=== PATIENT | female | born 1935 | race Caucasian/White ===

== ENCOUNTER → 2018-02-26 02:15 | Outpatient (CLI) | payer MEDICARE, OTHER, SELFPAY ==
--- NOTE | 2018-02-26 14:35 | DI.REPORT_ITS ---
SYMPTOMS/DIAGNOSIS: LEFT HIP PAIN, M25.559; LOW BACK PAIN, M54.5; LEFT KNEE PAIN, M25.562, WEAKNESS OF LEFT LEG, R53.1 LEFT HIP AND AP PELVIS: Multiple views. No priors. There is loss of the superior joint space of the left hip. Large subchondral cystic changes are seen in both the articular surfaces of the left femoral head and the superior acetabulum. There is also loss of volume of the left femoral head with flattening of the articular surface. Mild spurring is seen at the acetabular roof. No acute fracture or dislocation is identified. The right hip is well maintained. The sacroiliac joints and symphysis pubis appear intact. The soft tissues are unremarkable. IMPRESSION: Marked changes involving the left hip including loss of the joint space, subchondral cystic formation and flattening of the femoral head. This may represent advanced osteoarthritis. Advanced avascular necrosis should also be considered. Infection cannot be excluded. LEFT KNEE: Three views. No priors. Mild degenerative changes are seen in the knee. No acute fracture or dislocation is identified. The soft tissues are unremarkable. IMPRESSION: Mild degenerative changes of the left knee. LUMBAR SPINE: AP, lateral and bilateral oblique views. No priors. There is a marked right convex rotoscoliosis of the lower thoracic and lumbar spine. No acute fractures or subluxations are seen. No spondylolysis or spondylolisthesis is seen. Endplate osteophytes are seen from T12-L1 through L3-L4. There does appear to be disc space narrowing at T12-L1 and L2-L3. There are degenerative changes of the facets seen in the lower lumbar spine. IMPRESSION: 1. Marked dextrorotoscoliosis of the thoracolumbar spine. 2. Moderate degenerative changes in the lumbar spine.
== END ==
PROVIDERS: PCP Family Medicine; Visit Provider Family Medicine
DX: M25.552 Pain in left hip (principal); M16.12 Unilateral primary osteoarthritis, left hip; M54.5 Low back pain; M47.815 Spondylosis without myelopathy or radiculopathy, thoracolumbar region; M25.78 Osteophyte, vertebrae; M25.562 Pain in left knee; M17.12 Unilateral primary osteoarthritis, left knee
CPT/HCPCS: 72110; 73502; 73562

== ENCOUNTER 2018-03-26 13:27 | Outpatient (REF) | payer MEDICARE, SELFPAY ==
[2018-03-26 22:09] LABS: Abs Immature Grans 0.03 k/cumm (0.0-0.09); Absolute Basophil Count 0.02 k/cumm (0.0-0.2); Absolute Eosinophil Count 0.01 k/cumm (0.0-0.7); Absolute Lymphocyte Count 1.02 k/cumm (1.2-3.4); Absolute Monocyte Count 0.57 k/cumm (0.11-0.7); Absolute Neutrophil Count 6.39 k/cumm (1.2-6.7); Basophils % 0.2; Eosinophils % 0.1; HCT 39.3 % (36.0-46.0); Immature Grans % 0.4; Lymphocytes % 12.7; Mean Corp. HGB Concentration 33.1 g/dL (32.0-36.0); Mean Corpuscular Hemoglobin 31.6 pg (27.0-33.0); Mean Corpuscular Volume 95.4 fL (80-95); Mean Platelet Volume 10.9 fL (8.0-11.0); Monocytes % 7.1; Neutrophils % 79.5; Platelet Count 265 x1000/uL (130-400); RBC 4.12 m/cumm (4.00-5.20); RBC Distribution Width 13.2 % (11.7-14.6); White Blood Cell Count 8.04 k/cumm (4.4-10.8)
[2018-03-26 22:16] LABS: Anion Gap 8.3 mmol/L (3-11); BUN 27 mg/dL (7-18); C-Reactive Protein 0.18 mg/dL (0.0-0.3); CO2 30.7 mmol/L (21.0-32.0); Calcium 9.3 mg/dL (8.5-10.1); Chloride 97 mmol/L (98-107); Glucose 83 mg/dL (70-100); Potassium 4.3 mmol/L (3.5-5.1); Sodium 136 mmol/L (136-145)
[2018-03-26 22:50] LABS: ESR 41 MM/HR (0-30)
== END 2018-03-26 13:47 ==
LOC: NCHCN 13:27
PROVIDERS: PCP Family Medicine; Visit Provider Family Medicine
DX: M25.559 Pain in unspecified hip (principal); M25.562 Pain in left knee; R53.83 Other fatigue
CPT/HCPCS: 80048; 85652; 85025; 86140

== ENCOUNTER 2018-04-03 13:32 | Outpatient (CLI) | payer MEDICARE, OTHER, SELFPAY ==
--- NOTE | 2018-04-03 13:50 | DI.RAD_ITS ---
SYMPTOMS/DIAGNOSIS: AVN LT HIP LEFT HIP: Frontal and lateral views. Comparison is 02/26/18. There is again seen marked narrowing of the superior joint space of the left hip. There is flattening of the articular surfaces. Large subchondral cysts are seen in the femoral head with smaller cysts seen in the acetabular roof. Subchondral sclerosis is seen. No acute fracture or dislocation is present. The soft tissues are unremarkable. IMPRESSION: Stable changes in the left hip which may reflect advanced avascular necrosis. Advanced osteoarthritis should also be considered.
== END 2018-04-03 13:52 ==
PROVIDERS: Visit Provider Student in an Organized Health Care Education/Training Program
DX: M87.052 Idiopathic aseptic necrosis of left femur (principal); M16.12 Unilateral primary osteoarthritis, left hip; M25.562 Pain in left knee; M25.552 Pain in left hip
CPT/HCPCS: 99204; 99214; 73502

== ENCOUNTER 2018-04-09 01:00 | Outpatient (CLI) | payer MEDICARE, SELFPAY ==
[2018-04-09] MEDS: Gadoterate meglumine 20 ML VIAL 12 ML IVP (11:01)
--- NOTE | 2018-04-09 11:17 | DI.MRI_ITS ---
SYMPTOM/DIAGNOSIS: LT HIP DEFORMITY WITH CYSTS, ? INFECTION, M21.774 LEFT HIP MRI: Routine noncontrast examination was performed. Comparison xray is 04/03/18. In the superior acetabulum, there are multiple subchondral cysts present. Mild edema is seen in the marrow. The left femoral head shows mild marrow edema. There are several subchondral cysts present. There also appears to be loss of volume of the femoral head with flattening of the articular surface. There is loss of the joint space superiorly. There is a large joint effusion. No definite findings to suggest an occult fracture are seen. Following contrast administration, no abnormal enhancement is seen to suggest infection. There is moderate fatty atrophy of the left gluteus muscles. No soft tissue mass is appreciated. IMPRESSION: Findings most suggestive of advanced degenerative changes of the left hip. The findings were discussed with Dr Carmona on the date of the examination.
== END 2018-04-09 01:20 ==
PROVIDERS: PCP Family Medicine; Visit Provider Student in an Organized Health Care Education/Training Program
DX: M21.952 Unspecified acquired deformity of left thigh (principal); M85.452 Solitary bone cyst, left pelvis; M25.452 Effusion, left hip; M16.12 Unilateral primary osteoarthritis, left hip
CPT/HCPCS: 73723

== ENCOUNTER 2018-04-10 10:25 | Outpatient (CLI) | payer MEDICARE, SELFPAY ==
[2018-04-10 12:41] LABS: HCT 39.7 % (36.0-46.0); Mean Corp. HGB Concentration 32.7 g/dL (32.0-36.0); Mean Corpuscular Hemoglobin 31.6 pg (27.0-33.0); Mean Corpuscular Volume 96.4 fL (80-95); Mean Platelet Volume 9.8 fL (8.0-11.0); Platelet Count 246 x1000/uL (130-400); RBC 4.12 m/cumm (4.00-5.20); RBC Distribution Width 13.3 % (11.7-14.6); White Blood Cell Count 9.71 k/cumm (4.4-10.8)
[2018-04-10 12:55] LABS: Anion Gap 6.9 mmol/L (3-11); BUN 34 mg/dL (7-18); CO2 32.1 mmol/L (21.0-32.0); CREATININE 0.63 mg/dL (0.55-1.02); Calcium 9.4 mg/dL (8.5-10.1); Chloride 99 mmol/L (98-107); Glucose 128 mg/dL (70-100); Potassium 3.5 mmol/L (3.5-5.1); Sodium 138 mmol/L (136-145)
== END 2018-04-10 10:45 ==
PROVIDERS: PCP Family Medicine; Visit Provider Student in an Organized Health Care Education/Training Program
DX: M25.552 Pain in left hip (principal); M16.12 Unilateral primary osteoarthritis, left hip; Z01.812 Encounter for preprocedural laboratory examination
CPT/HCPCS: 80048; 85027; 86850; 86900; 86901

== ENCOUNTER 2018-04-11 10:58 | Inpatient (IN) | payer MEDICARE, SELFPAY ==
--- NOTE | 2018-04-10 12:37 | NUR.NOTE ---
04/10/18 Per Pt she sees a holistic PHD for a lot of her health care needs and supplement recommendations. Nursing Note:
--- NOTE | 2018-04-10 14:01 | HPE_ITS ---
Assessment and Plan (1) Avascular necrosis of bone of left hip: Current visit: Yes Status: Chronic The basic anatomy and the operative procedure is reviewed with the patient she is also given a patient information booklet formulated by Dr. Carmona that fully explains the ins and outs of total hip replacement. I addressed all her queries and concerns. She is scheduled for a total hip replacement by Dr. Carmona tomorrow on 04/11/2018. (2) Heart palpitations: Current visit: No Status: Chronic (3) Status post left breast lumpectomy: Current visit: No Status: Resolved (4) H/O hysterectomy for benign disease: Current visit: No Status: Resolved History of Present Illness Chief Complaint: Left lateral knee pain Narrative: This 82-year-old female began being troubled by left lateral knee pain of an atraumatic nature. She had a workup with x-rays and a clinical exam which showed her knee to have no evidence of OA she additionally had a workup with a left hip x-rays which showed advanced OA the x-ray showed a severe dependent degenerative changes with cystic changes and loss of acetabular femoral head joint space. The knee pain was felt to be a manifestation of referred hip pain. On further questioning the patient complained of difficulty applying her socks and shoes and dressing, walking and pain with any prolonged standing. She noted inability to lie flat in bed at night with sleep disturbance. Review of Systems ENT Reports system reviewed and no additional complaints, except as docu Cardiovascular Denies chest pain Comments: Patient describes episodes of several seconds of palpitations especially when she lies in bed at night. She adamantly relates that this never last longer than a couple seconds denying pounding in her chest and any lightheaded syncopal feeling. Respiratory Denies excessive phlegm production and Denies pain with cough Gastrointestinal Denies abdominal pain, Reports diarrhea (chronic), Denies nausea and Denies vomiting Genitourinary Denies hematuria and Denies dysuria Musculoskeletal Reports as per HPI PFSH Medical History 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) Heart palpitations (Chronic) Surgical History H/O hysterectomy for benign disease (Resolved) Status post left breast lumpectomy (Resolved) Meds Home Medications Medication Instructions Recorded Confirmed Type celecoxib 100 mg capsule 100 mg PO TID 04/03/18 04/10/18 History Cbd 1 cap PO TID 04/10/18 History Cucurmim 1 tab PO BID 04/10/18 04/10/18 History Lacto.acidophilus-Bif.animalis 1 cap PO DAILY 04/10/18 04/10/18 History [Probiotic] Thyroid Tincture 20 drp PO BID 04/10/18 History calcium carbonate-vitamin D3 1 tab PO DAILY 04/10/18 04/10/18 History [Calcium 600 + D(3)] diclofenac sodium [Voltaren] 4 g TOPICAL QID 04/10/18 04/10/18 History hawthorn [hawthorn morfin] 1 tab PO DAILY 04/10/18 04/10/18 History ibuprofen [Advil] 200 - 400 mg PO DIRECTED PRN 04/10/18 04/10/18 History multivitamin 1 cap PO DAILY 04/10/18 04/10/18 History oxycodone 0.5 - 1 tab PO TID PRN 04/10/18 04/10/18 History selenium 100 mcg PO BID 04/10/18 04/10/18 History vitamin B complex [B Complex 1] 1 tab PO DAILY 04/10/18 04/10/18 History Allergies Allergy/AdvReac Type Severity Reaction Status Date / Time tramadol Allergy Intermediate krish, Verified 04/10/18 11:54 GI, very ill Exam HENMT Face and sinus: normal facial exam Throat: tonisls abnormal and uvula midline Resp Auscultation: clear to auscultation bilaterally, no rales and no wheezes Cardio Jugular venous pressure: no JVD Rate: regular rate Rhythm: regular rhythm Heart Sounds: other (normal) Bruits: no carotid bruits Extrem Other: Exam is conducted in a wheelchair knee exam is benign with non-irritable flexion and extension. Exam of her left hip shows marked irritability with grimacing. She has no internal rotation and there is an audible click heard and felt. Her abduction is extremely limited. Results Labs Her CBC is normal with a WBC count of 9.77 along with an H&H which is 13.0/ 39.7. Glucose is 128 sodium is 138 over a potassium of 3.5 creatinine is 0.63
[2018-04-11] VITALS (11 sets, daily range): BP systolic 76–132; BP diastolic 43–79; PULSE 64–81; RESP 12–21; TEMP 35.6–37.2; O2SAT 77–98
[2018-04-11] MEDS: Lactated Ringers 1,000 ML 80 ML IV ×3 (11:36→17:32)
[2018-04-11] MEDS: Acetaminophen 500 MG TAB 1000 MG PO ×2 (11:37→19:59)
[2018-04-11] MEDS: oxyCODONE-CR 10 MG TABCR PO (11:37)
[2018-04-11] MEDS: Celecoxib 200 MG CAP 400 MG PO (11:37)
[2018-04-11] MEDS: Ketorolac 30 MG/ML VIAL (14:17)
[2018-04-11] MEDS: Bupivacaine 0.25% Pres-Free 30 ML VIAL (14:17)
--- NOTE | 2018-04-11 14:26 | DI.RAD_ITS ---
SYMPTOMS/DIAGNOSIS: LT HIP OA C-ARM FLUOROSCOPY OF THE LEFT HIP: Fluoroscopy Time: 41.4 sec 3.78 mGy Fluoroscopy was provided in the OR for Dr. Carmona. Hardcopy images show placement of a left total hip prosthesis. The components appear well aligned. PORTABLE PELVIS: The patient is status post placement of a left total hip prosthesis. The components appear well aligned. There is a small amount of residual post surgical air in the soft tissues.
[2018-04-11] MEDS: Celecoxib 200 MG CAP PO (19:59)
--- NOTE | 2018-04-11 20:24 | W.PM.OP ---
Date of service: 04/11/18 Time of Service: 15:24 Operative Note DATE OF PROCEDURE: 04/11/18 PRE-OP DIAGNOSIS: Left Hip Osteoarthritis POST-OP DIAGNOSIS: same PROCEDURE: Left Anterior Total Hip Arthroplasty SURGEON: Jorge Luis Carmona CHIEF DEPUTY SHERIFF: Cuco Andujar ANESTHESIA: spinal ESTIMATED BLOOD LOSS: 350 PATHOLOGY: none sent COMPLICATIONS: None Patient was transported to: PACU Patient's condition: stable Implants: 1. Depuy [place] Acetabular Component, 48 mm 2. Depuy Acetabular Liner, 48x32 mm 3. Depuy Corail standard Collared femoral Stem, Size 11 4. Depuy Altrx Ceramic Femoral Head, Size 32+1 mm Indications: I have seen Kierra in clinic for symptoms of hip arthritis, confirmed with radiographic findings. Kierra has exhausted nonoperative methods and was having significant limitations in daily function and desired better function and less pain. I discussed the technical details of a hip replacement. I explained the risks of the procedure to include, but not limited to, bleeding, infection, pain, stiffness, fracture, damage to nerves and vessels, damage to muscles and tendons, loosening, instability, leg length inequality, need for repeat procedure, blood clot and cardiopulmonary demise. Despite these risks, Kierra elected to proceed. Findings: There was significant signs of arthritis throughout the hip. There is some collapse of the femoral head. There are arthritic changes seen both of the femur and the acetabulum. The hip had been migrated to a superior lateral position. The cyst were not encountered on the acetabulum and nor were they sought. I was able to get good bony contact but I did move the hip center somewhat superiorly to the better bone. Procedure Description: Kierra was greeted in the preoperative holding area where the correct side was identified and marked. The consent was reviewed with the patient and signed. The history and physical was updated. All questions were answered. Kierra was taken back to the operating room. A spinal anesthestic was then administered. The patient was placed into the supine position on the operating room table. The patient was then positioned onto the ARCH table. Both feet were wrapped with [place] cotton wrap along with Coban. The feet were placed in specialized boots for the ARCH table, well seated within the boot and secured. SCDs were applied. The patient was then slid down onto a peroneal post and the nonoperative leg was secured in a leg hernandez attached to the table. The operative side was placed into the ARCH table attachment and bed height and positioning was secured. A preoperative AP pelvis was obtained to serve as a reference for determining leg lengths. Prophylactic antibiotics in the form of cefazolin were administered. 1g of Tranxemic Acid was given intravenously within 30 minutes of incision. The left leg was then prepped with Chloraprep and draped in a standard fashion with a large shower-curtain type drape with Iodine impregnated skin protection. A timeout to confirm correct identity, side and site, procedure, allergies, anesthesia, and medical concerns was performed. An obliquely oriented incision was made starting lateral to the ASIS and running distal over the Tensor Fascia Kori (TFL) muscle belly toward the fibular head, approximately 10cm. The skin and soft tissue was dissected sharply, through Alcides?s fascia, and to the fascia of the TFL. With the fascia and superior border of the IT band identified, the fascia was incised with a new knife just above any perforators from the IT band. The TFL muscle belly was bluntly dissected away from the fascia and moved laterally. The fat between TFL and rectus was identified to ensure the dissection was not within the TFL. Blunt dissection created space between abductors and the capsule and retractor was placed over the lateral femoral neck. The fibers of the rectus femoris tendon were identified and these were freed from the anterior capsule. A second cobra retractor was placed around the medial femoral neck. The TFL was further retracted laterally to show the deep fascia. Careful dissection through this layer identified three main crossing vessels of the lateral femoral circumflex. These were cauterized in multiple locations and then cut without any noticeable bleeding. The TFL was further released bluntly from the deep fascia to expose anterior hip capsule and fat the Davin orthopaedic retractor was then placed beneath the TFL and against sartorius and medial soft tissues to protect and retract the soft tissues. A T-capsulotomy was then performed starting at the superior lateral acetabulum and moving distally to the intertrochanteric ridge. These capsular flaps were tagged with a No. 1 Ethibond and elevated from within. The capsular flaps were released to the shoulder of the lateral neck and to the lesser trochanter to give excellent visualization of the proximal femur. A neck osteotomy was performed using an oscillating saw based on preoperative templates. This cut started in the shoulder and of the lateral neck and exited medially. The saw was at all times directed medially to avoid injury to the greater trochanter. 6cm of traction was applied to the leg and the osteotomy opened. The femoral head was removed with a corkscrew, making sure to protect the TFL on its exit. This was measured on the back table to determing the starting reamer size. Portions of the rectus obscuring visualization were minimally elevated off the superior acetabulum. An anterior retractor was placed over the anterior wall between capsule and labrum. A posterior retractor was placed similarly. This provided excellent visualization. The contents of the cotyloid fossa were removed with electrocautery and the labrum was removed with a knife. There was a notable floor osteophyte. There was significant chondromalacia of the superior acetabulum. Acetabular reaming began with a 44 mm reamer. This first reaming was directed anterior to posterior and medial to get down to the true floor. This was inspected and reamed until the true floor was reached. I then reamed sequentially up to a 47 mm reamer where good fit was obtained. The larger reamers were oriented based on anatomical reference of the anterior and lateral garcia to ensure proper abduction and anteversion. Positioning and size was confirmed with the fluoroscopy. A 48 mm Depuy [place] acetabular component was selected. The acetabulum was reamed around the periphery with the selected acetabular size to prevent a rim fit. The deep tissues were irrigated. The acetabular component was then impacted in a position of about 50 degrees of abduction and 15-20 degrees of anteversion, using the patient?s anatomy as the ultimate landmark. Fluoroscopy was used to confirm this. Please accompanied more of a vertical position due to the shallow nature of the cup in order to maximize bony coverage. It seemed like and maximize the anteversion although I still was under anteverted based on her anterior wall. There was excellent position description manager of the acetabular component and the inserting handle was removed. A primary acetabular screw was placed into the ilium by drilling through one of the holes in the acetabular component. This was measured and an approrpriately sized screw was placed with excellent purchase. It was checked not to be proud. A second screw was placed in a similar fashion. The acetabular liner, Depuy 48x32 mm polyethylene liner, was inserted and lined up with the tines of the acetabular component. There was no soft tissue interposition. The liner was then impacted into position and confirmed to be well-seated. A portion of the aime-articular cocktail was then injected around the acetabulum into the capsule and periosteum. This cocktail consisted of 50cc of 0.25% Bupivicaine and 20cc of Exparel, expanded to a total of 120cc. Traction was released from the femur. The leg was rotated to 120 degrees. Any remaining medial capsule was released until the lesser trochanter was easily palpable. A Godwin retractor was placed medially. The lateral capsule was further released into the shoulder to allow access to the greater trochanter. A Godwin retractor was placed over the greater trochanter which allowed the trochanter to flip in front of the capsule for excellent exposure. The leg was brought down into maximal extension and 20 degrees of adduction while ensuring there was no impingement on the acetabulum. Any remnant capsule within the trochanter was released. Piriformis and obturator externis were identified and protected. There was excellent access to the proximal femur. The lateral neck remnant was removed with a rongeur. A blunt canal probe was used to identify the canal and trajectory for later broaching. A box osteotome initiated the broach course. A small curved rasp and a curved curette were used to work laterally. Broaching then began with a size 8 Corail broach. This was inserted manually around the trochanter and into the canal before mallet blows. The broach was seated to the neck cut level based on the neck cut and the preoperative template. Sequential broaching was continued until a tight fit was obtained with good rotational control of the femur. A trial standard neck was inserted along with a +1 trial head. The leg was brought out of extension and adduction and then reduced with traction and internal rotation. The leg was stable anteriorly in a position of 30 degrees of extension and 90 degrees of external rotation. Fluoroscopy was used to ensure there was no fracture and the stem was seated well. Leg lengths were checked with an AP pelvis and pelvic reference points. Once content with the desired offset and leg lengths, the leg was brought back into extension, external rotation and adduction. The periosteum and surrounding tissue was injected with remaining portion of the aime-articular cocktail. The proximal femur was irrigated as well as the deep tissues. The [employer] Corail standard collared stem, size 11, was then manually inserted into the proximal femur making sure to control rotation. It was then malleted into position with light blows, giving breaks to allow bone expansion and decrease risk of fracture. The selected Depuy Altrx Ceramic Head, size 32+1 mm, was then placed onto the clean and dry trunnion and secured with impaction onto the tapered fit. The leg was brought back out of extension and adduction and reduced with traction and internal rotation. Stability was confirmed with no shuck at 90 degrees of external rotation and 30 degrees of extension. No impingement through range of motion arc. Final x-ray images were obtained with fluoroscopy to confirm adequate positioning and no intraoperative fracture. The deep tissues were thoroughly irrigated with a pulse lavage. The second dose of TXA 1g was administered intravenously. The capsule was then reapproximated with the previously placed Ethibond sutures. The TFL fascia was finally closed with a No. 2 Stratafix, barbed suture. Deep tissues were then reapproximated with 0 Vicryl and a running 2-0 Vicryl. The skin was closed with a running 4-0 Monocryl in a subcuticular fashion. This was reinforced with skin glue. A Mepilex silver dressing was applied. At the end of the case, all counts were correct. Kierra was transferred to the hospital bed without difficulty and suffering no apparent complication. Kierra has a good prognosis. Physical therapy will start today and without restrictions, weight-bearing as tolerated. Aspirin 81mg BID will be used for DVT prophylaxis.
[2018-04-12] VITALS (8 sets, daily range): BP systolic 92–123; BP diastolic 51–64; PULSE 66–89; RESP 14–18; TEMP 36.5–36.9; O2SAT 94–98
[2018-04-12] MEDS: Lactated Ringers 1,000 ML 80 ML IV ×2 (07:02→18:08)
[2018-04-12 07:30] LABS: HGB 9.7 g/dL (12.0-15.5); Mean Corp. HGB Concentration 33.4 g/dL (32.0-36.0); Mean Corpuscular Volume 95.7 fL (80-95); Mean Platelet Volume 10.1 fL (8.0-11.0); Platelet Count 186 x1000/uL (130-400); RBC 3.03 m/cumm (4.00-5.20); White Blood Cell Count 11.66 k/cumm (4.4-10.8)
[2018-04-12 07:45] LABS: Anion Gap 5.9 mmol/L (3-11); BUN 21 mg/dL (7-18); CO2 28.1 mmol/L (21.0-32.0); CREATININE 0.58 mg/dL (0.55-1.02); Calcium 8.1 mg/dL (8.5-10.1); Chloride 107 mmol/L (98-107); Glucose 96 mg/dL (70-100); Potassium 4.1 mmol/L (3.5-5.1); Sodium 141 mmol/L (136-145)
[2018-04-12] MEDS: Calcium 600mg/Vit D 200U TAB 1 TAB PO (08:12)
[2018-04-12] MEDS: Pantoprazole 40 MG TABCR PO (08:12)
[2018-04-12] MEDS: Multivitamin TAB 1 TAB PO (08:12)
[2018-04-12] MEDS: Aspirin E.C. 81 MG TABEC PO ×2 (08:12→20:36)
[2018-04-12] MEDS: oxyCODONE 5 MG TAB PO (08:13)
[2018-04-12] MEDS: Lactobacillus Acidophilus CAP 1 CAP PO (08:13)
[2018-04-12] MEDS: Celecoxib 200 MG CAP PO ×2 (08:13→20:37)
[2018-04-12] MEDS: Acetaminophen 500 MG TAB 1000 MG PO ×3 (08:14→20:37)
[2018-04-12] MEDS: Vitamins B Comp w/C TAB 1 TAB PO (08:16)
--- NOTE | 2018-04-12 09:09 | PHARADMIT ---
Addendum entered by Elke Turner 04/14/18 14:41: Pharmacy Note Subjective continues to work w/PT for her necrosis of bone of left hip surgery on 04/11/18 Objective BP 98/60, HR 60-70's, last labs on 04/12 Assessment BP fluctuations adding Remeron 15mg HS tonight for s/s depression Plan Psych consult Sunday Possible H&R on Sunday if bed available Original Note: Admission Pharmacy Clinical Review PALPITATIONS Code Status Full Code Current Weight Wgt-64 kg Renally Cleared and Narrow Therapeutic Index Meds CrCl~ 39.6 mL/min Meds-OK QTc Value / Action Taken NA BP Control, Fever BP- 92/54 Tmax- 36.8C Electrolytes reviewed Na- 141 K+4.1 DVT Prophylaxis NA Opiate Usage / Scheduled Bowel Regimen Ordered Yes Yes Plt/SCr for Heparin / Enoxaparin Plts- 186 SCr- 0.58 INR for Warfarin NA H/H stable, WBC/Bands H&H- 9.7/29.0 WBC- 11.66 Antibiotic appropriateness Ancef Cultures and Sensitivities NA Surgical ABX d/c within 24 hr Yes DM control / Insulin Dosing BG-96 Heart Failure (Check EF%) (UVALDO's, B-Block, Diuretics) none IV to PO Switch No Home Meds Reviewed Yes Home Meds Not Ordered , Advil,M-Vites, CBD, Thyroid tinc, Selenium< Comments PatOwn Seadrift, Cucurmin,Voltaren Gel
--- NOTE | 2018-04-12 09:53 | IN_ITS ---
Date of service: 04/12/18 Time of Service: 09:31 PT Notes Inpatient Physical Therapy Evaluation Date: 04/12/18 Referring Doctor: Jorge Luis Carmona PT Orders: PT CONSULT: s/p L anterior SHITAL Precautions: WBAT L LE Patient Profile/Admitting Diagnosis: Pt is an 82yr old female s/p left anterior total hip by Dr. Carmona 04/11/18 PMHX: left breast lumpectomy, hysterectomy Social History/Home Situation: Lives alone in a house, 2 steps with grab bar to enter, 12 steps with railing to downstairs where she does laundry. Pt states she would only have to go downstairs once a week, states she has had friends helping her but she will need someone at discharge to help with her laundry and groceries until she recovers from surgery. Pt 's baseline mobility is independent gait with 4WW, independent with ADLS performs a sponge bath. Pt states she would rather not go to rehab at discharge, she would like to go home but will need increased help. Equipment Owned/DME: 4WW, raised toilet seat with arms Subjective: Pt lying in bed, anxious, worried about getting out of bed. Pt stating her left knee is sore, states her knee was very painful before the surgery and now it is just sore. Pt agreeable to PT Consult. Objective: General Observation: IV R UE, [place] catheter Mental Status: A & Ox3 Pain: c/o pain left knee not rated Bed Mobility/Transfers: Supine-sit: HOB 35 degrees, CGA Sit-stand: CGA with FWW. Pt very anxious and pulling up on FWW instead of leaning forward, required tactile assistance for proper weight shifting to maintain balance to standing position Bed-chair: CGA with FWW Stand-sit: CGA Gait: CGA with FWW 20ftx2 WBAT L LE. slow step to gait pattern, pt very anxious requiring step by step cueing to sequence steps for safety. Pt left up in chair after session completed. Therex: Initiated ankle pumps, quad sets, glute sets x 20 reps Balance: Static Sitting: normal Dynamic Sitting: normal Static Standing: fair Dynamic Standing: poor Special Tests: Mobility Limitations Standardized Measure [facility] 6 clicks Basic Mobility Inpatient Short Form: Raw Score: 17 Standardized Score: 42.13 CMS Score: 50.57% CMS Modifier: CK Informed Consent/Education: Patient instructed in purpose of PT consult and plan of care. Assessment: Pt is an 82yr old female s/p left anterior total hip by Dr. Carmona 04/11/18. Patient presents with clinical signs and symptoms consistent with post op anterior SHITAL, as demonstrated by the following impairment level findings: pain left hip affecting mobility, weakness left hip, decreased strength with bed transfers, standing transfers and gait requiring FWW for stability and increased time to complete mobility, pt is very anxious which increases her risk for falls, she presents with decreased static and dynamic standing balance. Pt lives alone and is concerned about returning to home setting without increased support services in home to assist with meals and laundry. Pt may require rehab placement prior to return to home, unless supportive home services can be put in place. OT consult recommended in hospital setting for instruction in safety with ADLS. Impairments are contributing to the following functional limitations: AMPAC score CMS Score: 50.57% Patient is assessed as a High [id number] complexity based on the following: History: see above Examination: see above Presentation: evolving Decision Making: AMPAC score CMS Score: 50.57% Goals: Goals X1 week 1. Supine-Sit : independent 2. Sit-Supine : independent 3. Sit-Stand : supervision with FWW 4. Stand-Sit : supervision with FWW 5. Bed-Chair : supervision with FWW 6. Chair-Bed : supervision with FWW 7. Gait : supervision with FWW 100ft WBAT L LE 8. Stairs up/down 12 steps with railing, supervision, WBAT L LE 9. Independent with home exercise program Plan of Care/Treatment Plan: 1-2x/day, 7 days/week x 1 week. Plan of care has been reviewed with the [employer] providing the service under Physical Therapy direction. Initiate Physical Therapy intervention for strengthening, bed mobility, transfers, gait, stairs, balance training, use of assistive device. DISCHARGE RECOMMENDATIONS: Home with home PT/OT vs. rehab facility TREATMENT CODE/TIME: 30 IE 9:30 G Codes in the area mobility of walking and moving around: current status [id number] CK; projected status GP [id number]. Discharge status (if discharging) GP [id number] CK based on AMPAC score CMS Score: 50.57% Amy Hallman PT
--- NOTE | 2018-04-12 10:53 | OT.INIE ---
Occupational Therapy Notes Inpatient Occupational Therapy Evaluation Date: 04/12/18 Referring Doctor:Jorge Luis Carmona MD OT Orders: S/P L SHITAL Precautions: WBAT (L) LE PATIENT PROFILE/ADMITTING DIAGNOSIS: Pt is an 82 year old female s/p (L) SHITAL performed by Dr. Carmona on 04/11/18. Past Medical History: (L) breast lumpectomy, hysterectomy Current Functional Limitations: Decreased (I) in ADLs, anxious to return home, decreased functional activity tolerance, decrease functional (B) UE strength. Social History/Home Situation: Pt reports that she lives alone in a private home. She has 2 steps with railing to enter her home, 12 steps to her basement where she performs her laundry. She reports that she doesn't have to go down the stairs frequently and has friends who would come and help her but she is unsure as to whether they will be able to help her when she returns home. She reports that her previous independence in ADL/IADLS was (I) bathing at sink, (I) UE dressing, unable to dress socks and shoes so she wore slippers, (I) toileting and (I) in cooking. However had assistance with laundry and grocery shopping. Pt will need (A) when she returns home for these. Pt states that she does not want to go to any type of rehab pnce leaving her and she would like to return home with increased help. Equipment owned/DME: 4WW, raised toilet seat with arms. SUBJECTIVE: Pt sitting in chair when OT arrived. She states that she is agreeable to OT session but she is very scared to move her leg right now. OT educated pt on WBAT status and ability to put weight on hip. Pt receptive to education and states that she is unsure how to explain how she was feeling about moving. OBJECTIVE: General Observation: IV R UE, [place] catheter Mental Status: A&Ox3 Pain: no c/o pain but states that hip is uncomfortable. ROM: RUE WNL L UE WNL STRENGTH: RUE shoulder 3+/5, bicep 5/5, lease purchase driver 5/5. Pt reports that her (R) ej tends to ache from previous fall that occurred a couple years ago. LUE shoulder 4/5, bicep 5/5, lease purchase driver 5/5 SENSATION: No numbness or tingling (B) UE. FUNCTIONAL MOBILITY/ADLS: Sit-Stand CGA, FWW BATHING Pt denies. DRESSING Dressing LE Education and sock aid provided to pt with written and illustrated handout to increase (I) in donning socks. Pt demonstrates good technique with minimal verbal cues. TOILETING: [place] EXERCISES: Pt educated on UE strengthening to increase (I) in functional mobility and ADL routine. Pt performed biceps with yellow ther ex 10x (B) UE, Shoulder flexion with yellow band 10x, and lease purchase driver strengthening with pink foam cube. Pt unable to perform chair push ups at this time. Pt EDUCATION: Pt provided written and illustrated handout for mobility with walker, functional mobility with walking in the kitchen, and use of sock aid. Pt receptive to education provided. BALANCE: Static sitting normal Dynamic Sitting good Static Standing fair-good SPECIAL TESTS: Daily Activity Limitations Standardized Measure [facility] AM -PAC ?6 clicks? Daily Activity Inpatient Short Form: Raw score: 20 Standardized score: 42.03 CMS score: 38.32% CMS modifier: CJ INFORMED CONSENT/EDUCATION: Pt instructed in purpose of OT Consult and plan of care. ASSESSMENT: Patient is a 82-year-old female referred to occupational therapy services with diagnosis of s/p (L) SHITAL. Pt presents with signs and sym[ptoms consisted with post op (L) SHITAL. Pt presents with the following following impairment level findings: Decreased strength in (B) UE affecting independence in functional mobility, use of walker and safe transitions between routines. Decreased (I) in ADLs, anxious to return home, decreased functional activity tolerance. Her anxiety to return home and fear of pain in her (L) leg is limiting her independence in her daily routines. Pt is very nervous to return home and is anxious about increased support when she returns home for her laundry and meals. Pt will need increased support services in order to return home or short term stay at rehab to increase strength and independence in ADLs. AMPAC score 20, CMS score 38.32% Patient is assessed as a Moderate [id number] complexity based on the following: History: see above Examination: see above Presentation: evolving Decision Making: AMPAC score 20, CMS score 38.32% GOALS Goals x1 week 1. Transfers S, FWW 2. Dressing UE- (I) done and doff shirt LE- mod (I) with sock aid for socks, able to pull on pants/ underwear with minimal verbal cues and FWW 3. Bathing: Standing at sink with long handled sponge pt will be (I) with routine like premorbid level of function. 4. Toileting: On raised toilet, (I) PLAN OF CARE/TREATMENT PLAN: 1x/day, 5 days/ week x 1week Initiate Occupational Therapy Services for bathing, dressing, grooming, toileting, eating, transfer training. DISCHARGE RECOMMENDATIONS home with increased support services including OT/PT. If unable to provide services short term stay at rehab. TREATMENT TIME/MINUTES/CODES 40 min IE, Self care x1, 10:05 G Codes in the area of self- : washing oneself, toileting, dressing, eating and drinking, current status [id number] CJ projected status GP [id number].
--- NOTE | 2018-04-12 11:13 | OTIE_ITS ---
Occupational Therapy Notes Inpatient Occupational Therapy Evaluation Date: 04/12/18 Referring Doctor:Jorge Luis Carmona MD OT Orders: S/P L SHITAL Precautions: WBAT (L) LE PATIENT PROFILE/ADMITTING DIAGNOSIS: Pt is an 82 year old female s/p (L) SHITAL performed by Dr. Carmona on 04/11/18. Past Medical History: (L) breast lumpectomy, hysterectomy Current Functional Limitations: Decreased (I) in ADLs, anxious to return home, decreased functional activity tolerance, decrease functional (B) UE strength. Social History/Home Situation: Pt reports that she lives alone in a private home. She has 2 steps with railing to enter her home, 12 steps to her basement where she performs her laundry. She reports that she doesn't have to go down the stairs frequently and has friends who would come and help her but she is unsure as to whether they will be able to help her when she returns home. She reports that her previous independence in ADL/IADLS was (I) bathing at sink, (I ) UE dressing, unable to dress socks and shoes so she wore slippers, (I) toileting and (I) in cooking. However had assistance with laundry and grocery shopping. Pt will need (A) when she returns home for these. Pt states that she does not want to go to any type of rehab pnce leaving her and she would like to return home with increased help. Equipment owned/DME: 4WW, raised toilet seat with arms. SUBJECTIVE: Pt sitting in chair when OT arrived. She states that she is agreeable to OT session but she is very scared to move her leg right now. OT educated pt on WBAT status and ability to put weight on hip. Pt receptive to education and states that she is unsure how to explain how she was feeling about moving. OBJECTIVE: General Observation: IV R UE, [place] catheter Mental Status: A&Ox3 Pain: no c/o pain but states that hip is uncomfortable. ROM: RUE WNL L UE WNL STRENGTH: RUE shoulder 3+/5, bicep 5/5, drop hammer setter up 5/5. Pt reports that her (R) ej tends to ache from previous fall that occurred a couple years ago. LUE shoulder 4/5, bicep 5/5, drop hammer setter up 5/5 SENSATION: No numbness or tingling (B) UE. FUNCTIONAL MOBILITY/ADLS: Sit-Stand CGA, FWW BATHING Pt denies. DRESSING Dressing LE Education and sock aid provided to pt with written and illustrated handout to increase (I) in donning socks. Pt demonstrates good technique with minimal verbal cues. TOILETING: [place] EXERCISES: Pt educated on UE strengthening to increase (I) in functional mobility and ADL routine. Pt performed biceps with yellow ther ex 10x (B) UE, Shoulder flexion with yellow band 10x, and drop hammer setter up strengthening with pink foam cube. Pt unable to perform chair push ups at this time. Pt EDUCATION: Pt provided written and illustrated handout for mobility with walker, functional mobility with walking in the kitchen, and use of sock aid. Pt receptive to education provided. BALANCE: Static sitting normal Dynamic Sitting good Static Standing fair-good SPECIAL TESTS: Daily Activity Limitations Standardized Measure [facility] AM -PAC ?6 clicks? Daily Activity Inpatient Short Form: Raw score: 20 Standardized score: 42.03 CMS score: 38.32% CMS modifier: CJ INFORMED CONSENT/EDUCATION: Pt instructed in purpose of OT Consult and plan of care. ASSESSMENT: Patient is a 82-year-old female referred to occupational therapy services with diagnosis of s/p (L) SHITAL. Pt presents with signs and sym[ptoms consisted with post op (L) SHITAL. Pt presents with the following following impairment level findings: Decreased strength in (B) UE affecting independence in functional mobility, use of walker and safe transitions between routines. Decreased (I) in ADLs, anxious to return home, decreased functional activity tolerance. Her anxiety to return home and fear of pain in her (L) leg is limiting her independence in her daily routines. Pt is very nervous to return home and is anxious about increased support when she returns home for her laundry and meals. Pt will need increased support services in order to return home or short term stay at rehab to increase strength and independence in ADLs. AMPAC score 20, CMS score 38.32% Patient is assessed as a Moderate [id number] complexity based on the following: History: see above Examination: see above Presentation: evolving Decision Making: AMPAC score 20, CMS score 38.32% GOALS Goals x1 week 1. Transfers S, FWW 2. Dressing UE- (I) done and doff shirt LE- mod (I) with sock aid for socks, able to pull on pants/ underwear with minimal verbal cues and FWW 3. Bathing: Standing at sink with long handled sponge pt will be (I) with routine like premorbid level of function. 4. Toileting: On raised toilet, (I) PLAN OF CARE/TREATMENT PLAN: 1x/day, 5 days/ week x 1week Initiate Occupational Therapy Services for bathing, dressing, grooming, toileting, eating, transfer training. DISCHARGE RECOMMENDATIONS home with increased support services including OT/PT. If unable to provide services short term stay at rehab. TREATMENT TIME/MINUTES/CODES 40 min IE, Self care x1, 10:05 G Codes in the area of self- : washing oneself, toileting, dressing, eating and drinking, current status [id number] CJ projected status GP [id number].
--- NOTE | 2018-04-12 13:30 | W.PM.PROGNOT ---
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 At this point she has been doing well. She does have significant weakness about the left hip. Her hip was high riding and the portion of the rectus muscle had to be elevated. I expect that this weakness is simply due to deconditioning and pain. The pain she had before surgery is now gone. We will continue with physical therapy. She is quite deconditioned and lives by herself and may require rehabilitation stay. We will continue with aspirin 81 mg twice daily for blood clot prevention. She will continue with physical therapy with weightbearing as tolerated. Discharge planning with case management. Subjective Interval history since last seen: Kierra reports doing well. She no longer has the knee pain and hip pain that she was having before. She does report significant fatigue. She also has significant weakness of the left leg. She does admit that she is not aware of any strength of this left leg for some time but is noticing now when she tries to flex the left hip that she is having a difficult time. She denies any numbness or tingling. She denies any fever or chills. No chest pain or shortness of breath. Exam Narrative Exam Narrative: Evaluation of the left leg shows a clean dry and intact dressing. She does have limited hip flexion. She has some pain on the anterior hip with straight leg raise. She tolerates flexion of 95 degrees, internal rotation 20 degrees and external rotation to 40 degrees without crepitus and without pain. Knee exam is benign. Sensation intact light touch over the deep and superficial peroneal nerves and tibial nerve. The foot is warm and well perfused. Objective Objective Clinical Data: Abnormal lab results 04/12/18 04/12/18 Range/Units 06:30 06:30 WBC 11.66 H (4.4-10.8) k/cumm RBC 3.03 L (4.00-5.20) m/cumm Hgb 9.7 L D (12.0-15.5) g/dL Hct 29.0 L D (36.0-46.0) % MCV 95.7 H (80-95) fL BUN 21 H D (7-18) mg/dL Calcium 8.1 L (8.5-10.1) mg/dL Vital Signs Temperature 36.8 C 04/12/18 11:31 Temperature Source Tympanic 04/12/18 11:31 Pulse 66 04/12/18 11:31 Pulse Rhythm Regular 04/12/18 08:15 Respiratory Rate 18 04/12/18 11:31 Respiratory Effort Non-Labored 04/12/18 08:15 Respiratory Depth Normal 04/12/18 08:15 Respiratory Pattern Normal 04/12/18 08:15 Blood Pressure 103/64 04/12/18 11:31 Pulse Oximetry 98 04/12/18 11:31 Respiratory End-tidal CO2 33 04/11/18 15:20 Oxygen Delivery Method Room Air 04/12/18 11:31 Oxygen Flow Rate 0 04/12/18 11:31 Pain Level 0 04/12/18 11:31 Comment 04/12/18 09:22 Intake & Output 04/11/18 04/12/18 04/12/18 23:59 11:59 23:59 Intake Total 2285.333 / 2285.333 1400 / 1400 Output Total 2250 / 2250 350 / 350 Balance 35.333 / 35.333 1050 / 1050 Weight 64 kg Intake: IV 2285.333 / 2285.333 1050 / 1050 Oral 350 / 350 Output: Urine 1850 / 1850 350 / 350 Estimated Blood Loss 400 / 400 Other: Urine Color Pale Yellow Yellow Urine Appearance Clear Clear Urine Odor None Comment pt had the sensation to urinate. MANAGER OF CUST[employer]ER [employer]ILLING did bladder scan, amount was 0 for 6+ scans. Emesis Description None Voiding Methods Indwelling Catheter Laboratory Results WBC 11.66 k/cumm (4.4-10.8) H 04/12/18 06:30 RBC 3.03 m/cumm (4.00-5.20) L 04/12/18 06:30 Hgb 9.7 g/dL (12.0-15.5) L D 04/12/18 06:30 Hct 29.0 % (36.0-46.0) L D 04/12/18 06:30 MCV 95.7 fL (80-95) H 04/12/18 06:30 MCH 32.0 pg (27.0-33.0) 04/12/18 06:30 MCHC 33.4 g/dL (32.0-36.0) 04/12/18 06:30 RDW 13.0 % (11.7-14.6) 04/12/18 06:30 Plt Count 186 x1000/uL (130-400) 04/12/18 06:30 MPV 10.1 fL (8.0-11.0) 04/12/18 06:30 Sodium 141 mmol/L (136-145) 04/12/18 06:30 Potassium 4.1 mmol/L (3.5-5.1) 04/12/18 06:30 Chloride 107 mmol/L (98-107) 04/12/18 06:30 Carbon Dioxide 28.1 mmol/L (21.0-32.0) 04/12/18 06:30 Anion Gap 5.9 mmol/L (3-11) 04/12/18 06:30 BUN 21 mg/dL (7-18) H D 04/12/18 06:30 Creatinine 0.58 mg/dL (0.55-1.02) 04/12/18 06:30 Estimated GFR/1.73 m2 >= 60.00 (mL/min/1.73m2) 04/12/18 06:30 Glucose 96 mg/dL (70-100) 04/12/18 06:30 Calcium 8.1 mg/dL (8.5-10.1) L 04/12/18 06:30
--- NOTE | 2018-04-12 15:18 | PT.INTREAT ---
Date of service: 04/12/18 Time of Service: 14:49 PT Notes Inpatient Physical Therapy Treatment Note Date: 04/12/18 PRECAUTIONS: Fall precautions, WBAT L LE SUBJECTIVE: Pt still sitting in chair from this morning, agreeable to therapy session and transfers back to bed. OBJECTIVE: General Observation: IV R UE, [place] catheter Pain: c/o pain left knee not rated Bed Mobility/Transfers: Sit-stand: CGA with FWW. Chair-bed: CGA with FWW Stand-sit: CGA Sit-supine: HOB flat, Claudia for LEs Gait: CGA with FWW 20ftx2 WBAT L LE. Therex: Performed ankle pumps, quad sets, glute sets x 20 reps Balance: Static Sitting: normal Dynamic Sitting: normal Static Standing: fair Dynamic Standing: poor ASSESSMENT: Pt up in chair most of the day, improved mobility with reduced anxiety in the afternoon compared to the morning session. Still requires frequent verbal cues for sequencing tasks. Continue progression fo strengthening and progressive mobility training over weekend. PLAN: Progress strengthening Progress gait distance TREATMENT CODE/TIME: 25min TAx1 TPx1 [id number] Amy Hallman PT
--- NOTE | 2018-04-12 16:35 | PDOC.CMIN ---
- If Service Date Differs Date of service: 04/12/18 Time of Service: 10:00 Care Management Initial Assess REASON FOR HOSPITALIZATION:: Total Left hip PAST MEDICAL HISTORY/PAST SURGICAL HISTORY:: Avascular necrosis of left hip bone, heart palpitations, left breast lumpectomy, hysterectomy. 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 She has one daughter that she has not spoken to in 18 years. Her spouse in 1993. She does not drive she has friends that live in her remote area that provide her some support. Her friend Lolis is the one that brought her to the hospital. CURRENT FUNCTIONAL STATUS:: Kierra is sitting up in the chair she has just completed her visit with OT. She states that she lives on one floor however her laundry facilities are in the basement. She has been unable to go down to the basement due to pain in her left hip. She states she thinks it would be a good idea to transition to a SNF for short term rehab services. She does not have any family or caregivers at home that could assist. She thinks she may have had a meeting with [employer] for homemaker services but she is unsure. ADVANCE DIRECTIVES:: On file at [facility] Has patient been provided with information about the portal?: Yes Did the patient sign up for the portal?: No CODE STATUS:: Full Code INSURANCE COVERAGE / FINANCIAL ISSUES:: Medicare, [place] CURRENT HOME/COMMUNITY SERVICES/EQUIPMENT:: [facility] for transportation, [employer] [employer] PRIMARY CARE PHYSICIAN:: POTENTIAL DISCHARGE NEEDS:: Referral to short term rehab facilities for PT/OT prior to returning home with home health services. PATIENT/FAMILY EDUCATION NEEDS:: Discharge education, limitaitons and follow up plan of care. ANTICIPATED BARRIERS TO DISCHARGE:: Referral to local SNF facilities, discharge pending bed offer TRANSPORTATION:: Pending discharge disposition PLAN:: Kierra will be discharged to SNF when medically ready per provider. CM faxed referral to SNF of choice including [facility], [facility] and [facility]. Kierra continues to have a [place], IV fluids and PT/OT consults and continued treatment. CM to continue to provide support to pt and care team ongoing discharge disposition.
--- NOTE | 2018-04-12 17:06 | INITIAL_ITS ---
- If Service Date Differs Date of service: 04/12/18 Time of Service: 10:00 Care Management Initial Assess REASON FOR HOSPITALIZATION:: Total Left hip PAST MEDICAL HISTORY/PAST SURGICAL HISTORY:: Avascular necrosis of left hip bone , heart palpitations, left breast lumpectomy, hysterectomy. 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 She has one daughter that she has not spoken to in 18 years. Her spouse in 1993. She does not drive she has friends that live in her remote area that provide her some support. Her friend Lolis is the one that brought her to the hospital. CURRENT FUNCTIONAL STATUS:: Kierra is sitting up in the chair she has just completed her visit with OT. She states that she lives on one floor however her laundry facilities are in the basement. She has been unable to go down to the basement due to pain in her left hip. She states she thinks it would be a good idea to transition to a SNF for short term rehab services. She does not have any family or caregivers at home that could assist. She thinks she may have had a meeting with [facility] for homemaker services but she is unsure. ADVANCE DIRECTIVES:: On file at [facility] Has patient been provided with information about the portal?: Yes Did the patient sign up for the portal?: No CODE STATUS:: Full Code INSURANCE COVERAGE / FINANCIAL ISSUES:: Medicare, [place] CURRENT HOME/COMMUNITY SERVICES/EQUIPMENT:: [facility] for transportation, [place] [facility] PRIMARY CARE PHYSICIAN:: POTENTIAL DISCHARGE NEEDS:: Referral to short term rehab facilities for PT/OT prior to returning home with home health services. PATIENT/FAMILY EDUCATION NEEDS:: Discharge education, limitaitons and follow up plan of care. ANTICIPATED BARRIERS TO DISCHARGE:: Referral to local SNF facilities, discharge pending bed offer TRANSPORTATION:: Pending discharge disposition PLAN:: Kierra will be discharged to SNF when medically ready per provider. CM faxed referral to SNF of choice including [facility], [facility] and [facility]. Kierra continues to have a [place], IV fluids and PT/OT consults and continued treatment. CM to continue to provide support to pt and care team ongoing discharge disposition.
[2018-04-13 00:55] VITALS: BP 105/67; PULSE 62; RESP 18; TEMP 36.6; O2SAT 94
[2018-04-13 03:10] VITALS: BP 128/64; PULSE 71; RESP 18; TEMP 36.8; O2SAT 97
[2018-04-13] MEDS: Lactated Ringers 1,000 ML 80 ML IV (06:52)
[2018-04-13 07:45] VITALS: BP 118/71; PULSE 66; RESP 16; TEMP 36.3; O2SAT 96
--- NOTE | 2018-04-13 08:41 | PGE_ITS ---
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 At this point she has been doing well. She does have significant weakness about the left hip. The pain she had before surgery is now gone. We will continue with physical therapy. She is quite deconditioned and lives by herself. She has been slow with gains in physical therapy and will require half-way facility discharge. We will continue with aspirin 81 mg twice daily for blood clot prevention. She will continue with physical therapy with weightbearing as tolerated. Discharge planning with case management. Subjective Interval history since last seen: Kierra feels that she is more sore today than she was yesterday. She has only taken one pain pill. She was able to ambulate yesterday. She no longer has the knee pain but does have soreness about the left hip. She denies numbness or tingling. No fevers or chills. No chest pain or shortness of breath. She did have a bowel movement yesterday. Exam Narrative Exam Narrative: Evaluation of the left leg shows a clean dry and intact dressing. She does have limited hip flexion. She has some pain on the anterior hip with straight leg raise. She tolerates flexion of 95 degrees, internal rotation 20 degrees and external rotation to 40 degrees without crepitus and without pain. Knee exam is benign. Sensation intact light touch over the deep and superficial peroneal nerves and tibial nerve. The foot is warm and well perfused. Objective Objective Clinical Data: Vital Signs Temperature 36.8 C 04/13/18 03:10 Temperature Source Skin 04/13/18 03:10 Pulse 71 04/13/18 03:10 Pulse Rhythm Regular 04/12/18 22:09 Respiratory Rate 18 04/13/18 03:10 Respiratory Effort Non-Labored 04/12/18 22:09 Respiratory Depth Normal 04/12/18 22:09 Respiratory Pattern Normal 04/12/18 22:09 Blood Pressure 128/64 04/13/18 03:10 Pulse Oximetry 97 04/13/18 03:10 Respiratory End-tidal CO2 33 04/11/18 15:20 Oxygen Delivery Method Room Air 04/13/18 03:10 Oxygen Flow Rate 0 04/13/18 03:10 Pain Level 3 04/13/18 03:10 Comment 04/13/18 03:10 Intake & Output 04/12/18 04/12/18 04/13/18 11:59 23:59 11:59 Intake Total 1400 / 1400 1918 / 1918 1350 / 1350 Output Total 350 / 350 1000 / 1000 1500 / 1500 Balance 1050 / 1050 918 / 918 -150 / -150 Intake: IV 1050 / 1050 888 / 888 1000 / 1000 Oral 350 / 350 1030 / 1030 350 / 350 Output: Urine 350 / 350 1000 / 1000 1500 / 1500 Other: Urine Color Yellow Yellow Yellow Urine Appearance Clear Clear Clear Urine Odor None Normal Normal Comment pt had the sensation to urinate. RELEASE AND TECHNICAL RECORDS CLERK did bladder scan, amount was 0 for 6+ scans. Stool Size Moderate Stool Characteristics Soft Formed Brown Voiding Methods Indwelling Catheter Bedside Commode Bedside Commode Laboratory Results WBC 11.66 k/cumm (4.4-10.8) H 04/12/18 06:30 RBC 3.03 m/cumm (4.00-5.20) L 04/12/18 06:30 Hgb 9.7 g/dL (12.0-15.5) L D 04/12/18 06:30 Hct 29.0 % (36.0-46.0) L D 04/12/18 06:30 MCV 95.7 fL (80-95) H 04/12/18 06:30 MCH 32.0 pg (27.0-33.0) 04/12/18 06:30 MCHC 33.4 g/dL (32.0-36.0) 04/12/18 06:30 RDW 13.0 % (11.7-14.6) 04/12/18 06:30 Plt Count 186 x1000/uL (130-400) 04/12/18 06:30 MPV 10.1 fL (8.0-11.0) 04/12/18 06:30 Sodium 141 mmol/L (136-145) 04/12/18 06:30 Potassium 4.1 mmol/L (3.5-5.1) 04/12/18 06:30 Chloride 107 mmol/L (98-107) 04/12/18 06:30 Carbon Dioxide 28.1 mmol/L (21.0-32.0) 04/12/18 06:30 Anion Gap 5.9 mmol/L (3-11) 04/12/18 06:30 BUN 21 mg/dL (7-18) H D 04/12/18 06:30 Creatinine 0.58 mg/dL (0.55-1.02) 04/12/18 06:30 Estimated GFR/1.73 m2 >= 60.00 (mL/min/1.73m2) 04/12/18 06:30 Glucose 96 mg/dL (70-100) 04/12/18 06:30 Calcium 8.1 mg/dL (8.5-10.1) L 04/12/18 06:30
[2018-04-13] MEDS: Aspirin E.C. 81 MG TABEC PO ×2 (09:13→20:51)
[2018-04-13] MEDS: Multivitamin TAB 1 TAB PO (09:13)
[2018-04-13] MEDS: Pantoprazole 40 MG TABCR PO (09:13)
[2018-04-13] MEDS: Lactobacillus Acidophilus CAP 1 CAP PO (09:13)
[2018-04-13] MEDS: Calcium 600mg/Vit D 200U TAB 1 TAB PO (09:13)
[2018-04-13] MEDS: Acetaminophen 500 MG TAB 1000 MG PO ×3 (09:13→20:50)
[2018-04-13] MEDS: Celecoxib 200 MG CAP PO ×2 (09:13→20:50)
[2018-04-13] MEDS: Vitamins B Comp w/C TAB 1 TAB PO (09:14)
[2018-04-13] MEDS: oxyCODONE 5 MG TAB PO (09:14)
--- NOTE | 2018-04-13 13:19 | PT.INTREAT ---
Date of service: 04/13/18 Time of Service: 11:00 PT Notes Inpatient Physical Therapy Treatment Note Date: 04/13/18 SUBJECTIVE: Kierra states that she is tired and nauseous and would like to stay in bed. She was agreeable to work with me after a little encouragement and coaxing. OBJECTIVE: [] BED MOBILITY/TRANSFERS Supine-sit: SBA Sit-stand: SBA Stand-sit: CGA GAIT Assistive Device:FWW Weight bearing: AT left Assist: CGA Distance: 50' THEREX: global strength and hip stabilizations, see flowsheet for details. ASSESSMENT: tolerated session well. Encouragement required t/o session, but did very well. She was able to stand at bathroom sink to brush her teeth. No LOB noted. PLAN: continue progressing her strength and functional mobility as per PT POC. TREATMENT CODE/TIME: 30 min. TPx1, TAx1
--- NOTE | 2018-04-13 14:32 | PDOC.CMPRO ---
- If Service Date Differs Date of service: 04/13/18 Time of Service: 14:32 Care Management Progress Note S/O: CM met with patient she is sitting up in the chair. No change in status today, CM did review discharge plan with Kierra and . Awaiting bed offer from local SNF's. [facility] choice believes they will have an opening on Sunday. CM to follow up with facility on Sunday to review referral. Kierra continues to receive PT and ambulate with a walker. She continues to have an indwelling cath and is receiving oxycodone for pain management. A: Kierra is a 82 year old female admitted for a left total hip. P:Kierra will be discharged to SNF when medically ready per provider. CM faxed referral to [facility] Kierra continues to have a [place], IV fluids and PT/OT consults and continued treatment. CM to continue to provide support to pt and care team ongoing discharge disposition.
[2018-04-13 15:51] VITALS: BP 99/59; PULSE 74; RESP 18; TEMP 36.9; O2SAT 96
[2018-04-13 19:25] VITALS: BP 98/59; PULSE 72; RESP 18; TEMP 36.8; O2SAT 94
[2018-04-13] MEDS: Docusate Sodium 100 MG CAP PO (20:58)
[2018-04-14 00:06] VITALS: BP 119/65; PULSE 68; RESP 18; TEMP 36.6; O2SAT 95
[2018-04-14 04:14] VITALS: BP 125/67; PULSE 58; RESP 18; TEMP 36.6; O2SAT 95
[2018-04-14] MEDS: Lactobacillus Acidophilus CAP 1 CAP PO (07:44)
[2018-04-14] MEDS: Docusate Sodium 100 MG CAP PO (07:44)
[2018-04-14 07:45] VITALS: BP 159/71; PULSE 73; RESP 20; TEMP 36.5; O2SAT 99
[2018-04-14] MEDS: Celecoxib 200 MG CAP PO ×2 (07:45→19:28)
[2018-04-14] MEDS: Aspirin E.C. 81 MG TABEC PO ×2 (07:45→19:29)
[2018-04-14] MEDS: Acetaminophen 500 MG TAB 1000 MG PO ×3 (07:45→19:28)
[2018-04-14] MEDS: Pantoprazole 40 MG TABCR PO (07:46)
[2018-04-14] MEDS: Calcium 600mg/Vit D 200U TAB 1 TAB PO (07:46)
[2018-04-14] MEDS: Multivitamin TAB 1 TAB PO (07:46)
[2018-04-14] MEDS: Normal Saline Flush 10 ML SYR IV (07:46)
[2018-04-14] MEDS: Vitamins B Comp w/C TAB 1 TAB PO (07:46)
[2018-04-14] MEDS: Ondansetron 4 MG/2 ML VIAL IVP (07:46)
--- NOTE | 2018-04-14 10:28 | W.PM.PROGNOT ---
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 She is status post hip arthroplasty. Her motion is improving and her ambulation ability is also improving. She is to continue to work with physical therapy. Given her physical deconditioning, debilitated state, an independent living situation, she will require nursing home facility upon discharge. She will continue aspirin 81 mg twice daily for DVT prevention. Case management is involved in discharge planning. (2) Depression: Current visit: Yes Status: Chronic Per discussion with Kierra, depression has been a factor for some time. She has tried medications in the past which she reports that had no help. While she did appear depressed in the office visit while dealing with the hip, she still has the same features after hip replacement in spite of notable improvements with pain and function. Given the findings on interview today I do think it makes sense to pursue some treatment for her depression. I discussed this case with Dr. nora emmanuel briefly. Given her inability to tolerate SSRIs, I will start mirtazapine. We will start that tonight. I went over the possible side effects with Kierra and she agrees to proceed. I will also asked Dr. Heart to see Kierra tomorrow for her recommendations. 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 From the hip perspective, she is doing well. She has been able to increase her mobility and has been able to walk down the hallway. All of these things have been and possible over the last few weeks due to pain and motion limitations. She denies any crepitus. She has had no fever or chills. No chest pain or shortness of breath. However, she feels like she is tired all the time. She is not interested in doing anything for herself nor getting out of the bed to work with physical therapy. She reports crying without reason this morning. She also found herself worrying about past events that happened and have no bearing on today's course. She feels significantly fatigued and not wanting to move or get going. She did report to the nurses that sometimes she just does not want to wake up but expresses no specific desire to hurt herself this morning. She continues to make slow progress physical therapy. Exam Narrative Exam Narrative: Initially upon entering the room Kierra had a slightly depressed affect. However, after talking with her for a few minutes she brightens up and smiles and interacts appropriately. Her conversation is on point is not tangential. She does not avoid discussing her medical issues. She is alert and oriented x3. She is in no acute distress. Evaluation of the left hip shows a clean dry and intact dressing. There is no surrounding ecchymosis. There is no swelling. Sensation intact light touch over the lateral femoral cutaneous nerve, femoral nerve distribution, and sciatic nerve distribution. She is unable to straight leg raise due to pain and weakness. She is able to dorsiflex and plantarflex left ankle as well as extend and flex the great toe. The foot is warm well perfused. No pain in the posterior calf. Objective Objective Clinical Data: Vital Signs Temperature 36.5 C 04/14/18 07:45 Temperature Source Tympanic 04/14/18 07:45 Pulse 73 04/14/18 07:45 Pulse Rhythm Regular 04/13/18 23:40 Respiratory Rate 20 04/14/18 07:45 Respiratory Effort Non-Labored 04/13/18 23:40 Respiratory Depth Normal 04/13/18 23:40 Respiratory Pattern Normal 04/13/18 23:40 Blood Pressure 159/71 H 04/14/18 07:45 Pulse Oximetry 99 04/14/18 07:45 Respiratory End-tidal CO2 33 04/11/18 15:20 Oxygen Delivery Method Room Air 04/14/18 07:45 Oxygen Flow Rate 0 04/14/18 07:45 Pain Level 2 04/14/18 04:14 Comment 04/14/18 04:14 Intake & Output 04/13/18 04/13/18 04/14/18 11:59 23:59 11:59 Intake Total 1898 / 1898 720 / 720 150 / 150 Output Total 1500 / 1500 1350 / 1350 750 / 750 Balance 398 / 398 -630 / -630 -600 / -600 Intake: IV 1188 / 1188 Oral 710 / 710 720 / 720 150 / 150 Output: Urine 1500 / 1500 1350 / 1350 750 / 750 Other: Urine Color Yellow Yellow Yellow Urine Appearance Clear Clear Clear Urine Odor Normal Normal Normal Stool Size Moderate Stool Characteristics Soft Formed Brown Voiding Methods Bedside Commode Bedside Commode Bedside Commode Laboratory Results WBC 11.66 k/cumm (4.4-10.8) H 04/12/18 06:30 RBC 3.03 m/cumm (4.00-5.20) L 04/12/18 06:30 Hgb 9.7 g/dL (12.0-15.5) L D 04/12/18 06:30 Hct 29.0 % (36.0-46.0) L D 04/12/18 06:30 MCV 95.7 fL (80-95) H 04/12/18 06:30 MCH 32.0 pg (27.0-33.0) 04/12/18 06:30 MCHC 33.4 g/dL (32.0-36.0) 04/12/18 06:30 RDW 13.0 % (11.7-14.6) 04/12/18 06:30 Plt Count 186 x1000/uL (130-400) 04/12/18 06:30 MPV 10.1 fL (8.0-11.0) 04/12/18 06:30 Sodium 141 mmol/L (136-145) 04/12/18 06:30 Potassium 4.1 mmol/L (3.5-5.1) 04/12/18 06:30 Chloride 107 mmol/L (98-107) 04/12/18 06:30 Carbon Dioxide 28.1 mmol/L (21.0-32.0) 04/12/18 06:30 Anion Gap 5.9 mmol/L (3-11) 04/12/18 06:30 BUN 21 mg/dL (7-18) H D 04/12/18 06:30 Creatinine 0.58 mg/dL (0.55-1.02) 04/12/18 06:30 Estimated GFR/1.73 m2 >= 60.00 (mL/min/1.73m2) 04/12/18 06:30 Glucose 96 mg/dL (70-100) 04/12/18 06:30 Calcium 8.1 mg/dL (8.5-10.1) L 04/12/18 06:30
[2018-04-14 11:00] VITALS: BP 98/60; PULSE 71; RESP 20; TEMP 36.9; O2SAT 93
--- NOTE | 2018-04-14 11:37 | PT.INTREAT ---
Date of service: 04/14/18 Time of Service: 09:25 PT Notes Inpatient Physical Therapy Treatment Note Date: 04/14/18 SUBJECTIVE: Kierra reports that she is nauseous and weak and would like to go to bed. She is agreeable to PT. OBJECTIVE: [] BED MOBILITY/TRANSFERS Sit-supine: min assist with LE. Sit-stand: CGA Stand-sit: SBA GAIT Assistive Device:FWW Weight bearing: AT left Assist: CGA Distance: 75' Deviation: proper stride length and reminders to not step too close into walker. She stood at bathroom sink and brushed her teeth with supervision. THEREX: global LE strength and hip stabilizations following SHITAL protocol. ASSESSMENT: tolerated session well. No further c/o nausea or weakness once PT session began. Noted some antalgia with initial ambulation, however this subsided after a few steps. PLAN: continue with PT POC, progressing her strength and stabilization as well as functional mobility to tolerance. TREATMENT CODE/TIME: 25 min. TPx1, TAx1.
--- NOTE | 2018-04-14 12:26 | CMPROGNOTE_ITS ---
- If Service Date Differs Date of service: 04/14/18 Time of Service: 12:16 Care Management Progress Note S/O: MICHELLE met with patient she is sitting up in the chair. No change in status today, MICHELLE did review discharge plan with Kierra and . Awaiting bed offer from local SNF's. [facility] choice believes they will have an opening on Sunday. CM to follow up with facility on Sunday to review referral. Kierra continues to receive PT and ambulate with a walker. Kierra states she woke up this morning feeling more over whelmed than usual. She states that prior to admission I felt like I wanted to go to sleep and never wake up. She felt that some of her sadness was related to her intense pain in her left hip. She states the pain post surgery is much different and feels it is improving everyday. She has been resistant to mental health services in the past. She reports she tried to see a provider at [facility] for her mental health and the experience was poor. She is open to a consult with for recommendation and treatment. She states that she has had difficulty with her mood for sometime and has been seeing a naturopathic person Lolis for tinctures and herbal supplements. CM reviewed concerns with he is going to start her on Mirtazapine at night and order a consult. CM will meet with Lolis and patient to review the current plan of care. Kierra trust Lolis and values her insight it would be helpful to have her present during planning as she is the closest support person for Kierra. MICHELLE was able to meet with Lolis in the room with patient and discuss the plan of care. Kierra states she feels more confident in plan when Lolis agrees. A: Kierra is a 82 year old female admitted for a left total hip. P:Kierra will be discharged to SNF when medically ready per provider. CM faxed referral to [facility]. Kierra continues to have PT/OT consults and continued treatment. CM to continue to provide support to pt and care team ongoing discharge disposition.
[2018-04-14 15:22] VITALS: BP 131/59; PULSE 76; RESP 20; TEMP 36; O2SAT 94
[2018-04-14 19:40] VITALS: BP 100/60; PULSE 80; RESP 20; TEMP 37.3; O2SAT 92
[2018-04-14] MEDS: Mirtazapine 15 MG TAB PO (22:10)
[2018-04-15 00:25] VITALS: BP 114/66; PULSE 68; RESP 18; TEMP 36.9; O2SAT 96
[2018-04-15 04:10] VITALS: BP 145/76; PULSE 64; RESP 20; TEMP 36.4; O2SAT 96
[2018-04-15 07:50] VITALS: BP 111/65; PULSE 66; RESP 19; TEMP 36.4; O2SAT 92
[2018-04-15] MEDS: Pantoprazole 40 MG TABCR PO (07:52)
[2018-04-15] MEDS: Calcium 600mg/Vit D 200U TAB 1 TAB PO (07:52)
[2018-04-15] MEDS: Aspirin E.C. 81 MG TABEC PO ×2 (07:52→19:07)
[2018-04-15] MEDS: Vitamins B Comp w/C TAB 1 TAB PO (07:52)
[2018-04-15] MEDS: Multivitamin TAB 1 TAB PO (07:53)
[2018-04-15] MEDS: Acetaminophen 500 MG TAB 1000 MG PO ×3 (07:53→19:07)
[2018-04-15] MEDS: Celecoxib 200 MG CAP PO ×2 (07:53→19:07)
[2018-04-15] MEDS: Docusate Sodium 100 MG CAP PO (07:53)
[2018-04-15] MEDS: Lactobacillus Acidophilus CAP 1 CAP PO (07:53)
--- NOTE | 2018-04-15 08:57 | OT.INNT ---
Date of service: 04/15/18 Time of Service: 08:58 Occupational Therapy Notes 04/15/18 Pt sitting in chair when OT arrived. She states, I am not doing anything this morning, I don't feel well and I'm waiting for PT to get me back into bed. Mary Edwards, OTR/L
[2018-04-15] MEDS: Polyethylene Glycol 3350 17 GM PACKET PO (09:25)
--- NOTE | 2018-04-15 11:45 | PT.INTREAT ---
Date of service: 04/15/18 Time of Service: 11:45 PT Notes Inpatient Physical Therapy Treatment Note Date: 04/15/18 PRECAUTIONS:Fall, WBAT on L SUBJECTIVE: Kierra states that she is having L hip pain this morning, but that it does not become worse when she bears weight on it. She states I just don't feel right today. OBJECTIVE: PAIN: Patient c/o L hip pain BED MOBILITY/TRANSFERS Sit-supine: SBA with HOB flat Sit-stand: Min A Stand-sit: SBA Chair-bed: CGA GAIT Assistive Device: FWW Weight bearing: WBAT on L Assist: CGA Distance: 15' Deviation: Slow pace THEREX: Patient completed a LE strengthening and stabilization program, as per flow sheet. ASSESSMENT: Patient tolerated session with complaints of pain in L hip. She refused further gait training, due to the painand due to not feeling well this morning. Patient would benefit from continued gait and transfer training, as well as strengthening. PLAN: Continue with PT's POC TREATMENT CODE/TIME: 25 minutes; TA/TP
--- NOTE | 2018-04-15 15:17 | PT.INTREAT ---
Date of service: 04/15/18 Time of Service: 15:17 PT Notes Inpatient Physical Therapy Treatment Note Date: 04/15/18 PRECAUTIONS:Fall, WBAT on L SUBJECTIVE: Kierra reports that she has been laying in bed most of the day, by choice. She states that she lays in bed as much as possible. She is agreeable to participating in PT, although requires some encouragement. OBJECTIVE: PAIN: Patient rates her pain as a 4/10 in L hip area for nursing BED MOBILITY/TRANSFERS Sit-supine: SBA with HOB flat Sit-stand: SBA from bed; Min A from toilet Stand-sit: SBA Patient stood at sink to brush teeth x2 minutes with supervision GAIT Assistive Device: FWW Weight bearing: WBAT on L Assist: SBA Distance: 100' Deviation: Step-through gait pattern instruction, slow pace TOILETING: Patient toileted with assist for pericare and transfers ASSESSMENT: Patient was able to tolerate a progression in gait distance, although is very anxious. She was able to utilize a step-through gait pattern, following demonstration and instruction, although with a slow pace. She would benefit from continued gait and transfer training and strengthening to improve ability to perform daily functional activities at a more independent level. PLAN: Continue with PT's POC TREATMENT CODE/TIME: 40 minutes; TAx3
[2018-04-15 15:47] VITALS: BP 113/72; PULSE 92; RESP 18; TEMP 37.6; O2SAT 96
--- NOTE | 2018-04-15 16:15 | PDOC.CMPRO ---
- If Service Date Differs Date of service: 04/15/18 Time of Service: 16:15 Care Management Progress Note S/O: CM met with patient at the bedside no change is status today. consult in in place she will meet with patient on Sunday. Plan for Kierra to be discharged to SNF facility pending bed availability. [facility] does not have a bed. [facility] would like [facility] bed on Sunday. Admission director will contact CM on Sunday morning to confirm if bed is available. Kierra continue to work with PT and OT. A: Kierra is a 82 year old female with L total hip. P: Kierra will be discharged to SNF facility [facility] her first choice. Her friend Lolis is her main support and DPOA she can be contacted at [phone]. Transportation pending discharge disposition anticipate wheelchair van.
--- NOTE | 2018-04-15 16:28 | CMPROGNOTE_ITS ---
- If Service Date Differs Date of service: 04/15/18 Time of Service: 16:15 Care Management Progress Note S/O: CM met with patient at the bedside no change is status today. consult in in place she will meet with patient on Sunday. Plan for Kierra to be discharged to SNF facility pending bed availability. [facility] does not have a bed. [facility] would like to offer a bed on Sunday. Admission director will contact CM on Sunday morning to confirm if bed is available. Kierra continue to work with PT and OT. A: Kierra is a 82 year old female with L total hip. P: Kierra will be discharged to SNF facility [facility]. Her friend Lolis is her main support and DPOA she can be contacted at [phone]. Transportation pending discharge disposition anticipate wheelchair van.
[2018-04-15 18:50] VITALS: BP 102/64; PULSE 80; RESP 18; TEMP 37.2; O2SAT 95
[2018-04-15] MEDS: Mirtazapine 15 MG TAB PO (21:11)
--- NOTE | 2018-04-15 22:04 | W.PM.PROGNOT ---
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 She is status post hip arthroplasty. Her motion is improving and her ambulation ability is also improving. She is to continue to work with physical therapy. Given her physical deconditioning, debilitated state, an independent living situation, she will require long term facility upon discharge. She will continue aspirin 81 mg twice daily for DVT prevention. Case management is involved in discharge planning. (2) Depression: Current visit: Yes Status: Chronic Unclear if the Mirtazipine helped but no significant adverse effects. Awaiting psychiatry consult. 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 From the hip perspective, she continues to do well. She complains of generalized pain about the left hip. No knee pain. No sharp or acute pain. She feels significantly fatigued and not wanting to move or get going. She doesn't want to work with PT and says she can't, although she does with encouragement and has done well. She doesnt think she slept well but nrusing reports she was soundly sleeping through the night. Exam Narrative Exam Narrative: Initially upon entering the room Kierra is laying in bed awake. She has little response at first but brightens during the exam/interview. She is alert and oriented x3. She is in no acute distress. Evaluation of the left hip shows a clean dry and intact dressing. There is no surrounding ecchymosis. There is no swelling. Sensation intact light touch over the lateral femoral cutaneous nerve, femoral nerve distribution, and sciatic nerve distribution. She is unable to straight leg raise due to pain and weakness. She is able to dorsiflex and plantarflex left ankle as well as extend and flex the great toe. The foot is warm well perfused. No pain in the posterior calf. Objective Objective Clinical Data: Vital Signs Temperature 37.2 C 04/15/18 18:50 Temperature Source Tympanic 04/15/18 18:50 Pulse 80 04/15/18 18:50 Pulse Rhythm Regular 04/15/18 17:18 Respiratory Rate 18 04/15/18 18:50 Respiratory Effort Non-Labored 04/15/18 17:18 Respiratory Depth Normal 04/15/18 17:18 Respiratory Pattern Normal 04/15/18 17:18 Blood Pressure 102/64 04/15/18 18:50 Pulse Oximetry 95 04/15/18 18:50 Respiratory End-tidal CO2 33 04/11/18 15:20 Oxygen Delivery Method Room Air 04/15/18 18:50 Oxygen Flow Rate 0 04/15/18 18:50 Pain Level 4 04/15/18 14:46 Comment 04/14/18 04:14 Intake & Output 04/14/18 04/15/18 04/15/18 23:59 11:59 23:59 Intake Total 600 / 600 960 / 960 380 / 380 Output Total 450 / 450 2900 / 2900 200 / 200 Balance 150 / 150 -1940 / -1940 180 / 180 Intake: Oral 600 / 600 960 / 960 380 / 380 Output: Urine 450 / 450 2900 / 2900 200 / 200 Other: Urine Color Yellow Pale Yellow Urine Appearance Clear Clear Clear Urine Odor Normal Normal Normal Stool Size Small Large Stool Characteristics Soft Soft Formed Formed Brown Voiding Methods Bedside Commode Bedside Commode Bedside Commode Laboratory Results WBC 11.66 k/cumm (4.4-10.8) H 04/12/18 06:30 RBC 3.03 m/cumm (4.00-5.20) L 04/12/18 06:30 Hgb 9.7 g/dL (12.0-15.5) L D 04/12/18 06:30 Hct 29.0 % (36.0-46.0) L D 04/12/18 06:30 MCV 95.7 fL (80-95) H 04/12/18 06:30 MCH 32.0 pg (27.0-33.0) 04/12/18 06:30 MCHC 33.4 g/dL (32.0-36.0) 04/12/18 06:30 RDW 13.0 % (11.7-14.6) 04/12/18 06:30 Plt Count 186 x1000/uL (130-400) 04/12/18 06:30 MPV 10.1 fL (8.0-11.0) 04/12/18 06:30 Sodium 141 mmol/L (136-145) 04/12/18 06:30 Potassium 4.1 mmol/L (3.5-5.1) 04/12/18 06:30 Chloride 107 mmol/L (98-107) 04/12/18 06:30 Carbon Dioxide 28.1 mmol/L (21.0-32.0) 04/12/18 06:30 Anion Gap 5.9 mmol/L (3-11) 04/12/18 06:30 BUN 21 mg/dL (7-18) H D 04/12/18 06:30 Creatinine 0.58 mg/dL (0.55-1.02) 04/12/18 06:30 Estimated GFR/1.73 m2 >= 60.00 (mL/min/1.73m2) 04/12/18 06:30 Glucose 96 mg/dL (70-100) 04/12/18 06:30 Calcium 8.1 mg/dL (8.5-10.1) L 04/12/18 06:30
[2018-04-15 23:44] VITALS: BP 108/67; PULSE 71; RESP 15; TEMP 36.3; O2SAT 94
[2018-04-16 03:42] VITALS: BP 120/64; PULSE 64; RESP 18; TEMP 35.1; O2SAT 95
--- NOTE | 2018-04-16 07:02 | W.PM.DS.N ---
Date of service: 04/16/18 Time of Service: 11:02 DS: Diagnosis Discharge Diagnosis (1) Avascular necrosis of bone of left hip: Status: Chronic (2) Depression: Status: Chronic Discharge Plan Disposition Condition: Improving Discharge Details Reason For Visit: S/P L SHITAL Admit Date/Time: 04/11/18 10:58 Admit Provider: Jorge Luis Carmona Attending Provider: Jorge Luis Carmona Primary Care Provider: Ruth Morris V Hospital Course Hospital Course: Kierra was admitted to the medical surgical floor following her procedure. She tolerated the hip replacement well without notable anesthetic, medical, surgical complications. On postop day #1 she was able to ambulate. She had some pain about the left hip but much improved from preoperative state. On postop day #1 her Balderas catheter was removed she is voiding spontaneously. However, she was very slow to progress physical therapy with increasing dysthymic mood and lack of energy. There was concern for active depression. Therefore, she was started on mirtazapine, given previous intolerance of SSRIs. Psychiatric consult was placed with Dr. Heart. Given her depressed mood, surgical intervention of the left hip, debilitated state, an independent living situation without any local support, I recommended discharge to residential facility. Case management was involved with discharge planning from the beginning of postop day #1. Throughout her hospital course her vital signs remained stable and her postoperative hemoglobin was 9.7. Labs were rechecked on postop day #4 due to continued fatigue and lack of energy without any notable issue. She has tolerated the Mirtazapine and has noted some improvements. By post-op day #6 a bed was available for discharge to SNF. Home Meds and New Rx's Prescriptions: New celecoxib [Celebrex] 200 mg Capsule 100 mg PO BID Qty: 0 RF: 0 polyethylene glycol 3350 17 gram Powder In Packet 17 g PO BID PRN PRN (Reason: Constipation) Qty: 0 RF: 0 aspirin 81 mg Tablet,Delayed Release (Dr/Ec) 81 mg PO BID Qty: 0 RF: 0 acetaminophen [Mapap Extra Strength] 500 mg Tablet 1,000 mg PO TID Qty: 0 RF: 0 pantoprazole 40 mg Tablet,Delayed Release (Dr/Ec) 40 mg PO DAILY@0730 Qty: 0 RF: 0 mirtazapine [Remeron] 15 mg Tablet 15 mg PO HS Qty: 0 RF: 0 oxycodone 5 mg Tablet 5 mg PO Q8H PRN PRN (Reason: Pain) Qty: 8 RF: 0 Continue calcium carbonate-vitamin D3 [Calcium 600 + D(3)] 600 mg(1,500mg) -200 unit Tablet 1 tab PO DAILY RF: 0 vitamin B complex [B Complex 1] Tablet 1 tab PO DAILY RF: 0 selenium 100 mcg Tablet 100 mcg PO BID RF: 0 multivitamin Capsule 1 cap PO DAILY RF: 0 hawthorn [hawthorn morfin] 500 mg Capsule 1 tab PO DAILY RF: 0 Lacto.acidophilus-Bif.animalis [Probiotic] 5 billion cell Capsule, Sprinkle 1 cap PO DAILY RF: 0 Cbd 1 cap PO TID RF: 0 Cucurmim 1 tab PO BID RF: 0 diclofenac sodium [Voltaren] 1 % Gel 4 g TOPICAL QID RF: 0 Thyroid Tincture 20 drp PO BID RF: 0 Discontinued celecoxib [Celebrex] 100 mg capsule 100 mg PO TID RF: 0 ibuprofen [Advil] 200 mg Tablet 200 - 400 mg PO DIRECTED PRNRF: 0 oxycodone 5 mg Tablet 0.5 - 1 tab PO TID PRNRF: 0 Discharge Instructions Additional Instructions: Dr. Carmona's Total Hip Discharge Instructions Activity: The most important activity is to walk. You should try to take short walks a few times a day. You have no restrictions on movement or positioning, but do not try to force what you do. You will find some stiffness and weakness with hip flexion (lifting your knee). Do not try to strengthen this too early, continue to practice walking and stairs and this will come. - You should wear the DARA hose on both legs for 4 weeks. Dressing: Keep the surgical dressing in place for at least one week. After the first week it may be removed and replace with light gauze and tape or nothing. It may get wet after 3 days but avoid soaking the dressing. If it gets wet, just lightly pat dry. It is important to always keep some gauze between skin folds, especially when you are sitting. Spend some time with the wound exposed when you are lying flat as the incision does wrinkle onto itself. Medications: - You should take Tylenol and an anti-inflammatory Celebrex as your primary pain control medications - You have been prescribed a stronger pain medication oxycodone for breakthrough pain, take as needed as prescribed. - You have also been prescribed a stomach acid reduction agent Pantoprozole to help reduce stomach acid and reflux. - You will be taking aspirin 81mg twice a day for DVT prevention unless instructed otherwise. - If you have constipation you should take Colace or Miralax (both [id number]). It takes most people 3-4 days to have a bowel movement. Follow-up: 2 weeks Stand Alone Forms: Nursing Discharge Form Referrals: Jorge Luis Carmona MD [ [facility] STAFF PHYSICIAN] - 05/01/18 10:45 am Activity:: Activity as Tolerated Equipment/Supplies:: Walker Diet:: As Tolerated Discharge Data Discharge Physician: Jorge Luis Carmona DS: Data Vitals/I&O Vitals and I&O: Vital Signs Temperature 35.1 C L 04/16/18 03:42 Temperature Source Tympanic 04/16/18 03:42 Pulse 64 04/16/18 03:42 Pulse Rhythm Regular 04/15/18 23:23 Respiratory Rate 18 04/16/18 03:42 Respiratory Effort 04/15/18 23:23 Respiratory Depth Normal 04/15/18 23:23 Respiratory Pattern Normal 04/15/18 23:23 Blood Pressure 120/64 04/16/18 03:42 Pulse Oximetry 95 04/16/18 03:42 Respiratory End-tidal CO2 33 04/11/18 15:20 Oxygen Delivery Method Room Air 04/16/18 03:42 Oxygen Flow Rate 0 04/16/18 03:42 Pain Level 0 04/16/18 03:42 Comment 04/14/18 04:14 Intake & Output 04/15/18 04/15/18 04/16/18 11:59 23:59 11:59 Intake Total 960 / 960 380 / 380 Output Total 2900 / 2900 350 / 350 300 / 300 Balance -1940 / -1940 / 30 -300 / -300 Intake: Oral 960 / 960 380 / 380 Output: Urine 2900 / 2900 350 / 350 300 / 300 Other: Urine Color Pale Yellow Yellow Urine Appearance Clear Clear Clear Urine Odor Normal None Stool Size Large Stool Characteristics Soft Formed Brown Voiding Methods Bedside Commode Bedside Commode Bedside Commode Labs on day of discharge: Labs from last 24 hours 04/16/18 04/16/18 05:35 05:35 WBC Pending RBC Pending Hgb Pending Hct Pending MCV Pending MCH Pending MCHC Pending RDW Pending Plt Count Pending MPV Pending Sodium Pending Potassium Pending Chloride Pending Carbon Dioxide Pending Anion Gap Pending BUN Pending Creatinine Pending Estimated GFR/1.73 m2 Pending Glucose Pending Calcium Pending Total Bilirubin Pending AST Pending ALT Pending Alkaline Phosphatase Pending Total Protein Pending Albumin Pending
[2018-04-16 07:21] LABS: HCT 33.9 % (36.0-46.0); HGB 10.7 g/dL (12.0-15.5); Mean Corp. HGB Concentration 31.6 g/dL (32.0-36.0); Mean Corpuscular Hemoglobin 30.4 pg (27.0-33.0); Mean Corpuscular Volume 96.3 fL (80-95); Mean Platelet Volume 9.7 fL (8.0-11.0); Platelet Count 254 x1000/uL (130-400); RBC 3.52 m/cumm (4.00-5.20); RBC Distribution Width 13.7 % (11.7-14.6); White Blood Cell Count 7.37 k/cumm (4.4-10.8)
[2018-04-16 07:45] VITALS: BP 144/76; PULSE 71; RESP 17; TEMP 36.2; O2SAT 98
[2018-04-16 08:08] LABS: ALT 41 U/L (12-78); AST 34 U/L (15-37); Albumin 2.4 g/dL (3.4-5.0); Alkaline Phosphatase 63 U/L (46-116); Anion Gap 5.2 mmol/L (3-11); BUN 19 mg/dL (7-18); Bilirubin, Total 0.3 mg/dL (0.2-1.0); CO2 31.8 mmol/L (21.0-32.0); CREATININE 0.65 mg/dL (0.55-1.02); Calcium 8.5 mg/dL (8.5-10.1); Chloride 106 mmol/L (98-107); Glucose 87 mg/dL (70-100); Sodium 143 mmol/L (136-145); Total Protein 6.2 g/dL (6.4-8.2)
[2018-04-16] MEDS: Multivitamin TAB 1 TAB PO (08:31)
[2018-04-16] MEDS: Pantoprazole 40 MG TABCR PO (08:31)
[2018-04-16] MEDS: Aspirin E.C. 81 MG TABEC PO ×2 (08:31→19:42)
[2018-04-16] MEDS: Vitamins B Comp w/C TAB 1 TAB PO (08:32)
[2018-04-16] MEDS: Calcium 600mg/Vit D 200U TAB 1 TAB PO (08:32)
[2018-04-16] MEDS: Acetaminophen 500 MG TAB 1000 MG PO ×3 (08:32→19:42)
[2018-04-16] MEDS: Celecoxib 200 MG CAP PO ×2 (08:32→19:42)
[2018-04-16] MEDS: Lactobacillus Acidophilus CAP 1 CAP PO (08:32)
--- NOTE | 2018-04-16 10:16 | OT.INTREAT ---
Date of service: 04/16/18 Time of Service: 09:20 Occupational Therapy Notes Occupational Therapy Inpatient Treatment Note Date: 04/16/18 PRECAUTIONS: WBAT (L) LE SUBJECTIVE: Pt sitting in chair discussing plans with case manager specialist for discharge. Pt reports that she feels down today and dizzy with increased functional movements. She states that she is agreeable to OT session and states that she would like to get her own clothes on. OBJECTIVE: PAIN:Pt complains of discomfort but no pain. FUNCTIONAL MOBILITY Sit-supine: S Sit-stand: Min (A), FWW Stand-sit: SBA, FWW Chair-bed: SBA, FWW BATHING: Sitting in chair (pts premorbid level of function for bathing routine) pt required min verbal cues. Upper Body: (I) upper body Lower Body: (I) lower body with minimal verbal cues. DRESSING: Sitting in chair Upper Extremity: (I) don of bra and tshirt Lower Extremity: Min verbal cues, FWW (I) don underwear and pants. GROOMING: Standing at sink, FWW pt able to (I) perform teeth brushing routine. TOILETING: Device: Commode, FWW Assist: Min verbal cues, (I) with toileting hygiene ASSESSMENT: Pt demonstrated increased (I) in ADL routine including dressing in chair and bathing sitting in chair which is pt's previous level of function. She demonstrated good functional activity tolerance during grooming task at sink with decreased need for verbal cues. Pt was anxious during OT session she becomes more anxious when asked to perform functional activities like taking a shower but reports that she did not do this previously because it increased her anxiety. Pt demonstrated good technique for dressing. She would benefit from skilled OT intervention for increased (I) in her toileting routine with use of toilet during the day. PLAN: Continue per POC. Pt reports that she would like to go to [facility] but feels that she should definitely go to a Health and Rehab before she returns home. TREATMENT CODES/TIME: Self Care x4, 09:20
--- NOTE | 2018-04-16 10:19 | OTTR_ITS ---
Date of service: 04/16/18 Time of Service: 09:20 Occupational Therapy Notes Occupational Therapy Inpatient Treatment Note Date: 04/16/18 PRECAUTIONS: WBAT (L) LE SUBJECTIVE: Pt sitting in chair discussing plans with child welfare caseworker for discharge. Pt reports that she feels down today and dizzy with increased functional movements. She states that she is agreeable to OT session and states that she would like to get her own clothes on. OBJECTIVE: PAIN:Pt complains of discomfort but no pain. FUNCTIONAL MOBILITY Sit-supine: S Sit-stand: Min (A), FWW Stand-sit: SBA, FWW Chair-bed: SBA, FWW BATHING: Sitting in chair (pts premorbid level of function for bathing routine) pt required min verbal cues. Upper Body: (I) upper body Lower Body: (I) lower body with minimal verbal cues. DRESSING: Sitting in chair Upper Extremity: (I) don of bra and tshirt Lower Extremity: Min verbal cues, FWW (I) don underwear and pants. GROOMING: Standing at sink, FWW pt able to (I) perform teeth brushing routine. TOILETING: Device: Commode, FWW Assist: Min verbal cues, (I) with toileting hygiene ASSESSMENT: Pt demonstrated increased (I) in ADL routine including dressing in chair and bathing sitting in chair which is pt's previous level of function. She demonstrated good functional activity tolerance during grooming task at sink with decreased need for verbal cues. Pt was anxious during OT session she becomes more anxious when asked to perform functional activities like taking a shower but reports that she did not do this previously because it increased her anxiety. Pt demonstrated good technique for dressing. She would benefit from skilled OT intervention for increased (I) in her toileting routine with use of toilet during the day. PLAN: Continue per POC. Pt reports that she would like to go to [facility] but feels that she should definitely go to a Health and Rehab before she returns home. TREATMENT CODES/TIME: Self Care x4, 09:20
--- NOTE | 2018-04-16 10:30 | PDOC.CMPRO ---
Care Management Progress Note S/O: CM met with Kierra to discuss lack of bed availability at [facility]. Kierra shared concerns around not being able to go to the Rehab today, but was willing to allow this screen writer to send referral to [facility]. Marleni from [place] called with follow up questions and reported she would reconnect with this screen writer after fully reviewing Kierra's admission with her team. A: 82 year old female admitted to [facility] 04/11/18 P: SNF coordination and placement for discharge; SNF bed offer pending. Kierra will transport via private vehicle with her friend, Lolis.
[2018-04-16 11:15] VITALS: BP 102/64; PULSE 79; RESP 18; TEMP 37.4; O2SAT 95
--- NOTE | 2018-04-16 11:15 | PT.INTREAT ---
Date of service: 04/16/18 Time of Service: 11:15 PT Notes Inpatient Physical Therapy Treatment Note Date: 04/16/18 PRECAUTIONS: Fall, WBAT on L SUBJECTIVE: Kierra states that she still doesn't feel well today, and she is not sure why she's feeling this way. OBJECTIVE: PAIN: Patient c/o pain in L hip BED MOBILITY/TRANSFERS Supine-sit: S with HOB flat Sit-supine: S with HOB flat Sit-stand: S Stand-sit: S GAIT Assistive Device: FWW Weight bearing: WBAT on L Assist: SBA/S Distance: 100' x2 Deviation: Step-through, slow pace, short pace THEREX: Patient completed a LE strengthening and stabilization program, as per flow sheet. Patient tolerated a slight progression in his program today, please see modifications made to reps on flow sheet. TOILETING: Patient toileted with supervision. ASSESSMENT: Patient tolerated session with c/o hip pain and nausea. She was able to tolerate a progression in gait distance and ther ex with some encouragement. She would benefit from continued gait and transfer training as well as strengthening for improved mobility. PLAN: Continue with PT's POC TREATMENT CODE/TIME: 40 minutes; TAx2/TP
--- NOTE | 2018-04-16 11:39 | CMPROGNOTE_ITS ---
Care Management Progress Note S/O: CM met with Kierra to discuss lack of bed availability at [facility]. Kierra shared concerns around not being able to go to the Rehab today, but was willing to allow this technical publications writer to send referral to [facility]. Marleni from [place] called with follow up questions and reported she would reconnect with this technical publications writer after fully reviewing Kierra's admission with her team. A: 82 year old female admitted to [facility] 04/11/18 P: SNF coordination and placement for discharge; SNF bed offer pending. Kierra will transport via private vehicle with her friend, Lolis.
--- NOTE | 2018-04-16 15:33 | PT.INTREAT ---
Date of service: 04/16/18 Time of Service: 15:33 PT Notes Date: 04/16/18 PRECAUTIONS: Fall precautions, WBAT L LE SUBJECTIVE: Pt lying in bed, anxious about going to rehab, how she is going to pay her bills, how she will get clothes. Pt stating she is now open to the [facility] if [facility] does not have a bed. She feels [facility] is too far for her friend Lolis to travel.. Pt required cues for breathing to reduce anxiety and tension to allow for her to be able to focus and participate in therapy session. OBJECTIVE Pain: no c/o pain Bed Mobility/Transfers: Supine-sit: independent Sit-stand: SBA with FWW Stand-sit: supervision Bed -bathroom: supervision with FWW Sit-supine: Supervision Gait: SBA with FWW 200ft WBAT L LE, slow step through gait pattern with decreased stride length and decreased fred. Pt returned to bed after session completed. Therex: Performed ankle pumps, quad sets, glute sets x 20 reps Balance: Static Sitting: normal Dynamic Sitting: normal Static Standing: fair Dynamic Standing: fair ASSESSMENT: Pt is improving with strength, transfers and gait mobility. Progressing well with post op rehab program. Pt is not yet independent or safe to return home alone, remote computer terminal operator care facility for rehab stay is still recommended for strengthening and mobility training. Pt's anxiety is her biggest limitation and pt would benefit from support with coping mechanisms for this. PLAN: Progress strengthening Progress gait distance TREATMENT CODE/TIME: 26min TAx1 TPx1 [id number] Amy Hallman PT
--- NOTE | 2018-04-16 15:40 | PTTR_ITS ---
Date of service: 04/16/18 Time of Service: 15:33 PT Notes Date: 04/16/18 PRECAUTIONS: Fall precautions, WBAT L LE SUBJECTIVE: Pt lying in bed, anxious about going to rehab, how she is going to pay her bills, how she will get clothes. Pt stating she is now open to the [facility] if [facility] does not have a bed. She feels [facility] is too far for her friend Lolis to travel.. Pt required cues for breathing to reduce anxiety and tension to allow for her to be able to focus and participate in therapy session. OBJECTIVE Pain: no c/o pain Bed Mobility/Transfers: Supine-sit: independent Sit-stand: SBA with FWW Stand-sit: supervision Bed -bathroom: supervision with FWW Sit-supine: Supervision Gait: SBA with FWW 200ft WBAT L LE, slow step through gait pattern with decreased stride length and decreased fred. Pt returned to bed after session completed. Therex: Performed ankle pumps, quad sets, glute sets x 20 reps Balance: Static Sitting: normal Dynamic Sitting: normal Static Standing: fair Dynamic Standing: fair ASSESSMENT: Pt is improving with strength, transfers and gait mobility. Progressing well with post op rehab program. Pt is not yet independent or safe to return home alone, intermediate project manager care facility for rehab stay is still recommended for strengthening and mobility training. Pt's anxiety is her biggest limitation and pt would benefit from support with coping mechanisms for this. PLAN: Progress strengthening Progress gait distance TREATMENT CODE/TIME: 26min TAx1 TPx1 [id number] Amy Hallman PT
[2018-04-16 16:04] VITALS: BP 106/68; PULSE 84; RESP 18; TEMP 37.3; O2SAT 95
[2018-04-16] MEDS: Mirtazapine 15 MG TAB PO (19:48)
--- NOTE | 2018-04-16 19:54 | W.PM.PROGNOT ---
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 She is status post hip arthroplasty. Her motion is improving and her ambulation ability is also improving. She is to continue to work with physical therapy. Given her physical deconditioning, debilitated state, an independent living situation, she will require senior living facility upon discharge. She will continue aspirin 81 mg twice daily for DVT prevention. Case management is involved in discharge planning. (2) Depression: Current visit: Yes Status: Chronic Continue with mirtazapine. Encourage patient to be positive and think about the improvement she has made. Spent time encouraging patient to get out of bed and walk with nursing and about her improvement that is to come. Awaiting psychiatry consult. Subjective Patient reports: no new complaints, still having pain, afebrile and other (still feels quite sad) Exam Narrative Exam Narrative: Alert and oriented x3. No acute distress. Evaluation of the left hip shows a clean dry and intact dressing. There is no surrounding ecchymosis. There is no swelling. Sensation intact light touch over the lateral femoral cutaneous nerve, femoral nerve distribution, and sciatic nerve distribution. She is unable to straight leg raise due to pain and weakness. She is able to dorsiflex and plantarflex left ankle as well as extend and flex the great toe. The foot is warm well perfused. No pain in the posterior calf. Objective Objective Clinical Data: Abnormal lab results 04/16/18 04/16/18 Range/Units 06:40 06:40 RBC 3.52 L (4.00-5.20) m/cumm Hgb 10.7 L (12.0-15.5) g/dL Hct 33.9 L (36.0-46.0) % MCV 96.3 H (80-95) fL MCHC 31.6 L (32.0-36.0) g/dL BUN 19 H (7-18) mg/dL Total Protein 6.2 L (6.4-8.2) g/dL Albumin 2.4 L (3.4-5.0) g/dL Vital Signs Temperature 37.3 C 04/16/18 16:04 Temperature Source Tympanic 04/16/18 16:04 Pulse 84 04/16/18 16:04 Pulse Rhythm Regular 04/16/18 15:39 Respiratory Rate 18 04/16/18 16:04 Respiratory Effort Non-Labored 04/16/18 15:39 Respiratory Depth Normal 04/16/18 15:39 Respiratory Pattern Normal 04/16/18 15:39 Blood Pressure 106/68 04/16/18 16:04 Pulse Oximetry 95 04/16/18 16:04 Respiratory End-tidal CO2 33 04/11/18 15:20 Oxygen Delivery Method Room Air 04/16/18 16:04 Oxygen Flow Rate 0 04/16/18 16:04 Pain Level 2 04/16/18 13:46 Comment 04/16/18 07:45 Intake & Output 04/15/18 04/16/18 04/16/18 23:59 11:59 23:59 Intake Total 380 / 380 360 / 360 120 / 120 Output Total 350 / 350 990 / 990 400 / 400 Balance -630 / -630 -280 / -280 Intake: Oral 380 / 380 360 / 360 120 / 120 Output: Urine 350 / 350 990 / 990 400 / 400 Other: Urine Color Yellow Yellow Urine Appearance Clear Clear Urine Odor None Normal Comment mixed w stool Stool Size Moderate Moderate Stool Characteristics Soft Formed Formed Hard Brown Voiding Methods Bedside Commode Bedside Commode Toilet Laboratory Results WBC 7.37 k/cumm (4.4-10.8) 04/16/18 06:40 RBC 3.52 m/cumm (4.00-5.20) L 04/16/18 06:40 Hgb 10.7 g/dL (12.0-15.5) L 04/16/18 06:40 Hct 33.9 % (36.0-46.0) L 04/16/18 06:40 MCV 96.3 fL (80-95) H 04/16/18 06:40 MCH 30.4 pg (27.0-33.0) 04/16/18 06:40 MCHC 31.6 g/dL (32.0-36.0) L 04/16/18 06:40 RDW 13.7 % (11.7-14.6) 04/16/18 06:40 Plt Count 254 x1000/uL (130-400) 04/16/18 06:40 MPV 9.7 fL (8.0-11.0) 04/16/18 06:40 Sodium 143 mmol/L (136-145) 04/16/18 06:40 Potassium 4.0 mmol/L (3.5-5.1) 04/16/18 06:40 Chloride 106 mmol/L (98-107) 04/16/18 06:40 Carbon Dioxide 31.8 mmol/L (21.0-32.0) 04/16/18 06:40 Anion Gap 5.2 mmol/L (3-11) 04/16/18 06:40 BUN 19 mg/dL (7-18) H 04/16/18 06:40 Creatinine 0.65 mg/dL (0.55-1.02) 04/16/18 06:40 Estimated GFR/1.73 m2 >= 60.00 (mL/min/1.73m2) 04/16/18 06:40 Glucose 87 mg/dL (70-100) 04/16/18 06:40 Calcium 8.5 mg/dL (8.5-10.1) 04/16/18 06:40 Total Bilirubin 0.3 mg/dL (0.2-1.0) 04/16/18 06:40 AST 34 U/L (15-37) 04/16/18 06:40 ALT 41 U/L (12-78) 04/16/18 06:40 Alkaline Phosphatase 63 U/L (46-116) 04/16/18 06:40 Total Protein 6.2 g/dL (6.4-8.2) L 04/16/18 06:40 Albumin 2.4 g/dL (3.4-5.0) L 04/16/18 06:40
[2018-04-16 23:40] VITALS: BP 104/54; PULSE 70; RESP 18; TEMP 36.7; O2SAT 97
[2018-04-17] MEDS: Multivitamin TAB 1 TAB PO (08:16)
[2018-04-17] MEDS: Celecoxib 200 MG CAP PO (08:16)
[2018-04-17] MEDS: Lactobacillus Acidophilus CAP 1 CAP PO (08:16)
[2018-04-17] MEDS: Pantoprazole 40 MG TABCR PO (08:16)
[2018-04-17] MEDS: Acetaminophen 500 MG TAB 1000 MG PO (08:16)
[2018-04-17] MEDS: Aspirin E.C. 81 MG TABEC PO (08:16)
[2018-04-17] MEDS: Vitamins B Comp w/C TAB 1 TAB PO (08:16)
[2018-04-17] MEDS: Calcium 600mg/Vit D 200U TAB 1 TAB PO (08:16)
--- NOTE | 2018-04-17 09:14 | W.PSYCHCONSU ---
Date of service: 04/17/18 History of Present Illness Chief Complaint: O, I was waiting to talk with you! Narrative: Primary Care Provider: Ruth Morris MD Referred by: Jorge Luis Carmona MD Information source: Patient, chart, care team. Reason for consult: I was asked by Dr. Carmona to see Kierra Roque to evaluate for depression and make treatment recommendations. History Of Present Illness: Kierra Roque is an 82 year old female who was admitted to [facility] for scheduled left hip arthroplasty who was noted to be tearful post surgery and complained of low mood prompting this consult. Interview was with Mrs Roque alone. Information gathered was a bit limited due to her need to tell me stories in spite of my specifically stating, after some time letting her direct the conversation, the need for us to talk about how she is doing now. She would say, No, I need to tell you this. This is important and then she would tell me about how family wronged her or abandoned her in the past. When asked how these things affect her now she breezily replied, Oh I try not to think about them. Strikingly, she at one point stated that her by tractor roll over and described seeing yellow coming out of his nose and ears and she asked an EMT later what that would have been. That's how I know he crushed his brain. All this reported with a light and easy tone. Mrs Roque reports that the day after surgery, I just started crying! I don't know why! The nurse demanded me to tell her what was going on, why I was crying but I didn't know. She wasn't very nice about it.... Mood: she reports feeling a little bit more down than usual, in large part due to pain and disability, and worry about where she is going to live this winter. She reports I just don't care about anything anymore. Mirtazapine not much helpful for mood yet. Mood history: she reports a period of post-partem depression after her daughter was born, and then again a depressive episode when daughter was 5 years old and feeling better after being prescribed Librium. She weaned herself off the Librium, she states, when she learned that it was a dangerous medication. Anxiety: +worrier, that is a big problem for me! has been a worrier most of her life. Sleep: problematic prior to surgery due to pain, sleeping well at night now since starting mirtazapine which does help her feel better. Tired a lot during the day but not more so since starting mirtazapine. Substances: not reviewed at this visit. Safety: - current suicidal/homicidal/violent ideations: denies. - guns in home or access to weapons: not reviewed. PAST PSYCHIATRIC HISTORY: Hospitalizations: never, but visited by psychiatric marine engineering consultant at [facility] when inpatient for cancer treatment. Suicide attempts: never Prescribers: PCP Medications: - mirtazapine 15mg started recently - librium in the distant past. Therapist: None currently Social history: - many years. by tractor roll. He was not a supportive person. he had terrible parents so he didn't know how. - one daughter from whom she is estranged x 18 years her won't let her talk with me - after she moved from their remote land in [place] to a remote piece of land in [place] on which she had a house built and has been living there alone for >10 years. she has put the house on the market. She reports the builder turned out to be the absolute bottom of the barrel, the worst. - very few social supports and contacts. Flower is her roving machine operator and personal friend/helper. - a sister but estranged from her - grew up with mother, father, sister. she reports being the good child, the sister the bad child, but mother favored her sister and no one could understand why REVIEW OF SYSTEMS: Constitutional: +fatigue, Cardiovascular: No chest pains or dizziness Respiratory: no cough or shortness of breath Musculoskeletal: +weakness post surgery, walking with assist. GI: No constipation, diarrhea, nausea, vomiting; appetite is fine Genitourinary: No dysuria, frequency of urination, hematuria Neurological: No weakness, seizures, numbness, tics, ataxia Psych: see above Endocrine: No cold or heat intolerance, polyuria, excessive thirst Hem/Lymph: No bruising, bleeding Allergies: see chart MENTAL STATUS EXAM: Constitutional: appears healthy, awake, alert, sitting in chair eating breakfast with gusto, wearing hospital clothing Attitude: cooperative, eager to talk Psychomotor: no retardation or agitation Speech: nonpressured, normal volume and prosody. No articulation problems noted. Associations: no looseness Thought process: linear, logical, goal directed Thought content without psychosis, delusions, obsessions No suicidal or homicidal ideations Hallucinations denied Mood: down Affect: alternately tearful or down, and then kemal and bright and laughing, all congruent with content and appropriate in proportion, but startling in its shift. Attention/Concentration: grossly intact Judgment/insight: poor-fair Oriented x 4 Language appropriate to age and education Fund of knowledge appropriate to age and education Memory intact to recent and remote events Other cognitive testing: none Assessment and Plan (1) Depression: Current visit: No Status: Chronic Kierra Roque is an 82 year old female with past psychiatric history of depression who is status post left hip arthroplasty. After an unexplained tearful episode after surgery, I was asked to evaluate her for depression and recommend treatment. History and clinical exam are consistent with an adjustment disorder with anxiety and depression. She appears to have a coping style of isolating her emotions and appears to have a negative experience of many people involved in her life in the past. She has very limited social contacts or meaningful connections now. The stress of aging and increased physical limitations appears to be triggering worsening mood and anxiety. Mirtazapine is improving sleep and in time will have benefit for mood and anxiety. Increasing the dose to 22.5mg nightly or 30mg nightly will help further with mood and anxiety and may reduce any sedating effect, which does not appear to be impairing at this time. Social contacts and cognitive reframing are likely to have the biggest impact on her mood. In this way daily attention at rehab may be therapeutic for her. Recommendations: - continue mirtazapine 15mg nightly - continue discharge planning to rehab post hip replacement. Safety: low risk to harm self or others intentionally or unintentionally. Dr. Carmona is welcome to contact me at any time with questions or concerns about her mental health management. Visit Statistics Total Visit Minutes: 55 Visit Time Allocation >50% of face to face visit spent in counseling (Extensive teaching, explanation and instructions. Counseling as appropriate. Review of plans, and discussion concerning medical problems dealt with at this visit. Discussion of benefits/risks of treatment, anticipated course of events, potential medication side effects, options, alternatives, and follow up plans. Questions were solicited and answered, and the patient verbalized understanding.), and/or coordination of care. [facility] Medical History 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) Heart palpitations (Chronic) Social History household members: none housing: house marital status: lives independently: Yes number of children: 1 Surgical History H/O hysterectomy for benign disease (Resolved) Status post left breast lumpectomy (Resolved) Results Last Vital Signs Temp 36.7 C 04/16/18 23:40 Pulse 70 04/16/18 23:40 Resp 18 04/16/18 23:40 BP 104/54 L 04/16/18 23:40 Pulse Ox 97 04/16/18 23:40 Labs : 04/16/18 06:40 04/16/18 06:40
--- NOTE | 2018-04-17 09:18 | CMDISCH_ITS ---
LACE Index Scoring Tool - Questions: Length of Stay (in days): 7 - 13 Acuity (Admit via E.D.?): Yes Comorbidities: Any Tumor E.D. Visits: 0 - Answers: Total Score: 10 Risk of Readmission: High Risk Care Management Discharge Reason for Hospitalization: Total Left hip Discharge Plan: Kierra will discharge to SNF for continued rehab prior to returning home. She will transport via private vehicle with [facility]. Patient/Family Education Needs: Review of insurance coverage and limitations, SNF transfer considerations, discharge instructions. Services Needed at Discharge: Correction Facility ([facility] ) , Transportation ([facility]-private vehicle volunteer driver education instructor)
--- NOTE | 2018-04-17 09:20 | PSYCO_ITS ---
Date of service: 04/17/18 History of Present Illness Chief Complaint: O, I was waiting to talk with you! Narrative: Primary Care Provider: Ruth Morris MD Referred by: Jorge Luis Carmona MD Information source: Patient, chart, care team. Reason for consult: I was asked by Dr. Carmona to see Kierra Roque to evaluate for depression and make treatment recommendations. History Of Present Illness: Kierra Roque is an 82 year old female who was admitted to [facility] for scheduled left hip arthroplasty who was noted to be tearful post surgery and complained of low mood prompting this consult. Interview was with Mrs Roque alone. Information gathered was a bit limited due to her need to tell me stories in spite of my specifically stating, after some time letting her direct the conversation, the need for us to talk about how she is doing now. She would say, No, I need to tell you this. This is important and then she would tell me about how family wronged her or abandoned her in the past. When asked how these things affect her now she breezily replied, Oh I try not to think about them. Strikingly, she at one point stated that her by tractor roll over and described seeing yellow coming out of his nose and ears and she asked an EMT later what that would have been. That's how I know he crushed his brain. All this reported with a light and easy tone. Mrs Roque reports that the day after surgery, I just started crying! I don't know why! The nurse demanded me to tell her what was going on, why I was crying but I didn't know. She wasn't very nice about it.... Mood: she reports feeling a little bit more down than usual, in large part due to pain and disability, and worry about where she is going to live this winter. She reports I just don't care about anything anymore. Mirtazapine not much helpful for mood yet. Mood history: she reports a period of post-partem depression after her daughter was born, and then again a depressive episode when daughter was 5 years old and feeling better after being prescribed Librium. She weaned herself off the Librium, she states, when she learned that it was a dangerous medication. Anxiety: +worrier, that is a big problem for me! has been a worrier most of her life. Sleep: problematic prior to surgery due to pain, sleeping well at night now since starting mirtazapine which does help her feel better. Tired a lot during the day but not more so since starting mirtazapine. Substances: not reviewed at this visit. Safety: - current suicidal/homicidal/violent ideations: denies. - guns in home or access to weapons: not reviewed. PAST PSYCHIATRIC HISTORY: Hospitalizations: never, but visited by psychiatric environmental consultant at [facility] [place] when inpatient for cancer treatment. Suicide attempts: never Prescribers: PCP Medications: - mirtazapine 15mg started recently - librium in the distant past. Therapist: None currently Social history: - many years. by tractor roll. He was not a supportive person. he had terrible parents so he didn't know how. - one daughter from whom she is estranged x 18 years her won't let her talk with me - after she moved from their remote land in [place] to a remote piece of land in [place] on which she had a house built and has been living there alone for >10 years. she has put the house on the market. She reports the builder turned out to be the absolute bottom of the barrel, the worst. - very few social supports and contacts. Flower is her middle school director and personal friend/helper. - a sister but estranged from her - grew up with mother, father, sister. she reports being the good child, the sister the bad child, but mother favored her sister and no one could understand why REVIEW OF SYSTEMS: Constitutional: +fatigue, Cardiovascular: No chest pains or dizziness Respiratory: no cough or shortness of breath Musculoskeletal: +weakness post surgery, walking with assist. GI: No constipation, diarrhea, nausea, vomiting; appetite is fine Genitourinary: No dysuria, frequency of urination, hematuria Neurological: No weakness, seizures, numbness, tics, ataxia Psych: see above Endocrine: No cold or heat intolerance, polyuria, excessive thirst Hem/Lymph: No bruising, bleeding Allergies: see chart MENTAL STATUS EXAM: Constitutional: appears healthy, awake, alert, sitting in chair eating breakfast with gusto, wearing hospital clothing Attitude: cooperative, eager to talk Psychomotor: no retardation or agitation Speech: nonpressured, normal volume and prosody. No articulation problems noted. Associations: no looseness Thought process: linear, logical, goal directed Thought content without psychosis, delusions, obsessions No suicidal or homicidal ideations Hallucinations denied Mood: down Affect: alternately tearful or down, and then kemal and bright and laughing, all congruent with content and appropriate in proportion, but startling in its shift. Attention/Concentration: grossly intact Judgment/insight: poor-fair Oriented x 4 Language appropriate to age and education Fund of knowledge appropriate to age and education Memory intact to recent and remote events Other cognitive testing: none Assessment and Plan (1) Depression: Current visit: No Status: Chronic Kierra Roque is an 82 year old female with past psychiatric history of depression who is status post left hip arthroplasty. After an unexplained tearful episode after surgery, I was asked to evaluate her for depression and recommend treatment. History and clinical exam are consistent with an adjustment disorder with anxiety and depression. She appears to have a coping style of isolating her emotions and appears to have a negative experience of many people involved in her life in the past. She has very limited social contacts or meaningful connections now. The stress of aging and increased physical limitations appears to be triggering worsening mood and anxiety. Mirtazapine is improving sleep and in time will have benefit for mood and anxiety. Increasing the dose to 22.5mg nightly or 30mg nightly will help further with mood and anxiety and may reduce any sedating effect, which does not appear to be impairing at this time. Social contacts and cognitive reframing are likely to have the biggest impact on her mood. In this way daily attention at rehab may be therapeutic for her. Recommendations: - continue mirtazapine 15mg nightly - continue discharge planning to rehab post hip replacement. Safety: low risk to harm self or others intentionally or unintentionally. Dr. Carmoan is welcome to contact me at any time with questions or concerns about her mental health management. Visit Statistics Total Visit Minutes: 55 Visit Time Allocation >50% of face to face visit spent in counseling (Extensive teaching, explanation and instructions. Counseling as appropriate. Review of plans, and discussion concerning medical problems dealt with at this visit. Discussion of benefits/risks of treatment, anticipated course of events, potential medication side effects, options, alternatives, and follow up plans. Questions were solicited and answered, and the patient verbalized understanding.), and/or coordination of care. [facility] Medical History 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) Heart palpitations (Chronic) Social History household members: none housing: house marital status: lives independently: Yes number of children: 1 Surgical History H/O hysterectomy for benign disease (Resolved) Status post left breast lumpectomy (Resolved) Results Last Vital Signs Temp 36.7 C 04/16/18 23:40 Pulse 70 04/16/18 23:40 Resp 18 04/16/18 23:40 BP 104/54 L 04/16/18 23:40 Pulse Ox 97 04/16/18 23:40 Labs : 04/16/18 06:40 04/16/18 06:40
--- NOTE | 2018-04-17 10:30 | PT.INTREAT ---
Date of service: 04/17/18 Time of Service: 10:30 PT Notes Inpatient Physical Therapy Treatment Note Date: 04/17/18 PRECAUTIONS: Fall, WBAT on L SUBJECTIVE: Kierra states that she just wants to stay in bed today, that she is still really tired and not feeling well. Following some encouragement, Kierra agrees to participating in PT. OBJECTIVE: PAIN: Patient rates her pain as a 4/10 for nursing. BED MOBILITY/TRANSFERS Supine-sit: S with HOB flat Sit-stand: S Stand-sit: S GAIT Assistive Device: FWW Weight bearing: WBAT on L Assist: S Distance: 30' +15' THEREX: Patient completed a lower extremity strengthening and stabilization program, as per flow sheet. TOILETING: Patient toileted with supervision for transfers only. ASSESSMENT: Patient tolerated session with some c/o pain in L hip area. She continues to require some encouragement to participate in all activities due to anxiety. She would benefit from continued gait training to improve gait distance tolerance, as well as strengthening. PLAN: Continue with PT's POC TREATMENT CODE/TIME: 30 minutes; TA/TP
[2018-04-17 11:05] VITALS: BP 100/65; PULSE 79; RESP 16; TEMP 36.5; O2SAT 97
--- NOTE | 2018-04-17 11:11 | OTDS_ITS ---
Date of service: 04/17/18 Time of Service: 09:20 Occupational Therapy Notes Occupational Therapy Inpatient Discharge Summary Date: 04/17/18 Dates of Service: 04/12/18-04/17/18 PRECAUTIONS: WBAT (L) LE SUBJECTIVE: Pt walking to bathroom with [employer] when OT arrives. Pt reports to OT that she wants to get cleaned today and that she wants to wear her own clothes because she thinks it might make her feel better. Pt reports that she is anxious because she wants to go to [facility] and rehab and she doesn't know if they can take her. OBJECTIVE: PAIN: no c/o pain. FUNCTIONAL MOBILITY/ADLS: Sit-stand: S, FWW Stand-sit: S, FWW Functional Ambulation: S, FWW to shower room and back to pts room 160 ft BATHING-Sitting on shower bench in shower Upper Body: (I) able to wash her UE and abdomen. Max (A) for washing back, mod ( A) for washing hair as pt's PLOF is not bathing in shower but performing bathing routine at sink. Pt denies washing face and states that she doesn't face her face at all. Lower Body: (I) with washing pelvic/ LE. Pt needs minimal verbal cues for bring foot up to wash because pt is scared to move (L) hip. When cued that it is ok , pt is able to perform this (I). DRESSING- Sitting in chair Upper body: (I) bra and t-shirt Lower Body: (I) underwear and pants. Pt able to perform this with minimal verbal cues. Has sock aid for donning socks. Pt needs reminders to use sock aid when performing socks. GROOMING: Standing at sink, (I) with teeth brushing and hair brushing, S, FWW TOILETING: Assist: (I) Device: Raised toilet seat with handles. ASSESSMENT: Patient is a 82-year-old female referred to occupational therapy services with diagnosis of s/p (L) SHITAL performed by Dr. Carmona. Pt was seen for 4 OT sessions and has met all goals. Pt is very anxious about returning home and performing home routine. Plan is for pt to be discharged to the [facility] for rehabilitation prior to return home. Pt PLOF was with (A) to perform laundry and grocery shopping and this makes pt very anxious that no one will be able to help her once she gets home. Pt no longer needs skilled OT services. She is able to perform all ADLs at her baseline however is very anxious to do this unless encouraged that she is able to perform her ADL routine. GOALS 1. Transfers S, FWW 2. Dressing UE- (I) done and doff shirt LE- mod (I) with sock aid for socks, able to pull on pants/ underwear with minimal verbal cues and FWW 3. Bathing: Standing at sink with long handled sponge pt will be (I) with routine like premorbid level of function. 4. Toileting: On raised toilet, (I) Pt met all goals. PLAN: Discharged to the [facility]. TREATMENT CODES/TIME: Self Carex4, 09:20 G Codes in the area of self- : washing oneself, toileting, dressing, eating and drinking, current status [id number] projected status [id number]. Discharge Status: [id number].
--- NOTE | 2018-04-17 11:13 | PT.INDS ---
Date of service: 04/17/18 Time of Service: 11:14 PT Notes Inpatient Physical Therapy Discharge Summary Date: 04/17/18 Dates of Service: 04/12/18-04/17/18 SUBJECTIVE: NT OBJECTIVE: 04/12/18-04/17/18 Bed Mobility/Transfers: Supine-sit: supervision Sit-supine: supervision Sit-stand: supervision with FWW Stand-sit: supervision with FWW Gait: superivison/SBA with FWW 30ft-200ft WBAT L LE . 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 Patient was seen for 9 PT Visits. Progressed from CGA bed transfers to supervision, from CGA standing transfers to supervision, from CGA gait with FWW 20ftx2 to SBA/supervision gait with FWW 200ft. Pt is being transferred to [facility] facility for continued rehab. Goals: Goals X1 week 1. Supine-Sit : independent 2. Sit-Supine : independent 3. Sit-Stand : supervision with FWW 4. Stand-Sit : supervision with FWW 5. Bed-Chair : supervision with FWW 6. Chair-Bed : supervision with FWW 7. Gait : supervision with FWW 100ft WBAT L LE 8. Stairs up/down 12 steps with railing, supervision, WBAT L LE 9. Independent with home exercise program Pt met goals # 3, 4, 7 - recommend continued PT toward remaining goals DISCHARGE RECOMMENDATIONS: [facility] rehab facility G Codes in the area mobility of walking and moving around: projected status GP [id number]. Discharge status (if discharging) GP [id number] CK Amy Hallman PT
--- NOTE | 2018-04-17 11:20 | INDS_ITS ---
Date of service: 04/17/18 Time of Service: 11:14 PT Notes Inpatient Physical Therapy Discharge Summary Date: 04/17/18 Dates of Service: 04/12/18-04/17/18 SUBJECTIVE: NT OBJECTIVE: 04/12/18-04/17/18 Bed Mobility/Transfers: Supine-sit: supervision Sit-supine: supervision Sit-stand: supervision with FWW Stand-sit: supervision with FWW Gait: superivison/SBA with FWW 30ft-200ft WBAT L LE . 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 Patient was seen for 9 PT Visits. Progressed from CGA bed transfers to supervision, from CGA standing transfers to supervision, from CGA gait with FWW 20ftx2 to SBA/supervision gait with FWW 200ft. Pt is being transferred to [facility] operator [facility] facility for continued rehab. Goals: Goals X1 week 1. Supine-Sit : independent 2. Sit-Supine : independent 3. Sit-Stand : supervision with FWW 4. Stand-Sit : supervision with FWW 5. Bed-Chair : supervision with FWW 6. Chair-Bed : supervision with FWW 7. Gait : supervision with FWW 100ft WBAT L LE 8. Stairs up/down 12 steps with railing, supervision, WBAT L LE 9. Independent with home exercise program Pt met goals # 3, 4, 7 - recommend continued PT toward remaining goals DISCHARGE RECOMMENDATIONS: [facility] rehab facility G Codes in the area mobility of walking and moving around: projected status GP [id number]. Discharge status (if discharging) GP [id number] CK Amy Hallman PT
== END 2018-04-17 13:02 | disposition skilled nursing facility (03) | DRG 470 ==
LOC: PDS 16:23 → MS 16:27
PROVIDERS: Admitting Provider Student in an Organized Health Care Education/Training Program; PCP Family Medicine; Visit Provider Student in an Organized Health Care Education/Training Program
PROC: 0SRB04A Replacement of Left Hip Joint with Ceramic on Polyethylene Synthetic Substitute, Uncemented, Open Approach (ICD-10-PCS; CPT 27130; principal; 2018-04-11 12:30)
DX: M16.12 Unilateral primary osteoarthritis, left hip (principal); M87.852 Other osteonecrosis, left femur; F32.9 Major depressive disorder, single episode, unspecified; Z96.642 Presence of left artificial hip joint
CPT/HCPCS: 27130; 36415; 76000; 80048; 80053; 85027; 97110; 97163; 97166; 97530; 97535; 99233; 99254; NC; 72170; 73501; J0690; J1100; J1885; J2405; J3010

== ENCOUNTER 2018-05-01 11:12 | Outpatient (REF) | payer SELFPAY ==
--- NOTE | 2018-05-01 11:00 | DI.RAD_ITS ---
SYMPTOM/DIAGNOSIS: S/P LT SHITAL LEFT HIP: The patient is status post THR. The prosthesis is in good position. Surrounding bone intact with no interval change when compared with the post operative images of 04/11/18.
== END 2018-05-01 11:32 ==
LOC: DIORS 11:12
PROVIDERS: Visit Provider Student in an Organized Health Care Education/Training Program
DX: Z47.1 Aftercare following joint replacement surgery (principal); Z96.642 Presence of left artificial hip joint; M87.052 Idiopathic aseptic necrosis of left femur
CPT/HCPCS: 73502

== ENCOUNTER → 2018-05-22 13:21 | Outpatient (BNVA) | payer MEDICARE, SELFPAY | PROVIDERS: Visit Provider Student in an Organized Health Care Education/Training Program | DX: M25.552 Pain in left hip (principal); Z47.1 Aftercare following joint replacement surgery; Z96.642 Presence of left artificial hip joint ==

== ENCOUNTER 2018-08-09 17:47 | Outpatient (REF) | payer MEDICARE, SELFPAY | END 2018-08-09 18:07 | LOC: NCHCN 17:47 | PROVIDERS: Visit Provider Family Medicine | DX: R35.0 Frequency of micturition (principal) | CPT/HCPCS: 87086 ==

== ENCOUNTER 2019-08-28 10:42 | Outpatient (CLI) | payer MEDICARE, SELFPAY ==
--- NOTE | 2019-08-28 10:30 | DI.RAD_ITS ---
EXAM: XR HIP LT AP LAT ONLY INDICATION: L SHITAL. COMPARISON: XR hip LT complete AP pelvis from 05/01/2018 TECHNIQUE: 2D digital imaging was performed. FINDINGS: There is no change in the alignment of the total hip prosthesis. 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 There is no acute fracture or signs of lucency. IMPRESSION: Stable appearance of left total hip prosthesis. DATA REPOSITORY: RADIATION DOSE DELIVERED:
--- NOTE | 2019-08-28 10:30 | DI.RAD_ITS ---
EXAM: XR FOOT RT COMPLETE INDICATION: R foot pain. COMPARISON: No exams were available for comparison TECHNIQUE: 2D digital imaging was performed. FINDINGS: Plantar arch is well maintained. There is moderate to severe hallux valgus and 1st metatarsal varus. The bones appear osteoporotic. There is an old healed fracture of the 3rd metatarsal. Hammertoe d eformities are seen. IMPRESSION: Moderate to severe hallux valgus. DATA REPOSITORY: RADIATION DOSE DELIVERED:
== END 2019-08-28 11:02 ==
PROVIDERS: Visit Provider Student in an Organized Health Care Education/Training Program
DX: M79.671 Pain in right foot (principal); M20.11 Hallux valgus (acquired), right foot; M20.41 Other hammer toe(s) (acquired), right foot; M81.0 Age-related osteoporosis without current pathological fracture; Z96.642 Presence of left artificial hip joint
CPT/HCPCS: 99214; 73502; 73630

== ENCOUNTER 2020-04-07 20:28 | Outpatient (REF) | payer MEDICARE, SELFPAY ==
[2020-04-07 20:49] LABS: Abs Immature Grans 0.04 10^3/uL (0.0-0.06); Absolute Basophil Count 0.05 10^3/uL (0.0-0.2); Absolute Eosinophil Count 0.09 10^3/uL (0.0-0.7); Absolute Lymphocyte Count 1.22 10^3/uL (1.2-3.4); Absolute Monocyte Count 0.55 10^3/uL (0.1-0.8); Absolute Neutrophil Count 5.15 10^3/uL (1.2-6.7); Basophils % 0.7; Eosinophils % 1.3; HCT 36.8 % (36.0-46.0); HGB 11.9 g/dL (11.2-15.7); Immature Grans % 0.6; Lymphocytes % 17.2; MCH 30.6 pg (27.0-33.0); MCHC 32.3 % (32.0-36.0); MCV 94.6 fL (80-95); MPV 10.3 fL (8.0-11.0); Monocytes % 7.7; Neutrophils % 72.5; Nucleated RBC 0 %; Platelet Count 276 10^3/uL (130-400); RBC 3.89 10^6/uL (3.93-5.22); RDW 12.7 % (11.7-14.6); RDW-SD 44.1 fL
[2020-04-07 21:12] LABS: ALT 28 U/L (14-59); AST 23 U/L (15-37); Albumin 3.5 g/dL (3.4-5.0); Alkaline Phosphatase 72 U/L (46-116); Anion Gap 6.3 mmol/L (3-11); BUN 35 mg/dL (7-18); Bilirubin, Total 0.2 mg/dL (0.2-1.0); CO2 28.7 mmol/L (21.0-32.0); CREATININE 0.67 mg/dL (0.55-1.02); Chloride 102 mmol/L (98-107); Glucose 93 mg/dL (74-106); Potassium 4.7 mmol/L (3.5-5.1); Sodium 137 mmol/L (136-145); Total Protein 6.7 g/dL (6.4-8.2)
== END 2020-04-07 20:48 ==
LOC: NCHCN 20:28
PROVIDERS: PCP Family Medicine; Visit Provider Physician Assistant Medical
DX: M79.671 Pain in right foot (principal)
CPT/HCPCS: 80053; 85025

== ENCOUNTER 2020-04-16 13:38 | Outpatient (REF) | payer MEDICARE, SELFPAY ==
[2020-04-20 21:11] LABS: COVID-19 RT-PCR Result NEGATIVE (Negative)
== END 2020-04-16 13:58 ==
LOC: NCHCN 13:38
PROVIDERS: PCP Family Medicine; Visit Provider Family Medicine
DX: Z11.59 Encounter for screening for other viral diseases (principal); Z01.818 Encounter for other preprocedural examination
CPT/HCPCS: U0003

== ENCOUNTER 2021-08-24 16:39 | Outpatient (REF) | payer MEDICARE, SELFPAY ==
[2021-08-24 22:02] LABS: Abs Immature Grans 0.03 10^3/uL (0.0-0.06); Absolute Basophil Count 0.04 10^3/uL (0.0-0.2); Absolute Eosinophil Count 0.03 10^3/uL (0.0-0.7); Absolute Lymphocyte Count 1.31 10^3/uL (1.2-3.4); Absolute Monocyte Count 0.78 10^3/uL (0.1-0.8); Absolute Neutrophil Count 7.59 10^3/uL (1.2-6.7); Basophils % 0.4; Eosinophils % 0.3; HCT 34.4 % (36.0-46.0); HGB 10.5 g/dL (11.2-15.7); Immature Grans % 0.3; Lymphocytes % 13.4; MCH 26.6 pg (27.0-33.0); MCHC 30.5 % (32.0-36.0); MCV 87.3 fL (80-95); MPV 11.5 fL (8.0-11.0); Neutrophils % 77.6; Nucleated RBC 0 %; Platelet Count 214 10^3/uL (130-400); RBC 3.94 10^6/uL (3.93-5.22); RDW 15.9 % (11.7-14.6); RDW-SD 51.8 fL; WBC 9.78 10^3/uL (4.4-10.8)
[2021-08-24 22:29] LABS: ALT 31 U/L (14-59); AST 28 U/L (15-37); Alkaline Phosphatase 64 U/L (46-116); Anion Gap 9.4 mmol/L (3-11); BUN 26 mg/dL (7-18); Bilirubin, Total 0.6 mg/dL (0.2-1.0); CO2 28.6 mmol/L (21.0-32.0); CREATININE 0.7 mg/dL (0.55-1.02); Calcium 9.8 mg/dL (8.5-10.1); Chloride 103 mmol/L (98-107); Glucose 88 mg/dL (74-106); Lipase 59 U/L (73-393); Potassium 3.8 mmol/L (3.5-5.1); Sodium 141 mmol/L (136-145); TSH (W/Ref FT4) 1.55 uIU/mL (0.36-3.74); Total Protein 7.1 g/dL (6.4-8.2)
[2021-08-26 13:10] LABS: COVID-19 RT-PCR UVMMC Result Negative (Negative)
== END 2021-08-24 16:40 | disposition home or self-care (01) ==
LOC: LBN 16:39
PROVIDERS: PCP Family Medicine; Visit Provider Physician Assistant Medical
DX: R53.83 Other fatigue (principal); Z20.822 Contact with and (suspected) exposure to COVID-19
CPT/HCPCS: 80053; 83690; 87077; U0003; U0005; 84443; 85025; 87086; 87186

== ENCOUNTER 2021-10-27 20:36 | Outpatient (REF) | payer MEDICARE, SELFPAY ==
[2021-10-27 14:59] LABS: HCT 37.5 % (36.0-46.0); HGB 11.4 g/dL (11.2-15.7); MCHC 30.4 % (32.0-36.0); MCV 89 fL (80-95); MPV 10.9 fL (8.0-11.0); Platelet Count 209 10^3/uL (130-400); RBC 4.23 10^6/uL (3.93-5.22); RDW 15.5 % (11.7-14.6); RDW-SD 49.8 fL; WBC 11.81 10^3/uL (4.4-10.8)
[2021-10-27 15:02] LABS: ESR 19 mm/hr (0-30)
[2021-10-27 15:35] LABS: ALT 19 U/L (14-59); AST 15 U/L (15-37); Albumin 3.7 g/dL (3.4-5.0); Alkaline Phosphatase 72 U/L (46-116); Anion Gap 7.6 mmol/L (3-11); BUN 23 mg/dL (7-18); Bilirubin, Total 0.5 mg/dL (0.2-1.0); CO2 29.4 mmol/L (21.0-32.0); CREATININE 0.6 mg/dL (0.55-1.02); Calcium 9.2 mg/dL (8.5-10.1); Chloride 105 mmol/L (98-107); Ferritin 24 ng/mL (8-252); Glucose 91 mg/dL (74-106); Potassium 3.4 mmol/L (3.5-5.1); Sodium 142 mmol/L (136-145); Total Protein 6.8 g/dL (6.4-8.2); Vitamin B12 724 pg/mL (193-986)
[2021-10-27 15:54] LABS: FREE T4 0.46 ng/dL (0.76-1.46)
[2021-10-27 21:43] LABS: T3,Free 8.7 pg/mL (2.8-5.3)
[2021-10-31 09:40] LABS: TSH 0.18 uIU/mL (0.36-3.74)
== END 2021-10-27 20:37 | disposition home or self-care (01) ==
LOC: NCHCN 20:36
PROVIDERS: PCP Family Medicine; Visit Provider Family Medicine
DX: N39.0 Urinary tract infection, site not specified (principal); D64.9 Anemia, unspecified; R53.1 Weakness
CPT/HCPCS: 80053; 85027; 85652; 82607; 82728; 82746; 84439; 84443; 84481; 86140; 87086

== ENCOUNTER 2022-01-04 13:55 | Inpatient (IN) | payer MEDICARE, SELFPAY ==
[2022-01-04] VITALS (63 sets, daily range): BP systolic 100–144; BP diastolic 50–98; PULSE 62–108; RESP 13–31; TEMP 36.7–37.2; O2SAT 91–98
--- NOTE | 2022-01-04 14:15 | RT.EKG_ITS ---
APPROVED REPORT Exam: Resting ECG Reason for Exam: weakness Patient Location: E HR:96 bpm ECG Measurements Heart Rate 96 AXIS IN 140 P 74 QRSd 138 QRS 38 QT 399 T 8 QTc 505 Conclusion Sinus rhythm...normal P axis, V-rate 60- 99 Right bundle branch block...QRSd>120, terminal axis(90,270) sinus rhythm, normal axis, RBBB
--- NOTE | 2022-01-04 14:15 | DI.CT_ITS ---
Exam(s) CT HEAD WO EXAM: CT HEAD WO CLINICAL HISTORY: fall. TECHNIQUE: Imaging Protocol: Axial computed tomography images with coronal and sagittal reformatted images were created and reviewed COMPARISON: No exams were available for comparison FINDINGS: Ventricles and Extra axial spaces: Dilated likely secondary to ex vacuo dilatation. Hemorrhage: None. Cerebral parenchyma: Atrophy and white matter changes of small vessel disease. Midline shift: None. Brainstem/Cerebellum: Streak artifact through sellar velum related to dental work. Calvarium: Normal. Visualized Paranasal sinuses: Chronic appearing pansinusitis./ Mastoids: Clear. Soft Tissues: Unremarkable. IMPRESSION: Sinus disease. Age related changes. No acute intracranial process. RADIATION DOSE DELIVERED: 825.62mGy.cm Total DLP DATA REPOSITORY: All CT scans at this facility are submitted to the National Radiology Data Registry (NRDR) Dose Index Registry (DIR) with the [employer] ([employer]). RADIATION OPTIMIZATION: All CT scans at this facility use at least one of these dose optimization te chniques: automated exposure control; mA and/or kV adjustment per patient size (includes targeted exa ms where dose is matched to clinical indication); or iterative reconstruction.
--- NOTE | 2022-01-04 14:15 | DI.RAD_ITS ---
Exam(s) XR PELVIS AP EXAM: XR PELVIS AP CLINICAL HISTORY: fall. TECHNIQUE: 2D digital imaging was performed. Two views COMPARISON: CR XR pelvis AP from 04/11/2018 CR XR hip LT complete AP pelvis from 05/01/2018 CR XR HIP LT AP LAT ONLY from 08/28/2019 FINDINGS: BONES: No acute fracture is present. No bony destructive lesion is seen. JOINTS: Left hip prosthesis. No change from prior. No dislocation present. No joint space narrowing is present. SOFT TISSUE: Normal. IMPRESSION: Unremarkable radiographs of the pelvis. DATA REPOSITORY: RADIATION DOSE DELIVERED:
--- NOTE | 2022-01-04 14:16 | DI.RAD_ITS ---
Exam(s) XR CHEST 1V IN DI DEPT EXAM: XR CHEST 1V IN DI DEPT CLINICAL HISTORY: fall,weakness TECHNIQUE: 2D digital imaging was performed. COMPARISON: No exams were available for comparison FINDINGS: LUNGS: Clear. No pleural abnormality seen. HEART: Normal. AORTA: Normal. BONES: Scoliosis and degenerative changes in the thoracic spine. No visible rib fracture. Soft tissues: Unremarkable. IMPRESSION: No acute findings. DATA REPOSITORY: RADIATION DOSE DELIVERED:
[2022-01-04] MEDS: Normal Saline 1,000 ML 1000 ML IV (14:49)
[2022-01-04 14:57] LABS: Source Nasal/Nares
[2022-01-04 15:00] LABS: Absolute Basophil Count 0.04 10^3/uL (0.0-0.2); Absolute Lymphocyte Count 1.36 10^3/uL (1.2-3.4); Absolute Monocyte Count 1.01 10^3/uL (0.1-0.8); Absolute Neutrophil Count 12.31 10^3/uL (1.2-6.7); Basophils % 0.3; HGB 13.7 g/dL (11.2-15.7); Immature Grans % 1.3; Lymphocytes % 9.1; MCH 28.4 pg (27.0-33.0); MCHC 31.9 % (32.0-36.0); MCV 89 fL (80-95); MPV 9.6 fL (8.0-11.0); Monocytes % 6.8; Neutrophils % 82.5; Platelet Count 369 10^3/uL (130-400); RBC 4.83 10^6/uL (3.93-5.22); RDW 15.2 % (11.7-14.6); RDW-SD 49.9 fL; WBC 14.92 10^3/uL (4.4-10.8)
--- NOTE | 2022-01-04 15:00 | ED.GENADUL_ITS ---
Discharge Plan Disposition Patient Disposition: [facility] INPATIENT Discharge Details Clinical Impression: AMS (altered mental status), Acute metabolic encephalopathy, Dehydration, Elevated transaminase level, Fall Admit Date/Time: 01/04/22 19:38 Admit Provider: Chantal Sahu Attending Provider: Chantal Sahu Primary Care Provider: Ruth Morris V ED Provider: Colette Jewell Discharge Data Discharge Date/Time-TO BE ENTERED AT DEPARTURE: 01/04/22 20:27 Medical Decision Making <ARRON Castro - Last Filed: 01/04/22 16:06> 86-year-old female presents to the ER with unknown downtime, unsure if she fell or could have potentially had a syncopal episode. She has multiple abrasions and contusions throughout her body. Will initiate cardiac work-up, give IV fluid, obtain CT imaging of her head as well as a chest x-ray and pelvic x-ray. Differential is broad and includes intracranial process, syncope, cardiac event, infectious process, dehydration, rhabdomyolysis, etc. Laboratory values reveal a white blood cell count of 14.92, no clear source of infection thus far. Sodium 149, BUN 44 creatinine 0.7 with a GFR greater than 60. Glucose 117. Magnesium 2.4. Creatinine kinase 520, will provide a second liter of normal saline. Troponin of 52. TSH 1.15. Urinalysis is pending. COVID-negative Medical Records Medical records reviewed: Yes I reviewed the patient's medical records. Imaging Data Radiologic Study: Attestation: I personally reviewed and interpreted this imaging study as follows: Imaging: CT Scan Radiologist's impression: Exam(s) CT HEAD WO EXAM: CT HEAD WO CLINICAL HISTORY: fall. TECHNIQUE: Imaging Protocol: Axial computed tomography images with coronal and sagittal reformatted images were created and reviewed COMPARISON: No exams were available for comparison FINDINGS: Ventricles and Extra axial spaces: Dilated likely secondary to ex vacuo dilatation. Hemorrhage: None. Cerebral parenchyma: Atrophy and white matter changes of small vessel disease. Midline shift: None. Brainstem/Cerebellum: Streak artifact through sellar velum related to dental work. Calvarium: Normal. Visualized Paranasal sinuses: Chronic appearing pansinusitis./ Mastoids: Clear. Soft Tissues: Unremarkable. IMPRESSION: Sinus disease. Age related changes. No acute intracranial process. Radiologic Study #2: Attestation: I personally reviewed and interpreted this imaging study as follows: Imaging: X-Ray Radiologist's impression: Exam(s) XR PELVIS AP EXAM: XR PELVIS AP CLINICAL HISTORY: fall. TECHNIQUE: 2D digital imaging was performed. Two views COMPARISON: CR XR pelvis AP from 04/11/2018 CR XR hip LT complete AP pelvis from 05/01/2018 CR XR HIP LT AP LAT ONLY from 08/28/2019 FINDINGS: BONES: No acute fracture is present. No bony destructive lesion is seen. JOINTS: Left hip prosthesis. No change from prior. No dislocation present. No joint space narrowing is present. SOFT TISSUE: Normal. IMPRESSION: Unremarkable radiographs of the pelvis. Radiologic Study #3: Attestation: I personally reviewed and interpreted this imaging study as follows: Imaging: X-Ray Radiologist's impression: Exam(s) XR CHEST 1V IN DI DEPT EXAM: XR CHEST 1V IN DI DEPT CLINICAL HISTORY: fall,weakness TECHNIQUE: 2D digital imaging was performed. COMPARISON: No exams were available for comparison FINDINGS: LUNGS: Clear. No pleural abnormality seen. HEART: Normal. AORTA: Normal. BONES: Scoliosis and degenerative changes in the thoracic spine. No visible rib fracture. Soft tissues: Unremarkable. IMPRESSION: No acute findings. Lab Data Lab results reviewed: Yes I reviewed the patient's lab results. Labs: Laboratory Tests Range/Units 01/04/22 01/04/22 01/04/22 14:43 14:43 14:43 WBC (4.4-10.8) 10^3/uL 14.92 H RBC (3.93-5.22) 10^6/uL 4.83 Hgb (11.2-15.7) g/dL 13.7 Hct (36.0-46.0) % 43.0 MCV (80-95) fL 89 MCH (27.0-33.0) pg 28.4 MCHC (32.0-36.0) % 31.9 L RDW (11.7-14.6) % 15.2 H Plt Count (130-400) 10^3/uL 369 MPV (8.0-11.0) fL 9.6 Immature Gran % 1.3 Neutrophils % 82.5 Lymphocytes % 9.1 Monocytes % 6.8 Eosinophils % 0.0 Basophils % 0.3 Nucleated RBC % (0.0-0.3) % 0.0 Absolute Neutrophils (1.2-6.7) 10^3/uL 12.31 H Absolute Lymphocytes (1.2-3.4) 10^3/uL 1.36 Absolute Monocytes (0.1-0.8) 10^3/uL 1.01 H Absolute Eosinophils (0.0-0.7) 10^3/uL 0.00 Absolute Basophils (0.0-0.2) 10^3/uL 0.04 PT (9.3-11.0) sec 11.6 H INR (0.9-1.1) 1.2 H APTT (21.0-27.5) sec 21.5 Sodium (136-145) mmol/L 149 H Potassium (3.5-5.1) mmol/L 3.5 Chloride (98-107) mmol/L 108 H Carbon Dioxide (21.0-32.0) mmol/L 29.8 Anion Gap (3-11) mmol/L 11.2 H BUN (7-18) mg/dL 44 H Creatinine (0.55-1.02) mg/dL 0.7 Estimated GFR/1.73 m2 (mL/min/1.73m2) >= 60.00 Glucose (74-106) mg/dL 117 H Calcium (8.5-10.1) mg/dL 10.0 Magnesium (1.8-2.4) mg/dL 2.4 Total Bilirubin (0.2-1.0) mg/dL 0.7 AST (15-37) U/L 57 H ALT (14-59) U/L 64 H Alkaline Phosphatase (46-116) U/L 74 Creatine Kinase (26-192) U/L 520 H Troponin I (<or=60) ng/L 52 Total Protein (6.4-8.2) g/dL 7.3 Albumin (3.4-5.0) g/dL 2.9 L TSH (0.36-3.74) uIU/mL 1.15 COVID-19 Source Range/Units 01/04/22 14:43 WBC (4.4-10.8) 10^3/uL RBC (3.93-5.22) 10^6/uL Hgb (11.2-15.7) g/dL Hct (36.0-46.0) % MCV (80-95) fL MCH (27.0-33.0) pg MCHC (32.0-36.0) % RDW (11.7-14.6) % Plt Count (130-400) 10^3/uL MPV (8.0-11.0) fL Immature Gran % Neutrophils % Lymphocytes % Monocytes % Eosinophils % Basophils % Nucleated RBC % (0.0-0.3) % Absolute Neutrophils (1.2-6.7) 10^3/uL Absolute Lymphocytes (1.2-3.4) 10^3/uL Absolute Monocytes (0.1-0.8) 10^3/uL Absolute Eosinophils (0.0-0.7) 10^3/uL Absolute Basophils (0.0-0.2) 10^3/uL PT (9.3-11.0) sec INR (0.9-1.1) APTT (21.0-27.5) sec Sodium (136-145) mmol/L Potassium (3.5-5.1) mmol/L Chloride (98-107) mmol/L Carbon Dioxide (21.0-32.0) mmol/L Anion Gap (3-11) mmol/L BUN (7-18) mg/dL Creatinine (0.55-1.02) mg/dL Estimated GFR/1.73 m2 (mL/min/1.73m2) Glucose (74-106) mg/dL Calcium (8.5-10.1) mg/dL Magnesium (1.8-2.4) mg/dL Total Bilirubin (0.2-1.0) mg/dL AST (15-37) U/L ALT (14-59) U/L Alkaline Phosphatase (46-116) U/L Creatine Kinase (26-192) U/L Troponin I (<or=60) ng/L Total Protein (6.4-8.2) g/dL Albumin (3.4-5.0) g/dL TSH (0.36-3.74) uIU/mL COVID-19 Source Nasal/Nares ECG Data Attestation: I personally reviewed and interpreted this ECG (s) as follows: Interpretation: Please see official report by Dr. Rene. Sinus rhythm, ventricular of 96. Right bundle branch block. This is new when compared to 2005. The patient does have a diagnosis of right bundle branch block in her problem list; however, I do not know when this diagnosis was played <ARRON Mas - Last Filed: 01/05/22 15:37> 86-year-old female presents to the ER with unknown downtime, unsure if she fell or could have potentially had a syncopal episode. She has multiple abrasions and contusions throughout her body. Will initiate cardiac work-up, give IV fluid, obtain CT imaging of her head as well as a chest x-ray and pelvic x-ray. Differential is broad and includes intracranial process, syncope, cardiac event, infectious process, dehydration, rhabdomyolysis, etc. Laboratory values reveal a white blood cell count of 14.92, no clear source of infection thus far. Sodium 149, BUN 44 creatinine 0.7 with a GFR greater than 60. Glucose 117. Magnesium 2.4. Creatinine kinase 520, will provide a second liter of normal saline. Troponin of 52. TSH 1.15. Urinalysis is pending. COVID-negative Care excepted in transfer at 1600, see if she has chest x-ray do not show evidence of acute abnormality per radiology interpretation my review Pelvis per radiology interpretation my review does not show evidence of acute abnormality Tetanus updated IV fluid resuscitation Suspect metabolic encephalopathy possible concussion secondary to dehydration and fall Patient has remained alert and is able to follow basic commands but is confused from baseline and have healthcare proxy in the room who confirms that patient DNR/DNI Talk and urinalysis negative No evidence of infectious etiology of patient's complaints Patient has numerous wounds and delayed stages of healing Of note, repeat EKG does not show acute abnormality, however patient did elevate her troponin ever so slightly at 65, she is asymptomatic with this finding Agreeable to admission at this time for further evaluation observation Admitted under the care of Dr. Gaona, admitting hospitalist HPI <ARRON Castro - Last Filed: 01/04/22 16:06> General Mode of arrival: EMS . Date/Time Provider Initiated Documentation: 01/04/22 14:05 . Limitations to Documentation: no limitations . Information obtained by: patient and EMS . HPI Narrative: This is an 86-year-old female, past medical history that includes depression, palpitations, GERD, thyroid disorder presenting to the ER via EMS for evaluation after a welfare check was called, patient is found on the ground, unknown downtime. She is unsure if she fell or if she passed out. She currently denies any pain. She has no acute concerns or complaints. She states that she lives at the [facility] and typically takes care of herself. She admits to decreased p.o. intake over the past few days. She currently denies recent illness, headache, visual change, neck pain, chest pain, shortness of breath, abdominal pain, nausea, vomiting, pain in her extremities. Unfortunately she is a rather vague and poor historian. Related Data Home Medications Medication Instructions Recorded Confirmed Cbd 1 cap PO TID 04/10/18 01/04/22 Cucurmim 1 tab PO BID 04/10/18 01/04/22 Lactobacil.acidophilus-Bifido.animalis 1 cap PO DAILY 04/10/18 01/04/22 5 billion cell sprinkle capsule (Probiotic) Thyroid Tincture 20 drp PO BID 04/10/18 01/04/22 calcium carbonate 600 mg-vitamin 1 tab PO DAILY 04/10/18 01/04/22 D3 5 mcg (200 unit) tablet (Calcium 600 + D(3)) hawthorn 500 mg capsule (hawthorn 1 tab PO DAILY 04/10/18 01/04/22 morfin) multivitamin 1 cap PO DAILY 04/10/18 01/04/22 selenium 100 mcg tablet 100 mcg PO BID 04/10/18 01/04/22 vitamin B complex (B Complex 1 1 tab PO DAILY 04/10/18 01/04/22 tablet) acetaminophen 500 mg tablet (Mapap 1,000 mg PO TID #0 tabs 04/17/18 01/04/22 Extra Strength) Knee Scooter/Knee 4 wheel walker 1 unit .Route .COMPLEX #1 unit 09/05/19 01/04/22 naproxen sodium 220 mg capsule 220 mg PO BID PRN 08/26/21 01/04/22 (Aleve) omeprazole 20 mg capsule,delayed 20 mg PO DAILY 08/26/21 01/04/22 release Previous Rx's Medication Instructions Recorded acetaminophen 500 mg tablet (Mapap 1,000 mg PO TID #0 tabs 04/17/18 Extra Strength) Knee Scooter/Knee 4 wheel walker 1 unit .Route .COMPLEX #1 unit 09/05/19 Allergies Allergy/AdvReac Type Severity Reaction Status Date / Time citalopram [From Celexa] Allergy Unknown Unverified 01/04/22 14:03 levothyroxine sodium Allergy Unknown Unverified 01/04/22 14:03 tramadol AdvReac Intermediate shakey, Verified 01/04/22 14:03 GI, very ill fluoxetine [From Prozac] AdvReac Unknown suicidal Unverified 01/04/22 14:03 ideation sertraline [From Zoloft] AdvReac Unknown Diarrhea Unverified 01/04/22 14:03 General Stated Complaint: GenMedical MCKENZIE: 3 Review of Systems <ARRON Castro - Last Filed: 01/04/22 16:06> Constitutional Constitutional: Reports fatigue, Denies fever(s) and Denies headache(s) Eyes Eyes: Denies change in vision ENT Ears, Nose, Mouth, and Throat: Denies headache(s) and Denies neck pain Cardiovascular Cardiovascular: Denies chest pain and Denies dyspnea Respiratory Respiratory: Denies cough and Denies dyspnea Gastrointestinal Gastrointestinal: Denies abdominal pain, Denies nausea and Denies vomiting Genitourinary Genitourinary: Denies dysuria Musculoskeletal Musculoskeletal: Denies neck pain Integumentary/Breasts Skin/Breast: Denies rash Neurologic Neurologic: Denies headache(s) Endocrine Endocrine: Reports fatigue Hematologic/Lymphatic Hematologic/Lymphatic: Denies easy bleeding and Denies easy bruising PFSH <ARRON Castro - Last Filed: 01/04/22 16:06> All Active Problems (Updated 01/05/22 @ 15:36 by ARRON Mas) AMS (altered mental status) (Acute) Acute metabolic encephalopathy (Acute) Dehydration (Acute) Elevated transaminase level (Acute) Fall (Acute) Multiple abrasions (Acute) Sinusitis (Acute) Troponin level elevated (Acute) Syncope (Chronic) Disorder of thyroid (Acute) Esophageal reflux (Chronic) Right bundle branch block (Acute) Acquired hammertoe of right foot (Acute) Hallux valgus (acquired), right foot (Chronic) Depression (Chronic) 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) Medical History (Updated 01/05/22 @ 15:36 by ARRON Mas) Bradycardia Heart palpitations History of left breast cancer History of vertebral fracture UTI (urinary tract infection) Surgical History H/O hysterectomy for benign disease Status post left breast lumpectomy Social History Smoking/Tobacco Use Status: Never Smoking risk assessment performed?: Yes Alcohol Intake: never Drug use: Never Substance use type: does not use Household members: none Housing: house Number of Children: 1 Do you feel safe at home: Yes Do you feel safe in your relationship?: Yes Exam <ARRON Castro - Last Filed: 01/04/22 16:06> Const General: cooperative, no acute distress, disheveled and other (Soiled with feces and urine) Orientation: alert, awake, oriented to person and oriented to place [facility] Head: normocephalic Head images: 1. Contusion Mouth: moist mucous membranes abnormal (Dry) Eyes Periorbital: periorbital findings abnormal (Minimal left swelling) Conjunctivae: conjunctivae normal Neck Neck: normal visual inspection, full ROM, trachea midline, supple and nontender Resp Effort & Inspection: normal respiratory effort and able to speak in complete sentences Auscultation: clear to auscultation bilaterally Cardio Rate: regular rate Rhythm: regular rhythm GI Palpation: soft and nontender Auscultation: normal bowel sounds Back/Spine/Pelvis Back: other (Scattered abrasion and contusions) Skin Other: Multiple abrasions and contusions throughout her body Neuro General: patient alert, patient awake, oriented Patient Orientation: Person and Place, moves all extremities and no focal motor deficits Cognition: normal cognition Speech: speech normal Motor: muscle tone normal throughout Sensory Exam: no sensory deficits noted Extrem General: full ROM and capillary refill normal Psych Appearance: grossly normal Mental Status: mental status grossly normal Course <ARRON Castro - Last Filed: 01/04/22 16:06> Vital Signs Vital signs: Vital Signs Temperature 36.9 C 01/04/22 13:53 Pulse 82 01/04/22 13:53 Respiratory Rate 16 01/04/22 13:53 Blood Pressure 124/80 01/04/22 13:53 Pulse Oximetry 98 01/04/22 13:53 Temperature 36.9 C 01/04/22 13:53 Temperature Source Temporal Artery Scan 01/04/22 13:53 Pulse 82 01/04/22 13:53 Respiratory Rate 17 01/04/22 14:00 Respiratory Effort Non-Labored 01/04/22 14:00 Respiratory Depth Normal 01/04/22 14:00 Respiratory Pattern Normal 01/04/22 14:00 Blood Pressure 124/80 01/04/22 13:53 Blood Pressure Position Supine 01/04/22 13:53 Pulse Oximetry 98 01/04/22 13:53 Oxygen Delivery Method Room Air 01/04/22 13:53 Oxygen Flow Rate 0 01/04/22 13:53 Pain Level 0 01/04/22 13:53 Lab/Test Results Lab/Test Results: Laboratory Tests Range/Units 01/04/22 14:43 COVID-19 Source Nasal/Nares Sign Out <ARRON Castro - Last Filed: 01/04/22 16:06> Sign Out Data: Sign Out Comment: Found down, unknown downtime. Question fall versus syncope. Patient found disheveled, covered in feces and urine. CPK of over 500, receiving IV fluid, awaiting rest of work-up, and likely admission as she can likely not care for herself safely. Last updated by Mario Mckinney PA at 01/04/22 16:05
[2022-01-04 15:30] LABS: INR 1.2 (0.9-1.1); PTT Activated 21.5 sec (21.0-27.5); Prothrombin Time 11.6 sec (9.3-11.0)
[2022-01-04 15:37] LABS: ALT 64 U/L (14-59); AST 57 U/L (15-37); Albumin 2.9 g/dL (3.4-5.0); Alkaline Phosphatase 74 U/L (46-116); Anion Gap 11.2 mmol/L (3-11); BUN 44 mg/dL (7-18); Bilirubin, Total 0.7 mg/dL (0.2-1.0); CO2 29.8 mmol/L (21.0-32.0); CREATININE 0.7 mg/dL (0.55-1.02); Chloride 108 mmol/L (98-107); Creatine Kinase 520 U/L (26-192); Glucose 117 mg/dL (74-106); Magnesium 2.4 mg/dL (1.8-2.4); Potassium 3.5 mmol/L (3.5-5.1); Sodium 149 mmol/L (136-145); TSH (W/Ref FT4) 1.15 uIU/mL (0.36-3.74); Total Protein 7.3 g/dL (6.4-8.2); Troponin I 52 ng/L (<or=60)
[2022-01-04 15:49] LABS: COVID-19 PCR Negative (Negative)
[2022-01-04 16:43] LABS: Bilirubin Small (Negative); Blood Trace-intact (Negative); Clarity Clear (Clear); Glucose Negative (Negative); Ketones >=160 mg/dL (Negative); Leukocyte Esterase Negative (Negative); Nitrite Negative (Negative); Specific Gravity 1.025 (1.005-1.025); Urobilinogen 0.2 EU/dL (Up TO 0.2); pH 6.5 (5-8)
[2022-01-04 16:56] LABS: Bacteria Negative HPF (Negative); Epithelial Cells Negative HPF (Negative); Other Cells Negative (Negative); RBC Negative HPF (0-2); WBC Negative HPF (0-5)
[2022-01-04 16:58] LABS: C & S Indicated? No; Casts Negative LPF (Negative); Crystals Other HPF (Negative); Mucus Negative (Negative)
--- NOTE | 2022-01-04 18:30 | RT.EKG_ITS ---
APPROVED REPORT Exam: Resting ECG Reason for Exam: elevated troponin Patient Location: E HR:102 bpm ECG Measurements Heart Rate 102 AXIS VA 145 P 62 QRSd 145 QRS 25 QT 406 T -28 QTc 529 Conclusion Sinus tachycardia...rate> 99 Right bundle branch block...QRSd>120, terminal axis(90,270)
[2022-01-04 18:34] LABS: TSH 0.68 uIU/mL (0.36-3.74)
[2022-01-04 18:37] LABS: ETHANOL BLOOD < 3.0 mg/dL (<10)
[2022-01-04 18:39] LABS: *AMPHETAMINES SCREEN URINE Negative (Negative); *BARBITURATES SCREEN URINE Negative (Negative); *BENZODIAZEPINES SCREEN URINE Negative (Negative); Cannabinoids THC Negative (Negative); Cocaine Screen,Urine Negative (Negative); METHADONE URINE SCREEN Negative (Negative); OPIATES URINE SCREEN Negative (Negative)
[2022-01-04 18:41] LABS: Troponin I 65 ng/L (<or=60)
[2022-01-04 18:41] LABS: Tricyclic Antidepressants Negative (Negative)
[2022-01-04] MEDS: Lactated Ringers 1,000 ML 1000 ML IV (19:05)
[2022-01-04 20:07] LABS: Lactate 1.7 mmol/L (0.6-1.4)
--- NOTE | 2022-01-04 21:27 | HPE_ITS ---
Date of service: 01/04/22 Time of Service: 21:28 Assessment and Plan Assessment and plan (1) Syncope: Status: Chronic Assessment and plan: Differential is broad an includes neurological (seizure), cardiovascular (orthostasis, arrythmia, stroke), psychiatric. She has no recollection of the vents of the syncope and has an elevated CPK so seizure is not completely irrational, however there was no descriptin of a post ictal state and she has no prior history. Cardiovascular, including vagal, seems most likely, alhtough no evidence of stroke, no EKG changes and only modest troponin bumps. - trend troponins - telemetry - echo - carotic US - orthostatic vital signs (2) Esophageal reflux: Status: Chronic Assessment and plan: continue home PPI (3) Right bundle branch block: Status: Acute Assessment and plan: Stable and unchanged from prior (4) Troponin level elevated: Status: Acute Assessment and plan: Will trend troponins, with the very small bump will not initiate any medical therapy at this time, but if it continues to rise I will consider ASA. (5) Sinusitis: Status: Acute Assessment and plan: This is likely chronic, but given the unknown of her syncope event, I will treat this with Augmentin. (6) Multiple abrasions: Status: Acute History of Present Illness Narrative: This is an 86 yo female admitted for a syncopal event. She had an unknown downtime and did not have insight into whether she fainted or fell. She was found to have several abrasions. Her head CT was negative, labs benign and UA with no infection. Her CXR does not find infection, however there is an area of atelectasis/lung collapse in the PRASHANT. She had a mildly elevated CPK with normal renal function. She received 2L NS in the ED. Her head CT was non revealing aside from a likely chronic sinusitis. Her first troponin is 52 but her second did increase to 65. She is doing well but does not have any recollection of her syncope. She is not even sure of where she fell. She does not remember the fall itself or getting her abrasions. No chest pain, shortness of breath or pain. Review of Systems All systems reviewed & are unremarkable except as noted in HPI and below PFSH All Active Problems (Updated 01/04/22 @ 21:37 by Chantal Sahu MD) Multiple abrasions (Acute) Sinusitis (Acute) Troponin level elevated (Acute) Syncope (Chronic) Disorder of thyroid (Acute) Esophageal reflux (Chronic) Right bundle branch block (Acute) Acquired hammertoe of right foot (Acute) Hallux valgus (acquired), right foot (Chronic) Depression (Chronic) 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) Medical History (Updated 01/04/22 @ 21:37 by Chantal Sahu MD) Bradycardia Heart palpitations History of left breast cancer History of vertebral fracture UTI (urinary tract infection) Surgical History H/O hysterectomy for benign disease Status post left breast lumpectomy Social History Smoking/Tobacco Use Status: Never Smoking risk assessment performed?: Yes Alcohol Intake: never Drug use: Never Substance use type: does not use Household members: none Housing: house Number of Children: 1 Do you feel safe at home: Yes Do you feel safe in your relationship?: Yes Meds Allergies and Home Medications Allergies Allergy/AdvReac Type Severity Reaction Status Date / Time citalopram [From Celexa] Allergy Unknown Unverified 01/04/22 14:03 levothyroxine sodium Allergy Unknown Unverified 01/04/22 14:03 tramadol AdvReac Intermediate shakey, Verified 01/04/22 14:03 GI, very ill fluoxetine [From Prozac] AdvReac Unknown suicidal Unverified 01/04/22 14:03 ideation sertraline [From Zoloft] AdvReac Unknown Diarrhea Unverified 01/04/22 14:03 Home Medications Medication Instructions Recorded Confirmed Type Cbd 1 cap PO TID 04/10/18 01/04/22 History Cucurmim 1 tab PO BID 04/10/18 01/04/22 History Lactobacil.acidophilus-Bifido.animalis 1 cap PO DAILY 04/10/18 01/04/22 History 5 billion cell sprinkle capsule (Probiotic) Thyroid Tincture 20 drp PO BID 04/10/18 01/04/22 History calcium carbonate 600 mg-vitamin 1 tab PO DAILY 04/10/18 01/04/22 History D3 5 mcg (200 unit) tablet (Calcium 600 + D(3)) hawthorn 500 mg capsule (hawthorn 1 tab PO DAILY 04/10/18 01/04/22 History morfin) multivitamin 1 cap PO DAILY 04/10/18 01/04/22 History selenium 100 mcg tablet 100 mcg PO BID 04/10/18 01/04/22 History vitamin B complex (B Complex 1 1 tab PO DAILY 04/10/18 01/04/22 History tablet) acetaminophen 500 mg tablet (Mapap 1,000 mg PO TID #0 tabs 04/17/18 01/04/22 Rx Extra Strength) Knee Scooter/Knee 4 wheel walker 1 unit .Route .COMPLEX #1 unit 09/05/19 01/04/22 Rx naproxen sodium 220 mg capsule 220 mg PO BID PRN 08/26/21 01/04/22 History (Aleve) omeprazole 20 mg capsule,delayed 20 mg PO DAILY 08/26/21 01/04/22 History release Exam Narrative Exam Narrative: Gen: NAD, normal respiratory effort, well-nourished, multiple abrasions HENT: PERRL, nasal turbinates normal without erythema or inflammation, moist oral mucosa, Mallampati 2, No LAD or JVD Chest: No respiratory distress, normal appearance of chest, clear to auscultation bilaterally, no crackles or wheezes, normal inspiratory effort Heart: regular rate and rhythym, no murmurs, rubs or gallops Abdomen: Non-distended, soft, non tender Extremities: No clubbing, edema, cyanosis, rashes Neuro: AAOx3 , non focal Psych: cooperative, appropriate mental affect Results Labs Result diagrams: 01/05/22 05:10 01/05/22 05:10 Labs: Laboratory Results - last 24 hr 01/04/22 01/04/22 01/04/22 14:43 14:43 14:43 WBC 14.92 H RBC 4.83 Hgb 13.7 Hct 43.0 MCV 89 MCH 28.4 MCHC 31.9 L RDW 15.2 H Plt Count 369 MPV 9.6 Immature Gran % 1.3 Neutrophils % 82.5 Lymphocytes % 9.1 Monocytes % 6.8 Eosinophils % 0.0 Basophils % 0.3 Nucleated RBC % 0.0 Absolute Neutrophils 12.31 H Absolute Lymphocytes 1.36 Absolute Monocytes 1.01 H Absolute Eosinophils 0.00 Absolute Basophils 0.04 PT 11.6 H INR 1.2 H APTT 21.5 VBG Lactate Sodium 149 H Potassium 3.5 Chloride 108 H Carbon Dioxide 29.8 Anion Gap 11.2 H BUN 44 H Creatinine 0.7 Estimated GFR/1.73 m2 >= 60.00 Glucose 117 H Calcium 10.0 Magnesium 2.4 Total Bilirubin 0.7 AST 57 H ALT 64 H Alkaline Phosphatase 74 Creatine Kinase 520 H Troponin I 52 Total Protein 7.3 Albumin 2.9 L TSH 1.15 Urine Color Urine Clarity Urine pH Ur Specific [place] Urine Protein Urine Ketones Urine Blood Urine Nitrite Urine Bilirubin Urine Urobilinogen Ur Leukocyte Esterase Urine RBC Urine WBC Ur Epithelial Cells Urine Crystals Urine Bacteria Urine Casts Urine Mucus Urine Other Ur Culture Indicated? Urine Glucose Urine Opiates Screen Urine Methadone Screen Ur Barbiturates Screen Ur Tricyclics Screen Ur Amphetamines Screen U Benzodiazepines Scrn Urine Cocaine Screen Ur THC Screen Ethyl Alcohol COVID-19 Source SARS-CoV-2 (PCR) 01/04/22 01/04/22 01/04/22 14:43 16:00 16:00 WBC RBC Hgb Hct MCV MCH MCHC RDW Plt Count MPV Immature Gran % Neutrophils % Lymphocytes % Monocytes % Eosinophils % Basophils % Nucleated RBC % Absolute Neutrophils Absolute Lymphocytes Absolute Monocytes Absolute Eosinophils Absolute Basophils PT INR APTT VBG Lactate Sodium Potassium Chloride Carbon Dioxide Anion Gap BUN Creatinine Estimated GFR/1.73 m2 Glucose Calcium Magnesium Total Bilirubin AST ALT Alkaline Phosphatase Creatine Kinase Troponin I Total Protein Albumin TSH Urine Color Yellow Urine Clarity Clear Urine pH 6.5 Ur Specific [place] 1.025 Urine Protein 100 H Urine Ketones >=160 H Urine Blood Trace-intact H Urine Nitrite Negative Urine Bilirubin Small H Urine Urobilinogen 0.2 Ur Leukocyte Esterase Negative Urine RBC Negative Urine WBC Negative Ur Epithelial Cells Negative Urine Crystals Other Urine Bacteria Negative Urine Casts Negative Urine Mucus Negative Urine Other Negative Ur Culture Indicated? No Urine Glucose Negative Urine Opiates Screen Negative Urine Methadone Screen Negative Ur Barbiturates Screen Negative Ur Tricyclics Screen Negative Ur Amphetamines Screen Negative U Benzodiazepines Scrn Negative Urine Cocaine Screen Negative Ur THC Screen Negative Ethyl Alcohol COVID-19 Source Nasal/Nares SARS-CoV-2 (PCR) Negative 01/04/22 01/04/22 01/04/22 17:55 17:55 20:01 WBC RBC Hgb Hct MCV MCH MCHC RDW Plt Count MPV Immature Gran % Neutrophils % Lymphocytes % Monocytes % Eosinophils % Basophils % Nucleated RBC % Absolute Neutrophils Absolute Lymphocytes Absolute Monocytes Absolute Eosinophils Absolute Basophils PT INR APTT VBG Lactate 1.7 H Sodium Potassium Chloride Carbon Dioxide Anion Gap BUN Creatinine Estimated GFR/1.73 m2 Glucose Calcium Magnesium Total Bilirubin AST ALT Alkaline Phosphatase Creatine Kinase Troponin I 65 H* Total Protein Albumin TSH 0.68 Urine Color Urine Clarity Urine pH Ur Specific [place] Urine Protein Urine Ketones Urine Blood Urine Nitrite Urine Bilirubin Urine Urobilinogen Ur Leukocyte Esterase Urine RBC Urine WBC Ur Epithelial Cells Urine Crystals Urine Bacteria Urine Casts Urine Mucus Urine Other Ur Culture Indicated? Urine Glucose Urine Opiates Screen Urine Methadone Screen Ur Barbiturates Screen Ur Tricyclics Screen Ur Amphetamines Screen U Benzodiazepines Scrn Urine Cocaine Screen Ur THC Screen Ethyl Alcohol < 3.0 COVID-19 Source SARS-CoV-2 (PCR) Last Vital Signs Temp 36.7 C 01/04/22 20:55 Pulse 83 01/04/22 20:55 Resp 18 01/04/22 20:55 BP 122/72 01/04/22 20:55 Pulse Ox 98 01/04/22 20:55
[2022-01-05] VITALS (11 sets, daily range): BP systolic 113–142; BP diastolic 55–79; PULSE 65–103; RESP 14–18; TEMP 36.3–36.8; O2SAT 92–98
--- NOTE | 2022-01-05 | DI.US_ITS ---
Exam(s) US CAROTID EXAM: US CAROTID CLINICAL HISTORY: syncope. TECHNIQUE: Ultrasound carotids performed using grayscale, color-flow, and spectral Doppler imaging. COMPARISON: None FINDINGS: Grayscale, color, and Doppler imaging of the carotid arteries in the neck was performed. There is mild plaque in the left common carotid artery and carotid bulb and proximal left ICA. No tr alvarez significant elevated velocities. In the right common carotid artery there is also mild plaque as well as carotid bulb and proximal rig ht ICA. No significantly elevated velocities. ICA/CCA ratios slightly elevated bilaterally. Flow is demonstrated to be antegrade in both vertebral arteries. Measurements: R Bulb: 32.8 cm/s PS / 7.7 cm/s ED R CCA: 96.9 cm/s PS / 4.2 cm/s ED R ECA: 51.3 cm/s PS / 9.4 cm/s ED R ICA Prox: 54.35 cm/s PS /11.9 cm/s ED R ICA Mid: 70.6 cm/s PS / 13.2 cm/s ED R ICA Distal: 76.7 cm/s PS /14.45 cm/s ED R Vert: 38.6 cm/s PS / 7.4 cm/s ED R SVR: 0.73 R DVR: 1.32 L Bulb: 76 cm/s PS /13.5 cm/s ED L CCA: 67.9 cm/s PS / 8.2 cm/s ED L ECA: 51.15 cm/s PS /11.45 cm/s ED L ICA Prox:55.4 cm/s PS / 8.9 cm/s ED L ICA Mid: 84.9 cm/sPS / 14.9 cm/s ED L ICA Distal: 85.8 cm/s PS / 18.45 cm/s ED L Vert: 73.3 cm/s PS / 8.8 cm/s ED L SVR: 0.85 L DVR: 1.63 IMPRESSION: Mild plaque bilaterally. Non elevated velocities. Minimally elevated ICA/CCA peak systolic velocity ratios by these ultrasound findings the amount of stenosis is estimated at 50-69 percent bilaterally . However, visually appears somewhat less, probably less than 50 percent bilaterally. Antegrade flow is demonstrated in both vertebral arteries. Criteria for Carotid Stenosis: Normal: ICA PSV <125 cm/s no plaque or intimal thickening is visible. <50% stenosis: ICA PSV <125 cm/s and plaque or intimal thickening is visible. 50-69% stenosis: ICA PSV is 125-250 cm/s and plaque is visible. >70% stenosis to near occlusion: ICA PSV >250 cm/s with visible plaque and luminal narrowing. DATA REPOSITORY:
--- NOTE | 2022-01-05 | DI.MRI_ITS ---
Exam(s) MR BRAIN WO EXAM: MR BRAIN WO CLINICAL HISTORY: syncope, cognitive impairment; r/o CVA. TECHNIQUE: Multiplanar multisequence MRI of the brain was performed. CONTRAST MATERIAL: IV noncontrast COMPARISON: CT CT HEAD WO from 01/04/2022 FINDINGS: VENTRICLES AND EXTRA AXIAL SPACES: Stable dilatation of the ventricles. This is disproportionate to the degree of atrophy and could be seen with normal pressure hydrocephalus. HEMORRHAGE: None. CEREBRAL PARENCHYMA: Mild atrophy. Prominent white matter changes of microvascular disease. No focu s of restricted diffusion to suggest acute infarct. No space-occupying lesion identified. MIDLINE SHIFT: None. BRAINSTEM/CEREBELLUM: Normal. CALVARIUM: Normal. ENHANCEMENT: No suspicious enhancement identified. VISUALIZED PARANASAL SINUSES/MASTOIDS: Maxillary sinus mucosal thickening. IMPRESSION: Stable ventricular dilatation. No acute abnormality identified. DATA REPOSITORY:
--- NOTE | 2022-01-05 | DI.US_ITS ---
APPROVED REPORT EXAM: Comprehensive 2D, Doppler, and color-flow Echocardiogram Patient Location: In-Patient Room/Bed: 216 Photography Intern: Briana Caraballo RDCS (AE) Indications: Syncope Other Information Study Quality: Fair. Technically limited study due to inability to position patient exam done supine on stretcher. Conclusion Normal left ventricular wall thickness and chamber size. Estimated ejection fraction is 65%. Wall m otion is normal Right ventricle is not well visualized but appears grossly normal in size Both atria are normal in size There are no structural valvular abnormalities Trace mitral, aortic, and tricuspid regurgitation Estimated right ventricular systolic pressure is 22 mmHg Wall motion Left Ventricle The left ventricle is normal size. The left ventricular systolic function is normal. The left ventric ular ejection fraction is within the normal range. There is normal left ventricular wall thickness. T here is normal LV segmental wall motion. There is no ventricular septal defect visualized. LVEF is 65 %. Right Ventricle Right ventricle is not well visualized but size is grossly normal. Right ventricular systolic functio n could not be assessed. The RVSP is 22.1 mmHg. Atria The left atrium size is normal. The right atrium size is normal. The interatrial septum is intact wit h no evidence for an atrial septal defect. Aortic Valve The aortic valve is normal in structure. Aortic valve is trileaflet. There is no aortic valvular sten osis. Trace aortic regurgitation. Mitral Valve The mitral valve is normal in structure. No evidence of mitral valve stenosis. Trace mitral regurgita tion. Tricuspid Valve The tricuspid valve is normal in structure. There is no tricuspid valve stenosis. Trace tricuspid reg urgitation. Pulmonic Valve The pulmonary valve is normal in structure. There is no pulmonic valvular stenosis. There is no pulmo bonifacio valvular regurgitation. Great Vessels The aortic root is normal in size. The ascending aorta is normal in size. Aortic arch is normal in ca liber. IVC is normal in size and collapses >50% with inspiration. Pericardium There is no pericardial effusion. 2D Dimensions IVSD d PLAX 0.88 cm F: 0.6-1.0 LV Vol A2C d MOD 76.7 mL LVPW d PLAX 0.88 cm F: 0.6 - 1.0 LV Vol A4C d MOD 56.7 mL LVID d PLAX 4.02 cm F: 3.8 - 5.2 LA vol/ BSA A2C s A-L 14.9 mL/m2 LVDs 2.65 cm F: 2.2 - 3.5 LA vol/ BSA A4C s A-L 16.4 mL/m2 Ao Root d 2.82 cm F: 2.7 - 3.3 LA Vol/ BSA Biplane s A-L 16.2 mL/m2 Ao Asc Diam d 3.29 cm F: 2.3 - 3.1 LA Area A4C s MOD 12.72 cm2 LV EF Teichholz 62.2 % LA Area A2C s MOD 11.68 cm2 LVEF (Woods's) 57.64 % F: 54 - 74 LV EF A4C MOD 59.8 % LV Volume 55.19 mL F: 46 - 106 LV EF A2C MOD 59.1 % LV Volume Index 33.85 mL/m2 F: 29 - 61 LV EF Biplane MOD 57.6 % LV Vol Biplane MOD 68.5 mL SV 39.46 mL FS 33.05 % SV Index 24.16 mL/m2 M-Mode TAPSE 3.26 cm (M/F) >1.7 LV Diastology MV E' medial 0.043 (>0.07 m/s) E/A Ratio 0.8 LV E/e MED 18.10 (<14) MV E Vmax 0.77 (0.4-1.3 m/s) MV E' lateral 0.083 (>0.1 m/s) MV A Vmax 1.00 (0.4-1.3 m/s) LV E/e LAT 9.30 (<14) MV E/A Ratio 0.76 MV E/E' medial 18.11 MV E/E' lateral 9.32 Aortic Valve LVOT Area 2.95 cm2 AoV Area Vmax 2.32 cm2 LVOT Vmax 1.33 m/s AoV Area/ BSA (Vmax) 1.42 cm2/m2 LVOT Mean Reg. 0.80 m/s ISHMAEL Mean Reg. 2.13 cm2 LVOT Peak Grad 7.1 mmHg ISHMAEL Mean Reg. Index 1.30 cm2/m2 LVOT Mean Grad 3.1 mmHg LVOT VTI 0.243 m LVOT Diam s 1.90 cm AoV Vmax 1.70 m/s Velocity Ratio 0.78 AoV Mean Reg. 1.11 m/s AoV Peak Grad 11.5 mmHg LVOT SV 71.79 mL AoV Mean Grad 5.8 mmHg AoV VTI 0.269 m AoV Area VTI 2.67 cm2 AoV Area/ BSA (VTI) 1.64 cm/m2 Mitral Valve MV DT 338 (160-240 msec) MV PHT 98 msec MV Area PHT 2.24 cm2 MV VTI 0.302 m MV Area VTI 2.38 (4.0-6.0 cm2) Pulmonary Valve PV Vmax 1.00 (0.5-1.5 m/s) RVOT Peak Gr. 1.87 mmHg PV Peak Grad 4.0 mmHg RVOT Mean Gr. 1.10 mmHg PV Mean Grad 2.5 mmHg RVOT VTI 0.102 m PV VTI 0.135 m RVOT Vmax 0.68 m/s Tricuspid Valve TR Peak Grad 19.1 mmHg TR Vmax 2.19 m/s RA Pressure 3.00 mmHg RVSP (TR) 22.1 mmHg
[2022-01-05 00:46] LABS: Troponin I 74 ng/L (<or=60)
[2022-01-05 05:26] LABS: Abs Immature Grans 0.33 10^3/uL (0.0-0.06); Absolute Basophil Count 0.05 10^3/uL (0.0-0.2); Absolute Lymphocyte Count 1.89 10^3/uL (1.2-3.4); Absolute Neutrophil Count 12.86 10^3/uL (1.2-6.7); Basophils % 0.3; HCT 35.6 % (36.0-46.0); HGB 11.3 g/dL (11.2-15.7); Lymphocytes % 11.5; MCH 28.3 pg (27.0-33.0); MCHC 31.7 % (32.0-36.0); MCV 89 fL (80-95); MPV 9.7 fL (8.0-11.0); Neutrophils % 78.2; Platelet Count 298 10^3/uL (130-400); RDW 15.2 % (11.7-14.6); RDW-SD 50.3 fL; WBC 16.44 10^3/uL (4.4-10.8)
[2022-01-05 05:28] LABS: Absolute Monocyte Count 1.32 10^3/uL (0.1-0.8)
[2022-01-05 05:34] LABS: Troponin I 60 ng/L (<or=60)
[2022-01-05 05:42] LABS: ALT 56 U/L (14-59); AST 46 U/L (15-37); Albumin 2.4 g/dL (3.4-5.0); Alkaline Phosphatase 62 U/L (46-116); Anion Gap 6.2 mmol/L (3-11); BUN 44 mg/dL (7-18); Bilirubin, Total 0.7 mg/dL (0.2-1.0); CO2 29.8 mmol/L (21.0-32.0); CREATININE 0.6 mg/dL (0.55-1.02); Calcium 9.2 mg/dL (8.5-10.1); Chloride 113 mmol/L (98-107); Glucose 115 mg/dL (74-106); Potassium 3.1 mmol/L (3.5-5.1); Sodium 149 mmol/L (136-145); Total Protein 5.7 g/dL (6.4-8.2)
[2022-01-05] MEDS: Omeprazole 20 MG CAPCR PO (08:08)
[2022-01-05] MEDS: Calcium 600mg/Vit D 200U TAB 1 TAB PO (08:08)
[2022-01-05] MEDS: Amoxicillin 500/Clav. 125 TAB PO ×2 (08:08→19:57)
[2022-01-05] MEDS: Potassium Chloride 10 MEQ CAPCR 40 MEQ PO (08:08)
[2022-01-05] MEDS: Acetaminophen 500 MG TAB 1000 MG PO ×3 (08:08→19:57)
[2022-01-05 08:19] LABS: Lab Add On Test DONE
[2022-01-05 08:33] LABS: Creatine Kinase 360 U/L (26-192)
--- NOTE | 2022-01-05 08:49 | DI.RAD_ITS ---
Exam(s) XR CHEST 2V PA LATERAL EXAM: XR CHEST 2V PA LATERAL CLINICAL HISTORY: PRASHANT atelectasis?. TECHNIQUE: 2D digital imaging was performed. COMPARISON: CR XR CHEST 1V IN DI DEPT from 01/04/2022 FINDINGS: 2 views: Heart size is normal. The mediastinum is not widened. Lungs are clear. No infiltrates nor pleural effusions. IMPRESSION: No acute pulmonary findings. DATA REPOSITORY: RADIATION DOSE DELIVERED:
--- NOTE | 2022-01-05 09:05 | INITIAL_ITS ---
- If Service Date Differs Date of service: 01/05/22 Time of Service: 09:05 Care Management Initial Assess REASON FOR HOSPITALIZATION:: Syncope PAST MEDICAL HISTORY/PAST SURGICAL HISTORY:: Medical History (Updated 01/04/22 @ 21:37 by Chantal Sahu MD). Bradycardia. Heart palpitations. History of left breast cancer. History of vertebral fracture. UTI (urinary tract infection). Surgical History . H/O hysterectomy for benign disease. Status post left breast lumpectomy PREVIOUS FUNCTIONAL STATUS/SOCIAL/FAMILY SUPPORTS:: Kierra lives alone in an apartment at [facility]. She has one daughter but they are estranged. Kierra has a close friend, Lolis Mata who is her health care agent. Kierra uses a walker for ambulatory assistance. CURRENT FUNCTIONAL STATUS:: Kierra was sitting up in bed when CM initially met with her. She was polite and agreeable to conversation but vague in her responses. She did not seem to understand some of the questions she was asked and did not give consistent responses. CM contacted her friend and [facility] Lolis to determine what Kierra's mentation was at baseline. Lolis came to see Kierra and informed CM that she is not herself. She noted her to be confused and shared that she had stopped in her apartment and found it very dissheveled, also not usual. She stated that she believes the change occurred on Sunday as she seemed different on the phone that day when they spoke. CM shared this information with the provider. ADVANCE DIRECTIVES:: On file. Lolis Mata [facility] Has patient been provided with info about the portal/API?: Yes Did the patient sign up for the portal?: Yes CODE STATUS:: DNR/DNI INSURANCE COVERAGE / FINANCIAL ISSUES:: Medicare. [place] CURRENT HOME/COMMUNITY SERVICES/EQUIPMENT:: uses a walker for ambulatory assistance PRIMARY CARE PHYSICIAN:: Ruth Morirs POTENTIAL DISCHARGE NEEDS:: follow up with PCP and plan of care PATIENT/FAMILY EDUCATION NEEDS:: Review of discharge instructions, medications, limitations, activity, follow up plan and discuss Ask Me Three ANTICIPATED BARRIERS TO DISCHARGE:: SNF bed availability. mental status TRANSPORTATION:: via private vehicle PLAN:: Kierra will likely need short term rehab before returning home. She is weak and not at her baseline in terms of mentation.When she does return to her home at the [facility], she will follow up with her community providers and plan of care and transport with a friend. CM will continue to support Kierra and assess for ongoing discharge needs.
--- NOTE | 2022-01-05 09:45 | IN_ITS ---
Date of service: 01/05/22 Time of Service: 09:45 PT Notes Visit Reasons: Syncope Physical Therapy Inpatient Initial Evaluation Date: 01/05/2022 Referring Doctor: Chantal Gaona MD PT Orders: PT CONSULT: Eval/Treat Precautions: Fall. Standard. Activity as tolerated. Patient Profile/Admitting Diagnosis: Kierra is an 86-year-old female who presented to the ED on 01/05/2022 due to a suspected syncopal episode that resulted to an unwitnessed fall, multiple a brasions, and contusions. Patient is diagnosed with right bundle branch block, elevated troponin level, syncope, esophageal reflux, sinusitis, and multiple abrasions. PMHX: All Active Problems?(Updated 01/04/22 @ 21:37 by Chantal Sahu MD) Multiple abrasions (Acute) Sinusitis (Acute) Troponin level elevated (Acute) Syncope (Chronic) Disorder of thyroid (Acute) Esophageal reflux (Chronic) Right bundle branch block (Acute) Acquired hammertoe of right foot (Acute) Hallux valgus (acquired), right foot (Chronic) Depression (Chronic) 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) Medical History?(Updated 01/04/22 @ 21:37 by Chantal Sahu MD) Bradycardia Heart palpitations History of left breast cancer History of vertebral fracture UTI (urinary tract infection) Surgical History? H/O hysterectomy for benign disease Status post left breast lumpectomy Social History/Home Situation: Lives alone at the [facility]. Modified independent with the four- wheeled walker indoors and outdoors at baseline. No longer drives. Equipment Owned/DME: FWW, garb bars Subjective: Ouch everywhere but not too bad now. Patient reports hurting all over at 2/10. Unable to recall why and how she fell. States having fallen 2-3x this past year. Denies headache and chest pain. Complained of being weak and dizzy in the sitting and upright positions. Agreeable to going to SNF prior to D/C to home. Objective: General Observation: Supine in bed. Minimal periorbital swelling noted on the L side. Multiple contusions and abrasions in face and B UE/LE. On telemetry monitoring. Balderas catheter in place. Some lag noted with execution of commands during session. kyphotic. Mental Status: Alert and oriented as to person and place. Able to pay attention, focus, and respond appropriately but required some repetition of instruction prior to execution. Pain: 2/10 generalized body pain Vital Signs: WNL as closely monitored by nursing staff and via tele ROM: Right Upper Extremity: Shoulder Flexion lacks 50% of AROM. Shoulder abduction lacks 50% of AROM. Elbow flexion WFL. Wrist flexion WFL. Functional opening and closing of hand WFL. Left Upper Extremity: Shoulder Flexion lacks 50% of AROM. Shoulder abduction lacks 50% of AROM. Elbow flexion WFL. Wrist flexion WFL. Functional opening and closing of hand WFL. Right Lower Extremity: Hip flexion lacks 50% of available AROM. Hip abduction lacks 50% of available AROM. Knee flexion lacks 50% of available AROM. Knee extension lacks the last 25% of AROM. Ankle dorsiflexion to neutral only. Ankle plantarflexion about 10 degrees. Left Lower Extremity: Hip flexion lacks 50% of available AROM. Hip abduction lacks 50% of available AROM. Knee flexion lacks 50% of available AROM. Knee extension lacks the last 25% of AROM. Ankle dorsiflexion to neutral only. Ankle plantarflexion about 10 degrees. Strength: Right Upper Extremity: Shoulder flexors 3-/5. Shoulder abductors 3-/5. Elbow flexors 3+/5. Elbow extensors 3+/5. Flight Operations Dispatch Clerk weak but functional. Left Upper Extremity: Shoulder flexors 3-/5. Shoulder abductors 3-/5. Elbow flexors 3+/5. Elbow extensors 3+/5. Flight Operations Dispatch Clerk weak but functional. Right Lower Extremity: Hip flexors 3-/5. Hip abductors 3-/5. Knee flexors 3-/5. Knee extensors 3-/5. Ankle dorsiflexors 3-/5. Ankle plantarflexors 3-/5. Left Lower Extremity: Hip flexors 3-/5. Hip abductors 3-/5. Knee flexors 3-/5. Knee extensors 3-/5. Ankle dorsiflexors 3-/5. Ankle plantarflexors 3-/5. Bed Mobility/Transfers: Rolling with minimal assist and moderate cues for correct technique Supine to sit with moderate assist and moderate cues for safe/correct technique Sit to supine with moderate assist and moderate cues safe/correct technique Sit to stand with moderate assist of 2 with moderate cues for safe/correct technique Stand to sit with moderate assist of 2 with moderate cues for safe/correct technique Bed to reclining chair with moderate assist of 2 with moderate cues for safe/correct technique Reclining chair to bed with with moderate assist of 2 with moderate cues for safe/correct technique Gait: Able to tolerate 3 steps and then 5-6 steps to back up using FWW with moderate assist. Balance compromised posteriorly. Steps unequal. Lean to R noted. Complained of dizziness in the seated and standing positions. Limb advancement poor. Required more assistance backing up onto chair. Reported being weak, dizzy, and shaky throughout activity. Balance: Static Sitting: Fair Dynamic Sitting: Fair Static Standing: Poor Dynamic Standing: Unable Special Tests: Mobility Limitations Standardized Measure [facility] AM-PAC 6 clicks Basic Mobility Inpatient Short Form: Raw Score: 8 CMS Score: 87% deficit Informed Consent/Education: Patient was instructed in purpose of PT consult and plan of care. Agreeable to proceed with established PT POC to achieve personal goals. Understands the need for a possible SNF placement due to level of functional mobility decline. ASSESSMENT: Patient demonstrates functional mobility decline and increased fall risk compared to premorbid status. Kierra is an 86-year-old female who presented to the ED on 01/05/2022 due to a suspected syncopal episode that resulted to an unwitnessed fall, multiple abrasions, and contusions. Patient is diagnosed with right bundle branch block, elevated troponin level, syncope, esophageal reflux, sinusitis, and multiple abrasions. Patient presents with clinical signs and symptoms consistent with current/admitting diagnoses that have resulted to mobility limitations, gait instability, generalized weakness, and overall ADL decline as demonstrated by the following impairment level findings: 1. Decreased strength to B UE/LE major muscle groups (L LE weaker than the R) 2. Impaired sitting/standing balance 3. Impaired activity tolerance 4. Limitation of joint range of motion in B UE/LE due to weakness 5. Shortness of breath 6. Periorbital swelling 7. Dizziness Impairments are contributing to the following functional limitations: 1. Decline in bed mobility skills 2. Decline in transfer skills 3. Difficulty with ambulation without assistive device and physical assistance 4. Increased completion time for mobility ADL performance 5. Increased risk for falls Patient is assessed as a complexity based on the following: History: 86-year-old female with past medical history as indicated above Examination: Demonstrable impairment in strength, balance, and mobility level with underlying impairments and functional limitations as exhibited above as well as deficit score of 87% utilizing the [facility] Mobility Inpatient Short Form Presentation: Evolving Decision Makin high complexity Goals: Goals X1 week 1. Supine-Sit independent 2. Sit-Supine independent 3. Sit-Stand CGA with FWW 4. Stand-Sit CGA with FWW 5. Bed-Chair CGA with FWW 6. Chair-Bed CGA with FWW 7. CGA with FWW gait on level surface for at least 50 feet without report of pain nor dyspnea 10. Fair static and dynamic standing balance/tolerance Plan of Care/Treatment Plan: 1-2x/day, 7 days/week x 1 week. Plan of care has been reviewed with the NEEDLE PUNCH OPERATOR providing the service under Physical Therapy direction. Initiate Physical Therapy intervention for pain management as needed, strengthening, bed mobility, transfers, gait, stairs, balance training, and use of assistive device. DISCHARGE RECOMMENDATIONS: [] Home with no services [] [] Home with services [specify] [] Home with outpatient PT [] [X] SNF for continued rehabilitation. Patient will benefit from correction facility placement for continued skilled physical therapy services in order to progress mobility level, strength, and balance in preparation for a safe discharge to home. [] Group Home Care [] [] SNF versus LTC based on ability to participate and progress [] TREATMENT CODE/TIME: 08387 x 30 minutes, 76253 x 15 minutes beginning at 9:45 AM. Thank you for the opportunity to participate in the care of this patient. Analy Merino PT, DPT, CLT [facility] [place], [place]
--- NOTE | 2022-01-05 13:33 | PT.INTREAT ---
Date of service: 01/05/22 Time of Service: 12:10 PT Notes Visit Reasons: Syncope Inpatient Physical Therapy Treatment Note [facility] Date: 01/05/2022 PRECAUTIONS: Fall, activity as tolerated SUBJECTIVE: Kierra is pleasant and agreeable to participating in PT. She reports that she is feeling very weak. OBJECTIVE: PAIN: No c/o pain BED MOBILITY/TRANSFERS Sit-supine: Max A x2 Sit-stand: Mod A x2 Stand-sit: Max A x2 GAIT Assistive Device: FWW Weight bearing: Full Assist: Mod A Distance: 8 steps Deviation: Cueing for improved posture, cueing for FWW management, limited ability ASSESSMENT: Patient demonstrates limited activity tolerance. She requires significant assist for all transfers, bed mobility and ambulation with FWW support at this time. PLAN: Continue with global strengthening and general conditioning for improved mobility and activity tolerance. TREATMENT CODE/TIME: 15 minutes; [id number] (12:10)
--- NOTE | 2022-01-05 14:12 | CHAPLAIN ---
Kierra was visiting with her friend Roseann, when I stopped in. Roseann told me that she used to take Kierra grocery shopping, but now Roseann shops for her. Roseann called Kierra, who lives at the [facility], and worried when Kierra didn't answer. Roseann and someone from the [facility] checked in on Kierra and she had fallen and was brought to [facility]. Kierra was eating her lunch when I visited, so I will check in with her again another time.
[2022-01-05 15:08] LABS: Anion Gap 10.6 mmol/L (3-11); BUN 41 mg/dL (7-18); CO2 23.4 mmol/L (21.0-32.0); CREATININE 0.6 mg/dL (0.55-1.02); Calcium 9.7 mg/dL (8.5-10.1); Chloride 112 mmol/L (98-107); Glucose 163 mg/dL (74-106); Potassium 3.8 mmol/L (3.5-5.1); Sodium 146 mmol/L (136-145)
--- NOTE | 2022-01-05 16:29 | W.PM.PROGNOT ---
Date of Service Date of service: 01/05/22 Time of Service: 16:29 Assessment and Plan Assessment and plan (1) AMS (altered mental status): Status: Acute Assessment and plan: Patient continues to demonstrate cognitive impairment over her baseline function based on information I received from her friends who indicated she is usually very on the ball with remembering names and faces and places and dates. I suspect that she may have had a stroke although it is possible she may be suffering a concussion. It is unclear as to whether this was a syncopal event or a mechanical fall or possibly a seizure or stroke. Patient's had a partial work-up including carotid ultrasound that showed no significant hemodynamic stenosis. Vertebral flow was antegrade. Echocardiogram was unremarkable and initial CT scan without contrast was unremarkable. I will proceed with MRI scan of the brain and obtain an EEG and a neurology consult. I will start her on a statin and aspirin Professional time spent interviewing and examining patient, discussion of goals of care with hospital team (care management, nursing and consulting professionals) was 60 minutes. (2) Dehydration: Status: Acute Assessment and plan: Dehydration appears to be resolving. BUN is 41 creatinine 0.6. Her hypokalemia this morning was 3.1 and that has been corrected with oral and IV supplementation. Her creatinine kinase has come down overnight from 520 down to 360. (3) Fall: Status: Acute Assessment and plan: We will ask physical therapy to do a fall assessment and assess her gait stability. (4) Multiple abrasions: Status: Acute Assessment and plan: Unclear as to the etiology of the multiple abrasions. It is hard to conceptualize that all these abrasions came from one syncopal event. This is one of the reasons why I am suspecting a seizure. I will asked wound care nurse to evaluate her wounds and make recommendations. (5) Sinusitis: Status: Acute Assessment and plan: CT of the head last night demonstrated chronic appearing pansinusitis. Patient was started on Augmentin last night although its not clear that this is a bacterial cause of her sinusitis. Nevertheless she had an elevated white count of 14,000 last night that den to 16,000 this morning. I will empirically treat her for the sinusitis with Augmentin and finish out 10 day course. (6) Troponin level elevated: Status: Acute Assessment and plan: Probably musculoskeletal in origin. She has no evidence of wall motion abnormalities on her echocardiogram and her troponin levels cleared quickly to normal. (7) Syncope: Status: Chronic Assessment and plan: Is unclear as to whether she had a syncopal event or stroke or seizure or just a mechanical fall with posttraumatic concussion. Nevertheless she has been worked up so far including echocardiogram and carotid Doppler scan. CT of the head was unremarkable except for pansinusitis. Patient will get an MRI scan of her brain and an EEG. We will continue to monitor her for arrhythmias. Currently has sinus rhythm with occasional PACs and PVCs but no runs of SVT or V. tach. Upon discharge she should have a 30-day event recorder. Subjective Subjective Interval history since last seen: Patient was admitted last night from the emergency department via EMS after friend called EMS out to the patient's home at [facility]. Her friend Roseann usually does her grocery shopping looked in on her yesterday which is her usual day to do her grocery shopping for the patient and found the patient on the floor of her home with multiple abrasions and was confused. Unclear as to how long the patient had been down on the floor but is estimated that her last known contact was normal conversation was with another friend named Lolis Mata who had called the patient on Sunday evening because they both watch the same TV shows on Sunday night. Lolis had not heard from the patient since Sunday. Prior to that lolis had last seen the patient on the patient's birthday on [birth year] at the patient's birthday constitution party. Lolis indicated that the patient is usually very alert and sharp and remembers people's names and dates and events. Today the patient is very confused. She recognize her friend lolis but the patient could not spontaneously give me her own birthdate without being coached by her friend. When asked the patient where she lives she says [facility]. The patient in fact lives in [facility]. The patient perseverated on [facility]. Even when I was clearly asking her what month and year this is. When asked the year she said 1989. Patient denies any headache. Her friend lolis indicated that Kierra's been complaining of a lot of chronic stomach issues. Although presently the patient is denying any stomach pain. Exam Narrative Exam Narrative: Elderly female who looks very thin and frail lying in bed talking with her friends. Her speech is clear although she clearly has trouble giving correct answers when asked questions such as her birthdate or where she lives or the date. HEENT is remarkable for abrasions over her left cheek she has a large abrasion over the left malar area with some scabbing but no purulent drainage. Pupils equally round and reactive to direct and consensual light. Full extraocular motion intact. Patient has a noticeable left facial droop with loss of nasolabial fold in the corner of her mouth droops on the left side when she smiles. Visual polanco Neck is supple nontender no JVD normal full carotid pulses without bruits. Lungs are clear to auscultation Heart is regular rate and rhythm with occasional ectopic beat. Abdomen soft nondistended normal bowel sounds no organomegaly Extremities patient has arthritic changes of both hands involving the MCP joints of both hands as well as her toes of both feet. She has hallux valgus deformities of both great toes and she has multiple deformities of her other toes under right foot. She has multiple skin abrasions over her arms and her knees. Neuro exam patient clearly has some cognitive impairment with difficulty remembering dates names and names and she is unable to give me any information as to how she ended up on the floor of her apartment. Left facial droop as described above. Normal movement of her tongue and palate and normal vocalization. Motor exam reveals some clumsiness in the right hand and arm and when asked to lift her arms up in the air she actually had to use her left hand to lift her right hand up. But she was able to hold her right arm up in the air against gravity. Hand basketball coach strength seem to be slightly weaker on the right compared to left however I think this may be effect from her osteoarthritis. When I had her push me and pull me with her hands and arms I could not detect any noticeable weakness in either arm. As far as leg strength she seemed to have good hip flexion and extension strength. Babinski's were equivocal because of the bunions in both toes I cannot detect any upward dorsiflexion of her toes with the Babinski response. Sensory exam is intact to light touch and noxious stimuli using a pointed wooden stick over the face arms and both legs. DTRs seem to be a little more brisk over the right patella compared to the left but reflexes are intact. Reflexes in the arms were equal. Objective Last Vital Signs Temp 36.5 C 01/05/22 15:15 Pulse 77 01/05/22 15:15 Resp 18 01/05/22 15:15 BP 125/77 01/05/22 15:15 Pulse Ox 97 01/05/22 15:15 Laboratory Results - last 24 hr 01/04/22 01/04/22 01/04/22 16:00 16:00 17:55 WBC RBC Hgb Hct MCV MCH MCHC RDW Plt Count MPV Immature Gran % Neutrophils % Band Neutrophils % Lymphocytes % Atypical Lymphs % Monocytes % Eosinophils % Basophils % Metamyelocytes % Myelocytes % Promyelocytes % Other Cells % Nucleated RBC % Absolute Neutrophils Absolute Lymphocytes Absolute Monocytes Absolute Eosinophils Absolute Basophils RBC Morphology Polychromasia Hypochromasia Poikilocytosis Basophilic Stippling Anisocytosis Microcytosis Macrocytosis Spherocytes Tear Drop Cells Ovalocytes Stomatocytes [place] Bodies Olesya Cells/Echinocytes Acanthocytes (Spur) Schistocytes VBG Lactate Sodium Potassium Chloride Carbon Dioxide Anion Gap BUN Creatinine Estimated GFR/1.73 m2 Glucose Calcium Total Bilirubin AST ALT Alkaline Phosphatase Creatine Kinase Troponin I 65 H* Total Protein Albumin TSH Urine Color Yellow Urine Clarity Clear Urine pH 6.5 Ur Specific [place] 1.025 Urine Protein 100 H Urine Ketones >=160 H Urine Blood Trace-intact H Urine Nitrite Negative Urine Bilirubin Small H Urine Urobilinogen 0.2 Ur Leukocyte Esterase Negative Urine RBC Negative Urine WBC Negative Ur Epithelial Cells Negative Urine Crystals Other Urine Bacteria Negative Urine Casts Negative Urine Mucus Negative Urine Other Negative Ur Culture Indicated? No Urine Glucose Negative Urine Opiates Screen Negative Urine Methadone Screen Negative Ur Barbiturates Screen Negative Ur Tricyclics Screen Negative Ur Amphetamines Screen Negative U Benzodiazepines Scrn Negative Urine Cocaine Screen Negative Ur THC Screen Negative Ethyl Alcohol Add-On Test Request 01/04/22 01/04/22 01/05/22 17:55 20:01 00:16 WBC RBC Hgb Hct MCV MCH MCHC RDW Plt Count MPV Immature Gran % Neutrophils % Band Neutrophils % Lymphocytes % Atypical Lymphs % Monocytes % Eosinophils % Basophils % Metamyelocytes % Myelocytes % Promyelocytes % Other Cells % Nucleated RBC % Absolute Neutrophils Absolute Lymphocytes Absolute Monocytes Absolute Eosinophils Absolute Basophils RBC Morphology Polychromasia Hypochromasia Poikilocytosis Basophilic Stippling Anisocytosis Microcytosis Macrocytosis Spherocytes Tear Drop Cells Ovalocytes Stomatocytes [place] Bodies [place] Cells/Echinocytes Acanthocytes (Spur) Schistocytes VBG Lactate 1.7 H Sodium Potassium Chloride Carbon Dioxide Anion Gap BUN Creatinine Estimated GFR/1.73 m2 Glucose Calcium Total Bilirubin AST ALT Alkaline Phosphatase Creatine Kinase Troponin I 74 H* Total Protein Albumin TSH 0.68 Urine Color Urine Clarity Urine pH Ur Specific [place] Urine Protein Urine Ketones Urine Blood Urine Nitrite Urine Bilirubin Urine Urobilinogen Ur Leukocyte Esterase Urine RBC Urine WBC Ur Epithelial Cells Urine Crystals Urine Bacteria Urine Casts Urine Mucus Urine Other Ur Culture Indicated? Urine Glucose Urine Opiates Screen Urine Methadone Screen Ur Barbiturates Screen Ur Tricyclics Screen Ur Amphetamines Screen U Benzodiazepines Scrn Urine Cocaine Screen Ur THC Screen Ethyl Alcohol < 3.0 Add-On Test Request 01/05/22 01/05/22 01/05/22 05:10 05:10 05:10 WBC 16.44 H RBC 4.00 Hgb 11.3 D Hct 35.6 L MCV 89 MCH 28.3 MCHC 31.7 L RDW 15.2 H Plt Count 298 MPV 9.7 Immature Gran % 2.0 Neutrophils % 78.2 Band Neutrophils % Lymphocytes % 11.5 Atypical Lymphs % Monocytes % 8.0 Eosinophils % 0.0 Basophils % 0.3 Metamyelocytes % Myelocytes % Promyelocytes % Other Cells % Nucleated RBC % 0.0 Absolute Neutrophils 12.86 H Absolute Lymphocytes 1.89 Absolute Monocytes 1.32 H Absolute Eosinophils 0.00 Absolute Basophils 0.05 RBC Morphology Polychromasia Hypochromasia Poikilocytosis Basophilic Stippling Anisocytosis Microcytosis Macrocytosis Spherocytes Tear Drop Cells Ovalocytes Stomatocytes [place] Bodies [place] Cells/Echinocytes Acanthocytes (Spur) Schistocytes VBG Lactate Sodium 149 H Potassium 3.1 L Chloride 113 H Carbon Dioxide 29.8 Anion Gap 6.2 BUN 44 H Creatinine 0.6 Estimated GFR/1.73 m2 >= 60.00 Glucose 115 H Calcium 9.2 Total Bilirubin 0.7 AST 46 H ALT 56 Alkaline Phosphatase 62 Creatine Kinase Troponin I 60 Total Protein 5.7 L Albumin 2.4 L TSH Urine Color Urine Clarity Urine pH Ur Specific [place] Urine Protein Urine Ketones Urine Blood Urine Nitrite Urine Bilirubin Urine Urobilinogen Ur Leukocyte Esterase Urine RBC Urine WBC Ur Epithelial Cells Urine Crystals Urine Bacteria Urine Casts Urine Mucus Urine Other Ur Culture Indicated? Urine Glucose Urine Opiates Screen Urine Methadone Screen Ur Barbiturates Screen Ur Tricyclics Screen Ur Amphetamines Screen U Benzodiazepines Scrn Urine Cocaine Screen Ur THC Screen Ethyl Alcohol Add-On Test Request 01/05/22 01/05/22 01/05/22 05:10 05:10 07:01 WBC RBC Hgb Hct MCV MCH MCHC RDW Plt Count MPV Immature Gran % Neutrophils % Band Neutrophils % Lymphocytes % Atypical Lymphs % Monocytes % Eosinophils % Basophils % Metamyelocytes % Myelocytes % Promyelocytes % Other Cells % Nucleated RBC % Absolute Neutrophils Absolute Lymphocytes Absolute Monocytes Absolute Eosinophils Absolute Basophils RBC Morphology Polychromasia Hypochromasia Poikilocytosis Basophilic Stippling Anisocytosis Microcytosis Macrocytosis Spherocytes Tear Drop Cells Ovalocytes Stomatocytes [place] Bodies [place] Cells/Echinocytes Acanthocytes (Spur) Schistocytes VBG Lactate Sodium Cancelled Potassium Cancelled Chloride Cancelled Carbon Dioxide Cancelled Anion Gap Cancelled BUN Cancelled Creatinine Cancelled Estimated GFR/1.73 m2 Cancelled Glucose Cancelled Calcium Cancelled Total Bilirubin AST ALT Alkaline Phosphatase Creatine Kinase 360 H Troponin I Total Protein Albumin TSH Urine Color Urine Clarity Urine pH Ur Specific [place] Urine Protein Urine Ketones Urine Blood Urine Nitrite Urine Bilirubin Urine Urobilinogen Ur Leukocyte Esterase Urine RBC Urine WBC Ur Epithelial Cells Urine Crystals Urine Bacteria Urine Casts Urine Mucus Urine Other Ur Culture Indicated? Urine Glucose Urine Opiates Screen Urine Methadone Screen Ur Barbiturates Screen Ur Tricyclics Screen Ur Amphetamines Screen U Benzodiazepines Scrn Urine Cocaine Screen Ur THC Screen Ethyl Alcohol Add-On Test Request DONE 01/05/22 01/05/22 07:01 14:30 WBC Cancelled RBC Cancelled Hgb Cancelled Hct Cancelled MCV Cancelled MCH Cancelled MCHC Cancelled RDW Cancelled Plt Count Cancelled MPV Cancelled Immature Gran % Cancelled Neutrophils % Cancelled Band Neutrophils % Cancelled Lymphocytes % Cancelled Atypical Lymphs % Cancelled Monocytes % Cancelled Eosinophils % Cancelled Basophils % Cancelled Metamyelocytes % Cancelled Myelocytes % Cancelled Promyelocytes % Cancelled Other Cells % Cancelled Nucleated RBC % Cancelled Absolute Neutrophils Cancelled Absolute Lymphocytes Cancelled Absolute Monocytes Cancelled Absolute Eosinophils Cancelled Absolute Basophils Cancelled RBC Morphology Cancelled Polychromasia Cancelled Hypochromasia Cancelled Poikilocytosis Cancelled Basophilic Stippling Cancelled Anisocytosis Cancelled Microcytosis Cancelled Macrocytosis Cancelled Spherocytes Cancelled Tear Drop Cells Cancelled Ovalocytes Cancelled Stomatocytes Cancelled [place] Bodies Cancelled Olesya Cells/Echinocytes Cancelled Acanthocytes (Spur) Cancelled Schistocytes Cancelled VBG Lactate Sodium 146 H Potassium 3.8 Chloride 112 H Carbon Dioxide 23.4 Anion Gap 10.6 BUN 41 H Creatinine 0.6 Estimated GFR/1.73 m2 >= 60.00 Glucose 163 H Calcium 9.7 Total Bilirubin AST ALT Alkaline Phosphatase Creatine Kinase Troponin I Total Protein Albumin TSH Urine Color Urine Clarity Urine pH Ur Specific [place] Urine Protein Urine Ketones Urine Blood Urine Nitrite Urine Bilirubin Urine Urobilinogen Ur Leukocyte Esterase Urine RBC Urine WBC Ur Epithelial Cells Urine Crystals Urine Bacteria Urine Casts Urine Mucus Urine Other Ur Culture Indicated? Urine Glucose Urine Opiates Screen Urine Methadone Screen Ur Barbiturates Screen Ur Tricyclics Screen Ur Amphetamines Screen U Benzodiazepines Scrn Urine Cocaine Screen Ur THC Screen Ethyl Alcohol Add-On Test Request
[2022-01-05] MEDS: Aspirin 81 MG CHEW 324 MG CH (18:05)
--- NOTE | 2022-01-05 18:28 | DI.VRAD_ITS ---
PROCEDURE INFORMATION: Exam: MR Head Without Contrast Exam date and time: 01/05/2022 5:14 PM Age: 86 years old Clinical indication: Stroke-like symptoms; Altered mental status/memory loss; Additional info: Syncope, cognitive impairment; R/O CVA TECHNIQUE: Imaging protocol: Magnetic resonance imaging of the head without contrast. COMPARISON: CT HEAD WO 01/04/2022 3:14 PM FINDINGS: Brain: Age-related involutional changes and chronic microvascular ischemic disease. No acute infarct. No mass effect or midline shift. No extra-axial collection. No acute intracranial hemorrhage. Basal cisterns are patent. Cerebral ventricles: Dilatation of the ventricles out of proportion to the degree of cortical atrophy, which can be seen in normal pressure hydrocephalus. Bones/joints: Unremarkable. Paranasal sinuses: Mucosal thickening involving the maxillary sinuses and sphenoid sinuses. Mastoid air cells: Normal as visualized. No mastoid effusion. Orbital cavities: Bilateral cataract surgery. Soft tissues: Unremarkable. IMPRESSION: 1. Dilatation of the ventricles out of proportion to the degree of cortical atrophy, which can be seen in normal pressure hydrocephalus. 2. No acute infarct, acute intracranial hemorrhage, or mass effect. Dictated and Authenticated by: Olivier Scott MD. Ordering:[facility] Santa Martin MD
[2022-01-05] MEDS: Atorvastatin 40 MG TAB 80 MG PO (19:57)
--- NOTE | 2022-01-06 | DI.CT_ITS ---
Exam(s) CT CERVICAL SPINE WO EXAM: CT CERVICAL SPINE WO CLINICAL HISTORY: gait instability, falls. TECHNIQUE: Imaging Protocol: Axial computed tomography images with coronal and sagittal reformatted images were created and reviewed COMPARISON: No exams were available for comparison FINDINGS: Bones: No acute fracture or subluxation. Degenerative changes are present throughout the cervical spi ne. Soft Tissues: Unremarkable. Lung Apices: Clear. IMPRESSION: No acute fracture or subluxation in the cervical spine. RADIATION DOSE DELIVERED: 215.97mGy.cm Total DLP 215.97mGy.cm Total DLP DATA REPOSITORY: All CT scans at this facility are submitted to the National Radiology Data Registry (NRDR) Dose Index Registry (DIR) with the [employer] ([employer]). RADIATION OPTIMIZATION: All CT scans at this facility use at least one of these dose optimization te chniques: automated exposure control; mA and/or kV adjustment per patient size (includes targeted exa ms where dose is matched to clinical indication); or iterative reconstruction.
[2022-01-06 06:55] LABS: HCT 36.3 % (36.0-46.0); HGB 11.6 g/dL (11.2-15.7); MCH 28.5 pg (27.0-33.0); MCV 89 fL (80-95); MPV 9.9 fL (8.0-11.0); Platelet Count 272 10^3/uL (130-400); RBC 4.07 10^6/uL (3.93-5.22); RDW 15.7 % (11.7-14.6); RDW-SD 51.5 fL; WBC 11.69 10^3/uL (4.4-10.8)
[2022-01-06 07:00] VITALS: PULSE 83
[2022-01-06 07:22] LABS: Anion Gap 6.3 mmol/L (3-11); BUN 47 mg/dL (7-18); CO2 30.7 mmol/L (21.0-32.0); CREATININE 0.5 mg/dL (0.55-1.02); Calcium 9.2 mg/dL (8.5-10.1); Calculated LDL 63 mg/dL (<100); Chloride 112 mmol/L (98-107); Cholesterol 124 mg/dL (<200); Glucose 104 mg/dL (74-106); HDL Cholesterol 44 mg/dL (40-60); Potassium 3.9 mmol/L (3.5-5.1); Sodium 149 mmol/L (136-145); Triglyceride 88 mg/dL (<150)
[2022-01-06] MEDS: Aspirin E.C. 81 MG TABEC PO (07:40)
[2022-01-06] MEDS: Acetaminophen 500 MG TAB 1000 MG PO ×3 (07:40→21:27)
[2022-01-06] MEDS: Omeprazole 20 MG CAPCR PO (07:40)
[2022-01-06] MEDS: Amoxicillin 500/Clav. 125 TAB PO ×2 (07:40→21:27)
[2022-01-06] MEDS: Calcium 600mg/Vit D 200U TAB 1 TAB PO (07:40)
[2022-01-06 07:48] VITALS: BP 111/75; PULSE 84; RESP 18; TEMP 36.8; O2SAT 97
--- NOTE | 2022-01-06 10:57 | CMPROGNOTE_ITS ---
- If Service Date Differs Date of service: 01/06/22 Time of Service: 10:57 Care Management Progress Note S/O:Kierra was sitting up in a chair visiting with her friend Velia when MICHELLE met with her. She appeared a little less confused today but is still not at her baseline. This morning learned that Kierra has a DPOA and an updated Advance Directive. Her DPOA is Cirilo Mccarty Esq. . Copies of both documents were scanned into Kierra's chart and Anesthesia was contacted with the DPOA infor naomy to obtain consent. Velia requested that a care team meeting be held to discuss Kierra's goals of care and discharge plans. She requested that Cirilo Ames Esq. attend as well as Lolis and MICHELLE in addition to herself. MICHELLE agreed to be available at 4pm on Sunday if everyone wanted to meet. Cirilo Mccarty was contacted via email by CM with the request, as he is the DPOA. Referrals have been sent to the facilities Kierra identified. A: Kierra is an 86 year old woman admitted on 01/04/22 with syncope P:Kierra will likely need short term rehab before returning home. She is weak and not at her baseline in terms of mentation.When she does return to her home at the [facility], she will follow up with her community providers and plan of care and transport with a friend. CM will continue to support Kierra and assess for ongoing discharge needs. cc:
--- NOTE | 2022-01-06 12:00 | WOUNDCONS_ITS ---
- If Service Date Differs Date of service: 01/06/22 Time of Service: 12:00 Wound Initial Evaluation Narrative: Patient is an 86 YOF. She is here as she was found down at her home here in town, by a friend. It is unclear exactly how long she may have been down. Per a friend, the last time that she had been spoken too was on Sunday evening, and she was found by a friend , who does her shopping for her on Sunday morning. Per documentation, at baseline the patient is usually alert and oriented . At the time of the consult, she answers by name, aware that the date is somewhere near the december. she is unable to recall her date. She was unable to sign the consent form. After explaining the process to her she gives verbal consent. This is witnessed by myself, and Lacey COYLE. MRI has ruled out stroke, but per Dr. Pratt's progress note, he is considering syncope, concussive syndrome, or seizure. Patient has an EEG ordered. Other Problems, such as dehydration, has been corrected. Patient's H&P, labs and allergies were all reviewed prior to starting this consultation. - Wound Left Cheek Wound Type: Abrasion Wound General Appearance: Open to air, Unapproximated, Healing Well Wound Bed Greatest Portion: Other (Wound is scabbed over. Unable to assess wound bed) Wound Surrounding Tissue Appearance: [place], Bright Red Wound Length: 2 cm Wound Width: 3.5 cm Wound Depth: 0.3 cm (to the top of the scab) Wound Drainage Odor: None/Absent Wound Drainage Description: No drainage Wound Topical Solution/Irrigant: Saline Irrigant Wound Debridement Method: Gauze Wound Debridement Result: Other (scabbing remains) Wound Debridement Amount of Tissue Removed: None Jaw Wound Type: Abrasion Wound General Appearance: Well Approximated, Open to air, Clean/Dry, Healing Well, Other (scabbed over) Wound Surrounding Tissue Appearance: [place], Normal/Healthy Percent of Wound Bed Granulated/Red: 100 Wound Length: 0.4 cm Wound Width: 1.2 cm Wound Depth: 0.1 cm (less than) Wound Drainage Amount: None Wound Drainage Odor: None/Absent Wound Drainage Description: No drainage Wound Topical Solution/Irrigant: Saline Irrigant Wound Debridement Method: Gauze Wound Debridement Result: Other (scabbing remains) Wound Debridement Amount of Tissue Removed: None (scabbing remains) Right Elbow Wound Type: Abrasion Wound General Appearance: Well Approximated, Open to air, Clean/Dry, Healing Well, Other Wound Bed Greatest Portion: Red (Granulation) Wound Surrounding Tissue Appearance: [place], Normal/Healthy Percent of Wound Bed Granulated/Red: 100 Wound Length: 3.9 cm Wound Width: 2.4 cm Wound Depth: 0.1 cm (less than) Wound Drainage Amount: None Wound Drainage Odor: None/Absent Wound Drainage Description: No drainage Wound Topical Solution/Irrigant: Saline Irrigant Wound Debridement Method: Gauze Wound Debridement Result: Other (scabbing remained) Wound Debridement Amount of Tissue Removed: None Left Elbow Wound Type: Abrasion Wound General Appearance: Well Approximated, Open to air, Clean/Dry, Healing Well Wound Bed Greatest Portion: Red (Granulation) Wound Surrounding Tissue Appearance: [place] Percent of Wound Bed Granulated/Red: 100 Wound Length: 0.9 cm Wound Width: 0.7 cm Wound Depth: 0.1 cm (less than) Wound Drainage Amount: None Wound Drainage Odor: None/Absent Wound Drainage Description: No drainage Wound Topical Solution/Irrigant: Saline Irrigant Wound Debridement Method: Gauze Wound Debridement Result: Other (scabbing remained) Wound Debridement Amount of Tissue Removed: None Left Lateral Knee Wound Type: Abrasion Wound General Appearance: Well Approximated, Open to air, Clean/Dry, Healing Well Wound Bed Greatest Portion: Red (Granulation) Wound Surrounding Tissue Appearance: [place] Percent of Wound Bed Granulated/Red: 100 Wound Length: 5.8 cm Wound Width: 2.5 cm Wound Depth: 0.1 cm (less than) Wound Drainage Amount: None Wound Drainage Odor: None/Absent Wound Drainage Description: No drainage Wound Topical Solution/Irrigant: Saline Irrigant Wound Debridement Method: Gauze Wound Debridement Result: Other (scabbing remained) Wound Debridement Amount of Tissue Removed: None Right Lateral Knee Wound Type: Abrasion Wound General Appearance: Well Approximated, Open to air, Clean/Dry, Reddened Wound Bed Greatest Portion: Red (Granulation) Wound Surrounding Tissue Appearance: [place] Percent of Wound Bed Granulated/Red: 100 Wound Length: 7 cm Wound Width: 3.2 cm Wound Depth: 0.1 cm Wound Drainage Amount: None Wound Drainage Odor: None/Absent Wound Drainage Description: No drainage Wound Topical Solution/Irrigant: Saline Irrigant Wound Debridement Method: Gauze Wound Debridement Result: Healthy Tissue Revealed Wound Debridement Amount of Tissue Removed: None Right Lateral Ankle Wound Type: Abrasion Wound General Appearance: Well Approximated, Open to air, Clean/Dry, Healing Well Wound Bed Greatest Portion: Red (Granulation) Percent of Wound Bed Granulated/Red: 100 Wound Length: 1.6 cm Wound Width: 1.6 cm Wound Depth: 0.1 cm (less than) Wound Drainage Amount: None Wound Drainage Odor: None/Absent Wound Drainage Description: No drainage Wound Topical Solution/Irrigant: Saline Irrigant Wound Debridement Method: Gauze Wound Debridement Result: Other (scabbing remains) Wound Debridement Amount of Tissue Removed: None Right Medial Knee Wound Type: Abrasion Wound General Appearance: Reddened, Draining, Unapproximated Wound Bed Greatest Portion: Pale [place] Wound Bed Lesser Portion: Yellow (Slough) Wound Surrounding Tissue Appearance: [place] Percent of Wound Bed Granulated/Red: 0 Percent of Wound Bed Slough/Yellow: 25 Wound Length: 9.3 cm Wound Width: 3.6 cm Wound Depth: 0.2 cm Wound Drainage Amount: Minimal Wound Drainage Odor: None/Absent Wound Drainage Description: Other (yellow) Wound Topical Solution/Irrigant: Saline Irrigant Wound Debridement Method: Gauze Wound Debridement Result: Healthy Tissue Revealed (small amount of slough remained after cleaning), Yellow Sloughing Remains Wound Debridement Amount of Tissue Removed: Minimal - Circulation, Sensation, Motion Edema Degree: Trace Peripheral Pulse Strength: Normal Capillary Refill: Less than 3 seconds Sensation Description: Within Normal Limits Skin Temperature: Warm Skin Color: Normal - ELIGIO Comment:: NA - Pain Pain Level: 3 (with cleaning right medial knee only) Pain Scale Used: Visual Analog Scale 0-10 Pain Description: Burning Pain Duration (Hours): 1 (Minute while cleaning) Pain Duration/Frequency: Intermittent (5) 86 yof who was found down on the ground for an indeterminate amount of time. She presents with multiple abrasions. This is potentially from the force of shear from dragging herself along the carpeting in her apartment. Patient has no recall of the event, and still presents with episodic confusion. Most of the abrasions are in a state of healing well, and should be kept DINA and monitored for change. Provider aware and agrees with assessment. - Photo Photo: - Treatment/Dressing Change Topicals/Ointments: Anasept Gel Cleanse With: Saline Dressing Types: Mepilex w/Border - Recomendation Recomendation:: Medial Right Knee. Cleanse with normal saline, then pat dry. Apply nickel thick layer of Anasept gel to the base of the wound. Cover with a Mepilex border. Change every 2 days or PRN. Check placement every shift. Both Elbows. Cleanse with normal saline, then pat dry. Cover with Mepilex border for protection. Change every 7 days or PRN. Check placement every shift. Left Cheek. Leave open to air. Monitor every shift. Report any changes. Lateral Right Knee. Leave open to air. Monitor every shift. Report any changes. Lateral Left Knee. Leave open to air. Monitor every shift. Report any changes. Right Lateral Ankle Leave open to air. Monitor every shift. Report any changes. Chin. Leave open to air. Monitor every shift. Report any changes. Physcian/Nurse Practioner Notified: Yes (Dr. Pratt) Treatment Time - Time Total Time Spent with Patient: 90 minutes - Patient Will be Seen Weekly Treatment: daily - For: For:: 1 week
--- NOTE | 2022-01-06 12:26 | W.PM.PROGNOT ---
Date of Service Date of service: 01/06/22 Time of Service: 10:45 Assessment and Plan Assessment and plan (1) AMS (altered mental status): Status: Acute Assessment and plan: Patient continues to show cognitive impairment compared to her reported baseline function. I suspect that her baseline function however is some mild dementia. However from speaking with her friends she is not currently in her usual state of mind. 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 Anesthesia is willing to do a diagnostic LP but they are not willing to do a high-volume LP which is required to help with the diagnosis and prognosis of NPH. I did speak with a neurologist at [facility] Dr. Todd based on the reported time course of her cognitive changes he feels that there is something more than normal pressure hydrocephalus. He does feel that the CT findings are suspicious for normal pressure hydrocephalus unfortunately the MRI study was not sent to him despite my asking her radiology department to send both the MRI and the CT scan. Unfortunately we have no in-house neurology over the weekend. We will proceed with further metabolic work-up including B12 RPR she is already had a TSH which was normal. We will proceed with a diagnostic LP I will also obtain tick panel as well as a CSF for VDRL as well as arboviral studies. EEG has been done this afternoon. Professional time spent interviewing and examining patient, discussion of goals of care with hospital team (care management, nursing and consulting professionals) was 30 minutes. (2) Dehydration: Status: Acute Assessment and plan: Dehydration appears to be resolving. BUN is 41 creatinine 0.6. I will resume IV fluids of LR at 85 mL an hour for another liter and repeat her labs in the morning (3) Fall: Status: Acute Assessment and plan: PT has assessed her see their note for details. She is maximal assist requires a steady left. (4) Multiple abrasions: Status: Acute Assessment and plan: Unclear as to the etiology of the multiple abrasions. It is hard to conceptualize that all these abrasions came from one syncopal event. This is one of the reasons why I am suspecting a seizure. Honorio, wound care nurse, saw the patient and has put in recommendations for management of her abrasions. (5) Sinusitis: Status: Acute Assessment and plan: Patient was started on Augmentin by the admitting hospitalist. Will finish out a 10-day course of Augmentin for sinusitis.. (6) Troponin level elevated: Status: Acute Assessment and plan: Probably musculoskeletal in origin. She has no evidence of wall motion abnormalities on her echocardiogram and her troponin levels cleared quickly to normal. (7) Syncope: Status: Acute Assessment and plan: Is unclear as to whether she had a syncopal event or stroke or seizure or just a mechanical fall with posttraumatic concussion. Nevertheless she has been worked up so far including echocardiogram and carotid Doppler scan. CT of the head was unremarkable except for pansinusitis. Patient will get an MRI scan of her brain and an EEG. No arrhythmias over the first 48 hours of her hospitalization therefore were going to discontinue her telemetry. Rhythm is sinus rhythm at rates 50-79 with no pauses no PSVT and no ventricular tachycardia. Subjective Subjective Interval history since last seen: Kierra did not do well with physical therapy today. She was on maximal assist requiring a steady left. MRI scan of her brain was negative for stroke but very suggestive of normal pressure hydrocephalus. Exam Narrative Exam Narrative: Patient was seen with physical therapist this morning. She has an unsteady gait generalized weakness unable to stand on her own. She is clumsy has trouble holding her self up. She is unsteady with her hands or arms. Manual muscle testing does not reveal any focal motor deficits of her arms or legs but just generalized discoordination and trouble supporting herself when transferring from bed to the chair. Objective Last Vital Signs Temp 36.8 C 01/06/22 07:48 Pulse 84 01/06/22 07:48 Resp 18 01/06/22 07:48 BP 111/75 01/06/22 07:48 Pulse Ox 97 01/06/22 07:48 Laboratory Results - last 24 hr 01/05/22 01/06/22 01/06/22 14:30 06:36 06:36 WBC 11.69 H RBC 4.07 Hgb 11.6 Hct 36.3 MCV 89 MCH 28.5 MCHC 32.0 RDW 15.7 H Plt Count 272 MPV 9.9 Sodium 146 H 149 H Potassium 3.8 3.9 Chloride 112 H 112 H Carbon Dioxide 23.4 30.7 Anion Gap 10.6 6.3 BUN 41 H 47 H Creatinine 0.6 0.5 L Estimated GFR/1.73 m2 >= 60.00 >= 60.00 Glucose 163 H 104 Hemoglobin A1c Calcium 9.7 9.2 Triglycerides 88 Total Cholesterol 124 LDL Cholesterol, Calc 63 HDL Cholesterol 44 01/06/22 06:36 WBC RBC Hgb Hct MCV MCH MCHC RDW Plt Count MPV Sodium Potassium Chloride Carbon Dioxide Anion Gap BUN Creatinine Estimated GFR/1.73 m2 Glucose Hemoglobin A1c 6.0 H Calcium Triglycerides Total Cholesterol LDL Cholesterol, Calc HDL Cholesterol
--- NOTE | 2022-01-06 13:43 | PT.INTREAT ---
Date of service: 01/06/22 Time of Service: 10:40 PT Notes Visit Reasons: Syncope Inpatient Physical Therapy Treatment Note [facility] Date: 01/06/2022 PRECAUTIONS: Fall, activity as tolerated SUBJECTIVE: Kierra is pleasant and agreeable to participating in PT. She reports that she is feeling very weak and tired today. When asked how she is feeling she repeatedly states not good. OBJECTIVE: Tremors noted in R UE while at rest. PAIN: No c/o pain BED MOBILITY/TRANSFERS Sit-supine: Max A x2 Sit-stand: Mod A x2 in a.m.; Max A x3 in p.m. Stand-sit: Mod A x2 in a.m.; Max A x3 in p.m. Chair-bed: STEDY GAIT: Unable in p.m. Assistive Device: FWW Weight bearing: Full Assist: Mod A Distance: Unable to take steps safely Deviation: Cueing for improved posture and foot placement, limited ability THEREX: Patient was instructed in static standing with FWW support and Mod A x2, but was only able to tolerate <30 seconds. She was also instructed in standing mini knee bends with FWW support and Mod A x2. While in seated position, patient was instructed in ankle pumps, LAQ, hip flexion, and hip abduction, which she tolerates well. TOILETING: Patient toileted with Max A. Patient requires STEDY and assist x2-3 for transfers on/off and to/from commode chair ASSESSMENT: Patient demonstrates limited activity tolerance. She requires significant assist for all transfers at this time. She is not able to ambulate safely at this time, requiring Mod A x2 and FWW support. Patient should be STEDY lift transfers only with assist x2-3 at this time. PLAN: Continue with global strengthening and general conditioning for improved mobility and activity tolerance. TREATMENT CODE/TIME: Session 1: 19 minutes; 46496 (10:40) Session 2: 32 minutes; [id number] x2 (14:14)
--- NOTE | 2022-01-06 14:26 | PHA.REVIEW ---
Pharmacy Admission Review - Admission Clinical Review (Last Updated 01/04/22 @ 21:37 by Chantal Sahu MD) AMS (altered mental status) (Acute) Acute metabolic encephalopathy (Acute) Dehydration (Acute) Elevated transaminase level (Acute) Fall (Acute) Multiple abrasions (Acute) Sinusitis (Acute) Troponin level elevated (Acute) Right bundle branch block (Acute) citalopram [From Celexa] Allergy (Unknown, Unverified 01/04/22 14:03) levothyroxine sodium Allergy (Unknown, Unverified 01/04/22 14:03) tramadol Adverse Reaction (Intermediate, Verified 01/04/22 14:03) shakey, GI, very ill fluoxetine [From Prozac] Adverse Reaction (Unknown, Unverified 01/04/22 14:03) suicidal ideation sertraline [From Zoloft] Adverse Reaction (Unknown, Unverified 01/04/22 14:03) Diarrhea Resuscitation Status DNR/DNI Height 5 ft 7 in Weight 55 kg - Renal Dosing Renal Dosing: BUN 47 mg/dL (7-18) H 01/06/22 06:36 Creatinine 0.5 mg/dL (0.55-1.02) L 01/06/22 06:36 Medications needing adjustments: Reviewed (Crcl ~44.6 mL/min current meds okay) - Anticoagulation Anticoagulation: Hgb 11.6 g/dL (11.2-15.7) 01/06/22 06:36 Hct 36.3 % (36.0-46.0) 01/06/22 06:36 Plt Count 272 10^3/uL (130-400) 01/06/22 06:36 INR 1.2 (0.9-1.1) H 01/04/22 14:43 Creatinine 0.5 mg/dL (0.55-1.02) L 01/06/22 06:36 DVT Prophylaxis: Intervened (Nothing currently ordered/mentioned in progress note. Checked with provider who ordered SCDs as chemical prophylaxis is being held due to possible LP.) Therapeutic Anticoagulation: N/A - Opiate Usage Evaluate Pain Scale/Pains Meds: N/A - Relevant Labs Sodium 149 mmol/L (136-145) H 01/06/22 06:36 Potassium 3.9 mmol/L (3.5-5.1) 01/06/22 06:36 Chloride 112 mmol/L (98-107) H 01/06/22 06:36 Magnesium 2.4 mg/dL (1.8-2.4) 01/04/22 14:43 Electrolytes, C-Reactive P, ESR: Reviewed - DM Control DM Control: Glucose 104 mg/dL (74-106) 01/06/22 06:36 Hemoglobin A1c 6.0 % (<5.7) H 01/06/22 06:36 Insulin Dosing: N/A - Heart Failure/NJ Heart Failure/NJ: Troponin I 60 ng/L (<or=60) 01/05/22 05:10 EF%, UVALDO's, B-Blockers, Diuretics: Reviewed - BP Control BP Control: Blood Pressure 111/75 If elevated: Reviewed (BP has been up and down some this admission but mostly within normal limits.) - Qtc Review If Elevated: Reviewed (QTc 529 on admission, current meds okay) - IV to PO Switch IV Medications: Reviewed - Home Meds Home Med List reviewed: Reviewed Relevent Home Meds Not ordered & why?: multivitamin, vitamin B complex - Current meds Current Medication Order Review: Intervened (adjusted the timing of omeprazole based on the interactive digital media specialist time policy.) - Comments Comments/Follow Ups: Watch BP, SCr, labs and for med changes (possible renal dose adjustments). Antibiotic Activity - Pharmacy Antibiotic Review Pharmacy Antibiotic Activity: Reviewed, no change (PO augmentin ordered empirically for sinusitis per progress note (day 2))
[2022-01-06 14:55] VITALS: PULSE 92
[2022-01-06 15:43] VITALS: BP 127/78; PULSE 72; RESP 14; TEMP 36.2; O2SAT 94
--- NOTE | 2022-01-06 15:46 | CHAPLAIN ---
Kierra was up in the recliner when I visited. A friend was just leaving. Kierra said she will likely go to a rehab before returning to her apartment at [facility]. She mentioned a few friends that she stays in touch with who are supports for her. Kierra shared some personal history about where she grew up and how she came to live in [facility]. She seems to be comfortable being here.
--- NOTE | 2022-01-06 18:03 | W.ANESPROC ---
Lumbar Puncture Date Performed: 01/06/22 Procedure Time: 17:50 Requesting Provider: Mario Pratt Procedure Location: Med/Surg Standard Monitors Applied: None Used Patient Position: Left Lateral Decubitus Timeout Performed: Yes Sedation Given (Indicate Dose Given): No Sedation given Patient Mental Status: Awake Sterility: Hand Hygiene, Surgical Cap, Surgical Mask, Sterile Gloves, Sterile Drape/Sheet, Eye Protection and Chlorhexidine Placement Site: L3-L4 Interspace Spinal Needle Type: Donna 22 Gauge Needle Length: 3.5 Inch Lumbar Puncture Procedure: Site Prepped, Sterile Drape Placed, 1% Lidocaine to skin and subcutaneous tissue with 25G needle, Spinal Needle Placed, Negative Heme, Positive CSF Flow, CSF Specimen placed into Tubes in Sequential Order and Specimen Labeled, Sent to Lab Ultrasound: Not Used Opening CSF Pressure (cmH2O): 5 Paresthesia: None Number of Previous Attempts by Other Providers: 0 Number of Attempts (See previous attempts in note section): 2 Procedure Tolerated: No Complications Procedure Outcome: Successful Procedure Comment:: Significant scoliosis with kyphosis, patient positioned on left side with assistance. Patient appears to understand procedure and able to follow commands. Performed By: Xochilt Granados
[2022-01-06] MEDS: Lactated Ringers 1,000 ML 85 ML IV (18:09)
--- NOTE | 2022-01-06 19:49 | PDOC.EEG_ITS ---
Neurology EEG EEG: [facility] Department of Neurology INPATIENT EEG REPORT Date of Recordin01/06/22 Interpreting Physician: Dr. Aura Ojeda Reason for study: Ms. Roque is an 86 year-old woman who was admitted after being found down. Current Medications: Current Medications Acetaminophen (Acetaminophen 500 Mg Tab) 1,000 mg PO TID [facility] Last Admin: 01/06/22 14:15 Dose: 1,000 mg Albuterol Sulfate (Albuterol 2.5 Mg/3 Ml Inh Soln Vial) 2.5 mg UPD Q2H PRN PRN Amoxicillin/Clavulanate Potassium (Amoxicillin 500/Clav. 125 Tab) 1 tab PO BID [facility] Last Admin: 01/06/22 07:40 Dose: 1 tab Atorvastatin Calcium (Atorvastatin 40 Mg Tab) 80 mg PO QPM [facility] Last Admin: 01/05/22 19:57 Dose: 80 mg Calcium/Vitamin D (Calcium 600mg/Vit D 200u Tab) 1 tab PO DAILY [facility] Last Admin: 01/06/22 07:40 Dose: 1 tab Dimethicone/Zinc Oxide (Cata Protect Cream 142 Gm Tube) 0 gm TP PRN PRN Ringer's Solution () 1,000 mls @ 85 mls/hr IV INFUSION [facility] Stop: 01/07/22 05:16 Last Admin: 01/06/22 18:09 Dose: 85 mls/hr IV Miscellaneous Supplies (Iv Access) 1 each IV DIRECTED [facility] Omeprazole (Omeprazole 20 Mg Capcr) 20 mg PO DAILY@0730 [facility] Last Admin: 01/06/22 07:40 Dose: 20 mg METHODS: A 21 channel digitized electroencephalogram was performed in the [facility] Med/Surg Floor or ICU. The 10/20 international system of electrode placement was used and bipolar and referential electrode montages were recorded. In addition to EEG the patient was monitored for EKG and lateral/vertical eye movements. Activation procedures of photic stimulation and hyperventilation were performed if applicable. Video was used during activation procedures and during events where applicable. The duration of the recording was 30 minutes. DESCRIPTION OF EEG: The patient was noted to be awake, drowsy, and asleep during the recording. During maximal wakefulness a 9-Hz posterior background rhythm was present which was well-modulated, symmetrical, reactive to eye opening, and of moderate voltage. With eye opening the background activity changed to a low voltage mixture of alpha, beta, and occasional theta range frequencies. Faster frequencies were present in the bilateral anterior head regions. There was a normal anterior-posterior voltage gradient. During drowsiness, there was attenuation of the posterior dominant background rhythm and vertex waves. Stage II sleep was present with symmetrical sleep spindles, K-complexes, and vertex waves. During wakefulness, there was intermittent polymorphic delta and theta slowing. There were occasional T4 sharp-waves, however these were not clearly epileptic. Further, study was compromised by very high impedances. Activating Procedures: Photic stimulation was performed which produced a symmetrical posterior driving response at various flash frequencies. Hyperventilation was not performed. EKG: EKG revealed normal sinus rhythm. INTERPRETATION: This EEG is abnormal due to mild generalized, polymorphic, delta and theta slowing. PRIOR EEG: none CLINICAL CORRELATION: The background slowing is suggestive of a mild diffuse cerebral encephalopathy of broad differential including toxic-metabolic etiology. No focal regions of cerebral dysfunction or epileptiform activity was present. Clinical correlation is advised. Aura Ojeda MD
[2022-01-06 19:50] VITALS: BP 110/71; PULSE 73; RESP 14; TEMP 35.9; O2SAT 95
[2022-01-06] MEDS: Atorvastatin 40 MG TAB 80 MG PO (21:27)
--- NOTE | 2022-01-06 22:01 | DI.VRAD_ITS ---
PROCEDURE INFORMATION: Exam: CT Cervical Spine Without Contrast Exam date and time: 01/06/2022 9:01 PM Age: 86 years old Clinical indication: Other: Gait instability, falls TECHNIQUE: Imaging protocol: Computed tomography of the cervical spine without contrast. Radiation optimization: All CT scans at this facility use at least one of these dose optimization techniques: automated exposure control; mA and/or kV adjustment per patient size (includes targeted exams where dose is matched to clinical indication); or iterative reconstruction. COMPARISON: [facility] 01/05/2022 12:38 PM FINDINGS: Bones/joints: No acute fracture. Normal alignment. Discs/Spinal canal/Neural foramina: There are multilevel degenerative changes most prominent at C5-C6 with bilateral neural foraminal narrowing. No significant spinal canal stenosis. Lungs: Lung apices are normal. Soft tissues: There is mild asymmetry of the piriform sinuses, likely secondary to neck rotation. IMPRESSION: No acute fracture. Multilevel degenerative changes as described. Dictated and Authenticated by: Keyana Reyes MD. Ordering:TAMERA Martin MD
[2022-01-06 23:25] VITALS: BP 126/72; PULSE 73; RESP 14; TEMP 36.4; O2SAT 97
[2022-01-07 06:54] LABS: Abs Immature Grans 0.35 10^3/uL (0.0-0.06); Absolute Eosinophil Count 0.09 10^3/uL (0.0-0.7); Absolute Lymphocyte Count 2.53 10^3/uL (1.2-3.4); Absolute Monocyte Count 0.89 10^3/uL (0.1-0.8); Absolute Neutrophil Count 8.53 10^3/uL (1.2-6.7); Basophils % 0.2; Eosinophils % 0.7; HCT 33.3 % (36.0-46.0); HGB 10.4 g/dL (11.2-15.7); Immature Grans % 2.8; Lymphocytes % 20.4; MCHC 31.2 % (32.0-36.0); MCV 90 fL (80-95); Monocytes % 7.2; Neutrophils % 68.7; Platelet Count 227 10^3/uL (130-400); RBC 3.72 10^6/uL (3.93-5.22); RDW 15.5 % (11.7-14.6); RDW-SD 51.5 fL; WBC 12.42 10^3/uL (4.4-10.8)
[2022-01-07 06:56] LABS: Absolute Basophil Count 0.02 10^3/uL (0.0-0.2)
[2022-01-07 07:04] LABS: BUN 41 mg/dL (7-18); CREATININE 0.5 mg/dL (0.55-1.02); Calcium 8.7 mg/dL (8.5-10.1); Chloride 110 mmol/L (98-107); Glucose 102 mg/dL (74-106); Potassium 3.6 mmol/L (3.5-5.1); Sodium 147 mmol/L (136-145)
[2022-01-07 07:27] VITALS: BP 114/67; PULSE 64; RESP 14; TEMP 36.1; O2SAT 93
[2022-01-07] MEDS: Acetaminophen 500 MG TAB 1000 MG PO ×3 (08:30→20:05)
[2022-01-07] MEDS: Omeprazole 20 MG CAPCR PO (08:30)
[2022-01-07] MEDS: Amoxicillin 500/Clav. 125 TAB PO ×2 (08:30→20:05)
[2022-01-07] MEDS: Calcium 600mg/Vit D 200U TAB 1 TAB PO (08:30)
[2022-01-07 10:17] LABS: Clarity Clear; RBC 2 /mm3 (0-5); Tube # 4; WBC 1 /uL (0-5); Xanthochromia Absent
[2022-01-07 10:18] LABS: Glucose (CSF) 67 mg/dL (40-70); Lymphocytes CSF 1 % (40-80); Total Protein (CSF) 47 mg/dL (15-45)
[2022-01-07] MEDS: Senna TAB 1 TAB PO (11:34)
[2022-01-07] MEDS: Polyethylene Glycol 3350 17 GM PACKET PO ×2 (11:34→20:05)
[2022-01-07 11:48] VITALS: BP 103/66; PULSE 68; RESP 17; TEMP 36.7; O2SAT 95
--- NOTE | 2022-01-07 12:37 | PT.INTREAT ---
Date of service: 01/07/22 Time of Service: 11:10 PT Notes Visit Reasons: Syncope Inpatient Physical Therapy Treatment Note [facility] Date: 01/07/2022 PRECAUTIONS: Fall, activity as tolerated SUBJECTIVE: Kierra is pleasant and agreeable to participating in PT, but stated she reports is feeling very weak and tired today.?Indicated she was unable to work on standing in Stedy Lift due to being too weak after getting washed up with nursing. OBJECTIVE: ? PAIN: No c/o pain but did not feel she was able to lead sustainability specialist Stedy lift for any extended time, due to weakness today. ? BED MOBILITY/TRANSFERS? Sit-supine: With nursing Sit-stand: Mod A x2 with Stedy ? Stand-sit: Mod A x2 with Stedy Chair-bed: STEDY? THEREX: ?While in seated position, patient was instructed in ankle pumps, LAQ, hip flexion, and hip abduction, UE shoulder flexion to 90 degrees, shoulder horizontal abd/add for 10 reps each. She tolerates chair exercises well. ?? ? ASSESSMENT:? Patient demonstrates limited activity tolerance.? She requires significant assist for all transfers at this time.? She is not able to ambulate safely at this time, requiring Mod A x2.? Patient should be STEDY lift transfers only with assist x2-3 at this time. PLAN: Continue with global strengthening and general conditioning for improved mobility and activity tolerance. TREATMENT CODE/TIME: Ther Activities ([id number]), 11:10 to 11:20 am
--- NOTE | 2022-01-07 14:32 | W.PM.PROGNOT ---
Date of Service Date of service: 01/07/22 Time of Service: 14:32 Assessment and Plan Assessment and plan (1) AMS (altered mental status): Status: Acute Assessment and plan: Likely background of mild dementia. Admitting physician stated friends note she is not at her baseline. 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 CSF fluid benign. CSF studies pending. Also pending: B12, RPR pending. EEG showed background of slowing consistent with encephalopathy. No seizure focus noted. (2) Dehydration: Status: Acute Assessment and plan: Dehydration appears to be resolving. BUN is 41 creatinine 0.6 > 0.5. Now off IV fluids. Encourage PO intake. (3) Fall: Status: Acute Assessment and plan: PT has assessed her see their note for details. She is maximal assist requires a steady left. (4) Multiple abrasions: Status: Acute Assessment and plan: Unclear as to the etiology of the multiple abrasions. It is hard to conceptualize that all these abrasions came from one syncopal event. This is one of the reasons why I am suspecting a seizure. Wound care has evaluated and made treatment recommendations. (5) Sinusitis: Status: Acute Assessment and plan: Patient was started on Augmentin by the admitting hospitalist. Will finish out a 10-day course of Augmentin for sinusitis.. (6) Troponin level elevated: Status: Acute Assessment and plan: Probably musculoskeletal in origin. She has no evidence of wall motion abnormalities on her echocardiogram and her troponin levels cleared quickly to normal. (7) Syncope: Status: Acute Assessment and plan: Is unclear as to whether she had a syncopal event or stroke or seizure or just a mechanical fall with posttraumatic concussion. Nevertheless she has been worked up so far including echocardiogram and carotid Doppler scan. CT of the head was unremarkable except for pansinusitis. No arrhythmias over the first 48 hours of her hospitalization therefore were going to discontinue her telemetry. Rhythm is sinus rhythm at rates 50-79 with no pauses no PSVT and no ventricular tachycardia. Subjective Subjective Patient reports: no new complaints, tolerating a regular diet (appetite is diminished) and afebrile; denies nausea, vomiting or shortness of breath Interval history since last seen: Feels fatigued Exam Narrative Exam Narrative: Sitting in chair. Asleep but readily wakens to verbal stimuli Const General: cooperative Nutritional Appearance: thin Orientation: alert, oriented to person and oriented to place Eyes General: appearance normal, both eyes and all related structures Sclera: sclerae normal Resp Effort & Inspection: normal respiratory effort Auscultation: clear to auscultation bilaterally and diminished lung sounds Cardio Rate: regular rate Rhythm: regular rhythm Heart Sounds: S1 normal and S2 normal GI Palpation: soft and nontender Extrem General: no calf tenderness and edema Laterality: bilateral (tr) Objective Last Vital Signs Temp 36.7 C 01/07/22 11:48 Pulse 68 01/07/22 11:48 Resp 17 01/07/22 11:48 BP 103/66 01/07/22 11:48 Pulse Ox 95 01/07/22 11:48 Laboratory Results - last 24 hr 01/06/22 01/06/22 01/07/22 17:56 17:56 06:20 WBC RBC Hgb Hct MCV MCH MCHC RDW Plt Count MPV Immature Gran % Neutrophils % Lymphocytes % Monocytes % Eosinophils % Basophils % Nucleated RBC % Absolute Neutrophils Absolute Lymphocytes Absolute Monocytes Absolute Eosinophils Absolute Basophils Xanthochromia Absent Sodium 147 H Potassium 3.6 Chloride 110 H Carbon Dioxide 31.0 Anion Gap 6.0 BUN 41 H Creatinine 0.5 L Estimated GFR/1.73 m2 >= 60.00 Glucose 102 Calcium 8.7 CSF Tube Number 4 CSF Color Colorless CSF Clarity Clear CSF WBC 1 CSF RBC 2 CSF Lymphocytes % 1 L CSF Diff Comment CSF Glucose 67 CSF Total Protein 47 H 01/07/22 06:20 WBC 12.42 H RBC 3.72 L Hgb 10.4 L Hct 33.3 L MCV 90 MCH 28.0 MCHC 31.2 L RDW 15.5 H Plt Count 227 MPV 10.0 Immature Gran % 2.8 Neutrophils % 68.7 Lymphocytes % 20.4 Monocytes % 7.2 Eosinophils % 0.7 Basophils % 0.2 Nucleated RBC % 0.0 Absolute Neutrophils 8.53 H Absolute Lymphocytes 2.53 Absolute Monocytes 0.89 H Absolute Eosinophils 0.09 Absolute Basophils 0.02 Xanthochromia Sodium Potassium Chloride Carbon Dioxide Anion Gap BUN Creatinine Estimated GFR/1.73 m2 Glucose Calcium CSF Tube Number CSF Color CSF Clarity CSF WBC CSF RBC CSF Lymphocytes % CSF Diff Comment CSF Glucose CSF Total Protein
[2022-01-07] MEDS: Fluconazole 100 MG TAB PO (15:27)
[2022-01-07 15:31] VITALS: BP 110/69; PULSE 88; RESP 19; TEMP 36.7; O2SAT 96
[2022-01-07] MEDS: Lactated Ringers 1,000 ML 100 ML IV (16:00)
[2022-01-07] MEDS: Normal Saline Flush 10 ML SYR ×3 (16:00→16:40)
[2022-01-07] MEDS: Atorvastatin 40 MG TAB 80 MG PO (20:06)
[2022-01-07 20:08] VITALS: BP 134/74; PULSE 82; RESP 15; TEMP 36.8; O2SAT 95
[2022-01-08] VITALS (8 sets, daily range): BP systolic 101–144; BP diastolic 55–88; PULSE 69–85; RESP 15–19; TEMP 36.2–37.2; O2SAT 87–97
[2022-01-08] MEDS: Lactated Ringers 1,000 ML 100 ML IV ×3 (02:28→23:05)
[2022-01-08] MEDS: Calcium 600mg/Vit D 200U TAB 1 TAB PO (08:36)
[2022-01-08] MEDS: Omeprazole 20 MG CAPCR PO (08:36)
[2022-01-08] MEDS: Amoxicillin 500/Clav. 125 TAB PO ×2 (08:36→19:39)
[2022-01-08] MEDS: Acetaminophen 500 MG TAB 1000 MG PO ×3 (08:36→19:39)
[2022-01-08] MEDS: Polyethylene Glycol 3350 17 GM PACKET PO (08:37)
[2022-01-08 10:46] LABS: Absolute Basophil Count 0.04 10^3/uL (0.0-0.2); Absolute Lymphocyte Count 1.87 10^3/uL (1.2-3.4); Absolute Monocyte Count 0.73 10^3/uL (0.1-0.8); Absolute Neutrophil Count 11.16 10^3/uL (1.2-6.7); Basophils % 0.3; Eosinophils % 1.1; HCT 32.4 % (36.0-46.0); HGB 10.4 g/dL (11.2-15.7); Immature Grans % 2.1; Lymphocytes % 13.1; MCH 29.1 pg (27.0-33.0); MCHC 32.1 % (32.0-36.0); MCV 91 fL (80-95); MPV 10.1 fL (8.0-11.0); Monocytes % 5.1; Neutrophils % 78.3; Platelet Count 227 10^3/uL (130-400); RBC 3.58 10^6/uL (3.93-5.22); RDW 15.6 % (11.7-14.6); WBC 14.25 10^3/uL (4.4-10.8)
[2022-01-08 10:50] LABS: Absolute Eosinophil Count 0.16 10^3/uL (0.0-0.7)
--- NOTE | 2022-01-08 12:07 | PT.INTREAT ---
Date of service: 01/08/22 Time of Service: 10:45 PT Notes Visit Reasons: Syncope Inpatient Physical Therapy Treatment Note [facility] Date: 01/08/2022 PRECAUTIONS: Fall, activity as tolerated SUBJECTIVE: Kierra is pleasant but continues to feel very weak and tired today.?Indicated she was willing to try standing in walker with CGA assist. Stated she has always loved the NuStep and hopes to be able to do it again some day. Discussed the importance of being able to walk to get on and off the NuStep. OBJECTIVE: ? PAIN: No c/o pain but did not feel she was able to stand with walker for any extended time, due to weakness and fear of falling. ? BED MOBILITY/TRANSFERS? Sit-supine: With nursing Sit-stand: Mod A x3 ? Stand-sit: Mod A x2 Able to financial controller FWW for 1 minutes with CGA of 3, very fearful of falling Chair-bed: STEDY?with nursing earlier in the morning, up in chair when I arrived to room today. ? THEREX: ?While in seated position, patient was instructed in ankle pumps, LAQ, hip flexion, and hip abduction, UE shoulder flexion to 90 degrees, shoulder horizontal abd/add for 10 reps x 2 sets of each. She? tolerates chair exercises well. ?? ? ASSESSMENT:? Patient demonstrates limited activity tolerance, think fear is her biggest limiting factor. She requires significant assist for all transfers at this time.?Continues to be unable to ambulate safely at this time, requiring Mod A x2.? Patient should be STEDY lift transfers only with assist x2-3 at this time. PLAN: Continue with global strengthening and general conditioning for improved mobility and activity tolerance. Focus on getting patient to financial controller FWW. TREATMENT CODE/TIME: 10:45 to 11:15 am (30'), [id number]
--- NOTE | 2022-01-08 15:18 | W.PM.PROGNOT ---
Date of Service Date of service: 01/08/22 Time of Service: 15:18 Assessment and Plan Assessment and plan (1) AMS (altered mental status): Status: Acute Assessment and plan: Likely background of mild dementia. Concerned for possible infectious process but no source other than sinusitis incidently seen on CT head. On Augmentin. Repeat UA pending. Admitting physician stated friends note she is not at her baseline. 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 CSF fluid benign. CSF VDRL pending. Tick-borne pathogen studies pending. EEG showed background of slowing consistent with encephalopathy. No seizure focus noted. Hindering her ability to work effectively with PT. (2) Dehydration: Status: Acute Assessment and plan: Dehydration appears to be resolving. BUN is 41 creatinine 0.6 > 0.5. Now off IV fluids. Encourage PO intake. (3) Fall: Status: Acute Assessment and plan: PT has assessed her see their note for details. She is maximal assist requires a steady left. (4) Multiple abrasions: Status: Acute Assessment and plan: Unclear as to the etiology of the multiple abrasions. It is hard to conceptualize that all these abrasions came from one syncopal event. This is one of the reasons why I am suspecting a seizure. Wound care has evaluated and made treatment recommendations. (5) Sinusitis: Status: Acute Assessment and plan: Patient was started on Augmentin by the admitting hospitalist. Will finish out a 10-day course of Augmentin for sinusitis.. (6) Troponin level elevated: Status: Acute Assessment and plan: Probably musculoskeletal in origin. She has no evidence of wall motion abnormalities on her echocardiogram and her troponin levels cleared quickly to normal. (7) Syncope: Status: Acute Assessment and plan: Is unclear as to whether she had a syncopal event or stroke or seizure or just a mechanical fall with posttraumatic concussion. Nevertheless she has been worked up so far including echocardiogram and carotid Doppler scan. CT of the head was unremarkable except for pansinusitis. No arrhythmias over the first 48 hours of her hospitalization therefore were going to discontinue her telemetry. Rhythm is sinus rhythm at rates 50-79 with no pauses no PSVT and no ventricular tachycardia. (8) Discharge planning issues: Status: Acute Assessment and plan: Still requiring significant help with transfers. SNF would be best option at time of d/c if patient agreeable. Subjective Subjective Patient reports: no new complaints, tolerating a regular diet (poor appetite) and afebrile; denies nausea, vomiting or shortness of breath Exam Narrative Exam Narrative: Sitting in chair. Appears more tired. Const General: cooperative Nutritional Appearance: thin Orientation: alert, oriented to person and oriented to place Eyes General: appearance normal, both eyes and all related structures Sclera: sclerae normal Resp Effort & Inspection: normal respiratory effort Auscultation: clear to auscultation bilaterally and diminished lung sounds Cardio Rate: regular rate Rhythm: regular rhythm Heart Sounds: S1 normal and S2 normal GI Palpation: soft and nontender Extrem General: no calf tenderness and edema Laterality: bilateral (tr) Psych Appearance: grossly normal Speech and Movement: delayed speech Affect: blunted Objective Last Vital Signs Temp 36.4 C L 01/08/22 15:07 Pulse 76 01/08/22 15:07 Resp 19 01/08/22 15:07 BP 101/62 01/08/22 15:07 Pulse Ox 96 01/08/22 15:07 Laboratory Results - last 24 hr 01/08/22 10:20 WBC 14.25 H RBC 3.58 L Hgb 10.4 L Hct 32.4 L MCV 91 MCH 29.1 MCHC 32.1 RDW 15.6 H Plt Count 227 MPV 10.1 Immature Gran % 2.1 Neutrophils % 78.3 Lymphocytes % 13.1 Monocytes % 5.1 Eosinophils % 1.1 Basophils % 0.3 Nucleated RBC % 0.0 Absolute Neutrophils 11.16 H Absolute Lymphocytes 1.87 Absolute Monocytes 0.73 Absolute Eosinophils 0.16 Absolute Basophils 0.04
[2022-01-08 17:29] LABS: Bilirubin Small (Negative); Blood Moderate (Negative); Clarity Clear (Clear); Glucose Negative (Negative); Ketones Trace mg/dL (Negative); Leukocyte Esterase Negative (Negative); Nitrite Negative (Negative)
[2022-01-08 17:35] LABS: Bacteria Negative HPF (Negative); Epithelial Cells Negative HPF (Negative); Other Cells Negative (Negative); RBC >50 HPF (0-2)
[2022-01-08 17:36] LABS: C & S Indicated? No; Casts Negative LPF (Negative); Crystals Few Calcium Oxalate HPF (Negative); Mucus Negative (Negative)
[2022-01-08] MEDS: Atorvastatin 40 MG TAB 80 MG PO (19:40)
[2022-01-08] MEDS: Normal Saline Flush 10 ML SYR IVP (19:40)
[2022-01-09 04:01] VITALS: BP 118/64; PULSE 87; RESP 15; TEMP 36.7; O2SAT 93
[2022-01-09 06:53] LABS: Abs Immature Grans 0.31 10^3/uL (0.0-0.06); Absolute Basophil Count 0.03 10^3/uL (0.0-0.2); Absolute Lymphocyte Count 1.93 10^3/uL (1.2-3.4); Absolute Monocyte Count 0.93 10^3/uL (0.1-0.8); Basophils % 0.2; Eosinophils % 1.1; HCT 29.2 % (36.0-46.0); HGB 9.6 g/dL (11.2-15.7); Immature Grans % 2.1; Lymphocytes % 12.9; MCH 29.1 pg (27.0-33.0); MCHC 32.9 % (32.0-36.0); MCV 89 fL (80-95); Monocytes % 6.2; Neutrophils % 77.5; RDW 15.9 % (11.7-14.6); RDW-SD 51.8 fL; WBC 14.95 10^3/uL (4.4-10.8)
[2022-01-09 07:01] LABS: Absolute Eosinophil Count 0.16 10^3/uL (0.0-0.7); Absolute Neutrophil Count 11.59 10^3/uL (1.2-6.7); Anion Gap 5.1 mmol/L (3-11); BUN 14 mg/dL (7-18); CO2 27.9 mmol/L (21.0-32.0); CREATININE 0.5 mg/dL (0.55-1.02); Calcium 8.2 mg/dL (8.5-10.1); Chloride 110 mmol/L (98-107); Glucose 84 mg/dL (74-106); Potassium 3.7 mmol/L (3.5-5.1); Sodium 143 mmol/L (136-145)
[2022-01-09 08:06] VITALS: BP 118/74; PULSE 82; RESP 18; TEMP 37.1; O2SAT 97
[2022-01-09] MEDS: Amoxicillin 500/Clav. 125 TAB PO ×2 (08:36→20:51)
[2022-01-09] MEDS: Acetaminophen 500 MG TAB 1000 MG PO ×3 (08:36→20:50)
[2022-01-09] MEDS: Calcium 600mg/Vit D 200U TAB 1 TAB PO (08:36)
[2022-01-09] MEDS: Polyethylene Glycol 3350 17 GM PACKET PO ×2 (08:36→20:51)
[2022-01-09] MEDS: Lactated Ringers 1,000 ML 100 ML IV ×2 (08:37→17:58)
[2022-01-09] MEDS: Normal Saline Flush 10 ML SYR IVP (09:43)
--- NOTE | 2022-01-09 11:02 | PDOC.CMPRO ---
- If Service Date Differs Date of service: 01/09/22 Time of Service: 11:02 Care Management Progress Note S/O:Kierra was sitting up in a chair when CM met with her. She was pleasant and cooperative and engaged readily in conversation. Kierra seemed much clearer mentallty today. She recognized CM from last week and was able to answer questions appropriately. Kierra is still unable to ambulate. She has been getting out of bed with nursing and PT with the Stedy lift. This afternoon a meeting was held with Arthur Mccarty, Kierra's invoice checker and [facility], her [facility], good friend Velia Parryleela and CM. The purpose of the meeting was to discuss discharge planning. Kierra identified that she will be unable to return home to independent living at this time. She is unable to ambulate or to care for herself. [facility] to [facility] last week but no response has been received yet. They requested that a referral also be sent to [facility], which CM did. The team also discussed options for longer term care if that becomes necessary. CM continues to follow. A: Kierra is an 86 year old woman admitted on 01/04/22 with syncope P:Kierra will need short term rehab before returning home. Ity is powsible that she may need to transition to [facility] care or assisted living if she is unable to return to baseline level of functioning. Referrals have been sent to area facilities and follow up phone calls will be made tomorrow. CM will continue to support Kierra and assess for ongoing discharge needs.
[2022-01-09 11:43] VITALS: BP 104/66; PULSE 80; RESP 18; TEMP 36.8; O2SAT 95
[2022-01-09 12:29] LABS: Lyme Ab w Rflx to Lyme Confirm Negative (Negative)
--- NOTE | 2022-01-09 13:03 | W.PM.PROGNOT ---
Date of Service Date of service: 01/09/22 Time of Service: 13:04 Assessment and Plan Assessment and plan (1) AMS (altered mental status): Status: Acute Assessment and plan: Likely background of mild dementia. Concerned for possible infectious process but no source other than sinusitis incidently seen on CT head. On Augmentin. Repeat UA negative. Noteable improvement today in affect. 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 CSF fluid benign. CSF VDRL pending. Tick-borne pathogen studies pending. EEG showed background of slowing consistent with encephalopathy. No seizure focus noted. Hindering her ability to work effectively with PT. (2) Dehydration: Status: Acute Assessment and plan: Dehydration appears to be resolving. BUN is 41 creatinine 0.6 > 0.5. Now off IV fluids. Encourage PO intake. (3) Fall: Status: Acute Assessment and plan: PT has assessed her see their note for details. She is maximal assist requires a steady left. (4) Multiple abrasions: Status: Acute Assessment and plan: Unclear as to the etiology of the multiple abrasions. It is hard to conceptualize that all these abrasions came from one syncopal event. This is one of the reasons why I am suspecting a seizure. Wound care has evaluated and made treatment recommendations. (5) Sinusitis: Status: Acute Assessment and plan: Patient was started on Augmentin by the admitting hospitalist. Will finish out a 10-day course of Augmentin for sinusitis.. (6) Troponin level elevated: Status: Acute Assessment and plan: Probably musculoskeletal in origin. She has no evidence of wall motion abnormalities on her echocardiogram and her troponin levels cleared quickly to normal. (7) Syncope: Status: Acute Assessment and plan: Is unclear as to whether she had a syncopal event or stroke or seizure or just a mechanical fall with posttraumatic concussion. Nevertheless she has been worked up so far including echocardiogram and carotid Doppler scan. CT of the head was unremarkable except for pansinusitis. No arrhythmias over the first 48 hours of her hospitalization so discontinued her telemetry. Rhythm is sinus rhythm at rates 50-79 with no pauses no PSVT and no ventricular tachycardia. (8) Discharge planning issues: Status: Acute Assessment and plan: Still requiring significant help with transfers. Pt agreeable to SNF. Subjective Subjective Patient reports: afebrile; denies nausea, vomiting or shortness of breath Interval history since last seen: Appetite iimproved. Still feels generally weak. Exam Narrative Exam Narrative: Sitting in chair. Speech is more fluent; less lag time to answer or respond. Const General: cooperative Nutritional Appearance: thin Orientation: alert, oriented to person and oriented to place Eyes General: appearance normal, both eyes and all related structures Sclera: sclerae normal Resp Effort & Inspection: normal respiratory effort Auscultation: clear to auscultation bilaterally and diminished lung sounds Cardio Rate: regular rate Rhythm: regular rhythm Heart Sounds: S1 normal and S2 normal GI Palpation: soft and nontender Extrem General: no calf tenderness and edema Laterality: bilateral (tr) Psych Appearance: grossly normal Speech and Movement: delayed speech Affect: normal affect (Improved.) Objective Last Vital Signs Temp 36.8 C 01/09/22 11:43 Pulse 80 01/09/22 11:43 Resp 18 01/09/22 11:43 BP 104/66 01/09/22 11:43 Pulse Ox 95 01/09/22 11:43 Laboratory Results - last 24 hr 01/08/22 01/09/22 01/09/22 16:45 06:05 06:05 WBC 14.95 H RBC 3.30 L Hgb 9.6 L Hct 29.2 L MCV 89 MCH 29.1 MCHC 32.9 RDW 15.9 H Plt Count MPV Immature Gran % 2.1 Neutrophils % 77.5 Lymphocytes % 12.9 Monocytes % 6.2 Eosinophils % 1.1 Basophils % 0.2 Nucleated RBC % 0.0 Absolute Neutrophils 11.59 H Absolute Lymphocytes 1.93 Absolute Monocytes 0.93 H Absolute Eosinophils 0.16 Absolute Basophils 0.03 Sodium 143 Potassium 3.7 Chloride 110 H Carbon Dioxide 27.9 Anion Gap 5.1 BUN 14 Creatinine 0.5 L Estimated GFR/1.73 m2 >= 60.00 Glucose 84 Calcium 8.2 L Urine Color Yellow Urine Clarity Clear Urine pH 6.0 Ur Specific [place] 1.010 Urine Protein Negative Urine Ketones Trace H Urine Blood Moderate H Urine Nitrite Negative Urine Bilirubin Small H Urine Urobilinogen 1.0 H Ur Leukocyte Esterase Negative Urine RBC >50 H Urine WBC 3-5 Ur Epithelial Cells Negative Urine Crystals Few Calcium Oxalate Urine Bacteria Negative Urine Casts Negative Urine Mucus Negative Urine Other Negative Ur Culture Indicated? No Urine Glucose Negative
--- NOTE | 2022-01-09 15:12 | PT.INTREAT ---
Date of service: 01/09/22 Time of Service: 09:21 PT Notes Visit Reasons: Syncope Inpatient Physical Therapy Treatment Note [facility] Date: 01/09/2022 PRECAUTIONS: Fall, activity as tolerated SUBJECTIVE: Kierra is pleasant and agreeable to participating in PT. She reports that she is feeling better today, although continues to feel weak and tired. She states that her friends are visiting today to help her with discharge planning. OBJECTIVE: PAIN: Patient c/o R elbow pain. A small skin tear/wound is appreciated on elbow. Reported to nursing BED MOBILITY/TRANSFERS Sit-stand: Mod A with STEDY Stand-sit: Min A with STEDY and cueing for safety GAIT: Declined to attempt gait training THEREX: With patient securely positioned in STEDY, she was instructed in standing exercises for LE strengthening, including: hip flexion, weight shifts and functional [id number]. In p.m., patient was instructed in a global strengthening program, completed in a seated position, to include: ankle pumps, quad sets, glute sets, LAQ, hip flexion, hip abduction, shoulder flexion, shoulder horizontal abduction and forward reaching with cueing for core engagement., which she tolerates well. ASSESSMENT: Patient demonstrates limited activity tolerance and global weakness. She continues to require STEDY lift and Min-Mod assist for transfers at this time. She declined to attempt gait training with FWW support, feeling too weak to be successful. PLAN: Continue with global strengthening and general conditioning for improved mobility and activity tolerance. TREATMENT CODE/TIME: Session 1: 23 minutes; [id number] x2 (09:21) Session 2: 12 minutes; [id number] (13:45)
[2022-01-09 15:41] VITALS: BP 115/71; PULSE 85; RESP 18; TEMP 37.1; O2SAT 97
[2022-01-09 20:36] VITALS: BP 111/67; PULSE 82; RESP 18; TEMP 37.2; O2SAT 93
[2022-01-09] MEDS: Atorvastatin 40 MG TAB 80 MG PO (20:51)
[2022-01-09 23:18] VITALS: BP 113/71; PULSE 87; RESP 20; TEMP 36.7; O2SAT 96
[2022-01-10] VITALS (7 sets, daily range): BP systolic 111–150; BP diastolic 68–87; PULSE 70–88; RESP 12–20; TEMP 36.1–36.8; O2SAT 93–98
[2022-01-10] MEDS: Lactated Ringers 1,000 ML 100 ML IV (04:24)
[2022-01-10] MEDS: Polyethylene Glycol 3350 17 GM PACKET PO ×2 (08:36→19:24)
[2022-01-10] MEDS: Calcium 600mg/Vit D 200U TAB 1 TAB PO (08:36)
[2022-01-10] MEDS: Omeprazole 20 MG CAPCR PO (08:36)
[2022-01-10] MEDS: Acetaminophen 500 MG TAB 1000 MG PO ×2 (08:36→19:24)
[2022-01-10] MEDS: Amoxicillin 500/Clav. 125 TAB PO ×2 (08:36→19:24)
--- NOTE | 2022-01-10 10:57 | CMPROGNOTE_ITS ---
- If Service Date Differs Date of service: 01/10/22 Time of Service: 10:57 Care Management Progress Note S/O:Kierra was sitting up in bed when CM met with her. She appeared pale and informed CM that she is not feeling well. She stated that she is very weak and unable to get out of bed. Kierra is also more confused and less focused today. Her responses to some questions were very vague.Referrals have been sent to several area facilities for short term rehab. [facility] unable to offer Kierra a bed due to staffing constraints. [facility] not responded yet. A: Kierra is an 86 year old woman admitted on 01/04/22 with syncope P:Kierra will need short term rehab before returning home. It is possible that she may need to transition to [facility] care or assisted living if she is unable to return to baseline level of functioning. Referrals have been sent to area facilities and follow up phone calls will be made tomorrow. CM will continue to support Kierra and assess for ongoing discharge needs.
[2022-01-10] MEDS: Tamsulosin 0.4 MG CAPCR PO (12:04)
[2022-01-10 12:43] LABS: Abs Immature Grans 0.31 10^3/uL (0.0-0.06); Absolute Basophil Count 0.04 10^3/uL (0.0-0.2); Absolute Eosinophil Count 0.14 10^3/uL (0.0-0.7); Absolute Lymphocyte Count 1.78 10^3/uL (1.2-3.4); Absolute Monocyte Count 0.75 10^3/uL (0.1-0.8); Basophils % 0.3; HCT 36.6 % (36.0-46.0); HGB 11.7 g/dL (11.2-15.7); Immature Grans % 2.2; Lymphocytes % 12.6; MCH 28.8 pg (27.0-33.0); MCV 90 fL (80-95); MPV 9.6 fL (8.0-11.0); Monocytes % 5.3; Neutrophils % 78.6; Platelet Count 249 10^3/uL (130-400); RBC 4.06 10^6/uL (3.93-5.22); RDW 15.7 % (11.7-14.6); RDW-SD 52.1 fL; WBC 14.16 10^3/uL (4.4-10.8)
[2022-01-10 12:45] LABS: Absolute Neutrophil Count 11.13 10^3/uL (1.2-6.7)
--- NOTE | 2022-01-10 12:51 | W.PM.PROGNOT ---
Date of Service Date of service: 01/10/22 Time of Service: 12:51 Assessment and Plan Assessment and plan (1) AMS (altered mental status): Status: Acute Assessment and plan: Likely background of mild dementia. Concerned for possible infectious process but no source other than sinusitis incidently seen on CT head. On Augmentin. Repeat UA negative. Her level of alertness, mentation and affect wax and wane. 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 CSF fluid benign. CSF VDRL pending. Tick-borne pathogen studies pending. EEG showed background of slowing consistent with encephalopathy. No seizure focus noted. Hindering her ability to work effectively with PT. Consulted neurology who will see if an overnight EEG can be arranged. (2) Dehydration: Status: Acute Assessment and plan: Dehydration appears to be resolving. BUN is 41 creatinine 0.6 > 0.5. Now off IV fluids. Encourage PO intake. (3) Fall: Status: Acute Assessment and plan: PT has assessed her see their note for details. She is maximal assist requires a steady left. (4) Multiple abrasions: Status: Acute Assessment and plan: Unclear as to the etiology of the multiple abrasions. It is hard to conceptualize that all these abrasions came from one syncopal event. This is one of the reasons why I am suspecting a seizure. Wound care has evaluated and made treatment recommendations. (5) Sinusitis: Status: Acute Assessment and plan: Patient was started on Augmentin by the admitting hospitalist. Will finish out a 10-day course of Augmentin for sinusitis.. (6) Troponin level elevated: Status: Acute Assessment and plan: Probably musculoskeletal in origin. She has no evidence of wall motion abnormalities on her echocardiogram and her troponin levels cleared quickly to normal. (7) Syncope: Status: Acute Assessment and plan: Is unclear as to whether she had a syncopal event or stroke or seizure or just a mechanical fall with posttraumatic concussion. Nevertheless she has been worked up so far including echocardiogram and carotid Doppler scan. CT of the head was unremarkable except for pansinusitis. No arrhythmias over the first 48 hours of her hospitalization so discontinued her telemetry. Rhythm is sinus rhythm at rates 50-79 with no pauses no PSVT and no ventricular tachycardia. (8) Discharge planning issues: Status: Acute Assessment and plan: Still requiring significant help with transfers. Pt agreeable to SNF. Referrals were sent by CM. Subjective Subjective Patient reports: afebrile; denies nausea, vomiting or shortness of breath Interval history since last seen: Pt endorses being more tired today; still in bed later in the morning. Ongoing generalized weakness and did not feel she could work with PT this AM Appetite is poor today; was better yesterday. Exam Narrative Exam Narrative: Sitting in chair. Speech is more fluent; less lag time to answer or respond. Const General: cooperative and frail appearing Nutritional Appearance: thin Orientation: alert, oriented to person and oriented to place Eyes General: appearance normal, both eyes and all related structures Sclera: sclerae normal Resp Effort & Inspection: normal respiratory effort Auscultation: clear to auscultation bilaterally and diminished lung sounds Cardio Rate: regular rate Rhythm: regular rhythm Heart Sounds: S1 normal and S2 normal GI Palpation: soft and nontender Extrem General: no calf tenderness and edema Laterality: bilateral (tr) Psych Appearance: grossly normal Speech and Movement: delayed speech Affect: normal affect (Improved.) Objective Last Vital Signs Temp 36.1 C L 01/10/22 11:11 Pulse 70 01/10/22 11:11 Resp 12 01/10/22 11:11 BP 146/75 H 01/10/22 11:11 Pulse Ox 98 01/10/22 11:11 Laboratory Results - last 24 hr 01/07/22 01/10/22 06:20 12:27 WBC 14.16 H RBC 4.06 Hgb 11.7 D Hct 36.6 MCV 90 MCH 28.8 MCHC 32.0 RDW 15.7 H Plt Count 249 MPV 9.6 Immature Gran % 2.2 Neutrophils % 78.6 Lymphocytes % 12.6 Monocytes % 5.3 Eosinophils % 1.0 Basophils % 0.3 Nucleated RBC % 0.0 Absolute Neutrophils 11.13 H Absolute Lymphocytes 1.78 Absolute Monocytes 0.75 Absolute Eosinophils 0.14 Absolute Basophils 0.04 Lyme Disease Antibody Negative
--- NOTE | 2022-01-10 15:26 | PT.INTREAT ---
Date of service: 01/10/22 Time of Service: 14:42 PT Notes Visit Reasons: Syncope Inpatient Physical Therapy Treatment Note [facility] Date: 01/10/2022 PRECAUTIONS: Fall, activity as tolerated SUBJECTIVE: Kierra reports that she is not feeling well today. She reports that she just got up to the commode and back to bed with nursing in afternoon. Agreeable to bed-level exercises this afternoon. OBJECTIVE: PAIN: Patient c/o R groin and anterior thigh discomfort with ther ex BED MOBILITY/TRANSFERS/GAIT: Refused THEREX: Patient was instructed in a global strengthening program, completed in a long-sitting position, to include: ankle pumps, quad sets, glute sets, heel slides, hip abduction, bridging and forward reaching with cueing for core engagement, which she tolerates with increased fatigue. ASSESSMENT: Patient demonstrates limited activity tolerance and global weakness. She declined to attempt gait training with FWW support, feeling too weak to be successful. PLAN: Continue with global strengthening and general conditioning for improved mobility and activity tolerance. TREATMENT CODE/TIME: Session 1: Patient refused x2 in a.m. Session 2: 10 minutes; [id number] (14:42)
--- NOTE | 2022-01-10 16:05 | NCONE_ITS ---
Date of service: 01/10/22 Time of Service: 16:05 Assessment and Plan Assessment and plan (1) AMS (altered mental status): Status: Acute (2) Fall: Status: Acute (3) Hydrocephalus: Status: Acute (4) Generalized weakness: Status: Acute Assessment and plan: #1. Found down. Unclear what happened. Covered in multiple abrasions. She is profoundly weak and deconditioned at baseline. I wonder if she fell, could not get back up, and then became encephalopathic from metabolic derangements. Overnight EEG tonight to look for seizure activity as there was concern for waxing/waning mental status. But after meeting with her, I am inclined to think this is more waxing and waning participation. +/- Depression. She has a history of similar. #2. Hydrocephalus. Certainly concerning for NPH. Basic cognitive testing performed today. Not the cause of her acute decline/reason for admission, but may be contributing to slow improvement back to normal. If she would like to pursue work-up for this, she should be [place] [facility] [place] [facility] [place] work-up/high-volume tap, etc as per them. #3. Generalized weakness. She will continue with PT/OT. She will not be able to go home at present. Agree with SNF. History of Present Illness Narrative: Handedness: right. HPI: Ms. Roque is an 86 year-old woman with hypothyroidism, depression, palpitations, and GERD. Ms. Roque was admitted on 01/04/22 after being found down at her apartment, last known normal on 01/01/22 pm. Ms. Roque was initially quite somnolent but has become more alert though has no recollection of events at home and if she fell, etc. She cannot even tell me her last memory from her apartment. She was and is covered in numerous abrasions. Wound care notes lesions on L cheek, chin, bilateral elbows, bilateral lateral knees, R medial knee, and R lateral ankle as the most notable. Work-up as below. She was found to have pansinusitis and is on a 10 day course of Augmentin. At baseline, she has very little social or physical engagement. She has a friend that brings her groceries every Sunday (this is who found her) and another that she calls on Sunday so they can talk while they watch a show. She otherwise does not leave her apartment. She spends her days watching television. She notes no hobbies. States that she cooks basic meals for herself. Friends report her apartment is not clean. She states she uses a walker at baseline which she thinks she has been using for a few years. She isn't sure why she needs a walker. She recalled that she did indeed have L hip replacement in the past, though she does not think that is the reason why she uses a walker. Her hip replacement occurred here in 2018 and was complicated by depression, poor engagement and progress with PT, as well as lack of local support. Psychiatry was consulted at that time and was placed on mirtazapine. She was discharged to a SNF. She reports this surgery went well. She denies any falls in the last year. She stopped driving several years ago as she no longer felt safe to do so. She denies any history of seizures or family history of seizures. She has a high school graduation. 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 She notes poor memory all her life. She didn't necessarily think her memory was any worse now however. She has undergone the work-up as below. Work-up: WBC: 14.92 - 16.44 Na 149 - 147 - 143 BUN 44 -41 - 14 Cr: 0.7 - 0.6 - 0.5 gluc 117 Mag 2.4 A1c 6.0 B12 274 CK 520 - 360 Trop 52 - 65 - 74 - 60 TSH 1.15 AST 57 - 46 ALT 64 - 56 INR 1.2 UA neg x2 UDS neg ETOH neg Lyme neg Tick panel pending -CSF (01/06/22): W1, R2, G67, P47, VDRL pending -CTH (01/04/22): enlarged ventricles. pansinusitus as per rads. I reviewed these images personally and this is my personal interpretation. -CUS (01/05/22): velocities indicate bilateral 50-60% stenosis, but rads notes images appears <50%. -MRI brain (01/06/22): No acute findings. Enlarged ventricles. Moderate chronic vascular changes. I reviewed these images personally and this is my personal interpretation. -EEG (01/06/22): limited test due to high impedances. Mild generalized slowing. non-specific T4 sharps. -TTE (01/05/22): EF 65%. No wall motion abnormalities. LA ok. No significant valve disease. -Tele x 48hr unremarkable and stopped Review of Systems All systems reviewed & are unremarkable except as noted in HPI and below PFSH All Active Problems (Updated 01/10/22 @ 21:05 by Aura Ojeda MD) Generalized weakness (Acute) Hydrocephalus (Acute) Discharge planning issues (Acute) AMS (altered mental status) (Acute) Acute metabolic encephalopathy (Acute) Dehydration (Acute) Elevated transaminase level (Acute) Fall (Acute) Multiple abrasions (Acute) Sinusitis (Acute) Troponin level elevated (Acute) Syncope (Acute) Disorder of thyroid (Acute) Esophageal reflux (Chronic) Right bundle branch block (Acute) Acquired hammertoe of right foot (Acute) Hallux valgus (acquired), right foot (Chronic) Depression (Chronic) 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) Medical History (Updated 01/10/22 @ 21:05 by Aura Ojeda MD) Bradycardia Heart palpitations History of left breast cancer History of vertebral fracture UTI (urinary tract infection) Surgical History H/O hysterectomy for benign disease Status post left breast lumpectomy Social History Smoking/Tobacco Use Status: Never Smoking risk assessment performed?: Yes Alcohol Intake: never Drug use: Never Substance use type: does not use Household members: none Housing: house Number of Children: 1 Do you feel safe at home: Yes Do you feel safe in your relationship?: Yes Visit Medication and Allergies Active Medications Generic Name Dose Route Start Last Admin Trade Name Freq PRN Reason Stop Dose Admin Acetaminophen 1,000 mg 01/05/22 08:30 01/10/22 08:36 Acetaminophen 500 Mg Tab PO 1,000 mg TID PAMELA Administration Albuterol Sulfate 2.5 mg 01/04/22 19:36 Albuterol 2.5 Mg/3 Ml Inh Soln Vial UPD Q2H PRN PRN Amoxicillin/Clavulanate Potassium 1 tab 01/05/22 08:30 01/10/22 08:36 Amoxicillin 500/Clav. 125 Tab PO 1 tab BID PAMELA Administration Atorvastatin Calcium 80 mg 01/05/22 20:00 01/09/22 20:51 Atorvastatin 40 Mg Tab PO 80 mg QPM PAMELA Administration Calcium/Vitamin D 1 tab 01/05/22 08:30 01/10/22 08:36 Calcium 600mg/Vit D 200u Tab PO 1 tab DAILY PAMELA Administration Dimethicone/Zinc Oxide 0 gm 01/04/22 19:36 Cata Protect Cream 142 Gm Tube TP PRN PRN IV Miscellaneous Supplies 1 each 01/04/22 14:30 Iv Access IV DIRECTED PAMELA Omeprazole 20 mg 01/06/22 07:30 01/10/22 08:36 Omeprazole 20 Mg Capcr PO 20 mg DAILY@0730 PAMELA Administration Polyethylene Glycol 17 gm 01/07/22 11:25 01/10/22 08:36 Polyethylene Glycol 3350 17 Gm Packet PO 17 gm BID PAMELA Administration Sodium Chloride 0 ml 01/07/22 16:40 01/09/22 09:43 Normal Saline Flush 10 Ml Syr IVP 10 ml PRN PRN Administration Allergies citalopram [From Celexa] Allergy (Unknown, Unverified 01/04/22 14:03) levothyroxine sodium Allergy (Unknown, Unverified 01/04/22 14:03) tramadol Adverse Reaction (Intermediate, Verified 01/04/22 14:03) shakey, GI, very ill fluoxetine [From Prozac] Adverse Reaction (Unknown, Unverified 01/04/22 14:03) suicidal ideation sertraline [From Zoloft] Adverse Reaction (Unknown, Unverified 01/04/22 14:03) Diarrhea Exam Narrative Exam Narrative: Physical Exam: Constitutional: Patient of apparent stated age, well nourished, well developed, no acute distress; large left cheek abrasion Neck: Supple, no meningismus CV: RRR, S1, S2, no murmur Resp: CTAB Abd: Soft, nontender, nondistended Extem: no edema. Bandaged knees. Neuro: MS/Language/Speech: Alert, oriented, clear language (fluency and comprehension), no dysarthria CN: PERRL, EOMI, visual poalnco full, trigeminal sensation intact, no facial asymmetry, hearing intact, palate elevates symmetrically, tongue protrudes midline, SCM and trap strength intact Motor: Normal bulk and tone. FMM intact, no pronator drift. 4+/5 strength in bilateral upper extremities with 4-/5 strength in the bilateral LE. Sensation: Intact to light touch and PP throughout Reflexes: hyporeflexic throughout, downgoing toes Coordination: Finger to nose performed without dysmetria Gait: unable to be tested due to her weakness MMSE 1.Orientation a.Place (Country, State, City, Building, Floor) 11/03 b.Time (Year, Season, Month, Date, day of the week) 11/03 2.Immediate Recall (3 objects) 09/01 3.Attention (Serial 7s or spell world backwards) 09/03 4.Delayed Recall (3 objects) 08/04 5.Language a.Naming (watch and pencil) 08/03 b.Repetition 07/02 c.Comprehension (3-step command) 2/ d.Reading (Close your eyes) N/A e.Writing (sentence) N/A 6.Visuospatial/Executive (copy drawing) N/A TOTAL: Results Last Vital Signs Temp 98.1 F 01/10/22 15:39 Pulse 74 01/10/22 15:39 Resp 18 01/10/22 15:39 BP 111/68 01/10/22 15:39 Pulse Ox 95 01/10/22 15:39 Labs Result diagrams: 01/10/22 12:27 01/09/22 06:05 Labs: Laboratory Results - last 24 hr 01/10/22 12:27 WBC 14.16 H RBC 4.06 Hgb 11.7 D Hct 36.6 MCV 90 MCH 28.8 MCHC 32.0 RDW 15.7 H Plt Count 249 MPV 9.6 Immature Gran % 2.2 Neutrophils % 78.6 Lymphocytes % 12.6 Monocytes % 5.3 Eosinophils % 1.0 Basophils % 0.3 Nucleated RBC % 0.0 Absolute Neutrophils 11.13 H Absolute Lymphocytes 1.78 Absolute Monocytes 0.75 Absolute Eosinophils 0.14 Absolute Basophils 0.04
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
[2022-01-10 18:01] LABS: Adenovirus PCR Negative (Negative); Specimen Source CSF
[2022-01-10] MEDS: Normal Saline Flush 10 ML SYR IVP (19:24)
[2022-01-10] MEDS: Atorvastatin 40 MG TAB 80 MG PO (19:24)
[2022-01-11 02:53] VITALS: BP 120/63; PULSE 82; RESP 18; TEMP 36.7; O2SAT 94
[2022-01-11 08:46] VITALS: BP 114/78; PULSE 74; RESP 18; TEMP 36.6; O2SAT 96
[2022-01-11] MEDS: Amoxicillin 500/Clav. 125 TAB PO ×2 (09:15→20:06)
[2022-01-11] MEDS: Calcium 600mg/Vit D 200U TAB 1 TAB PO (09:16)
[2022-01-11] MEDS: Omeprazole 20 MG CAPCR PO (09:16)
[2022-01-11] MEDS: Polyethylene Glycol 3350 17 GM PACKET PO ×2 (09:16→20:06)
[2022-01-11 11:37] VITALS: BP 112/71; PULSE 95; RESP 18; TEMP 36.7; O2SAT 94
[2022-01-11 12:00] LABS: Anaplasma phagocytophilum Negative (Negative); B. miyamotoi PCR Negative (Negative); Babesia divergens/MO-1 Negative (Negative); Babesia duncani Negative (Negative); Babesia microti Negative (Negative); Ehrlichia chaffeensis Negative (Negative); Ehrlichia ewingii/canis Negative (Negative); Ehrlichia muris eauclairensis Negative (Negative)
--- NOTE | 2022-01-11 14:32 | PT.INTREAT ---
PT Notes Visit Reasons: Syncope Inpatient Physical Therapy Treatment Note [facility] Date: 01/11/22 SUBJECTIVE: I don't feel like getting out of bed. I am really afraid of falling. OBJECTIVE: [] BED MOBILITY/TRANSFERS Supine-sit:min assist Sit-supine: mod assist Sit-stand: max assist x2 Stand-sit: min A x2 GAIT Assistive Device: FWW Weight bearing: full Assist:mod A x2 Distance: pivot transfer bed to commode and back to bed in pm. THEREX: performed a global LE strengthening routine while in bed for both am and pm sessions. This included AP, LAQ, SLR, hip ABD and heel slides x10 each in am and x12 each in pm. ASSESSMENT: Refused to get OOB in am. Lots of encouragement needed to agree to get OOB in pm. Fear is a factor. She did well once on her feet. PLAN: continue to progress her overall strength and functional mobility to tolerance following POC. TREATMENT CODE/TIME: 20 min in am/ 30 min pm. [id number], [id number]
[2022-01-11 14:40] LABS: VDRL, CSF Negative (Negative)
[2022-01-11 15:27] VITALS: BP 120/77; PULSE 87; RESP 18; TEMP 37.3; O2SAT 94
--- NOTE | 2022-01-11 15:45 | PDOC.EEG ---
Neurology EEG EEG: [facility] Department of Neurology INPATIENT OVERNIGHT EEG REPORT Date of Recordin01/10/22 at 17:27:38 to 01/11/22 at 09:36:25 Interpreting Physician: Dr. Aura Ojeda Reason for study: Ms. Roque is an 86 year-old woman who was admitted after being found down. Etiology is unknown. Her mentation has improved but she has had waxing and waning and thus concern for seizure remains. Current Medications: Current Medications Acetaminophen (Acetaminophen 500 Mg Tab) 1,000 mg PO TID [facility] Last Admin: 01/11/22 14:02 Dose: Not Given Albuterol Sulfate (Albuterol 2.5 Mg/3 Ml Inh Soln Vial) 2.5 mg UPD Q2H PRN PRN Amoxicillin/Clavulanate Potassium (Amoxicillin 500/Clav. 125 Tab) 1 tab PO BID [facility] Last Admin: 01/11/22 09:15 Dose: 1 tab Atorvastatin Calcium (Atorvastatin 40 Mg Tab) 80 mg PO QPM [facility] Last Admin: 01/10/22 19:24 Dose: 80 mg Calcium/Vitamin D (Calcium 600mg/Vit D 200u Tab) 1 tab PO DAILY [facility] Last Admin: 01/11/22 09:16 Dose: 1 tab Dimethicone/Zinc Oxide (Cata Protect Cream 142 Gm Tube) 0 gm TP PRN PRN IV Miscellaneous Supplies (Iv Access) 1 each IV DIRECTED [facility] Omeprazole (Omeprazole 20 Mg Capcr) 20 mg PO DAILY@0730 [facility] Last Admin: 01/11/22 09:16 Dose: 20 mg Polyethylene Glycol (Polyethylene Glycol 3350 17 Gm Packet) 17 gm PO BID [facility] Last Admin: 01/11/22 09:16 Dose: 17 gm Sodium Chloride (Normal Saline Flush 10 Ml Syr) 0 ml IVP PRN PRN Last Admin: 01/10/22 19:24 Dose: 10 ml METHODS: An 18-channel digitized electroencephalogram was recorded in the ambulatory setting with video. The 10/20 international system of electrode placement was used and bipolar and referential electrode montages were recorded. In addition to EEG the patient was monitored for EKG and by video. Activation procedures of photic stimulation and hyperventilation were performed if applicable. The duration of the recording was ~16 hours. DESCRIPTION OF EEG: Waking background activity: During maximal wakefulness a 9-Hz posterior background rhythm was present which was well-modulated, symmetrical, reactive to eye opening, and of moderate voltage. Faster frequencies were present in the bilateral anterior head regions. There was a normal anterior-posterior voltage gradient. Drowsy and sleeping background activity: During drowsiness, there was attenuation of the posterior dominant background rhythm and vertex waves. Normal stage II and III sleep was present with symmetrical sleep spindles, K-complexes, and vertex waves with slowing of the background rhythm to delta/theta frequencies. REM sleep manifested by rapid lateral eye movements and faster background rhythms was recorded. Arousal was unremarkable. Interictal abnormalities: rare, generalized, moderate-amplitude, polymorphic slowing. Ictal findings: No events. Activating Procedures: Not performed. EKG: EKG revealed normal sinus rhythm. INTERPRETATION: This long-term EEG is abnormal due to rare, generalized, polymorphic slowing. This is much improved compared to previous EEG. PRIOR EEG: -01/06/22: Mild generalized slowing. CLINICAL CORRELATION: The background slowing is suggestive of a mild diffuse cerebral encephalopathy of broad differential including toxic-metabolic etiology. This is much improved compared to previous EEG. No focal regions of cerebral dysfunction or epileptiform activity was present. Clinical correlation is advised. Aura Ojeda MD
--- NOTE | 2022-01-11 16:00 | W.PM.PROGNOT ---
Date of Service Date of service: 01/11/22 Time of Service: 16:04 Assessment and Plan Assessment and plan (1) AMS (altered mental status): Status: Acute Assessment and plan: Likely background of mild dementia. Concerned for possible infectious process but no source other than sinusitis incidently seen on CT head. On Augmentin. Repeat UA negative. Her level of alertness, mentation and affect wax and wane. 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 CSF fluid benign. CSF VDRL negative. Tick-borne pathogen studies negative. EEG showed background of slowing consistent with encephalopathy. No seizure focus noted. Hindering her ability to work effectively with PT. Overnight EEG results pending. (2) Dehydration: Status: Acute Assessment and plan: Dehydration appears to be resolving. BUN is 41 creatinine 0.6 > 0.5. Now off IV fluids. Encourage PO intake. (3) Fall: Status: Acute Assessment and plan: PT has assessed her see their note for details. She is maximal assist requires a steady left. (4) Multiple abrasions: Status: Acute Assessment and plan: Unclear as to the etiology of the multiple abrasions. It is hard to conceptualize that all these abrasions came from one syncopal event. This is one of the reasons why I am suspecting a seizure. Wound care has evaluated and made treatment recommendations. (5) Sinusitis: Status: Acute Assessment and plan: Patient was started on Augmentin by the admitting hospitalist. Will finish out a 10-day course of Augmentin for sinusitis.. (6) Troponin level elevated: Status: Acute Assessment and plan: Probably musculoskeletal in origin. She has no evidence of wall motion abnormalities on her echocardiogram and her troponin levels cleared quickly to normal. (7) Syncope: Status: Acute Assessment and plan: Is unclear as to whether she had a syncopal event or stroke or seizure or just a mechanical fall with posttraumatic concussion. Nevertheless she has been worked up so far including echocardiogram and carotid Doppler scan. CT of the head was unremarkable except for pansinusitis. No arrhythmias over the first 48 hours of her hospitalization so discontinued her telemetry. Rhythm is sinus rhythm at rates 50-79 with no pauses no PSVT and no ventricular tachycardia. (8) Discharge planning issues: Status: Acute Assessment and plan: Still requiring significant help with transfers. Pt agreeable to SNF. Referrals were sent by CM. Subjective Subjective Patient reports: no new complaints and afebrile; denies nausea, vomiting or shortness of breath Interval history since last seen: appetite somewhat better today. Exam Narrative Exam Narrative: Lying in bed eating lunch. Const General: cooperative and frail appearing Nutritional Appearance: thin Orientation: alert, oriented to person and oriented to place Eyes General: appearance normal, both eyes and all related structures Sclera: sclerae normal Resp Effort & Inspection: normal respiratory effort Auscultation: clear to auscultation bilaterally and diminished lung sounds Cardio Rate: regular rate Rhythm: regular rhythm Heart Sounds: S1 normal and S2 normal GI Palpation: soft and nontender Neuro General: moves all extremities Cranial Nerves: facial strength normal Speech: speech normal Extrem General: no calf tenderness and edema Laterality: bilateral (tr) Psych Appearance: grossly normal Speech and Movement: delayed speech Affect: normal affect (Improved.) Objective Last Vital Signs Temp 37.3 C 01/11/22 15:27 Pulse 87 01/11/22 15:27 Resp 18 01/11/22 15:27 BP 120/77 01/11/22 15:27 Pulse Ox 94 01/11/22 15:27 Laboratory Results - last 24 hr 01/06/22 01/06/22 01/07/22 17:56 17:56 06:20 CSF VDRL Negative Adenovirus Source CSF Adenovirus (PCR) Negative A.phagocytophil DNA PCR Negative B. divergens/MO-1 PCR Negative Babesia duncani (PCR) Negative Babesia microti DNA PCR Negative Borrelia (PCR) Negative E.chaffeensis DNA (PCR) Negative E.ewingii/canis DNA PCR Negative E. muris-like DNA (PCR) Negative
--- NOTE | 2022-01-11 16:59 | W.PM.PROGNOT ---
Date of Service Date of service: 01/11/22 Time of Service: 16:59 Assessment and Plan Assessment and plan (1) AMS (altered mental status): Status: Acute (2) Fall: Status: Acute (3) Hydrocephalus: Status: Acute (4) Generalized weakness: Status: Acute Assessment and plan: #1. Found down. Unclear what happened. Covered in multiple abrasions. She is profoundly weak and deconditioned at baseline. I wonder if she fell, could not get back up, and then became encephalopathic from metabolic derangements. #2. Hydrocephalus. Certainly concerning for NPH. May be contributing to slow improvement back to normal and may be cause of falls in addition to deconditioning. We discussed work-=up for this including high-volume tap at [facility], etc. She does not want to be worked up for this currently. She will think about it. #3. Generalized weakness. She will continue with PT/OT. She will not be able to go home at present. Agree with SNF. She should follow-up in the neurology clinic in ~6 weeks. Subjective Subjective Interval history since last seen: EEG overnight. No seizure activity. Mild slowing but improved compared to previous. Poor participation in PT. Awaiting SNF. Denies depression. Exam Narrative Exam Narrative: Physical Exam: Constitutional: Patient of apparent stated age, well nourished, well developed, no acute distress; large left cheek abrasion; other abrasions Neuro: MS/Language/Speech: Alert, oriented, clear language (fluency and comprehension), no dysarthria Motor: Normal bulk and tone. FMM intact, no pronator drift. 4-/5 strength in bilateral upper extremities with 3-/5 strength in the bilateral LE, L weaker than R. Sensation: Intact to light touch and PP throughout Coordination: Finger to nose performed without dysmetria Gait: unable to be tested due to her weakness Objective Last Vital Signs Temp 99.1 F 01/11/22 15:27 Pulse 87 01/11/22 15:27 Resp 18 01/11/22 15:27 BP 120/77 01/11/22 15:27 Pulse Ox 94 01/11/22 15:27 Laboratory Results - last 24 hr 01/06/22 01/06/22 01/07/22 17:56 17:56 06:20 CSF VDRL Negative Adenovirus Source CSF Adenovirus (PCR) Negative A.phagocytophil DNA PCR Negative B. divergens/MO-1 PCR Negative Babesia duncani (PCR) Negative Babesia microti DNA PCR Negative Borrelia (PCR) Negative E.chaffeensis DNA (PCR) Negative E.ewingii/canis DNA PCR Negative E. muris-like DNA (PCR) Negative
--- NOTE | 2022-01-11 17:53 | CMPROGNOTE_ITS ---
- If Service Date Differs Date of service: 01/11/22 Time of Service: 17:53 Care Management Progress Note S/O: Kierra was sitting up in bed eating lunch when CM met with her. She stated that she is feeling very tired today. She appeared to have difficulty keeping her eyes open during the conversation, but was pleasant and fairly engaged. CM discussed her SNF referrals, which are pending. [facility] not able [facility] bed due to staffing constraints. Eduard asked for the referral to be resent today, and CM left a message with admissions at [facility]. CM stated that Kierra may need to identify additional facilities if her first choices do not have beds available. CM will continue to follow. A: Kierra is an 86 year old woman admitted on 01/04/22 with syncope P:Kierra will need short term rehab before returning home. It is possible that she may need to transition to exterminator termite care or assisted living if she is unable to return to baseline level of functioning. Referrals have been sent to area facilities and follow up phone calls will be made tomorrow. CM will continue to support Kierra and assess for ongoing discharge needs.
[2022-01-11 19:55] VITALS: BP 133/73; PULSE 85; RESP 16; TEMP 36.7; O2SAT 94
[2022-01-11] MEDS: Atorvastatin 40 MG TAB 80 MG PO (20:06)
[2022-01-11] MEDS: Acetaminophen 500 MG TAB 1000 MG PO (20:06)
[2022-01-11 23:44] VITALS: BP 136/76; PULSE 81; RESP 14; TEMP 36.5; O2SAT 95
--- NOTE | 2022-01-11 23:47 | NUR.NOTE ---
Nursing Notes: Patient requested bedpan for the second time this evening, she was unsuccessful the first time. When placed on the bedpan she stated that she was unable to go. After about 5 minutes, this check writer checked on patient and she stated that she feels like there is urine in there, but it won't come out. This check writer went to get the bladder scanner, and on arrival back to the room the patient stated that she had voided a little. Patient was bladder scanned for 808mL. Patient was removed from the bedpan which contained 200mL, and straight cathed for 900mL clear yellow urine. Patient reports feeling better. Will continue to bladder scan as needed.
[2022-01-12] VITALS (8 sets, daily range): BP systolic 106–148; BP diastolic 67–80; PULSE 68–80; RESP 14–16; TEMP 36.3–37; O2SAT 92–96
[2022-01-12] MEDS: Omeprazole 20 MG CAPCR PO (09:06)
[2022-01-12] MEDS: Calcium 600mg/Vit D 200U TAB 1 TAB PO (09:06)
[2022-01-12] MEDS: Amoxicillin 500/Clav. 125 TAB PO ×2 (09:06→19:45)
[2022-01-12 09:29] LABS: Lab Add On Test DONE
[2022-01-12 09:33] LABS: Bilirubin Negative (Negative); Blood Negative (Negative); Clarity Clear (Clear); Glucose Negative (Negative); Ketones Negative (Negative); Leukocyte Esterase Negative (Negative); Nitrite Negative (Negative); Urobilinogen 0.2 EU/dL (Up TO 0.2); pH 7.5 (5-8)
[2022-01-12 09:37] LABS: Abs Immature Grans 0.12 10^3/uL (0.0-0.06); Absolute Basophil Count 0.03 10^3/uL (0.0-0.2); Basophils % 0.3; Eosinophils % 0.9; HCT 33.4 % (36.0-46.0); HGB 10.8 g/dL (11.2-15.7); Immature Grans % 1.1; Lymphocytes % 13.3; MCHC 32.3 % (32.0-36.0); MCV 90 fL (80-95); MPV 10.3 fL (8.0-11.0); Neutrophils % 78.4; Platelet Count 320 10^3/uL (130-400); RBC 3.72 10^6/uL (3.93-5.22); RDW 15.8 % (11.7-14.6); RDW-SD 51.8 fL; WBC 11.25 10^3/uL (4.4-10.8)
[2022-01-12 09:38] LABS: Absolute Monocyte Count 0.68 10^3/uL (0.1-0.8); Absolute Neutrophil Count 8.82 10^3/uL (1.2-6.7)
--- NOTE | 2022-01-12 09:43 | PT.INPN ---
Date of service: 01/12/22 Time of Service: 09:43 PT Notes Visit Reasons: Syncope Physical Therapy Inpatient Progress Note Date: 01/12/2022 Dates of Service: 01/05/2022 through 01/12/2022 Referring Doctor:? Chantal Gaona MD PT Orders: PT CONSULT: Eval/Treat Precautions: Fall.? Standard. Activity as tolerated. Patient Profile/Admitting Diagnosis:? Kierra is an 86-year-old female who presented to the ED on 01/05/2022 due to a suspected syncopal episode that resulted to an unwitnessed fall, multiple abrasions, and contusions.? Patient is diagnosed with right bundle branch block, elevated troponin level, syncope, esophageal reflux, sinusitis, and multiple abrasions. Subjective: Was leary about sitting on bedside chair but finally agreed to do so as her bed needed to be changed. [place] good about getting up and is comfortable on the chair. Reported being lightheaded when she sat up but symptom decreased as she moved to the chair. Wanting to know about updates on her overall medical condition. Agreeable to going to a SNF. Objective: General Observation: Supine in bed. Dressing over multiple contusions and abrasions in and B UE/LE.? Abrasion in left side of face healing. On telemetry monitoring.? Mental Status: Needed cueing and repetition of instructions due to persistent mild intermittent confusion. Pain: 1-2/10 generalized body pain Vital Signs: WNL as closely monitored by nursing staff and via tele ROM: Right Upper Extremity: ? Shoulder Flexion lacks 50% of AROM. Shoulder abduction lacks 50% of AROM. Elbow flexion WFL. Wrist flexion WFL. Functional opening and closing of hand WFL. Left Upper Extremity:? Shoulder Flexion lacks 50% of AROM. Shoulder abduction lacks 50% of AROM. Elbow flexion WFL. Wrist flexion WFL. Functional opening and closing of hand WFL. Right Lower Extremity: Hip flexion lacks 50% of available AROM. Hip abduction lacks 50% of available AROM. Knee flexion lacks 50% of available AROM.? Knee extension lacks the last 25% of AROM.? Ankle dorsiflexion to neutral only. Ankle plantarflexion about 10 degrees. Left Lower Extremity: Hip flexion lacks 50% of available AROM. Hip abduction lacks 50% of available AROM. Knee flexion lacks 50% of available AROM.? Knee extension lacks the last 25% of AROM.? Ankle dorsiflexion to neutral only. Ankle plantarflexion about 10 degrees. Strength: Right Upper Extremity: Shoulder flexors 3-/5. Shoulder abductors 3-/5. Elbow flexors 3+/5. Elbow extensors 3+/5. Pediatric Nurse Practitioner weak but functional. Left Upper Extremity: Shoulder flexors 3-/5. Shoulder abductors 3-/5. Elbow flexors 3+/5. Elbow extensors 3+/5. Pediatric Nurse Practitioner weak but functional. Right Lower Extremity: Hip flexors 3-/5. Hip abductors 3-/5. Knee flexors 3-/5. Knee extensors 3-/5. Ankle dorsiflexors 3-/5. Ankle plantarflexors 3-/5. Left Lower Extremity: Hip flexors 3-/5. Hip abductors 3-/5. Knee flexors 3-/5. Knee extensors 3-/5. Ankle dorsiflexors 3-/5. Ankle plantarflexors 3-/5. Bed Mobility/Transfers: Rolling with minimal assist and moderate cues for correct technique Supine to sit with minimal assist of 2 and moderate cues for safe/correct technique Sit to stand with minimal assist of 2 with moderate cues for safe/correct technique Stand to sit with minimal assist of 2 with moderate cues for safe/correct technique Bed to reclining chair with moderate assist of 2 with moderate cues for safe/correct technique Gait: Able to tolerate 8 steps and then 3-4steps to back up using FWW with moderate assist of 2.? Balance compromised posteriorly. Steps unequal.? Lean to R noted.? Mild lightheadedness persistent. Increased lean to the R. Limb advancement remains oor.? Required more assistance backing up onto chair.? Balance: Static Sitting: Fair Dynamic Sitting: Fair Static Standing: Poor Dynamic Standing: Unable Special Tests: Mobility Limitations Standardized Measure [facility] 6 clicks Basic Mobility Inpatient Short Form: Raw Score: 12? CMS Score: 69% deficit? ? ? Informed Consent/Education:? Patient was instructed in purpose of PT consult and plan of care. Agreeable to proceed with established PT POC to achieve personal goals.? Understands the need for a possible SNF placement due to level of functional mobility decline. ASSESSMENT: Patient demonstrates continued functional mobility decline and increased fall risk compared to premorbid status.? Kierra is an 86-year-old female who presented to the ED on 01/05/2022 due to a suspected syncopal episode that resulted to an unwitnessed fall, multiple abrasions, and contusions.? Patient is diagnosed with right bundle branch block, elevated troponin level, syncope, esophageal reflux, sinusitis, and multiple abrasions.? Patient presents with clinical signs and symptoms consistent with current/admitting diagnoses that have resulted to mobility limitations, gait instability, generalized weakness, and overall ADL decline as demonstrated by the following impairment level findings: 1.? Decreased strength to B UE/LE major muscle groups (L LE weaker than the R) 2.? Impaired sitting/standing balance 3.? Impaired activity tolerance 4.? Limitation of joint range of motion in B UE/LE due to weakness 5.? Shortness of breath 6.? Periorbital swelling 7.? Dizziness Impairments are contributing to the following functional limitations: 1.? Decline in bed mobility skills 2.? Decline in transfer skills 3.? Difficulty with ambulation without assistive device and physical assistance 4.? Increased completion time for mobility ADL performance 5.? Increased risk for falls Patient is assessed as a? complexity based on the following: History: 86-year-old female with past medical history as indicated above Examination: Demonstrable impairment in strength, balance, and mobility level with underlying impairments and functional limitations as exhibited above as well as deficit score of 87% utilizing the [facility] Mobility Inpatient Short Form Presentation: Evolving Decision Makin high complexity Goals: Goals X1 week 1. Supine-Sit independent NOT MET, CONTINUE 2. Sit-Supine independent NOT MET, CONTINUE 3. Sit-Stand CGA with FWW NOT MET, CONTINUE 4. Stand-Sit CGA with FWW NOT MET, CONTINUE 5. Bed-Chair CGA with FWW NOT MET, CONTINUE 6. Chair-Bed CGA with FWW NOT MET, CONTINUE 7. CGA with FWW gait on level surface for at least 50 feet without report of pain nor dyspnea NOT MET, CONTINUE 10. Fair static and dynamic standing balance/tolerance NOT MET, CONTINUE Plan of Care/Treatment Plan: 1-2x/day, 7 days/week x 1 week. Plan of care has been reviewed with the LEAD JAVASCRIPT DEVELOPER providing the service under Physical Therapy direction. Initiate Physical Therapy intervention for pain management as needed, strengthening, bed mobility, transfers, gait, stairs, balance training, and use of assistive device. DISCHARGE RECOMMENDATIONS: [] ? Home with no services [] [] ? Home with services [specify] [] ? Home with outpatient PT [] [X] ? SNF for continued rehabilitation.? Patient will benefit from jail facility placement for continued skilled physical therapy services in order to progress mobility level, strength, and balance in preparation for a safe discharge to home. [] ? [facility] [] [] ? SNF versus LTC based on ability to participate and progress [] TREATMENT CODE/TIME: 24612 x 28 minutes beginning at 9:43 AM. Thank you for the opportunity to participate in the care of this patient. Analy Merino PT, DPT, CLT [facility] [place], [place]
[2022-01-12 10:03] LABS: Anion Gap 7.9 mmol/L (3-11); BUN 10 mg/dL (7-18); CO2 29.1 mmol/L (21.0-32.0); CREATININE 0.6 mg/dL (0.55-1.02); Calcium 8.8 mg/dL (8.5-10.1); Chloride 106 mmol/L (98-107); Glucose 128 mg/dL (74-106); Magnesium 1.7 mg/dL (1.8-2.4); Potassium 3.9 mmol/L (3.5-5.1); Sodium 143 mmol/L (136-145)
[2022-01-12 10:18] LABS: Procalcitonin 0.1 ng/mL
--- NOTE | 2022-01-12 11:36 | CMPROGNOTE_ITS ---
- If Service Date Differs Date of service: 01/12/22 Time of Service: 11:36 Care Management Progress Note S/O: Kierra was sitting CM will continue to follow. A: Kierra is an 86 year old woman admitted on 01/04/22 with syncope P: Kierra requires short term rehab before returning home. It is possible that she may need to transition to jail care or assisted living if she is unable to return to baseline level of functioning. SNF Referrals: [facility]: Declined due to staffing 01/11/22 Reggie: Pending Eduard: Pending 01/12/22: Referrals faxed to [facility]
[2022-01-12] MEDS: Normal Saline Flush 10 ML SYR IVP (12:41)
[2022-01-12] MEDS: MAGNESIUM SULFATE 2 GM/50 ML BAG IVPB (12:41)
--- NOTE | 2022-01-12 12:58 | PT.INTREAT ---
Date of service: 01/12/22 Time of Service: 11:42 PT Notes Visit Reasons: Syncope Inpatient Physical Therapy Treatment Note [facility] Date: 01/12/2022 PRECAUTIONS: Fall, activity as tolerated SUBJECTIVE: Kierra is pleasant and agreeable to participating in PT. She reports that she is feeling better, whoever, she continues to feel very tired. OBJECTIVE: PAIN: No c/o pain BED MOBILITY/TRANSFERS Sit-stand: Min A x2 Stand-sit: CGA x2 with cueing for safety GAIT: Assistive Device: FWW Weight bearing: Full Assist: CGA x2 Distance: ~10' Deviation: Slow pacing, occasional Min A due to unsteadiness THEREX: Patient was instructed in a LE strengthening program, completed in a seated position, to include: ankle pumps/heel raises, LAQ, hip flexion and hip abduction to fatigue. ASSESSMENT: Patient demonstrates improved activity tolerance and strength compared to previous sessions. She was able to tolerate ambulating with FWW support and CGA x2, although distance was limited. PLAN: Global strengthening and general conditioning, as tolerated, for improved mobility and activity tolerance. TREATMENT CODE/TIME: 23 minutes; 52718, 33701 (11:42)
--- NOTE | 2022-01-12 15:39 | UCONE_ITS ---
Date of service: 01/12/22 Time of Service: 15:39 Assessment and Plan Assessment and plan (1) Urinary retention: Status: Acute Assessment and plan: Is please note she has any type of obstruction causing her retention. For women, we generally recommend timed voiding and clean intermittent catheterization on a as needed basis. When I described timed voiding to the patient, she seemed reluctant to try as she has difficulty getting to the commode or to the restroom. She asked if she could just void into her depends instead. Other recommendations would include attempting to avoid constipation and increasing mobility if at all possible. At luckily, it seems as if she has a low pressure bladder so she should not require an indwelling catheter. History of Present Illness History of Present Illness Chief Complaint: Urinary retention Narrative: This is an 86-year-old woman who is currently hospitalized after she was found collapsed on the floor. The patient has not been able to recall any of these events. In fact, getting any kind of history from her is quite difficult. During this hospitalization, she has had urinary incontinence. When I asked her about incontinence at home, she tells me it was not an issue, but then admitted that she did not attempt to get out of bed to go to the restroom we used a depends instead. She denies any dysuria or gross hematuria. She does not recall having had urinary tract infections or kidney stones. She does not recall any type of urologic surgery. She has had a hysterectomy for benign disease. She believes that she was constipated recently, apparently had a large bowel movement into her diaper recently. She was not aware that she had moved her bowels at that time. She tells me that she is not able to walk. She cannot exactly tell me why, but she is not aware of any neurologic diagnoses. Review of Systems Narrative: c/o weakness. No fevers or chills No vision change No diabetes or thyroid dysfunction No shortness of breath, cough or hemoptysis No chest pain Hx GERD. No hepatitis, ulcers, jaundice Recent finding of hydrocephalus. No seizures or strokes No bleeding disorders or anemia No gout PFSH All Active Problems (Updated 01/12/22 @ 15:49 by Manny Perry MD) Urinary retention (Acute) Generalized weakness (Acute) Hydrocephalus (Acute) Discharge planning issues (Acute) AMS (altered mental status) (Acute) Acute metabolic encephalopathy (Acute) Dehydration (Acute) Elevated transaminase level (Acute) Fall (Acute) Multiple abrasions (Acute) Sinusitis (Acute) Troponin level elevated (Acute) Syncope (Acute) Disorder of thyroid (Acute) Esophageal reflux (Chronic) Right bundle branch block (Acute) Acquired hammertoe of right foot (Acute) Hallux valgus (acquired), right foot (Chronic) Depression (Chronic) 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) Medical History (Updated 01/12/22 @ 15:49 by Manny Perry MD) Bradycardia Heart palpitations History of left breast cancer History of vertebral fracture UTI (urinary tract infection) Surgical History H/O hysterectomy for benign disease Status post left breast lumpectomy Social History Smoking/Tobacco Use Status: Never Smoking risk assessment performed?: Yes Alcohol Intake: never Drug use: Never Substance use type: does not use Household members: none Housing: house Number of Children: 1 Do you feel safe at home: Yes Do you feel safe in your relationship?: Yes Exam Narrative Exam Narrative: He does not appear septic or toxic. She does seem to lack insight into her condition There is an abrasion on the left side of her face Her abdomen is soft with no guarding or rebound tenderness. Her kidneys liver and spleen are not enlarged She is awake and alert Her urinalysis from today is normal. Her renal function is normal. Results Last Vital Signs Temp 37.0 C 01/12/22 15:21 Pulse 80 01/12/22 15:21 Resp 14 01/12/22 15:21 BP 117/76 01/12/22 15:21 Pulse Ox 92 01/12/22 15:21 Labs Result diagrams: 01/12/22 08:55 01/12/22 08:55 Labs: Laboratory Results - last 24 hr 01/12/22 01/12/22 01/12/22 05:30 05:30 08:55 WBC RBC Hgb Hct MCV MCH MCHC RDW Plt Count MPV Immature Gran % Neutrophils % Lymphocytes % Monocytes % Eosinophils % Basophils % Nucleated RBC % Absolute Neutrophils Absolute Lymphocytes Absolute Monocytes Absolute Eosinophils Absolute Basophils Sodium 143 Potassium 3.9 Chloride 106 Carbon Dioxide 29.1 Anion Gap 7.9 BUN 10 Creatinine 0.6 Estimated GFR/1.73 m2 >= 60.00 Glucose 128 H Calcium 8.8 Magnesium 1.7 L C-Reactive Protein 1.80 H Procalcitonin Urine Color Yellow Urine Clarity Clear Urine pH 7.5 Ur Specific [place] 1.020 Urine Protein Negative Urine Ketones Negative Urine Blood Negative Urine Nitrite Negative Urine Bilirubin Negative Urine Urobilinogen 0.2 Ur Leukocyte Esterase Negative Urine Glucose Negative Add-On Test Request DONE 01/12/22 01/12/22 01/12/22 08:55 08:55 08:55 WBC 11.25 H RBC 3.72 L Hgb 10.8 L Hct 33.4 L MCV 90 MCH 29.0 MCHC 32.3 RDW 15.8 H Plt Count 320 MPV 10.3 Immature Gran % 1.1 Neutrophils % 78.4 Lymphocytes % 13.3 Monocytes % 6.0 Eosinophils % 0.9 Basophils % 0.3 Nucleated RBC % 0.0 Absolute Neutrophils 8.82 H Absolute Lymphocytes 1.50 Absolute Monocytes 0.68 Absolute Eosinophils 0.10 Absolute Basophils 0.03 Sodium Cancelled Potassium Cancelled Chloride Cancelled Carbon Dioxide Cancelled Anion Gap Cancelled BUN Cancelled Creatinine Cancelled Estimated GFR/1.73 m2 Cancelled Glucose Cancelled Calcium Cancelled Magnesium C-Reactive Protein Procalcitonin 0.1 Urine Color Urine Clarity Urine pH Ur Specific [place] Urine Protein Urine Ketones Urine Blood Urine Nitrite Urine Bilirubin Urine Urobilinogen Ur Leukocyte Esterase Urine Glucose Add-On Test Request
--- NOTE | 2022-01-12 16:46 | CHAPLAIN ---
Kierra was up in the recliner when I visited. She said she is frustrated and not sure what is wrong with and that no one has explained anything to her. She said her friend, and HCA, Lolis, has been trying to reach someone by phone to find out what is going on with Kierra's health care and where she'll be going from here. She's not yet been accepted at a rehab or personnel director health care facility. Lolis has agreed to help Kierra take care of things in her apartment, and Kierra has an insurance defense attorney attending to her financial concerns. She waivers between feeling like she is not going to get better and worry about how her bills will be paid.
--- NOTE | 2022-01-12 18:31 | PGE_ITS ---
Date of Service Date of service: 01/12/22 Time of Service: 17:45 Assessment and Plan Assessment and plan (1) Acute metabolic encephalopathy: Status: Acute Assessment and plan: Unresponsive event with encephalopathy in setting of mild dementia. Does have hydrocephalus - not interested in workup - suspecious for NPH. EEG negative for seizure; c/w encephalopathy. No arrhythmic events on tele so far, but syncope still not entirely ruled out. Echo ok. Would resume tele and pursue extended cardiac monitoring on discharge to SNF. (2) Troponin level elevated: Status: Resolved Assessment and plan: Minimally elevated troponin in setting of an unresponsive unwitnessed event - MSK given mildly bumped CPK as well versus due to demand / arrhythmia. Resume tele. Would benefit from extended cardiac monitoring. (3) Hydrocephalus: Status: Acute Assessment and plan: Suspected NPH. Patient refuses further workup such as a high volume tap. (4) Urinary retention: Status: Acute Assessment and plan: Continue intermittent catheterization. (5) Fall: Status: Acute Assessment and plan: Continue PT. Will need subacute rehab. (6) Multiple abrasions: Status: Acute Assessment and plan: ?due to a convulsive event - etiology unclear. No evidence of acute infection. Monitor. (7) Sinusitis: Status: Acute Assessment and plan: Continue augmentin (10 day course). (8) Generalized weakness: Status: Acute Assessment and plan: PT consulted. Will need rehab. (9) Discharge planning issues: Status: Acute Assessment and plan: DNR/DNi. Will need SNF. (10) DVT prophylaxis: Status: Acute Assessment and plan: SCDs. Consider SC heparin Subjective Subjective Interval history since last seen: Ms Roque states she is feeling better. Denies dizziness, headache, visual changes, numbness/tingling, CP, SOB, nausea. She states she has not been able to ambulate. She has been retaining urine (850 cc this morning, then again >800 this afternoon). Evaluated by urology: recommended continued intermittent catheterization and minimizing chances of constipation. No montana catheter recommended. Exam Narrative Exam Narrative: General: Pleasant elderly female who appears weak, but comfortable, A&Ox3 (hesitates on the date), NAD in bed HEENT: EOMI, MMM, distended neck veins on L Heart: RRR, no m/r/g Lungs: CTAB Abdomen: soft, nontender, nondistended Extremities: no edema BLEs or BUEs. Objective Last Vital Signs Temp 37.0 C 01/12/22 15:21 Pulse 80 01/12/22 15:21 Resp 14 01/12/22 15:21 BP 117/76 01/12/22 15:21 Pulse Ox 92 01/12/22 15:21 Laboratory Results - last 24 hr 01/12/22 01/12/22 01/12/22 05:30 05:30 08:55 WBC RBC Hgb Hct MCV MCH MCHC RDW Plt Count MPV Immature Gran % Neutrophils % Lymphocytes % Monocytes % Eosinophils % Basophils % Nucleated RBC % Absolute Neutrophils Absolute Lymphocytes Absolute Monocytes Absolute Eosinophils Absolute Basophils Sodium 143 Potassium 3.9 Chloride 106 Carbon Dioxide 29.1 Anion Gap 7.9 BUN 10 Creatinine 0.6 Estimated GFR/1.73 m2 >= 60.00 Glucose 128 H Calcium 8.8 Magnesium 1.7 L C-Reactive Protein 1.80 H Procalcitonin Urine Color Yellow Urine Clarity Clear Urine pH 7.5 Ur Specific [place] 1.020 Urine Protein Negative Urine Ketones Negative Urine Blood Negative Urine Nitrite Negative Urine Bilirubin Negative Urine Urobilinogen 0.2 Ur Leukocyte Esterase Negative Urine Glucose Negative Add-On Test Request DONE 01/12/22 01/12/22 01/12/22 08:55 08:55 08:55 WBC 11.25 H RBC 3.72 L Hgb 10.8 L Hct 33.4 L MCV 90 MCH 29.0 MCHC 32.3 RDW 15.8 H Plt Count 320 MPV 10.3 Immature Gran % 1.1 Neutrophils % 78.4 Lymphocytes % 13.3 Monocytes % 6.0 Eosinophils % 0.9 Basophils % 0.3 Nucleated RBC % 0.0 Absolute Neutrophils 8.82 H Absolute Lymphocytes 1.50 Absolute Monocytes 0.68 Absolute Eosinophils 0.10 Absolute Basophils 0.03 Sodium Cancelled Potassium Cancelled Chloride Cancelled Carbon Dioxide Cancelled Anion Gap Cancelled BUN Cancelled Creatinine Cancelled Estimated GFR/1.73 m2 Cancelled Glucose Cancelled Calcium Cancelled Magnesium C-Reactive Protein Procalcitonin 0.1 Urine Color Urine Clarity Urine pH Ur Specific [place] Urine Protein Urine Ketones Urine Blood Urine Nitrite Urine Bilirubin Urine Urobilinogen Ur Leukocyte Esterase Urine Glucose Add-On Test Request
[2022-01-12] MEDS: Acetaminophen 500 MG TAB 1000 MG PO (19:45)
[2022-01-12] MEDS: Atorvastatin 40 MG TAB 80 MG PO (19:45)
[2022-01-12] MEDS: Polyethylene Glycol 3350 17 GM PACKET PO (19:45)
[2022-01-13] VITALS (7 sets, daily range): BP systolic 115–138; BP diastolic 67–79; PULSE 69–85; RESP 16–18; TEMP 36–36.8; O2SAT 93–97
[2022-01-13] MEDS: Amoxicillin 500/Clav. 125 TAB PO ×2 (08:09→20:08)
[2022-01-13] MEDS: Calcium 600mg/Vit D 200U TAB 1 TAB PO (08:09)
[2022-01-13] MEDS: Omeprazole 20 MG CAPCR PO (08:09)
--- NOTE | 2022-01-13 08:30 | DI.US_ITS ---
Exam(s) US UPPER EXTREMITY VENOUS LT EXAM: US UPPER EXTREMITY VENOUS LT CLINICAL HISTORY: distended L neck veins, ?LUE DVT. TECHNIQUE: Ultrasound examination of the left upper extremity venous system(s) is performed using gr ayscale, color-flow, and spectral Doppler analysis. COMPARISON: CT CT CERVICAL SPINE WO from 01/06/2022 FINDINGS: The left internal jugular, axillary, subclavian, cephalic, basilic, brachial, radial, and ulnar veins are patent without evidence of thrombosis. There is a 1.4 x 0.7 cm hypoechoic area seen within the musculature of the left neck. It appears to lie in the left sternocleidomastoid muscle. It is avasc ular. IMPRESSION: 1. No DVT. 2. 1.4 x 0.7 cm hypoechoic avascular area within the left sternocleidomastoid muscle. This is nonspe cific. An intramuscular hematoma may have this appearance. Abscess is considered less likely. Kristy d mass cannot be excluded. Please correlate with patient's clinical history. If there is continued clinical concern a CT or MRI of the neck may be considered. Alternatively, a follow-up ultrasound of the neck may be obtained to assess for resolution. DATA REPOSITORY:
[2022-01-13] MEDS: Magnesium Oxide 400 MG TAB PO ×2 (10:14→20:08)
[2022-01-13] MEDS: Normal Saline Flush 10 ML SYR IVP (10:14)
[2022-01-13] MEDS: MAGNESIUM SULFATE 2 GM/50 ML BAG IVPB (10:16)
--- NOTE | 2022-01-13 11:16 | PTTR_ITS ---
PT Notes Visit Reasons: Syncope Inpatient Physical Therapy Treatment Note [facility] Date: 01/13/22 SUBJECTIVE: Kierra states that she would rather stay in her chair. I don't walk. I'm too tired to do anything. OBJECTIVE: [] BED MOBILITY/TRANSFERS Sit-stand:min A x2 in am, min A x1 in pm Stand-sit: CGA x1 GAIT Assistive Device:FWW Weight bearing: full Assist:CGA x1 and SBA x1 in am, CGA x1 in pm Distance: 20' in am and pm sessions Deviation: walker management, taking longer strides. THEREX: performed a global LE strengthening routine while seated in recliner. This included AP x20, LAQ 2x10, hip flex x10, SLR x10, hip abd x 15 during both am and pm sessions. ASSESSMENT: tolerated session well. Encouragement needed t/o as she really is not motivated to do much of anything. She is content to sit in recliner or bed and watch TV. Discussed goals of which she is agreeable to, including walking 3 x/day and sitting up for all meals. PLAN: will continue to work on her strength and endurance as well as functional mobility following PT POC TREATMENT CODE/TIME: 28 min this am and 30 min in pm, [id number], [id number]
--- NOTE | 2022-01-13 14:08 | CMPROGNOTE_ITS ---
- If Service Date Differs Date of service: 01/13/22 Time of Service: 14:08 Care Management Progress Note S/O: Kierra was lying in bed, resting. CM reviewed current SNF bed availability; Kierra reported she wanted to remain at [facility]. CM reviewed bed offer for [facility] and recommendation to accept bed offer as Kierra will require extended rehab prior to returning to [facility], if able. CM provided patient education regarding group home care, as well. Anticipate Kierra will remain at [facility] through the weekend and discharge to [facility] on Sunday. CM will continue to follow. A: Kierra is an 86 year old woman admitted on 01/04/22 with syncope P: Kierra requires short term rehab before returning home. It is possible that she may need to transition to intermediate project manager care or assisted living if she is unable to return to baseline level of functioning. Kierra accepted bed offer at [facility] as her options are limited at this time. CM continues to follow. SNF Referrals: [facility]: Declined due to staffing 01/11/22 Reg[facility]: No bed availability. [facility]: No bed availability. 01/12/22: Referrals faxed to Nisha: Pending [facility]: Accepted patient for 01/16/22 Taras Arora: pending
--- NOTE | 2022-01-13 17:20 | CHAPLAIN ---
Kierra's friend Velia Alvarez was visiting when I stopped in. Velia was taking some paperwork to Kierra's wool hat hydraulicker for her. Kierra said she still hadn't heard anything about what's going on with her medically. Velia reminded her that someone reported that she doesn't have any blood clots in her extremities. Velia said that she doesn't remember everything she's told. She is concerned about getting her apartment at the [facility] cleaned out. Her friend Lolis has offered to do this. Kierra relies on Lolis and trusts her. Kierra said she still doesn't know where she going for rehab and PT to get stronger before returning to her apartment. A note from Brand Protection Manager Eleni Velasquez later in the day explained that Kierra has been offered a bed at [facility]. Kierra was hoping to stay in the area so that Velia and Lolis could visit her easily.
--- NOTE | 2022-01-13 17:38 | WOUNDCONS_ITS ---
- If Service Date Differs Date of service: 01/13/22 Time of Service: 17:39 Wound Initial Evaluation Narrative: One week follow up note for wound evaluation. Pt has been working with Physical therapy and has been encouraged to get out of bed for all meals. Plan is for pt to go to Rehab for strengthening prior to returning home. Pt c/o feeling tired much of the time and attempts to decline activity. Does not like the [facility] and [facility]. 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 Encouraged to work really hard at getting stronger so that she does not need to stay. Also informed that she can continue to look for other locations while she is there if that is what she desires. Pt seemed to be encouraged by this. Pt's WBC are down to 11.25 on most recent labs. Pt does have a good appetite but it is noted that pt has a lot of baked goods at bed side that visitors have brought in. This am did have an episode of emesis after breakfast possibly due to over eating or eating too quickly. No further c/o nausea or vomiting noted today. - Wound Left Cheek Wound Type: Abrasion, Partial Thickness Wound General Appearance: Open to air, Blackened, Necrotic, Unapproximated, Other (scabbed center of wound, unknown depth) Wound Bed Greatest Portion: Black (Eschar) Wound Bed Lesser Portion: Black (Eschar) Wound Surrounding Tissue Appearance: Other (pale ) Percent of Wound Bed Eschar/Black: 100 Wound Length: 0.83 in (2.1 cm) Wound Width: 1.34 in (3.4cm) Wound Depth: 0.12 in (0.3cm) Wound Drainage Amount: None Wound Drainage Odor: None/Absent Jaw Wound Type: Abrasion Wound General Appearance: Well Approximated, Open to air Wound Bed Greatest Portion: Pale Pole Ojea Wound Drainage Amount: None Wound Drainage Odor: None/Absent (area healed) Left Elbow Wound Type: Abrasion, Partial Thickness Wound General Appearance: Draining, Unapproximated Wound Bed Greatest Portion: Red (Granulation) Percent of Wound Bed Granulated/Red: 100 Percent of Wound Bed Slough/Yellow: 0 Percent of Wound Bed Eschar/Black: 0 Wound Length: 0.39 in (1.0cm) Wound Width: 0.31 in (0.8cm) Wound Depth: 0.04 in (0.1cm) Wound Drainage Amount: Minimal (scant old bloody drainage on dressing) Wound Drainage Odor: None/Absent Wound Drainage Description: Bloody Wound Topical Solution/Irrigant: Saline Irrigant Wound Debridement Method: Gauze Wound Debridement Result: Healthy Tissue Revealed Wound Debridement Amount of Tissue Removed: Minimal Left Lateral Knee Wound Type: Abrasion, Partial Thickness Wound General Appearance: Open to air, Other (scabbed over) Wound Bed Greatest Portion: Other (scabbed over, wound bed not visible) Wound Surrounding Tissue Appearance: Other (pale pink) Wound Length: 2.56 in (6.5cm) Wound Width: 1.18 in (3cm) Wound Depth: 0 in (0cm) Wound Drainage Amount: None Wound Drainage Odor: None/Absent Wound Topical Solution/Irrigant: Saline Irrigant Wound Debridement Method: Gauze Wound Debridement Result: Other (carpet fibers removed) Wound Debridement Amount of Tissue Removed: None Right Elbow Wound Type: Abrasion, Partial Thickness Wound General Appearance: Draining (old blood on dressing), Unapproximated Wound Bed Greatest Portion: Red (Granulation) Wound Bed Lesser Portion: Yellow (Slough) Wound Surrounding Tissue Appearance: Blanched/Dull Percent of Wound Bed Granulated/Red: 90 Percent of Wound Bed Slough/Yellow: 10 Percent of Wound Bed Eschar/Black: 0 Wound Length: 0.79 in (2.0cm) Wound Width: 0.9 in (0.9cm) Wound Depth: 0.06 in (0.15cm) Wound Drainage Amount: Moderate Wound Drainage Odor: None/Absent Wound Drainage Description: Bloody Wound Topical Solution/Irrigant: Saline Irrigant Wound Debridement Method: Gauze Wound Debridement Result: Healthy Tissue Revealed, Stopped Due to Bleeding Wound Debridement Amount of Tissue Removed: Minimal (yellow slough) Right Medial Knee Wound Type: Abrasion, Partial Thickness Wound General Appearance: Draining, Unapproximated Wound Bed Greatest Portion: Red (Granulation) Percent of Wound Bed Granulated/Red: 100 Percent of Wound Bed Slough/Yellow: 0 Percent of Wound Bed Eschar/Black: 0 Wound Length: 2.17 in (5.5cm) Wound Width: 1.5 in (3.8cm) Wound Depth: 0.04 in (0.1cm) Wound Drainage Amount: Minimal Wound Drainage Odor: None/Absent Wound Drainage Description: Bloody Wound Topical Solution/Irrigant: Saline Irrigant Wound Debridement Method: Gauze Wound Debridement Result: Healthy Tissue Revealed Wound Debridement Amount of Tissue Removed: None Right Lateral Ankle Wound Type: Abrasion, Partial Thickness, Other (scabbed over) Wound General Appearance: Open to air, Unapproximated, Healing Well, Other (scabbed over) Wound Length: 0.67 in (1.7cm) Wound Width: 0.79 in (2cm) Wound Depth: 0 in (0.0cm) Wound Drainage Amount: None Wound Drainage Odor: None/Absent Wound Topical Solution/Irrigant: Saline Irrigant, Other Wound Debridement Method: Gauze Right Lateral Knee Wound Type: Abrasion, Partial Thickness Wound General Appearance: Draining, Bleeding, Unapproximated Wound Bed Greatest Portion: Red (Granulation) Wound Bed Lesser Portion: Yellow (Slough) Wound Surrounding Tissue Appearance: Bright Red Percent of Wound Bed Granulated/Red: 60 Percent of Wound Bed Slough/Yellow: 40 Percent of Wound Bed Eschar/Black: 0 Wound Length: 2.56 in (6.5cm) Wound Width: 1.18 in (3cm) Wound Depth: 0.04 in (0.1cm) Wound Drainage Amount: Moderate Wound Drainage Odor: None/Absent Wound Drainage Description: Purulent, Green, Sero Sanguineous Wound Topical Solution/Irrigant: Saline Irrigant Wound Debridement Method: Gauze Wound Debridement Result: Pt Unable to Tolerate, Yellow Sloughing Remains Wound Debridement Amount of Tissue Removed: Minimal - Circulation, Sensation, Motion Edema Degree: 2+ - Pain Pain Description: Achy Pain Duration/Frequency: With Palpation All wounds are healing slowly and are for the most part scabbed over except for the inner right medial knee which is red granular tissue. The only concerning wound is the lateral right knee which has green brown bloody drainage. I have changed this dressing to a silver dressing to address the bacterial load. Attention has been brought to Dr. Talbot and wound shown at this time. She is in agreement with wound dressing plan. - Photo Photo: - Recomendation Recomendation:: Left cheek: Leave open to air and continue to observe. Report any signs of infection such as redness, drainage, or pain to the provider and or the wound care team. Chin/Jaw is healed Left and Right elbows: 1. Clean elbows with normal saline and gauze. 2. Pat dry. 3. Apply mepelix dressing to elbow. Change every 7 days and prn. 4. Apply elbow protectors as needed while in bed for extended periods of time. Left lateral knee: Leave open to air and continue to observe. Report any signs of infection such as redness, drainage, or pain to the provider and or the wound care team. Right lateral ankle: Leave open to air and continue to observe. Report any signs of infection such as redness, drainage, or pain to the provider and or the wound care team. Right Medial knee: 1. Clean wound with normal saline and gauze. 2. Pat dry. 3. Apply Adaptic contact layer over wound. 4. Apply mepelix dressing over wound. 5. Change weekly and prn. Right Lateral Knee: 1. Clean wound with normal saline and gauze. 2. Pat dry. 3. Apply a 2x3 cut sheet of Aquacell AG to wound. 4. Cover with mepelix 4x4 dressing. 5. Change weekly and prn. Also recommend yogesh hose and to keep legs elevated on pillows while in bed and off load heals while in bed. Keep legs elevated in recliner as much as possible. Physcian/Nurse Practioner Notified: Yes Treatment Time - Time Total Time Spent with Patient: 45 - Patient Will be Seen Weekly Treatment: 1x/wk - For: For:: 2 weeks (Discussed yogesh hose with Dr. Talbot)
--- NOTE | 2022-01-13 18:28 | W.PM.PROGNOT ---
Date of Service Date of service: 01/13/22 Time of Service: 18:30 Assessment and Plan Assessment and plan (1) Acute metabolic encephalopathy: Status: Acute Assessment and plan: Unresponsive event with encephalopathy in setting of mild dementia. Does have hydrocephalus - not interested in workup - suspecious for NPH. EEG negative for seizure; c/w encephalopathy. No arrhythmic events on tele so far, but syncope still not entirely ruled out. Echo ok. Would resume tele and pursue extended cardiac monitoring on discharge to SNF. Continue tele for now. (2) Troponin level elevated: Status: Resolved Assessment and plan: Minimally elevated troponin in setting of an unresponsive unwitnessed event - MSK given mildly bumped CPK as well versus due to demand / arrhythmia. Continue tele. Would benefit from extended cardiac monitoring. (3) Hydrocephalus: Status: Acute Assessment and plan: Suspected NPH. Patient refuses further workup such as a high volume tap. (4) Urinary retention: Status: Acute Assessment and plan: Continue intermittent catheterization. (5) Fall: Status: Acute Assessment and plan: Continue PT. Will need subacute rehab. (6) Multiple abrasions: Status: Acute Assessment and plan: ?due to a convulsive event - etiology unclear. No evidence of acute infection. Monitor. Wound care following. (7) Sinusitis: Status: Acute Assessment and plan: Continue augmentin (10 day course, 3 doses left). (8) Generalized weakness: Status: Acute Assessment and plan: PT consulted. Will need rehab. (9) Discharge planning issues: Status: Acute Assessment and plan: DNR/DNi. Will need SNF. Bed expected on Sunday at [facility]. (10) DVT prophylaxis: Status: Acute Assessment and plan: SCDs. Start SC heparin. Subjective Subjective Interval history since last seen: Ms Roque feels tired and confused. I can't understand why I am here. She states she remembers that she is too weak to go home and that she had an unresponsive spell at home, but then she repeats the same question. She also requires me telling her several times that she does not have a [place] catheter and seems agreeable to having just intermittent catheterizaiton. Denies dizziness, chest pain, shortness of breath, nausea. Exam Narrative Exam Narrative: General: Pleasant elderly female who appears weak, but does not look ill; comfortable, A&Ox3 (hesitates on the date), forgetful, asks the same question twice, NAD in bed HEENT: EOMI, MMM, distended neck veins on L Heart: RRR, no m/r/g Lungs: CTAB Abdomen: soft, nontender, nondistended Extremities: no edema BLEs or BUEs. Wounds RLE are being dressed; the wound on the lateral side of her ankle does not appear infected and, after wound care, does not seem to have any drainage (reportedly, had purulent drainage prior). Objective Last Vital Signs Temp 36.4 C L 01/13/22 14:35 Pulse 74 01/13/22 14:35 Resp 16 01/13/22 14:35 BP 129/67 01/13/22 14:35 Pulse Ox 97 01/13/22 14:35
[2022-01-13] MEDS: Polyethylene Glycol 3350 17 GM PACKET PO (20:08)
[2022-01-13] MEDS: Acetaminophen 500 MG TAB 1000 MG PO (20:08)
[2022-01-13] MEDS: Atorvastatin 40 MG TAB 80 MG PO (20:08)
[2022-01-13] MEDS: Heparin 5,000 UNITS/ML VIAL 5000 UNITS SC (20:08)
[2022-01-14] VITALS (9 sets, daily range): BP systolic 112–138; BP diastolic 68–79; PULSE 67–109; RESP 16; TEMP 36.2–36.8; O2SAT 94–96
[2022-01-14 06:41] LABS: Anion Gap 5.6 mmol/L (3-11); BUN 12 mg/dL (7-18); CO2 30.4 mmol/L (21.0-32.0); CREATININE 0.6 mg/dL (0.55-1.02); Calcium 8.3 mg/dL (8.5-10.1); Chloride 106 mmol/L (98-107); Glucose 95 mg/dL (74-106); Magnesium 2.4 mg/dL (1.8-2.4); Potassium 3.8 mmol/L (3.5-5.1); Sodium 142 mmol/L (136-145)
[2022-01-14] MEDS: Amoxicillin 500/Clav. 125 TAB PO ×2 (08:25→19:15)
[2022-01-14] MEDS: Magnesium Oxide 400 MG TAB PO ×2 (08:25→19:16)
[2022-01-14] MEDS: Heparin 5,000 UNITS/ML VIAL 5000 UNITS SC ×2 (08:25→19:14)
[2022-01-14] MEDS: Omeprazole 20 MG CAPCR PO (08:25)
[2022-01-14] MEDS: Calcium 600mg/Vit D 200U TAB 1 TAB PO (08:25)
--- NOTE | 2022-01-14 12:37 | PT.INTREAT ---
PT Notes Visit Reasons: Syncope Inpatient Physical Therapy Treatment Note [facility] Date: 01/13/22 SUBJECTIVE: Kierra states that she is tired this am. OBJECTIVE: [] BED MOBILITY/TRANSFERS Sit-stand:, min A x1 Stand-sit: CGA x1 GAIT Assistive Device:FWW Weight bearing: full Assist:CGA x1 Distance: 60' Deviation: short strides THEREX: performed a global LE strengthening routine while seated in recliner. This included AP x20, LAQ 2x10, hip flex x10, SLR x10, hip abd x 20 Toileted with assistance. ASSESSMENT: tolerated session well. Encouragement required to keep her motivated. PLAN: will continue to work on her strength and endurance as well as functional mobility following PT POC TREATMENT CODE/TIME: 35 min [id number]
--- NOTE | 2022-01-14 16:23 | W.PM.PROGNOT ---
Date of Service Date of service: 01/14/22 Time of Service: 16:23 Assessment and Plan Assessment and plan (1) Acute metabolic encephalopathy: Status: Resolved Assessment and plan: Unresponsive event with encephalopathy in setting of mild dementia. Does have hydrocephalus - not interested in workup - suspect NPH. EEG negative for seizure; c/w encephalopathy. No arrhythmic events on tele so far, but syncope still not entirely ruled out. Echo ok. Would resume tele and pursue extended cardiac monitoring on discharge to SNF. Continue tele for now. (2) Troponin level elevated: Status: Resolved Assessment and plan: Minimally elevated troponin in setting of an unresponsive unwitnessed event - MSK given mildly bumped CPK as well versus due to demand / arrhythmia. Continue tele. Would benefit from extended cardiac monitoring. (3) Hydrocephalus: Status: Acute Assessment and plan: Suspected NPH. Patient refuses further workup such as a high volume tap. (4) Urinary retention: Status: Acute Assessment and plan: Continue intermittent catheterization. (5) Fall: Status: Acute Assessment and plan: Continue PT. Will need subacute rehab. (6) Multiple abrasions: Status: Acute Assessment and plan: ?due to a convulsive event - etiology unclear. No evidence of acute infection. Monitor. Wound care following. (7) Sinusitis: Status: Acute Assessment and plan: Finish augmentin. (8) Generalized weakness: Status: Acute Assessment and plan: PT consulted. Will need rehab. (9) Discharge planning issues: Status: Acute Assessment and plan: DNR/DNi. Will need SNF. Bed expected on Sunday at [facility]. (10) DVT prophylaxis: Status: Acute Assessment and plan: SC heparin. Subjective Subjective Interval history since last seen: Ms Roque states she feels tired. Denies dizziness, chest pain, shortness of breath, nausea. Exam Narrative Exam Narrative: General: weak-appearing Pleasant elderly female, hesitant about the date, but gets it approximately right, knows who the president is (A&Ox3). HEENT: EOMI, MMM, distended neck veins on L Heart: RRR, no m/r/g Lungs: CTAB Abdomen: soft, nontender, nondistended Extremities: +edema RLE. Wounds RLE are being dressed; the wound on the lateral side of her ankle does not appear infected and, after wound care, does not seem to have any drainage (reportedly, had purulent drainage prior). Objective Last Vital Signs Temp 36.7 C 01/14/22 15:27 Pulse 109 H 01/14/22 15:42 Resp 16 01/14/22 15:27 BP 125/79 01/14/22 15:27 Pulse Ox 95 01/14/22 15:27 Laboratory Results - last 24 hr 01/14/22 05:42 Sodium 142 Potassium 3.8 Chloride 106 Carbon Dioxide 30.4 Anion Gap 5.6 BUN 12 Creatinine 0.6 Estimated GFR/1.73 m2 >= 60.00 Glucose 95 Calcium 8.3 L Magnesium 2.4
[2022-01-14] MEDS: Polyethylene Glycol 3350 17 GM PACKET PO (19:13)
[2022-01-14] MEDS: Acetaminophen 500 MG TAB 1000 MG PO (19:15)
[2022-01-14] MEDS: Atorvastatin 40 MG TAB 80 MG PO (19:16)
[2022-01-14] MEDS: Normal Saline Flush 10 ML SYR IVP (19:17)
[2022-01-15] VITALS (8 sets, daily range): BP systolic 100–130; BP diastolic 60–74; PULSE 62–82; RESP 16; TEMP 36.5–36.8; O2SAT 96–98
[2022-01-15 06:49] LABS: HGB 9.2 g/dL (11.2-15.7); MCH 27.8 pg (27.0-33.0); MCHC 30.7 % (32.0-36.0); MCV 91 fL (80-95); MPV 9.2 fL (8.0-11.0); Platelet Count 348 10^3/uL (130-400); RBC 3.31 10^6/uL (3.93-5.22); RDW 15.6 % (11.7-14.6); RDW-SD 51.7 fL; WBC 6.92 10^3/uL (4.4-10.8)
[2022-01-15] MEDS: Acetaminophen 500 MG TAB 1000 MG PO ×3 (09:22→21:34)
[2022-01-15] MEDS: Magnesium Oxide 400 MG TAB PO ×2 (09:23→21:35)
[2022-01-15] MEDS: Calcium 600mg/Vit D 200U TAB 1 TAB PO (09:23)
[2022-01-15] MEDS: Heparin 5,000 UNITS/ML VIAL 5000 UNITS SC ×2 (09:23→21:35)
[2022-01-15] MEDS: Omeprazole 20 MG CAPCR PO (09:23)
[2022-01-15] MEDS: Polyethylene Glycol 3350 17 GM PACKET PO (09:27)
[2022-01-15] MEDS: Ondansetron 4 MG/2 ML VIAL IVP (09:58)
[2022-01-15] MEDS: Normal Saline Flush 10 ML SYR IVP ×2 (09:59→21:35)
--- NOTE | 2022-01-15 12:31 | PTTR_ITS ---
PT Notes Visit Reasons: Syncope Inpatient Physical Therapy Treatment Note [facility] Date: 01/15/22 SUBJECTIVE: Kierra states that she was sick this am. She is also very concerned that she won't be able to pay for her medical bills or stay at rehab. She is th inking of selling her belongings including her wedding rings. OBJECTIVE: [] BED MOBILITY/TRANSFERS Sit-stand:, min A x1 (max A of 1 off toilet) Stand-sit: CGA x1 GAIT Assistive Device:FWW Weight bearing: full Assist:CGA x1 Distance: 45' Deviation: short strides THEREX: performed a global LE strengthening routine while seated in recliner. This included AP x20, LAQ 2x10, hip flex x10, SLR x10, hip abd x 20 Toileted in the bathroom with assistance. ASSESSMENT: tolerated session well. Encouragement required to keep her motivated. Needs a raised toilet seat for bathroom toilet. PLAN: will continue to work on her strength and endurance as well as functional mobility following PT POC TREATMENT CODE/TIME: 29 min [id number], [id number]
--- NOTE | 2022-01-15 17:02 | W.PM.PROGNOT ---
Date of Service Date of service: 01/15/22 Time of Service: 17:02 Assessment and Plan Assessment and plan (1) Nausea & vomiting: Status: Acute Assessment and plan: typically in the morning and after a large amount of food, suspect GERD. Increase PPI. I ordered a bland diet. (2) Acute metabolic encephalopathy: Status: Resolved Assessment and plan: Unresponsive event with encephalopathy in setting of mild dementia. ?syncope vs seizure. Does have hydrocephalus - not interested in workup - suspect NPH. EEG negative for seizure; c/w encephalopathy. No arrhythmic events on tele so far, but syncope still not entirely ruled out. Echo ok. Would resume tele and pursue extended cardiac monitoring on discharge to SNF. Continue tele for now. (3) Troponin level elevated: Status: Resolved Assessment and plan: Minimally elevated troponin in setting of an unresponsive unwitnessed event - MSK given mildly bumped CPK as well versus due to demand / arrhythmia. D/c statin. Continue tele. Would benefit from extended cardiac monitoring. (4) Hydrocephalus: Status: Acute Assessment and plan: Suspected NPH. Patient refuses further workup such as a high volume tap. (5) Urinary retention: Status: Acute Assessment and plan: Continue intermittent catheterization. (6) Fall: Status: Acute Assessment and plan: Continue PT. Will need subacute rehab. (7) Multiple abrasions: Status: Acute Assessment and plan: ?due to a convulsive event - etiology unclear. No evidence of acute infection. Monitor. Wound care following. (8) Sinusitis: Status: Resolved Assessment and plan: Finished augmentin. (9) Generalized weakness: Status: Acute Assessment and plan: PT consulted. Will need rehab. D/c statin. (10) Discharge planning issues: Status: Acute Assessment and plan: DNR/DNI. Will need SNF. Bed expected on Sunday at [facility]. (11) DVT prophylaxis: Status: Acute Assessment and plan: SC heparin. Subjective Subjective Interval history since last seen: Vomited again this morning. Ms Roque denies abdominal pain and states that she is not nauseated but also not nauseated. Denies dizziness, chest pain, shortness of breath. Exam Narrative Exam Narrative: General: weak-appearing Pleasant elderly female, hesitant about the date, but gets it approximately right, A&Ox3 HEENT: EOMI, MMM, distended neck veins on L Heart: RRR, no m/r/g Lungs: CTAB Abdomen: soft, nontender, nondistended Extremities: + trace edema BLE. Wounds RLE are dressed Objective Last Vital Signs Temp 36.8 C 01/15/22 15:50 Pulse 82 01/15/22 16:26 Resp 16 01/15/22 15:50 BP 114/74 01/15/22 15:50 Pulse Ox 98 01/15/22 15:50 Laboratory Results - last 24 hr 01/15/22 06:30 WBC 6.92 RBC 3.31 L Hgb 9.2 L Hct 30.0 L MCV 91 MCH 27.8 MCHC 30.7 L RDW 15.6 H Plt Count 348 MPV 9.2
[2022-01-16] VITALS (7 sets, daily range): BP systolic 104–134; BP diastolic 66–77; PULSE 63–81; RESP 16–18; TEMP 36.1–37.1; O2SAT 93–97
[2022-01-16 06:47] LABS: Calculated LDL 23 mg/dL (<100); Cholesterol 89 mg/dL (<200); HDL Cholesterol 45 mg/dL (40-60); Triglyceride 109 mg/dL (<150)
[2022-01-16 08:37] LABS: Source Nasal/Nares
[2022-01-16] MEDS: Magnesium Oxide 400 MG TAB PO ×2 (08:45→21:37)
[2022-01-16] MEDS: Calcium 600mg/Vit D 200U TAB 1 TAB PO (08:45)
[2022-01-16] MEDS: Omeprazole 20 MG CAPCR 40 MG PO (08:45)
[2022-01-16 09:29] LABS: COVID-19 PCR Negative (Negative)
--- NOTE | 2022-01-16 12:41 | CMPROGNOTE_ITS ---
- If Service Date Differs Date of service: 01/16/22 Time of Service: 12:41 Care Management Progress Note S/O: Anticipate Kierra will remain at [facility] until [facility] is open to admissions. CM will continue to follow. A: Kierra is an 86 year old woman admitted on 01/04/22 with syncope P: Kierra requires short term rehab before returning home. It is possible that she may need to transition to [facility] care or assisted living if she is unable to return to baseline level of functioning. Kierra accepted bed offer at [facility] as her options are limited at this time. The facility is unable to accept Kierra today due to EMR system issues and staffing. William conley discharge as soon as facility is able to accept. CM continues to follow.
--- NOTE | 2022-01-16 14:56 | PT.INTREAT ---
Date of service: 01/16/22 Time of Service: 14:30 PT Notes Visit Reasons: Syncope Inpatient Physical Therapy Treatment Note [facility] Date: 01/16/2022 PRECAUTIONS: Fall, activity as tolerated SUBJECTIVE: Kierra is pleasant and agreeable to participating in PT. She indicates that [facility] OBJECTIVE: PAIN: No c/o pain BED MOBILITY/TRANSFERS Sit-stand: CGA - Min A Stand-sit: SBA with cueing for safety GAIT: Assistive Device: FWW Weight bearing: Full Assist: CGA-SBA Distance: 60' Deviation: Slow pacing, c/o increased fatigue, mild path deviation ASSESSMENT: Patient demonstrates improved activity tolerance and strength compared to previous sessions. She was able to tolerate a progression in gait distance with FWW support, although requires encouragement to progress. PLAN: Global strengthening and general conditioning, as tolerated, for improved mobility and activity tolerance. TREATMENT CODE/TIME: 17 minutes; [id number] (14:30)
--- NOTE | 2022-01-16 17:48 | PGE_ITS ---
Date of Service Date of service: 01/16/22 Time of Service: 17:48 Assessment and Plan Assessment and plan (1) Nausea & vomiting: Status: Acute Assessment and plan: typically in the morning and after a large amount of food, suspect GERD. No vomiting reported today. PPI Colton diet - malachi was brought tomato soup and had it changed to something else with concerns this would cause her GERD to flaire, she is paying attention to what she is eating, how quickly and the quantity, this is certainly helping. (2) Acute metabolic encephalopathy: Status: Resolved Assessment and plan: Unresponsive event with encephalopathy in setting of mild dementia. ?syncope vs seizure. Does have hydrocephalus - not interested in workup - suspect NPH. EEG negative for seizure; c/w encephalopathy. No arrhythmic events on tele so far, but syncope still not entirely ruled out. Echo ok. Would resume tele and pursue extended cardiac monitoring on discharge to SNF. Continue tele for now. She will need a 30 day event monitor when she is discharged to rehab (3) Troponin level elevated: Status: Resolved Assessment and plan: Minimally elevated troponin in setting of an unresponsive unwitnessed event - MSK given mildly bumped CPK as well versus due to demand / arrhythmia. D/c statin. Continue tele. Would benefit from extended cardiac monitoring. (4) Hydrocephalus: Status: Acute Assessment and plan: Suspected NPH. Patient refuses further workup such as a high volume tap. (5) Urinary retention: Status: Acute Assessment and plan: Continue intermittent catheterization. (6) Fall: Status: Acute Assessment and plan: Continue PT. Will need subacute rehab. (7) Multiple abrasions: Status: Acute Assessment and plan: ?due to a convulsive event - etiology unclear. No evidence of acute infection. Monitor. Wound care following. (8) Sinusitis: Status: Resolved Assessment and plan: Finished augmentin. (9) Generalized weakness: Status: Acute Assessment and plan: PT consulted. Will need rehab. D/c statin. (10) Discharge planning issues: Status: Acute Assessment and plan: DNR/DNI. Will need SNF. Bed expected on Sunday at [facility]. (11) DVT prophylaxis: Status: Acute Assessment and plan: SC heparin. Subjective Subjective Patient reports: no new complaints and pain is less Interval history since last seen: Kierra has been up sitting in the chair today. She is feeling stronger. Her vital signs are stable. No report of vomiting today. She denies nausea, chest pain and has no shortness of breath. She is looking forward to going to rehab. Discussed with Dr Talbot Exam Narrative Exam Narrative: General: weak-appearing, conversant, pleasant elderly female, A&Ox3 HEENT: EOMI, MMM Heart: RRR, no m/r/g Lungs: CTAB Abdomen: soft, nontender, nondistended Extremities: + trace edema BLE. Wounds RLE are dressed Objective Last Vital Signs Temp 37.1 C 01/16/22 14:31 Pulse 72 01/16/22 14:31 Resp 18 01/16/22 14:31 BP 119/71 01/16/22 14:31 Pulse Ox 93 01/16/22 14:31 Laboratory Results - last 24 hr 01/16/22 01/16/22 06:01 08:25 Triglycerides 109 Total Cholesterol 89 LDL Cholesterol, Calc 23 HDL Cholesterol 45 COVID-19 Source Nasal/Nares SARS-CoV-2 (PCR) Negative Reviewed Pertinent PMH: Yes
[2022-01-16] MEDS: Acetaminophen 500 MG TAB 1000 MG PO (18:25)
[2022-01-16] MEDS: Heparin 5,000 UNITS/ML VIAL 5000 UNITS SC (21:36)
[2022-01-16] MEDS: Polyethylene Glycol 3350 17 GM PACKET PO (21:37)
[2022-01-17 00:10] VITALS: BP 110/65; PULSE 75; RESP 16; TEMP 36.6; O2SAT 94
[2022-01-17 03:47] VITALS: BP 110/65; PULSE 75; RESP 16; TEMP 36.7; O2SAT 94
[2022-01-17 07:15] LABS: HCT 32.9 % (36.0-46.0); MCH 27.8 pg (27.0-33.0); MCHC 30.4 % (32.0-36.0); MCV 91 fL (80-95); MPV 9.6 fL (8.0-11.0); Platelet Count 410 10^3/uL (130-400); RDW 15.6 % (11.7-14.6); RDW-SD 52.2 fL; WBC 6.36 10^3/uL (4.4-10.8)
[2022-01-17 07:44] VITALS: BP 114/72; PULSE 67; RESP 14; TEMP 35.1; O2SAT 96
[2022-01-17] MEDS: Acetaminophen 500 MG TAB 1000 MG PO (08:24)
[2022-01-17] MEDS: Calcium 600mg/Vit D 200U TAB 1 TAB PO (08:24)
[2022-01-17] MEDS: Omeprazole 20 MG CAPCR 40 MG PO (08:25)
[2022-01-17] MEDS: Magnesium Oxide 400 MG TAB PO (08:25)
--- NOTE | 2022-01-17 08:34 | PT.INTREAT ---
Date of service: 01/17/22 Time of Service: 07:45 PT Notes Visit Reasons: Syncope Inpatient Physical Therapy Treatment Note [facility] Date: 01/17/2022 PRECAUTIONS: Fall, activity as tolerated SUBJECTIVE: Kierra is pleasant and agreeable to participating in PT. She reports that she is tired today. She indicates that she is [facility]. OBJECTIVE: PAIN: Patient c/o pain in L middle toe with gait training (chronic) BED MOBILITY/TRANSFERS Sit-stand: CGA - Min A (assist required from low surfaces) Stand-sit: SBA with cueing for safety GAIT: Assistive Device: FWW Weight bearing: Full Assist: SBA Distance: 80' x2 Deviation: Slow pacing, c/o increased fatigue, mild path deviation, seated rest x1 ASSESSMENT: Patient demonstrates improved activity tolerance and strength compared to previous sessions. She was able to tolerate a progression in gait distance with FWW support, although requires encouragement to progress. PLAN: Global strengthening and general conditioning, as tolerated, for improved mobility and activity tolerance. TREATMENT CODE/TIME: 23 minutes; [id number] (14:30)
--- NOTE | 2022-01-17 09:39 | DSE_ITS ---
Date of service: 01/17/22 Time of Service: 10:47 DS: Diagnosis Discharge Diagnosis (1) Nausea & vomiting: Status: Acute (2) Acute metabolic encephalopathy: Status: Resolved (3) Troponin level elevated: Status: Resolved (4) Hydrocephalus: Status: Acute (5) Urinary retention: Status: Resolved (6) Fall: Status: Acute (7) Multiple abrasions: Status: Resolved (8) Sinusitis: Status: Resolved (9) Generalized weakness: Status: Acute Discharge Plan Disposition Patient Disposition: SNF (LEVEL 1) [facility] Condition: Fair Discharge Details Reason For Visit: Syncope Admit Date/Time: 01/04/22 19:38 Admit Provider: Chantal Sahu Attending Provider: Chantal Shau Primary Care Provider: Ruth Morris V Hospital Course Hospital Course: This 86 year old female patient with past medical history of GERD, depression, thyroid dysfunction , mild dementia and right bundle branch block came to [facility] Emergency Department on 01/05/2022 having been found down, unwitnessed, unknown time being down, unknown if syncope or fall. She has no recollection of these events. She had multiple abrasions and contusions on various parts of her body. She had a cardiac work up in the ED and CT scan of her head, CXR, and pelvic xray. In the ED she had a troponin of 52, WBC 14.92, sodium 149, BUN 44, Creatinine 0.7, GFR > 60, CK 520. She was admitted with dehydration and syncope. Her cardiac echo was unremarkable and her troponin level stabalized. EEG was negative for seizures. She was evaluated by urology for urinary retention and was found to probably have a low pressure bladder and should not require an indwelling catheter. Hospital day 7 found to have acute metabolic encephalopathy and hydrocephalus. She refused any further work up for the hydrocepalus and declined a high volume tap. She denies dizziness, headache, visual changes, numbness/tingling, chest pain, shortness of breath, or nausea. She continued to have urinary retention throughout her stay. She has had intermittant c atheterizaztion. She of late complains of nausea and vomiting after meals. Unclear if it is too much food, eating too fast, or related to hydrocephalus. She was started on a PPI for GERD. She has not had any vomiting in the past 2 days. She has had no syncope while hospitalized. We reccomend a cardia monitor She is feeling stronger, eager to go to rehab. Home Meds and New Rx's Prescriptions: New albuterol sulfate 2.5 mg /3 mL (0.083 %) Solution For Nebulization 2.5 mg UPD Q2H PRN PRNQty: 0 0RF polyethylene glycol 3350 17 gram Powder In Packet 17 g PO BID Qty: 0 0RF Continued Knee Scooter/Knee 4 wheel walker 1 unit .ROUTE .COMPLEX Qty: 1 0RF Rx Instructions: use for non weightbearing on right foot. naproxen sodium [Aleve] 220 mg capsule 220 mg PO BID PRN omeprazole 20 mg capsule,delayed release(DR/EC) 20 mg PO DAILY calcium carbonate-vitamin D3 [Calcium 600 + D(3)] 600 mg(1,500mg) -200 unit Tablet 1 tab PO DAILY vitamin B complex [B Complex 1] Tablet 1 tab PO DAILY selenium 100 mcg Tablet 100 mcg PO BID multivitamin Capsule 1 cap PO DAILY hawthorn morfin 500 mg Capsule 1 tab PO DAILY Probiotic 5 billion cell Capsule, Sprinkle 1 cap PO DAILY Cbd 1 cap PO TID Cucurmim 1 tab PO BID Thyroid Tincture 20 drp PO BID acetaminophen [Mapap Extra Strength] 500 mg Tablet 1,000 mg PO TID Qty: 0 0RF Discharge Instructions Additional Instructions: Recommend cardiac event monitoring. Stand Alone Forms: Nursing Discharge Form Referrals: Manny Perry MD [ [facility] STAFF PHYSICIAN] - Aura Ojeda MD [ [facility] STAFF PHYSICIAN] - Activity:: Activity as Tolerated Equipment/Supplies:: Walker Diet:: As Tolerated Discharge Orders Discharge Orders: Discharge Order (Routine); Ordered 01/17/22 Ordered By: Lilly Rod Discharge Data Discharge Date/Time-TO BE ENTERED AT DEPARTURE: 01/17/22 11:44 DS: Summary Time Spent with Patient providing and/or coordinating discharge services: Less than 30 minutes Status at Discharge Functional status at discharge: uses cane/walker Overall status at discharge: patient is progressing back to baseline Mental Status: mental status grossly normal Speech and Movement: speech and movement normal Mood: congruent mood Affect: normal affect Exam Narrative Exam Narrative: General: weak-appearing, conversant, pleasant elderly female, A&Ox3 HEENT: EOMI, MMM Heart: RRR, no m/r/g Lungs: CTAB Abdomen: soft, nontender, nondistended Extremities: + trace edema BLE. Wounds RLE are dressed Psych Mental Status: mental status grossly normal Speech and Movement: speech and movement normal Mood: congruent mood Affect: normal affect DS: Data Vitals/I&O Vitals and I&O: Vital Signs Temperature 35.1 C L 01/17/22 07:44 Temperature Source Tympanic 01/17/22 07:44 Pulse 67 01/17/22 07:44 Pulse Rhythm Regular 01/16/22 21:40 Pulse 102 H 01/04/22 20:01 Respiratory Rate 14 01/17/22 07:44 Respiratory Effort Non-Labored 01/16/22 21:40 Respiratory Depth Normal 01/16/22 21:40 Respiratory Pattern Normal 01/16/22 21:40 Blood Pressure 114/72 01/17/22 07:44 Blood Pressure Mean 79 01/04/22 20:00 Blood Pressure Position Supine 01/04/22 13:53 Pulse Oximetry 96 01/17/22 07:44 Oxygen Delivery Method Room Air 01/17/22 07:44 Oxygen Flow Rate 0 01/17/22 07:44 Pain Level 0 01/17/22 07:44 Comment 01/09/22 11:43 Intake & Output 01/16/22 01/16/22 01/17/22 11:59 23:59 11:59 Intake Total 120 / 120 180 / 180 Output Total 350 / 601 251 / 601 Balance -350 / -481 -131 / -481 180 / 180 Weight 53.2 kg Intake: Oral 120 / 120 180 / 180 Output: Urine 350 / 600 250 / 600 Stool Other: Urine Color Yellow Yellow Yellow Urine Appearance Clear Clear Clear Urine Odor Normal None Comment unmeasured Stool Size Small Small Stool Characteristics Liquid Soft Voiding Methods Bedside Commode Bedside Commode Bedside Commode Data Completed and Pending Labs on day of discharge: Labs from last 24 hours 01/17/22 06:32 WBC 6.36 RBC 3.60 L Hgb 10.0 L Hct 32.9 L MCV 91 MCH 27.8 MCHC 30.4 L RDW 15.6 H Plt Count 410 H MPV 9.6 PFSH All Active Problems (Updated 07/20/22 @ 00:09 by MARS ESTRADA) Nausea & vomiting (Acute) Discharge planning issues (Acute) Generalized weakness (Acute) Hydrocephalus (Acute) Fall (Acute) Syncope (Acute) Disorder of thyroid (Acute) Esophageal reflux (Chronic) Right bundle branch block (Acute) Acquired hammertoe of right foot (Acute) Hallux valgus (acquired), right foot (Chronic) Depression (Chronic) 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
--- NOTE | 2022-01-17 14:02 | CMDISCH_ITS ---
- If Service Date Differs Date of service: 01/17/22 Time of Service: 14:02 LACE Index Scoring Tool - Questions: Length of Stay (in days): 7 - 13 Acuity (Admit via E.D.?): Yes E.D. Visits: 1 - Answers: Total Score: 9 Risk of Readmission: Low Risk Care Management Discharge Reason for Hospitalization: Syncope Discharge Plan: Kierra requires short term rehab before returning home. It is possible that she may need to transition to director long term care care or assisted living if she is unable to return to baseline level of functioning. Kierra accepted bed offer at [facility] as her options are limited at this time. She will transport via facility van and follow up with facility providers and plan of care. Patient/Family Education Needs: Review of discharge instructions, medications, limitations, activity, follow up plan and discuss Ask Me Three Services Needed at Discharge: Prison Facility, Transportation
--- NOTE | 2022-01-17 16:12 | CHAPLAIN ---
I visited with Kierra while she was waiting to be transferred to [facility]. She said she was afraid because she doesn't know what to expect at [facility], like if she'll have a private room or a roommate, if she'll eat in her room or the dining room, what clothes she'll need and how much PT she'll have. I suggested that it will take a day or two, but those questions will be answered. Her biggest concern is if she'll return to her apartment in the [facility] or not. There is a message in her belongings for [facility] staff to call Lolis, who is Kierra's friend and health resident caregiver, when Kierra arrives there. Kierra said she feels tired all the time, and no one can tell her why. I let her know that she could ask the [facility] staff to contact the new credit checker at the [facility] to ask him to visit if she'd like that. She attended the [facility] when she was in better health and is aware of the new credit checker who arrived recently.
--- NOTE | 2022-01-17 18:00 | INDS_ITS ---
Date of service: 01/17/22 PT Notes Visit Reasons: Syncope Physical Therapy Inpatient Discharge Summary Date: 01/17/2022 Date of service: 01/05/2022 through 01/17/2022 This is a clinical summary of care provided for the duration of dates listed above. No charge was made in the completion of this documentation. Referring Doctor:? Chantal Gaona MD PT Orders: PT CONSULT: Eval/Treat Precautions: Fall.? Standard. Activity as tolerated. Patient Profile/Admitting Diagnosis:? Kierra is an 86-year-old female who presented to the ED on 01/05/2022 due to a suspected syncopal episode that resulted to an unwitnessed fall, multiple abrasions, and contusions.? Patient is diagnosed with right bundle branch block, elevated troponin level, syncope, esophageal reflux, sinusitis, and multiple abrasions. PMHX: All Active Problems?(Updated 01/04/22 @ 21:37 by Chantal Sahu MD) Multiple abrasions (Acute) Sinusitis (Acute) Troponin level elevated (Acute) Syncope (Chronic) Disorder of thyroid (Acute) Esophageal reflux (Chronic) Right bundle branch block (Acute) Acquired hammertoe of right foot (Acute) Hallux valgus (acquired), right foot (Chronic) Depression (Chronic) 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) Medical History?(Updated 01/04/22 @ 21:37 by Chantal Sahu MD) Bradycardia Heart palpitations History of left breast cancer History of vertebral fracture UTI (urinary tract infection) Surgical History? H/O hysterectomy for benign disease Status post left breast lumpectomy Social History/Home Situation: Lives alone at the [facility].? Modified independent with the four- wheeled walker indoors and outdoors at baseline. No longer drives. Equipment Owned/DME: FWW, garb bars Subjective: NT. See most recent [employer] ATTENDANT notes. Objective: General Observation: NT. See most recent [employer] ATTENDANT notes. Mental Status: NT. See most recent [employer] ATTENDANT notes. Pain: NT. See most recent [employer] ATTENDANT notes. Vital Signs: NT. See most recent [employer] ATTENDANT notes. ROM: Right Upper Extremity: ? Shoulder Flexion lacks 50% of AROM. Shoulder abduction lacks 50% of AROM. Elbow flexion WFL. Wrist flexion WFL. Functional opening and closing of hand WFL. Left Upper Extremity:? Shoulder Flexion lacks 50% of AROM. Shoulder abduction lacks 50% of AROM. Elbow flexion WFL. Wrist flexion WFL. Functional opening and closing of hand WFL. Right Lower Extremity: Hip flexion lacks 50% of available AROM. Hip abduction lacks 50% of available AROM. Knee flexion lacks 50% of available AROM.? Knee extension lacks the last 25% of AROM.? Ankle dorsiflexion to neutral only. Ankle plantarflexion about 10 degrees. Left Lower Extremity: Hip flexion lacks 50% of available AROM. Hip abduction lacks 50% of available AROM. Knee flexion lacks 50% of available AROM.? Knee extension lacks the last 25% of AROM.? Ankle dorsiflexion to neutral only. Ankle plantarflexion about 10 degrees. Strength: Right Upper Extremity: Shoulder flexors 3-/5. Shoulder abductors 3-/5. Elbow flexors 3+/5. Elbow extensors 3+/5. Advanced Practice Nurse weak but functional. Left Upper Extremity: Shoulder flexors 3-/5. Shoulder abductors 3-/5. Elbow flexors 3+/5. Elbow extensors 3+/5. Advanced Practice Nurse weak but functional. Right Lower Extremity: Hip flexors 3-/5. Hip abductors 3-/5. Knee flexors 3-/5. Knee extensors 3-/5. Ankle dorsiflexors 3-/5. Ankle plantarflexors 3-/5. Left Lower Extremity: Hip flexors 3-/5. Hip abductors 3-/5. Knee flexors 3-/5. Knee extensors 3-/5. Ankle dorsiflexors 3-/5. Ankle plantarflexors 3-/5. Bed Mobility/Transfers: Rolling with minimal assist and moderate cues for correct technique Supine to sit with moderate assist and moderate cues for safe/correct technique Sit to supine with moderate assist and moderate cues safe/correct technique Sit to stand with minimal assist and moderate cues for safe/correct technique Stand to sit with minimal assist and moderate cues for safe/correct technique Bed to reclining chair with moderate assist of 2 with moderate cues for safe/correct technique Reclining chair to bed with with moderate assist of 2 with moderate cues for safe/correct technique Gait: 80 feet x 2 with SBA using FWW. Limb advancement poor.? Required more assistance backing up onto chair.? Reported being weak, dizzy, and shaky throughout activity. Balance: Static Sitting: Fair Dynamic Sitting: Fair Static Standing: Fair Dynamic Standing: Fair ASSESSMENT: Patient demonstrates functional mobility decline and increased fall risk compared to premorbid status.? Kierra is an 86-year-old female who presented to the ED on 01/05/2022 due to a suspected syncopal episode that resulted to an unwitnessed fall, multiple abrasions, and contusions.? Patient is diagnosed with right bundle branch block, elevated troponin level, syncope, esophageal reflux, sinusitis, and multiple abrasions.? Patient presents with clinical signs and symptoms consistent with current/admitting diagnoses that have resulted to mobility limitations, gait instability, generalized weakness, and overall ADL decline as demonstrated by the following impairment level findings: 1.? Decreased strength to B UE/LE major muscle groups (L LE weaker than the R) 2.? Impaired sitting/standing balance 3.? Impaired activity tolerance 4.? Limitation of joint range of motion in B UE/LE due to weakness 5.? Shortness of breath 6.? Periorbital swelling 7.? Dizziness Impairments are contributing to the following functional limitations: 1.? Decline in bed mobility skills 2.? Decline in transfer skills 3.? Difficulty with ambulation without assistive device and physical assistance 4.? Increased completion time for mobility ADL performance 5.? Increased risk for falls Goals: Goals X1 week 1. Supine-Sit independent NOT MET 2. Sit-Supine independent NOT MET 3. Sit-Stand CGA with FWW NOT MET 4. Stand-Sit CGA with FWW MET 5. Bed-Chair CGA with FWW NOT MET 6. Chair-Bed CGA with FWW NOT MET 7. CGA with FWW gait on level surface for at least 50 feet without report of pain nor dyspnea MET 10. Fair static and dynamic standing balance/tolerance MET DISCHARGE RECOMMENDATIONS: [] ? Home with no services [] [] ? Home with services [specify] [] ? Home with outpatient PT [] [X] ? SNF for continued rehabilitation.? Patient will benefit from detention facility placement for continued skilled physical therapy services in order to progress mobility level, strength, and balance in preparation for a safe discharge to home. [] ? [facility] [] [] ? SNF versus LTC based on ability to participate and progress [] TREATMENT CODE/TIME: NC Thank you for the opportunity to participate in the care of this patient. Analy Merino PT, DPT, CLT [facility] [place], [place]
== END 2022-01-17 11:44 | disposition skilled nursing facility (03) | DRG 71 ==
LOC: ER 16:11 → MS 20:24
PROVIDERS: Family Medicine; Internal Medicine; Physician Assistant; Admitting Provider Student in an Organized Health Care Education/Training Program; Emergency Provider Physician Assistant; PCP Family Medicine; Visit Provider Student in an Organized Health Care Education/Training Program
DX: G93.41 Metabolic encephalopathy (principal); G91.2 (Idiopathic) normal pressure hydrocephalus; J98.11 Atelectasis; R55 Syncope and collapse; I45.10 Unspecified right bundle-branch block; K21.9 Gastro-esophageal reflux disease without esophagitis; E86.0 Dehydration; R74.01 Elevation of levels of liver transaminase levels; R74.8 Abnormal levels of other serum enzymes; M20.41 Other hammer toe(s) (acquired), right foot; M20.11 Hallux valgus (acquired), right foot; S00.03XA Contusion of scalp, initial encounter; F32.A Depression, unspecified; Z96.642 Presence of left artificial hip joint; W19.XXXA Unspecified fall, initial encounter; S80.212A Abrasion, left knee, initial encounter; S80.211A Abrasion, right knee, initial encounter; Z85.3 Personal history of malignant neoplasm of breast; R29.810 Facial weakness; M15.9 Polyosteoarthritis, unspecified; S00.81XA Abrasion of other part of head, initial encounter; S50.312A Abrasion of left elbow, initial encounter; S50.311A Abrasion of right elbow, initial encounter; S90.511A Abrasion, right ankle, initial encounter; R26.81 Unsteadiness on feet; F03.90 Unspecified dementia, unspecified severity, without behavioral disturbance, psychotic disturbance, mood disturbance, and anxiety; R53.1 Weakness; E03.9 Hypothyroidism, unspecified; J01.40 Acute pansinusitis, unspecified; R33.9 Retention of urine, unspecified; R32 Unspecified urinary incontinence; Z66 Do not resuscitate; R11.2 Nausea with vomiting, unspecified
CPT/HCPCS: 36415; 51702; 80048; 80053; 80061; 80307; 82550; 82945; 84145; 85027; 87116; 87206; 87635; 87798; 89050; 89051; 90471; 93005; 93306; 95714; 95720; 95819; 96360; 96361; 97110; 97163; 97530; 99223; 99232; 99285; 70450; 70551; 71045; 71046; 72125; 72170; 80320; 81003; 81015; 83036; 83605; 83735; 84157; 84443; 84484; 85025; 85610; 85730; 86140; 86592; 86618; 87070; 87086; 87205; 93010; 93880; 93971; 99233; 99238; J1644; J2405

== ENCOUNTER → 2022-01-30 01:09 | Outpatient (CLI) | payer MEDICARE, SELFPAY | PROVIDERS: PCP Family Medicine; Visit Provider Family Medicine ==

== ENCOUNTER 2022-05-19 14:56 | Outpatient (REF) | payer MEDICARE, SELFPAY ==
[2022-05-19 15:58] LABS: HCT 37.2 % (36.0-46.0); HGB 11.7 g/dL (11.2-15.7); MCH 27.7 pg (27.0-33.0); MCHC 31.5 % (32.0-36.0); MCV 88 fL (80-95); MPV 10.3 fL (8.0-11.0); Platelet Count 271 10^3/uL (130-400); RBC 4.23 10^6/uL (3.93-5.22); RDW 16.3 % (11.7-14.6); RDW-SD 52.8 fL; WBC 5.87 10^3/uL (4.4-10.8)
[2022-05-19 16:45] LABS: Ferritin 33 ng/mL (8-252); TSH 3.15 uIU/mL (0.36-3.74)
[2022-05-19 17:04] LABS: FREE T4 1.26 ng/dL (0.76-1.46)
[2022-05-22 09:57] LABS: Vitamin D 25 Total 16.1 ng/mL (30-100)
== END 2022-05-19 14:57 | disposition home or self-care (01) ==
LOC: NCHCN 14:56
PROVIDERS: PCP Family Medicine; Visit Provider Family Medicine
DX: D64.9 Anemia, unspecified (principal); M81.0 Age-related osteoporosis without current pathological fracture; E07.9 Disorder of thyroid, unspecified
CPT/HCPCS: 82306; 85027; 82728; 84439; 84443

== ENCOUNTER 2022-08-18 16:09 | Outpatient (REF) | payer MEDICARE, SELFPAY ==
--- OUTSIDE RECORDS SUMMARY | 2022-08-18 16:16 | XMS_ITS | Continuity of Care Document ---
Author Name Unknown Organization [facility] Address [address] [place] [address] Encounter LTTL_[facility] FIN NBR [id number] Date(s): 08/01/22 - 08/01/22 [facility] [address] [place], [place] [address] Encounter Diagnosis Contusion of hip(Discharge Diagnosis) - 08/01/22 Discharge Disposition: Home or Self Care Attending Physician: Vlad Tirado MD Admitting Physician: Vlad Tirado MD Allergies, Adverse Reactions, Alerts Substance Reaction Severity Status levothyroxine Unknown Active sertraline Unknown Active citalopram Unknown Active FLUoxetine Unknown Active traMADol Unknown Active Egg Unknown Active Functional Status 08/01/22 Family Member Travel History No recent t ravel Recent Travel History No recent travel Other exposure to Infectious Disease Non e Medications acetaminophen 500 mg =, TID, 0 Refill(s) Start Date: 08/01/22 Status: Ordered albuterol 0 Refill(s) Start Date: 08/01/22 Status: Ordered calcium (as carbonate)-vitamin D 500 mg-100 intl units oral tablet, chewable 2 tab, Chewed, Daily, # 60 tab, 0 Refill(s) Start Date: 08/01/22 Status: Ordered Dulcolax Laxative 0 Refill(s) Start Date: 08/01/22 Status: Ordered lidocaine 5% topical film 1 patches, Topical, every 12 hr, remove patches after 12 hours, # 30 patches, 0 Refill(s), Pharmacy: [facility] #[id number], 167.64, cm, 08/01/22 9:44:00 EST, Height/Length Dosing, 54.32, kg, 08/01/22 9:44:00 EST, Weight Dosing Start Date: 08/01/22 Status: Ordered omeprazole 0 Refill(s) Start Date: 08/01/22 Status: Ordered Mental Status 08/01/22 Eye Opening Response Alysia Spontaneous ly Best Verbal Response [place] Oriented Best Motor Response [place] Obeys comman ds Alysia Coma Score 15 Problem List Condition Confirmation Course Effective Dates Status Health St atus Informant Hip pain, left Confirmed Active Results Laboratory List Name Date Urinalysis with Microscopic if Indicated 08/01/22 Automated Diff 08/01/22 CBC w/ Diff 08/01/22 Comprehensive Metabolic Panel (CMP) 08/01 Troponin-I 08/01/22 Most recent to oldest [Reference Range]: 1 WBC [4.8-10.8 K/mcL] 9.4 K/mcL (08/01/22 9:50 AM) RBC [4.20-6.10 Million/mcL] 4.04 Million /mcL *LOW* (08/01/22 9:50 AM) Neutro Auto [42.2-75.2 %] 80.8 % *HI* (08/01/22 9:50 AM) Lymph Auto [20.5-51.1 %] 8.9 % *LOW* (08/01/22 9:50 AM) [place] Auto [1.7-9.3 %] 9.0 % (08/01/22 9:50 AM) Basophil Auto [0.0-0.8 %] 0.4 % (08/01/22 9:50 AM) BUN [8-26 mg/dL] 17 mg/dL (08/01/22 9:50 AM) UA Color [Yellow] Yellow (08/01/22 11:30 AM) Glucose Level [74-106 mg/dL] 98 mg/dL (08/01/22 9:50 AM) Potassium Level [3.5-5.1 mmol/L] 3.3 mmo l/L *LOW* (08/01/22 9:50 AM) Baso Absolute [0.0-0.2 K/mcL] 0.0 K/mcL (08/01/22 9:50 AM) MCV [80.0-99.0 fL] 93.6 fL (08/01/22 9:50 AM) UA Urobilinogen [0.2] 0.2 (08/01/22 11:30 AM) UA Bili [Negative] Negative (08/01/22 11:30 AM) UA Ketones [Negative] Negative (08/01/22 11:30 AM) AST [15-41 IntlUnit/L] 22 IntlUnit/L (08/01/22 9:50 AM) ALT [14-54 IntlUnit/L] 13 IntlUnit/L *LOW* (08/01/22 9:50 AM) MCHC [32.0-36.0 g/dL] 32.5 g/dL (08/01/22 9:50 AM) Osmolality [275-295 mOsm/kg] 275 mOsm/kg (08/01/22 9:50 AM) Troponin-I [<=0.05 ng/mL] 0.01 ng/mL (08/01/22 9:50 AM) Sodium Level [134-143 mmol/L] 137 mmol/L (08/01/22 9:50 AM) UA Leuk Est [Negative] Negative (08/01/22 11:30 AM) Lymph Absolute [1.2-3.4 K/mcL] 0.8 K/mcL *LOW* (08/01/22 9:50 AM) UA Nitrite [Negative] Negative (08/01/22 11:30 AM) UA Glucose [Negative] Negative (08/01/22 11:30 AM) Hct [37.0-52.0 %] 37.8 % (08/01/22 9:50 AM) Calcium Level [8.9-10.3 mg/dL] 9.6 mg/dL (08/01/22 9:50 AM) [place] Absolute [0.1-0.6 K/mcL] 0.8 K/mcL *HI* (08/01/22 9:50 AM) Albumin Level [3.5-5.0 g/dL] 3.9 g/dL (08/01/22 9:50 AM) Protein Total [6.5-8.1 g/dL] 7.0 g/dL (08/01/22 9:50 AM) UA Protein [Negative] Negative (08/01/22 11:30 AM) MCH [27.0-31.0 pg] 30.4 pg (08/01/22 9:50 AM) Neutro Absolute [1.4-6.5 K/mcL] 7.6 K/mc L *HI* (08/01/22 9:50 AM) Bilirubin Total [0.2-1.2 mg/dL] 0.8 mg/d L (08/01/22 9:50 AM) Hgb [12.0-18.0 g/dL] 12.3 g/dL (08/01/22 9:50 AM) Alk Phos [38-130 IntlUnit/L] 54 IntlUnit /L (08/01/22 9:50 AM) UA Blood [Negative] Negative (08/01/22 11:30 AM) MPV [7.4-10.4 fL] 9.4 fL (08/01/22 9:50 AM) UA Spec Grav 1.010 *NA* (08/01/22 11:30 AM) Platelets [130-400 K/mcL] 260 K/mcL (08/01/22 9:50 AM) CO2 [22-32 mmol/L] 27 mmol/L (08/01/22 9:50 AM) Eos Absolute [0.0-0.2 K/mcL] 0.0 K/mcL (08/01/22 9:50 AM) UA pH 7.00 *NA* (08/01/22 11:30 AM) UA Appear [Clear] Clear (08/01/22 11:30 AM) Chloride Level [98-111 mmol/L] 101 mmol/ L (08/01/22 9:50 AM) RDW-CV [11.5-14.5 %] 15.1 % *HI* (08/01/22 9:50 AM) A/G Ratio 1.3 *NA* (08/01/22 9:50 AM) BUN/Creat Ratio [8.0-20.0] 27.0 *HI* (08/01/22 9:50 AM) Globulin 3.1 *NA* (08/01/22 9:50 AM) Imm Gran Absolute 0.04 *NA* (08/01/22 9:50 AM) Imm Gran Auto [0.0-0.5 %] 0.4 % (08/01/22 9:50 AM) NRBC Auto 0 *NA* (08/01/22 9:50 AM) NRBC Absolute 0 *NA* (08/01/22 9:50 AM) Urine Srce Clean Catch (08/01/22 11:30 AM) Creatinine Level [0.44-1.00 mg/dL] 0.63 mg/dL (08/01/22 9:50 AM) Anion Gap [3.0-12.0] 9.0 (08/01/22 9:50 AM) Eos, Auto [0.00-3.00 %] 0.50 % (08/01/22 9:50 AM) eGFR CKD-EPI [>=60 mL/min/1.73 m2] 87 mL /min/1.73 m2 (08/01/22 9:50 AM) Radiology Reports * Exam Date Time Procedure Performing Provider Status 08/01/22 10:50 AM XR Foot Complete 3+ Views Left Delma Bland; Dulce (Verified) Notes: (XR Foot Complete 3+ Views Left) Reason For Exam: trauma XR Foot Complete 3+ Views Left EXAM DESCRIPTION: XR Foot Complete 3+ Views Left 08/01/2022 INDICATION: TRAUMA COMPARISON: None IMPRESSION: No acute fracture or dislocation Mild angulation deformity involving the distal aspect of the 2nd, 3rd and 5th metatarsals suggesting sequela of old, healed fractures. Deformity of the calcaneal tuberosity without hypodense fracture line most consistent with sequela of old injury. Subtalar joint space narrowing consistent with arthritic changes. Component of subtalar arthrodesis can not be excluded. Several hammertoe deformities are suggested. Scattered IP joint space narrowing consistent with arthritic changes No regional radiopaque soft tissue foreign body. JOB #: [id number] Final Signed by: Mainor Laws MD Signed (Electronic Signature): 08/01/2022 10:57 am * Exam Date Time Procedure Performing Provider Status 08/01/22 10:50 AM XR Pelvis 1 or 2 Views Delma Bland; Auth (Verified) Notes: (XR Pelvis 1 or 2 Views) Reason For Exam: trauma XR Pelvis 1 or 2 Views EXAM DESCRIPTION: XR Pelvis 1 or 2 Views 08/01/2022 INDICATION: TRAUMA COMPARISON: None IMPRESSION: No acute fracture or dislocation. SI joints appear symmetric and pubic symphysis appears intact. Status post left hip arthroplasty with satisfactory appearance in the AP projection Scoliosis and spondylotic changes in the visualized lower lumbar spine. JOB #: [id number] Final Signed by: Mainor Laws MD Signed (Electronic Signature): 08/01/2022 10:54 am Vital Signs Most recent to oldest [Reference Range]: 1 Temperature Tympanic [36.6-37.9 Deg C] 3 6.4 Deg C *LOW* (08/01/22 9:27 AM) Peripheral Pulse Rate [60-100 bpm] 81 bp m (08/01/22 9:27 AM) Respiratory Rate [12-24 br/min] 17 br/mi n (08/01/22 9:27 AM) Blood Pressure [90-140/60-90 mmHg] 149/6 7mmHg *HI* (08/01/22 9:27 AM) Weight 54.32 kg (08/01/22 9:27 AM) Weight Dosing 54.32 kg (08/01/22 9:44 AM) Height 167.640 cm (08/01/22 9:27 AM) Height/Length Dosing 167.640 cm (08/01/22 9:44 AM) Body Mass Index 19.000 kg/m2 (08/01/22 9:27 AM) Social History Social History Type Response Tobacco Never tobacco user T obacco Use:. Sex Hospital Discharge Instructions Patient Education 08/01/2022 10:48:46 Contusion Contusion A contusion is a deep bruise. Contusions are the result of a blunt injury to tissues and muscle fibers under the skin. The injury causes bleeding under the skin. The skin overlying the contusion may turn blue, purple, or yellow. Minor injuries will give you a painless contusion, but more severe injuries cause contusions that may stay painful and swollen for a few weeks. Follow these instructions at home: Pay attention to any changes in your symptoms. Let your health care provider know about them. Take these actions to relieve your pain. Managing pain, stiffness, and swelling ??? Use resting, icing, applying pressure (compression), and raising (elevating) the injured area. This is often called the RICE strategy. ??? Rest the injured area. Return to your normal activities as told by your health care provider. Ask your health care provider what activities are safe for you. ??? If directed, put ice on the injured area: ??? Put ice in a plastic bag. ??? Place a towel between your skin and the bag. ??? Leave the ice on for 20 minutes, 2???3 times per day. ??? If directed, apply light compression to the injured area using an elastic bandage. Make sure the bandage is not wrapped too tightly. Remove and reapply the bandage as directed by your health careprovider. ??? If possible, raise (elevate) the injured area above the level of your heart while you are sitting or lying down. General instructions ??? Take dlne-cca-wsxnpjs and prescription medicines only as told by your health care provider. ??? Keep all follow-up visits as told by your health care provider. This is important. Contact a health care provider if: ??? Your symptoms do not improve after several days of treatment. ??? Your symptoms get worse. ??? You have difficulty moving the injured area. Get help right away if: ??? You have severe pain. ??? You have numbness in a hand or foot. ??? Your hand or foot turns pale or cold. Summary ??? A contusion is a deep bruise. ??? Contusions are the result of a blunt injury to tissues and muscle fibers under the skin. ??? It is treated with rest, ice, compression, and elevation. You may be given ayai-clf-nugkxzf medicines for pain. ??? Contact a health care provider if your symptoms do not improve, or get worse. ??? Get help right away if you have severe pain, have numbness, or the area turns pale or cold. This information is not intended to replace advice given to you by your health care provider. Make sure you discuss any questions you have with your health care provider. Document Revised: 02/06/2019 Document Reviewed: 02/06/2019 Elsevier Patient Education ?? 2021 [employer] Physician Emergency department Note * Vlad Tirado MD: PERFORM Event Display: ED Note Physician Authored Date: [id number] YAIR BLACKMAN :1935 Age:86 years Sex:Female Visit Date:08/01/2022 Basic Information Time Seen: Vlad Tirado MD / 08/01/2022 09:32 Chief Complaint fell from standing ??last night , pt states i think i got weak ands fell ??refused ems transferlast night . presents today left hip pain - no bruising noted . left leg swollen . History Of Present Illness: Patient states that last night she fell because suddenly she felt weak. ??She landed on her left hip??and was not having pain??in the hip yesterday but today??does have pain left hip and left foot. ??She denies??head or neck injury denies chest abdominal or back injury or any other??injuries or concerns. ??She did eat today.?? She states she does feel weak from time to time Review of Systems: Review of systems negative other than that stated above Physical Exam Vitals & Measurements T:??36.4?C ??(Tympanic)?? HR:??81??(Peripheral)?? RR:??17?? BP:??149/67?? SpO2:??97%?? HT:??167.640??cm?? WT:??54.32??kg?? BMI:??19.000?? Pain Score:??4?? General: Alert and oriented, well nourished, no acute distress. Eye: PERRL, EOMI, normal conjunctiva. HENT: Normocephalic,??normal hearing, moist oral mucosa, no scleral icterus, . Neck: Supple, non-tender, no carotid bruits, no JVD, no lymphadenopathy. No rigidity Lungs: Clear to auscultation and percussion, non-labored respiration. Heart: Normal rate, regular rhythm, no murmur, gallop or edema. Abdomen: Soft, non-tender, non-distended, normal bowel sounds, no masses. Musculoskeletal: Normal range of motion and strength, there is tenderness of the left hip and left foot. ??No obvious bony deformity or??other process. ??Normal peripheral pulses normal cap refill Skin: Skin is warm, dry and appropriate for ethnicity, no rashes or lesions. Neurologic: Awake, alert and oriented X4, CN II-XII intact. Psychiatric: Cooperative, appropriate mood and affect. Procedure No Qualifying Data Reexamination/Reevaluation Patient given IV Tylenol and lidocaine patch and an Carlos wrap to her left ankle and it did help??with her discomfort. ??She will use over the [place] for pain but I do not find any??obvious??acute??cardiac abnormality or??significant abnormalities other than slightly low potassium. ??We did discuss that and she tells me she would rather??increase??potassium in her diet then be put on another medicine. ??She will follow-up with regular doctor return??for worsening symptoms and is prescribed lidocaine patch Assessment/Plan 1.??Contusion of hip??S70.00XA Orders: lidocaine 5% topical film, 1 patches, Topical, every 12 hr, remove patches after 12 hours, # 30 patches, 0 Refill(s), Pharmacy: [facility] #[id number], 167.64, cm, 08/01/22 9:44:00 EST, Height/Length Dosing, 54.32, kg, 08/01/22 9:44:00 EST, Weight Dosing CV Electrocardiogram 12 Lead, 08/01/22 9:59:00 EST, Stat, Reason: Chest Pain, Stop date and time 08/01/22 9:59:00 EST, ORD_SET_REQ_DT_RANGE, Pamela's Internal Person Id Discharge Patient, 08/01/22 11:46:00 EST Patient Education Contusion Medication Reconciliation New Prescription lidocaine topical (lidocaine 5% topical film)1 patch(es) Topical (on the skin) every 12 hours. remove patches after 12 hours. Refills: 0. ?? Unchanged [id number] Milligrams 3 times a day. ?? albuterol ?? bisacodyl (Dulcolax Laxative) ?? calcium-vitamin D (calcium (as carbonate)-vitamin D 500 mg-100 intl units oral tablet, chewable)2 tab Chewed every day. ?? omeprazole Problem List/Past Medical History Ongoing Hip pain, left Historical No qualifying data Medication Administration Given Sodium Chloride 0.9%, 500 mL, Hydration Bolus acetaminophen, 1000 mg, IV Piggyback lidocaine 5% topical film, 1 patches, Topical Allergies Egg FLUoxetine citalopram levothyroxine sertraline traMADol Social History Electronic Cigarette/Vaping Electronic Cigarette Use: Never. Tobacco Never tobacco user Tobacco Use:. Diagnostic Results XR Foot Complete 3+ Views Left 08/01/2022 11:00 EST XR Pelvis 1 or 2 Views 08/01/2022 10:56 EST XR Pelvis 1 or 2 Views ?? 08/01/22 10:54:21 EXAM DESCRIPTION: XR Pelvis 1 or 2 Views ?? 08/01/2022 ?? INDICATION: TRAUMA ?? COMPARISON: None ?? IMPRESSION: No acute fracture or dislocation. SI joints appear symmetric and pubic symphysis appears intact. ?? Status post left hip arthroplasty with satisfactory appearance in the AP projection ?? Scoliosis and spondylotic changes in the visualized lower lumbar spine. ? JOB #: [id number] Electronically Signed By: ?? Signed By: Mainor Laws MD ?? XR Foot Complete 3+ Views Left ?? 08/01/22 10:57:48 EXAM DESCRIPTION: XR Foot Complete 3+ Views Left ?? 08/01/2022 ?? INDICATION: TRAUMA ?? COMPARISON: None ?? IMPRESSION: No acute fracture or dislocation ?? Mild angulation deformity involving the distal aspect of the 2nd, 3rd and 5th metatarsals suggesting sequela of old, healed fractures. ?? Deformity of the calcaneal tuberosity without hypodense fracture line most consistent with sequela of old injury. ?? Subtalar joint space narrowing consistent with arthritic changes. Component of subtalar arthrodesis can not be excluded. ?? Several hammertoe deformities are suggested. ?? Scattered IP joint space narrowing consistent with arthritic changes ?? No regional radiopaque soft tissue foreign body. ? JOB #: [id number] Electronically Signed By: ?? Signed By: Mainor Laws MD ECG Sinus rhythm with right bundle branch block at a rate of 80??no acute changes Diagnostic Study Interpretation: According to radiology hip x-rays negative for acute process left foot x-ray negative for acute process Lab Results CBC and Differential?? LATEST RESULTS?? WBC?? 08/01/22 09:50?? 9.4?? RBC?? 08/01/22 09:50?? 4.04 ??Low?? Hgb?? 08/01/22 09:50?? 12.3?? Hct?? 08/01/22 09:50?? 37.8?? MCV?? 08/01/22 09:50?? 93.6?? MCH?? 08/01/22 09:50?? 30.4?? MCHC?? 08/01/22 09:50?? 32.5?? RDW-CV?? 08/01/22 09:50?? 15.1 ??High?? Platelets?? 08/01/22 09:50?? 260?? MPV?? 08/01/22 09:50?? 9.4?? Neutro Auto?? 08/01/22 09:50?? 80.8 ??High?? Lymph Auto?? 08/01/22 09:50?? 8.9 ??Low?? [place] Auto?? 08/01/22 09:50?? 9.0?? Eos, Auto?? 08/01/22 09:50?? 0.50?? Basophil Auto?? 08/01/22 09:50?? 0.4?? Imm Gran Auto?? 08/01/22 09:50?? 0.4?? NRBC Auto?? 08/01/22 09:50?? 0?? Neutro Absolute?? 08/01/22 09:50?? 7.6 ??High?? Lymph Absolute?? 08/01/22 09:50?? 0.8 ??Low?? [place] Absolute?? 08/01/22 09:50?? 0.8 ??High?? Eos Absolute?? 08/01/22 09:50?? 0.0?? Baso Absolute?? 08/01/22 09:50?? 0.0?? Imm Gran Absolute?? 08/01/22 09:50?? 0.04?? NRBC Absolute?? 08/01/22 09:50?? 0? Routine Chemistry?? LATEST RESULTS?? Sodium Level?? 08/01/22 09:50?? 137?? Potassium Level?? 08/01/22 09:50?? 3.3 ??Low?? Chloride Level?? 08/01/22 09:50?? 101?? CO2?? 08/01/22 09:50?? 27?? Alk Phos?? 08/01/22 09:50?? 54?? AST?? 08/01/22 09:50?? 22?? ALT?? 08/01/22 09:50?? 13 ??Low?? BUN?? 08/01/22 09:50?? 17?? Glucose Level?? 08/01/22 09:50?? 98?? Creatinine Level?? 08/01/22 09:50?? 0.63?? BUN/Creat Ratio?? 08/01/22 09:50?? 27.0 ??High?? Calcium Level?? 08/01/22 09:50?? 9.6?? Protein Total?? 08/01/22 09:50?? 7.0?? Albumin Level?? 08/01/22 09:50?? 3.9?? Globulin?? 08/01/22 09:50?? 3.1?? A/G Ratio?? 08/01/22 09:50?? 1.3?? Bilirubin Total?? 08/01/22 09:50?? 0.8?? Anion Gap?? 08/01/22 09:50?? 9.0?? Osmolality?? 08/01/22 09:50?? 275?? eGFR CKD-EPI?? 08/01/22 09:50?? 87? Cardiac Isoenzymes?? LATEST RESULTS?? Troponin-I?? 08/01/22 09:50?? 0.01? UA Macroscopic?? LATEST RESULTS?? Urine Srce?? 08/01/22 11:30?? Clean Catch?? UA Color?? 08/01/22 11:30?? Yellow?? UA Appear?? 08/01/22 11:30?? Clear?? UA Glucose?? 08/01/22 11:30?? Negative?? UA Bili?? 08/01/22 11:30?? Negative?? UA Ketones?? 08/01/22 11:30?? Negative?? UA Spec Grav?? 08/01/22 11:30?? 1.010?? UA Blood?? 08/01/22 11:30?? Negative?? UA pH?? 08/01/22 11:30?? 7.00?? UA Protein?? 08/01/22 11:30?? Negative?? UA Urobilinogen?? 08/01/22 11:30?? 0.2?? UA Nitrite?? 08/01/22 11:30?? Negative?? UA Leuk Est?? 08/01/22 11:30?? Negative? Electronically Signed on 08/01/22 04:04 PM Vlad Tirado MD Emergency department Discharge instructions * Vlad Tirado MD: PERFORM Event Display: ED Discharge Information Authored Date: [id number] YAIR BLACKMAN :1935 Age:86 years Sex:Female Visit Date:08/01/2022 Discharge Instructions We would like to thank you for allowing us to assist you with your healthcare needs. The following includes patient education materials and information regarding your injury/illness. Diagnosis from Today's Visit Contusion of hip Discharge Vitals Temperature??(Tympanic) 97.5 ??F (36.4 ??C) Heart Rate??(Peripheral) 81 Respiratory Rate?? 17 Blood Pressure?? 149/67?? Height?? 66.00 in (167.640 cm) Weight?? 119.78 lb (54.32 kg) BMI?? 19.000 Allergies Egg FLUoxetine citalopram levothyroxine sertraline traMADol What to Do Next Instructions from Your Care Team Tylenol and/or ibuprofen for pain. ??Lidocaine patch as prescribed. ??Rest. ??Follow-up with regular doctor??return??as needed You were treated today on an emergency basis; it may be bowman to contact your primary care provider to notify them of your visit today. You may have been referred to your regular doctor or a specialist, please follow up as instructed. If your condition worsens or you can't get in to see the doctor, contact the Emergency Department. Medications What How Much When Instructions Next Dose New lidocaine topical (lidocaine 5% topical film) 1 patch(es) Topical (on the skin) Every 12 hours remove patches after 12 hours ?? Pickup at [id number] Unchanged acetaminophen 500 Milligrams 3 times a day Unchanged albuterol Unchanged bisacodyl (Dulcolax Laxative) Unchanged calcium-vitamin D (calcium (as carbonate)-vitamin D 500 mg-100 intl units oral tablet, chewable) 2 tab Chewed Every day Unchanged omeprazole Pharmacy Information [facility] #[id number]: [address] [place], [place] [id number] [phone] Education Materials Contusion A contusion is a deep bruise. Contusions are the result of a blunt injury to tissues and muscle fibers under the skin. The injury causes bleeding under the skin. The skin overlying the contusion may turn blue, purple, or yellow. Minor injuries will give you a painless contusion, but more severe injuries cause contusions that may stay painful and swollen for a few weeks. Follow these instructions at home: Pay attention to any changes in your symptoms. Let your health care provider know about them. Take these actions to relieve your pain. Managing pain, stiffness, and swelling ? Use resting, icing, applying pressure (compression), and raising (elevating) the injured area. Thisis often called the RICE strategy. ? Rest the injured area. Return to your normal activities as told by your health care provider. Ask your health care provider what activities are safe for you. ? If directed, put ice on the injured area: ? Put ice in a plastic bag. ? Place a towel between your skin and the bag. ? Leave the ice on for 20 minutes, 2???3 times per day. ? If directed, apply light compression to the injured area using an elastic bandage. Make sure the bandage is not wrapped too tightly. Remove and reapply the bandage as directed by your health care provider. ? If possible, raise (elevate) the injured area above the level of your heart while you are sitting or lying down. General instructions ? Take huol-odz-pawmgfn and prescription medicines only as told by your health care provider. ? Keep all follow-up visits as told by your health care provider. This is important. Contact a health care provider if: ? Your symptoms do not improve after several days of treatment. ? Your symptoms get worse. ? You have difficulty moving the injured area. Get help right away if: ? You have severe pain. ? You have numbness in a hand or foot. ? Your hand or foot turns pale or cold. Summary ? A contusion is a deep bruise. ? Contusions are the result of a blunt injury to tissues and muscle fibers under the skin. ? It is treated with rest, ice, compression, and elevation. You may be given errb-fzs-wvyutcf medicines for pain. ? Contact a health care provider if your symptoms do not improve, or get worse. ? Get help right away if you have severe pain, have numbness, or the area turns pale or cold. This information is not intended to replace advice given to you by your health care provider. Make sure you discuss any questions you have with your health care provider. Document Revised: 02/06/2019 Document Reviewed: 02/06/2019 [employer] Patient Education ?? 2021 [employer] Tests Performed Radiology XR Foot Complete 3+ Views Left 08/01/2022 11:00 EST XR Pelvis 1 or 2 Views 08/01/2022 10:56 EST Medications and Immunizations Administered Given Sodium Chloride 0.9%, 500 mL, Hydration Bolus Lab Test Name Test Result Date/Time WBC 9.4 K/mcL 08/01/2022 09:50 EST RBC 4.04 Million/mcL 08/01/2022 09:50 EST Hgb 12.3 g/dL 08/01/2022 09:50 EST Hct 37.8 % 08/01/2022 09:50 EST MCV 93.6 fL 08/01/2022 09:50 EST MCH 30.4 pg 08/01/2022 09:50 EST MCHC 32.5 g/dL 08/01/2022 09:50 EST RDW-CV 15.1 % 08/01/2022 09:50 EST Platelets 260 K/mcL 08/01/2022 09:50 EST MPV 9.4 fL 08/01/2022 09:50 EST Neutro Auto 80.8 % 08/01/2022 09:50 EST Lymph Auto 8.9 % 08/01/2022 09:50 EST [place] Auto 9.0 % 08/01/2022 09:50 EST Eos, Auto 0.50 % 08/01/2022 09:50 EST Basophil Auto 0.4 % 08/01/2022 09:50 EST Imm Gran Auto 0.4 % 08/01/2022 09:50 EST NRBC Auto 0 08/01/2022 09:50 EST Neutro Absolute 7.6 K/mcL 08/01/2022 09:50 EST Lymph Absolute 0.8 K/mcL 08/01/2022 09:50 EST [place] Absolute 0.8 K/mcL 08/01/2022 09:50 EST Eos Absolute 0.0 K/mcL 08/01/2022 09:50 EST Baso Absolute 0.0 K/mcL 08/01/2022 09:50 EST Imm Gran Absolute 0.04 08/01/2022 09:50 EST NRBC Absolute 0 08/01/2022 09:50 EST Sodium Level 137 mmol/L 08/01/2022 09:50 EST Potassium Level 3.3 mmol/L 08/01/2022 09:50 EST Chloride Level 101 mmol/L 08/01/2022 09:50 EST CO2 27 mmol/L 08/01/2022 09:50 EST Alk Phos 54 IntlUnit/L 08/01/2022 09:50 EST AST 22 IntlUnit/L 08/01/2022 09:50 EST ALT 13 IntlUnit/L 08/01/2022 09:50 EST BUN 17 mg/dL 08/01/2022 09:50 EST Glucose Level 98 mg/dL 08/01/2022 09:50 EST Creatinine Level 0.63 mg/dL 08/01/2022 09:50 EST BUN/Creat Ratio 27.0 08/01/2022 09:50 EST Calcium Level 9.6 mg/dL 08/01/2022 09:50 EST Protein Total 7.0 g/dL 08/01/2022 09:50 EST Albumin Level 3.9 g/dL 08/01/2022 09:50 EST Globulin 3.1 08/01/2022 09:50 EST A/G Ratio 1.3 08/01/2022 09:50 EST Bilirubin Total 0.8 mg/dL 08/01/2022 09:50 EST Anion Gap 9.0 08/01/2022 09:50 EST Osmolality 275 mOsm/kg 08/01/2022 09:50 EST eGFR CKD-EPI 87 mL/min/1.73 m2 08/01/2022 09:50 EST Troponin-I 0.01 ng/mL 08/01/2022 09:50 EST Urine Srce Clean Catch 08/01/2022 11:30 EST UA Color YELLOW. 08/01/2022 11:30 EST UA Appear CLEAR. 08/01/2022 11:30 EST UA Glucose NEGATIVE 08/01/2022 11:30 EST UA Bili NEGATIVE 08/01/2022 11:30 EST UA Ketones NEGATIVE 08/01/2022 11:30 EST UA Spec Grav 1.010 08/01/2022 11:30 EST UA Blood NEGATIVE 08/01/2022 11:30 EST UA pH 7.00 08/01/2022 11:30 EST UA Protein NEGATIVE 08/01/2022 11:30 EST UA Urobilinogen 0.2 08/01/2022 11:30 EST UA Nitrite NEGATIVE 08/01/2022 11:30 EST UA Leuk Est NEGATIVE 08/01/2022 11:30 EST Patient/Braze Operator Signature Patient Name:YAIR BLACKMAN I have received this information and my questions have been answered. Patient/Braze Operator Name: Patient/Braze Operator Signature: Relationship to Patient: Witness Name/Signature: Date: Electronically Signed on: 08/01/2022 11:49 ESTSigned by:AFB XR Pelvis 1 or 2 Views * Mainor Laws MD: VERIFY, VERIFY Event Display: Report EXAM DESCRIPTION: XR Pelvis 1 or 2 Views 08/01/2022 INDICATION: TRAUMA COMPARISON: None IMPRESSION: No acute fracture or dislocation. SI joints appear symmetric and pubic symphysis appears intact. Status post left hip arthroplasty with satisfactory appearance in the AP projection Scoliosis and spondylotic changes in the visualized lower lumbar spine. JOB #: [id number] Final Signed by: Mainor Laws MD Signed (Electronic Signature): 08/01/2022 10:54 am XR Foot - left GE 3 Views * Mainor Laws MD: VERIFY, VERIFY Event Display: Report EXAM DESCRIPTION: XR Foot Complete 3+ Views Left 08/01/2022 INDICATION: TRAUMA COMPARISON: None IMPRESSION: No acute fracture or dislocation Mild angulation deformity involving the distal aspect of the 2nd, 3rd and 5th metatarsals suggesting sequela of old, healed fractures. Deformity of the calcaneal tuberosity without hypodense fracture line most consistent with sequela of old injury. Subtalar joint space narrowing consistent with arthritic changes. Component of subtalar arthrodesis can not be excluded. Several hammertoe deformities are suggested. Scattered IP joint space narrowing consistent with arthritic changes No regional radiopaque soft tissue foreign body. JOB #: [id number] Final Signed by: Mainor Laws MD Signed (Electronic Signature): 08/01/2022 10:57 am
--- OUTSIDE RECORDS SUMMARY | 2022-08-18 16:16 | XMS_ITS ---
Author Name Lucian Liu Address [address] [place] [address] Organization [facility] Address [address] [place] [address] Care Team Providers Care Biology Faculty Member Name Role Phone Lucian Liu Unavailable [phone] PROBLEMS Type Condition ICD9-CM Code UBN15-CQ Code Onset Dates Condition Status SNOMED Code Problem Bunion of unspecified foot M21.619 Active 151309068 Problem Pain of toe of left foot M79.675 Active 799818621465897 Problem Pain of left foot M79.672 Active 309055 02 Problem Hammertoe of right foot M20.41 Active 467692175159895 5 Problem Hammertoe of left foot M20.42 Active 306093122011725 3 Problem Pain in right toe(s) M79.674 Active 26684515 Problem Hallux valgus (acquired), unspecified foot M20.10 Active 69645457 Problem Pain in right foot M79.671 Active 391131270179556 Problem Onychomycosis B35.1 Active 725264097 ALLERGIES Substance Reaction Event Type Date Status Paxil Unknown Drug Allergy May, Active PROzac Unknown Drug Allergy May, Active CeleXA Unknown Drug Allergy May, Active tape Unknown Non Drug Allergy May, Active Synthroid Unknown Drug Allergy May, Active ENCOUNTERS Encounter Location Date Diagnosis [facility] [address] Aug, [facility] [address] Jun, [facility] [address] May, Postop check Z09 [facility] [address] [facility] [place] [address] Apr, Postop check Z09 [facility] [address] [place] [address] Apr, [facility]ERY [address] [facility] [place] [address] Apr, SURGERY [address] [place] [place] [address] Apr, [facility] [address] [place] [address] Apr, [address]GERY [address] [place] [address] Apr, [address]GERY [address] [place] [address] Apr, [facility] [address] [place] [address] Apr, [facility] [address] [place] [address] Apr, Hallux valgus (acquired), unspecified foot M20.10 ; Bunion of unspecified foot M21.619 ; Pain of left foot M79.672 ; Pain in right foot M79.671 ; Onychomycosis B35.1 ; Pain of toe of left foot M79.675 ; Pain in right toe(s) M79.674 ; Hammertoe of left foot M20.42 and Hammertoe of right foot M20.41 [facility] [address] Dec, Hallux valgus (acquired), unspecified foot M20.10 ; Bunion of unspecified foot M21.619 ; Pain of left foot M79.672 ; Pain in right foot M79.671 ; Onychomycosis B35.1 ; Pain of toe of left foot M79.675 ; Pain in right toe(s) M79.674 ; Hammertoe of left foot M20.42 and Hammertoe of right foot M20.41 [facility] [address] [place] [address] October, Hallux valgus (acquired), unspecified foot M20.10 ; Bunion of unspecified foot M21.619 ; Pain of left foot M79.672 ; Pain in right foot M79.671 ; Onychomycosis B35.1 ; Pain of toe of left foot M79.675 ; Pain in right toe(s) M79.674 ; Hammertoe of left foot M20.42 and Hammertoe of right foot M20.[address] [address] Aug, Hallux valgus (acquired), unspecified foot M20.10 ; Bunion of unspecified foot M21.619 ; Pain of left foot M79.672 ; Pain in right foot M79.671 ; Onychomycosis B35.1 ; Pain of toe of left foot M79.675 ; Pain in right toe(s) M79.674 ; Hammertoe of left foot M20.42 and Hammertoe of right foot M20.[address] [address] Jul, Hallux valgus (acquired), unspecified foot M20.10 ; Bunion of unspecified foot M21.619 ; Pain of left foot M79.672 ; Pain in right foot M79.671 ; Onychomycosis B35.1 ; Pain of toe of left foot M79.675 ; Pain in right toe(s) M79.674 ; Hammertoe of left foot M20.42 and Hammertoe of right foot M20.[address] [address] Apr, Hallux valgus (acquired), unspecified foot M20.10 ; Bunion of unspecified foot M21.619 ; Pain of left foot M79.672 ; Pain in right foot M79.671 ; Onychomycosis B35.1 ; Pain of toe of left foot M79.675 and Pain in right toe(s) M79.[address] [address] Mar, Hallux valgus (acquired), unspecified foot M20.10 ; Bunion of unspecified foot M21.619 ; Pain of left foot M79.672 ; Pain in right foot M79.671 ; Onychomycosis B35.1 ; Pain of toe of left foot M79.675 and Pain in right toe(s) M79.674 [facility] [address] [place] [address] Jan, IMMUNIZATIONS No Known Immunizations SOCIAL HISTORY Qualifiers Date Never Smoker REASON FOR REFERRAL FUNCTIONAL STATUS PLAN OF CARE VITAL SIGNS Height 65 in 2020-05-06 Height 65 in 2020-04-27 Height 65 in 2020-04-01 Height 65 in 2020-01-26 Height 65 in 2019-11-10 Height 65 in 2019-09-02 Height 65 in 2019-07-03 Height 65 in 2019-04-24 Weight 141 lbs 2020-05-06 Weight 137 lbs 2020-04-01 Weight 138.4 lbs 2020-01-26 Weight 140.0 lbs 2019-11-10 Weight 141.2 lbs 2019-09-02 Weight 138.9 lbs 2019-07-03 Weight 136.6 lbs 2019-04-24 Weight 130.4 lbs 2018-03-07 BMI 23.46 kg/m2 2020-05-06 BMI 22.80 kg/m2 2020-04-01 BMI 23.03 kg/m2 2020-01-26 BMI 23.29 kg/m2 2019-11-10 BMI 23.49 kg/m2 2019-09-02 BMI 23.11 kg/m2 2019-07-03 BMI 22.73 kg/m2 2019-04-24 Temperature 97.4 degrees Fahrenheit Temperature 97.9 degrees Fahrenheit Temperature 97.3 degrees Fahrenheit Temperature 97.9 degrees Fahrenheit Temperature 97.3 degrees Fahrenheit Temperature 98.4 degrees Fahrenheit Temperature 97.8 degrees Fahrenheit Temperature 98.0 degrees Fahrenheit Temperature 97.9 degrees Fahrenheit Heart Rate 73 /min 2020-05-06 Heart Rate 81 /min 2020-04-27 Heart Rate 65 /min 2020-04-01 Heart Rate 79 /min 2020-01-26 Heart Rate 63 /min 2019-11-10 Heart Rate 71 /min 2019-09-02 Heart Rate 76 /min 2019-07-03 Heart Rate 77 /min 2019-04-24 Heart Rate 77 /min 2018-03-07 Respiratory Rate 18 /min 2020-05-06 Respiratory Rate 18 /min 2020-04-27 Respiratory Rate 18 /min 2020-04-01 Respiratory Rate 18 /min 2020-01-26 Respiratory Rate 18 /min 2019-11-10 Respiratory Rate 18 /min 2019-09-02 Respiratory Rate 16 /min 2019-07-03 Respiratory Rate 16 /min 2019-04-24 Respiratory Rate 16 /min 2018-03-07 Oximetry 95 % 2020-05-06 Oximetry 99 % 2020-04-27 Oximetry 96 % 2020-04-01 Oximetry 94 % 2020-01-26 Oximetry 95 % 2019-11-10 Oximetry 94 % 2019-09-02 Oximetry 95 % 2019-07-03 Oximetry 95 % 2019-04-24 Oximetry 99 % 2018-03-07 Blood pressure systolic 134 mm Hg Blood pressure diastolic 82 mm Hg 2020-05 MEDICATIONS Medication Instructions Dosage Frequency Start Date End Date Duration Status Arnicare Arthritis - as directed Active Advil 200 mg orally every 6 hours 1 tab(s) 6h Active -OTC, HERBALS Ac tive PROCEDURES No Known procedures RESULTS No Results REASON FOR VISIT POST OP #3, POST OP #2, pt states that she is here for post op two , pt states that she is still having a bit of pain , pt states that she is excited to have the stitches out today , post op1, DOS 04-21-20 Arthroplasty of second right toe , pt states that she is here for her 1st post op , pt statesshe is keeping the pain under control with tylenol and advil , Arthroplasty Right 2nd referral done, Right 2nd toe arthroplasty- MAC, Covid test results/surgery status, COvid test, Referral , /21covid test , 9 WK F/U, referral done, pt states that she is here for foot pain f/u , pt statesthat her hammertoe is causing her a lot of pain, enough so that it is waking her up and at night , 10 WK F/U, Referral Done, patient last seen by WS on 11/10/2019 for nailcare and f/u bilateral foot pain, pt states she is here for nailcare and footcare, pt states her foot pain is about the same as last visit but her 2nd toes are a little more sore since last time, Medications reviewed w/pt,med. list is correct - cp, 10 WK F/U, pt called to r.s due to transportation issue 01/21/2020 PRABHAKAR , 9 week f/u , last seen by WS on 09/02/19 for Hallux valgus, nailcare, and painful toes L foot- Kg, pt states she is here for care of R painful bunion callus, R 2nd hammertoe, and toenails-KG, 9 WK F/U, patient last seen by WS on 07/03/2019 for footcare/nailcare - cp, pt states she is here for nailcare/footcare,Medications reviewed w/pt,med. list is correct - cp, 2 MO F/U, referral done, pt states that she ishere for foot and nail care. mrr, pt has a small corn on the left foot 4th digit. mrr, nailcare referral done, last seen by WS on 03/07/18 for Footcare and Onychomycosis-KG, pt states that her feet hurt bad , pt staes that she needs nail care today , pt states that the pain is in her toes, 9 week f/u , New patient, bilat footcare, , pt states she is here for bilateral foot pain , pt states she needs some nail care , chart update, nail care and toe pain, referral done Insurance Providers Health Insurance Type Health Plan Insurance Address Health Plan Insurance Phone Health Plan Insurance Name Health Plan Coverage Dates Member ID Patient Relationship to Subscriber Patient Address Patient Phone Patient Name Patient Date of Subscriber ID Subscriber Name Subscriber Date of Group No SELF PAY GENERAL INS ANY [facility] [address] SELF PAY GENERAL INS self YAIR BLACKMAN [id number] SELF PAY NO INSURANCE ANY [facility] [address] SELF PAY NO INSURANCE self YAIR BLACKMAN [id number] MEDICARE [address] [facility] [id number] MEDICARE self YAIR BLACKMAN [id number] S-SECONDAR Y OTHER [address] [facility] [id number] S-SECONDAR Y OTHER self YAIR BLACKMAN [id number] MEDICARE 3000 [facility] [id number] MEDICARE self YAIR BLACKMAN [id number]
== END 2022-08-18 16:10 | disposition home or self-care (01) ==
LOC: NCHCN 16:09
PROVIDERS: PCP Family Medicine; Visit Provider Family Medicine
DX: R39.11 Hesitancy of micturition (principal)
CPT/HCPCS: 87086

== ENCOUNTER 2023-03-22 18:18 | Outpatient (REF) | payer MEDICARE, SELFPAY ==
[2023-03-22 16:48] LABS: HCT 41.4 % (36.0-46.0); HGB 13.4 g/dL (11.2-15.7); MCHC 32.4 % (32.0-36.0); MCV 99 fL (80-95); MPV 9.9 fL (8.0-11.0); Platelet Count 293 10^3/uL (130-400); RBC 4.19 10^6/uL (3.93-5.22); RDW 14.9 % (11.7-14.6); RDW-SD 54.6 fL; WBC 7.17 10^3/uL (4.4-10.8)
[2023-03-22 16:57] LABS: Anion Gap 11.2 mmol/L (3-11); BUN 28 mg/dL (7-18); CO2 24.8 mmol/L (21.0-32.0); CREATININE 0.5 mg/dL (0.55-1.02); Calcium 9.1 mg/dL (8.5-10.1); Chloride 106 mmol/L (98-107); Estimated GFR 91.28 (mL/min/1.73m2); Glucose 99 mg/dL (74-106); Potassium 3.8 mmol/L (3.5-5.1); Sodium 142 mmol/L (136-145)
== END 2023-03-22 18:19 | disposition home or self-care (01) ==
LOC: NCHCN 18:18
PROVIDERS: PCP Family Medicine; Visit Provider Nurse Practitioner Family
DX: R53.83 Other fatigue (principal); M79.602 Pain in left arm; K21.9 Gastro-esophageal reflux disease without esophagitis; R35.0 Frequency of micturition
CPT/HCPCS: 80048; 85027; 87086